=== PATIENT | male | born 1965 ===

== ENCOUNTER 2016-04-08 13:15 | Inpatient (IN) ==
[2016-04-08] MEDS ORDERED: SODIUM CHLORIDE 0.9% 1,000 ML IV STA (13:32)
[2016-04-08] MEDS ORDERED: VANCOMYCIN INJ 1,000 MG in SODIUM CHLORIDE 0.9% 250 ML IV STA (13:35)
--- NOTE | 2016-04-08 13:43 | Emergency Department Note ---
Chidi Yuen Brittany, am scribing for, and in the presence of, Trino Art MD 13: 37. Kaelyn Yuen James D, MD, personally performed the services described in this documentation, ascribed by Yajaira Murillo in my presence, and it is both accurate and complete [id number] . Arrival - Arrival Chief Complaint: Shortness of Breath ED Nursing Triage Note: Transfer from [facility] ER for further evaluation of shortness of breath and renal failure. Elevated Bun/Creat. Also c/ o abscess to scrotum. +back pain. Mode of Arrival: Stretcher Limitations: No Limitations Source: Patient, EMS, Old Records Reviewed, RN Notes Reviewed - History of Present Illness HPI Narrative: This is a 50 y/o [place] male, who presents to the ED by EMS with c/o SOB which started earlier today. Pt was transferred from [facility] ER for further evaluation of SOB and renal failure. He states he has been "sick" for the past week. He was originally seen for back pain and an abscess to the scrotum. According to his labs which were drawn at [facility] he had an elvated BUN/Creat. Pt has no other complaints/pain in the ED at this time. Pt has a PMHx of HTN and CVA. Pt has had a cardiac cath and neurological surgery. Pt denies a family medical Hx. Pt denies a social Hx. Patient received clindamycin and Levaquin IV prior to transfer from [facility]. Gr catheter was placed at [facility] and patient has not had any urine output since placement of Gr catheter. He received 1-1 /2 L during his stay at [facility] and in the helicopter on the way to [place]. Onset (ago): hour(s) (Started earlier today) Consistency: constant Severity: moderate Allergies/Adverse Reactions: Allergies Allergy/AdvReac Type Severity Reaction Status Date / Time No Known Allergies Allergy Verified 01/04/16 14:01 Home Medications: Home Medications Medication Instructions Recorded Confirmed Type Carvedilol [Coreg] 12.5 mg PO BID #60 tablet 01/06/16 01/06/16 Rx Gabapentin Cap/Tab [Neurontin 600 mg PO TID #90 tablet 01/06/16 01/06/16 Rx Cap/Tab] HYDROcodone/ACETAMIN 10-325 [[place] 1 tablet PO Q4H #40 tablet 01/06/16 01/06/16 Rx 10-325] Lisinopril [Prinivil] 10 mg PO DAILY #30 tablet 01/06/16 01/06/16 Rx Potassium Chloride Cap/Tab [K Dur] 20 meq PO DAILY #30 tablet 01/06/16 01/06/16 Rx Review of System - Review of System 12 point system: reviewed and no additional remarkable complaints except as stated - Review of System Cardiovascular: Present: other (Dyspnea) Genitourinary male: Present: other (Abscess to scrotum) Medical,Surgical,& Family Hx - Medical History Cardio: History of: Hypertension Neurology: History of: Cerebrovascular Accident (possible per old chart) Musculoskeletal: History of: Back/Neck Problems - Surgical History Cardiac Surgeries: Sugical HX of: Cardiac Surgery (pfo repair as ) Neurologic Surgeries: Surgical HX of: Neurologic Surgery (back surgeries) - Social History Smoking Status: Smoker, status unknown Frequency of Alcohol Use: None Type of Drug Use: None Exam Vital Signs: Vital Signs Temperature 98.4 F 04/08/16 13:20 Pulse Rate 106 H 04/08/16 13:20 Respiratory Rate 26 H 04/08/16 13:20 Blood Pressure 84/44 04/08/16 13:20 O2 Sat by Pulse Oximetry 95 04/08/16 13:20 GENERAL: This is a acutely ill-appearing male in no apparent distress. VITAL SIGNS: Reviewed HEENT: Head is atraumatic and normocephalic. Pupils are equal round react to light. Extraocular movements are intact. Oropharynx is benign with moist mucous membranes. NECK: Neck is soft and supple without tenderness. There are no masses. There is no lymphadenopathy. LUNGS: Lungs are clear to auscultation. Chest rises symmetrically. There is no chest wall tenderness. CV: Heart is regular rate and rhythm without murmurs rubs or gallops. ABDOMEN: Abdomen is soft, tender to palpation the right upper quadrant with positive Echeverria sign. There are no abdominal abnormal masses palpated. There is no organomegaly. Bowel sounds are present and active. Genitalia: Normal circumcised male with testes descended bilaterally. There is a superficial abscess on the left hemiscrotum posteriorly. There is no tenderness to palpation between the scrotum and anus. There is no crepitus. SKIN: Skin is warm and dry. No rash. EXTREMITIES: Patient has full range of motion without tenderness. There is no pedal edema. NEUROLOGIC: Awake alert and oriented 4. Cranial nerves II through XII are grossly intact. Motor is 5 over 5 in all extremities bilaterally. Course Course Narrative: Patient was given 1 dose of vancomycin to complement Cleocin and Levaquin which had already been given. Suspect the patient has acute cholecystitis and common bile duct obstruction with resulting sepsis and renal failure. - Consultations Consultation #1: Discussed with hospitalist. Patient will be admitted to their service in the ICU. Time: 14: Consultation #2: Discussed with Dr. Bear. Patient will have dialysis access catheter placed. Time: 14:40 Consultation #3: Discussed with Dr. Bernabe. She will be dialyzed today. Time: 14:40 Procedures - Intubation Time out performed: Yes sedative: Etomidate Mg Given: 20 paralytic: Vecuronium Mg Given: 20 Laryngoscope: fiber optic video scope ET Tube Size: 7.5 ET Tube Uncuffed: No Tube Secured Depth (cm): 23 Tube Secured Location: teeth Tube Placement Confirmation: visualized tube passing through cords, equal breath sounds bilaterally, no breath sounds over epigastrium, confirmation detector color change Patient Tolerated Procedure: well Intubation Complications: none Results - Labs CBC & BMP: 04/08/16 13:37 04/08/16 13:37 Lab Results: I have reviewed the patients labs Labs: Lab performed at [facility] and reviewed by me: CBC: WBCs 11,200, hemoglobin 15.1, hematocrit 46.0, platelet count 220,000 CMP: Sodium 134, potassium 2.9, chloride 102, CO2 8, BUN 32, creatinine 12.1, S1 53, total bilirubin 0.5, total protein 8.3, alk phos 147, AST 15, ALT 39 Laboratory Tests 04/08/16 04/08/16 04/08/16 13:37 13:37 13:37 WBC 13.8 H Hgb 14.5 Hct 46.1 Plt Count 215 ABG pH ABG pCO2 ABG pO2 ABG HCO3 ABG Total CO2 ABG O2 Saturation ABG Base Excess FiO2 Sodium 137 Potassium 5.0 Chloride 111 H Carbon Dioxide 6 L Anion Gap 25.0 H BUN 32 H Creatinine 11.70 H GFR Calculation 5 BUN/Creatinine Ratio 2.00 L Glucose 141 H Hemoglobin A1c 7.4 H Calculated Osmolality 281.8 Lactic Acid Calcium 7.1 L b-Hydroxybutyric mmol/L 04/08/16 04/08/16 04/08/16 13:37 13:37 14:10 WBC Hgb Hct Plt Count ABG pH 7.011 L* ABG pCO2 17.6 L* ABG pO2 107.0 H ABG HCO3 7.1 L ABG Total CO2 4.2 L ABG O2 Saturation 97.1 ABG Base Excess -27.2 L FiO2 24.00 Sodium Potassium Chloride Carbon Dioxide Anion Gap BUN Creatinine GFR Calculation BUN/Creatinine Ratio Glucose Hemoglobin A1c Calculated Osmolality Lactic Acid 1.1 Calcium b-Hydroxybutyric mmol/L 0.1 - EKG EKG results: interpreted by ERMD - Impressions Sinus tachycardia with rate of 110, right bundle branch block, left anterior fascicular block, left axis deviation, bundle branch block impairs further interpretation. - Diagnostic Findings Procedure: Chest x-ray: image reviewed by me (Minimal increased pulmonary markings bilaterally), CT Abdomen and Pelvis: image reviewed by me (No evidence of gas in the pelvis or subcutaneous tissue. Distended gallbladder.), Ultrasound: report reviewed by me (Abdominal ultrasound: stones in the neck of the gallbladder. Common bile duct is slightly distended. No thickening of the gallbladder wall. No pericholecystic fluid. No evidence of hydronephrosis.) Disposition Clinical Impression: Scrotal abscess, Essential hypertension, Septic shock, Acute renal failure, Diabetes mellitus, RUQ abdominal pain, Cholelithiasis, Suspect cholecystitis, Metabolic acidosis Case discussed with: patient Disposition: Still a Patient Condition: Critical Time of Disposition: 14:15
[2016-04-08 13:51] LABS: Basophils % 0.1 % (0.0-0.8); Hematocrit 46.1 VOL% (42.0-52.0); Hemoglobin 14.5 GM/DL (14.0-18.0); Immature Granulocytes % 1.7 %; Immature Granulocytes Absolute 0.23 #; Lymphocytes # 0.8 10*3/uL (1.4-4.0); Lymphocytes % 5.5 % (21.2-54.2); Mean Corpuscular HGB Conc 31.5 GM/DL (32-36); Mean Corpuscular Hemoglobin 30 PG (27-34); Mean Platelet Volume 9.3 FL (9.6-12.0); Monocytes # 1.2 10*3/uL (0.11-0.8); Monocytes % 8.8 % (1.7-12.7); NRBC # 0.03 10*3/uL; Neutrophils # 11.6 10*3/uL (1.4-7.4); Neutrophils % 83.9 % (38.7-73.9); Platelet Count 215 10*3/uL (130-400); Red Cell Distribution Width 14.2 % (9.3-17.3); White Blood Count 13.8 10*3/uL (4.5-13.71)
--- NOTE | 2016-04-08 14:01 | EKG Report ---
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
--- NOTE | 2016-04-08 14:02 | XRay Report ---
History is short of breath Comparison 04/08/2016 The heart is normal in size. The patient is rotated. There is right hilar fullness some which is present on the prior study dating back to 2009 accentuated by rotation. There is also accentuation by the discoid atelectasis in the right base additional reticulonodular and hazy infiltrate the right perihilar region and lung base. There is mild elevation right diaphragm And minimal patchy and stranding infiltrate/atelectasis in the left base is now present as well. Clips in the neck present. Chronic changes in the right rib cage again noted Impression: 1. Increasing right greater than left basilar infiltrates/atelectasis. Short-term followup chest x-ray necessary to ensure a return to baseline PROCEDURE INTERPRETED AT [facility] DEPARTMENT OF RADIOLOGY Final Report Signed by: Dr. Naz Recinos
[2016-04-08] MEDS ORDERED: VANCOMYCIN 1,000 MG VIAL ONE (14:05)
[2016-04-08] MEDS ORDERED: SODIUM CHLORIDE 0.9% 250 ML IV ONE ×2 (14:06→18:40)
[2016-04-08 14:07] LABS: Calcium 7.1 MG/DL (8.5-10.1); Osmolality,Calculated 281.8 MOS/KG (273-304)
--- NOTE | 2016-04-08 14:15 | CT Report ---
History is perineal abscess Comparison 06/20/2009 Calcified hilar nodes again seen. There has been development of the patchy stranding and reticular infiltrate/atelectasis in both lung bases with some mildly more with infiltrate or atelectasis in the right lung base. Small hernia present There is mild distention of the gallbladder. There is a 3 mm calculus at the lower pole left kidney. No secondary signs of acute ureteral obstruction seen. Less than one CM retroperitoneal nodes again seen. Very minimal stranding in the retroperitoneal fat is nonspecific. Bowel is unopacified 2 fluid-filled loops of small bowel measure up to 2.3 CM. Pelvis: No free fluid or focal inflammatory changes seen. Nonspecific less than one CM bilateral inguinal nodes present. The entire perineum is not imaged however no discrete focal inflammatory changes or soft tissue gas seen. There is partial ankylosis of the left SI joint Impression: 1. Bilateral basilar infiltrates and atelectasis 2. Nonspecific gallbladder distention 3. Left nephrolithiasis PROCEDURE INTERPRETED AT [facility] DEPARTMENT OF RADIOLOGY Final Report Signed by: Dr. Naz Recinos
[2016-04-08 14:18] LABS: Allen Test Positive
[2016-04-08 14:20] LABS: ABG Base Excess -27.2 MMOL/L (-2.5-2.5); ABG HCO3 7.1 MMOL/L (20-26); ABG Oxygen Saturation 97.1 % (95-100); ABG TCO2 4.2 MMOL/L (23-27)
[2016-04-08 14:22] LABS: ABG PCO2 17.6 MM HG (35-48); ABG PH 7.011 (7.35-7.45)
[2016-04-08] MEDS ORDERED: SODIUM BICARBONATE 50 MEQ/50 ML VIAL IV STA (14:22)
[2016-04-08] MEDS ORDERED: ETOMIDATE 20 MG/10 ML VIAL IV ONE (14:33)
[2016-04-08] MEDS ORDERED: VECURONIUM 10 MG VIAL IV ONE ×2 (14:34→14:45)
[2016-04-08] MEDS ORDERED: SODIUM BICARBONATE 50 MEQ/50 ML VIAL IV ONE ×2 (14:34→18:39)
[2016-04-08] MEDS ORDERED: VECURONIUM 10 MG VIAL IV STA ×2 (14:44→14:47)
[2016-04-08] MEDS ORDERED: ETOMIDATE 20 MG/10 ML VIAL IV STA (14:45)
--- NOTE | 2016-04-08 14:58 | Ultrasound Report ---
Exam: US abdomen Date:04/08/2016 1:45 PM Indication: Abdominal pain right upper quadrant Comparison: None Findings: Liver: Liver is grossly 15.2 cm. The hepatic and portal veins are patent. Inhomogeneity present within the liver. Gallbladder: Gallbladder is distended measuring 10.1 x 5 cm. The anterior wall is 3.9 mm with the multiple stones present. CBD: 10.1 mm with suggestion of a possible stone in the common bile duct. Pancreas: Poorly visualized. Kidneys Right kidney: 10.6 x 4.7 x 5.2 cm. No hydronephrosis or perinephric fluid collections or focal mass Left kidney: 11.6 x 6 x 7 cm. There is no hydronephrosis or perinephric fluid collections or focal mass Aorta IVC: No obvious aneurysm. The aortic vessel and IVC as imaged are patent without obvious abnormality Spleen: 9 by 4 x 4 centimeters without focal abnormalities. Impression: 1. Cholelithiasis with multiple stones present and component hydrops the gallbladder. 2. Distended CBD measures 10.1 mm with suggestion of the choledocholithiasis.. No intrahepatic bile duct dilatation however clearly seen at this time. 3. Pancreas is visualized however 4. Mild inhomogeneity within the liver ERCP and/or MRCP may be beneficial. Critical test report called to Richard Art MD Ultrasound images were stored and captured The Ultrasound images were captured and stored. PROCEDURE INTERPRETED AT [facility] DEPARTMENT OF RADIOLOGY Final Report Signed by: Dr. Juice Molina
[2016-04-08] MEDS ORDERED: MIDAZOLAM 10 MG/2 ML VIAL ONE (15:06)
--- NOTE | 2016-04-08 15:10 | Nephrology Consult Note ---
History of Present Illness Chief complaint: Acute renal failure History of present illness: Mr. Pace is a 50 year old male with history of hypertension and diabetes who was hospitalized last year for left-sided weakness that involved workup as well as consultation with neurology. Patient has CT of his head at that time that showed no acute changes but there was concern that there will might need neurosurgical indications for some of the weakness that the patient experiencing. The patient presented today from outside facility we shortness of breath and evidence of acute renal failure creatinine up to 11. Back in December patient had creatinine of 1.6. There is no streaking of end-stage use. Patient does use an MARYSOL inhibitor. At present he is intubated and has severe metabolic acidosis. Accuracy Expert been consult for acute renal failure. There is been no urine output since his evaluation in the emergency room. Again creatinine is noted to be 11. We'll operations for urgent hemodialysis for this patient. Moreover, patient has evidence of cholecystitis and surgery has also been consulted for further evaluation. Home Medications Medication Instructions Recorded Confirmed Type Carvedilol [Coreg] 12.5 mg PO BID #60 tablet 01/06/16 01/06/16 Rx Gabapentin Cap/Tab [Neurontin 600 mg PO TID #90 tablet 01/06/16 01/06/16 Rx Cap/Tab] HYDROcodone/ACETAMIN 10-325 [[place] 1 tablet PO Q4H #40 tablet 01/06/16 01/06/16 Rx 10-325] Lisinopril [Prinivil] 10 mg PO DAILY #30 tablet 01/06/16 01/06/16 Rx Potassium Chloride Cap/Tab [K Dur] 20 meq PO DAILY #30 tablet 01/06/16 01/06/16 Rx Allergies Allergy/AdvReac Type Severity Reaction Status Date / Time No Known Allergies Allergy Verified 01/04/16 14:01 Medical,Surgical,& Family Hx - Medical History Cardio: History of: Hypertension Neurology: History of: Cerebrovascular Accident (possible per old chart) Musculoskeletal: History of: Back/Neck Problems - Surgical History Cardiac Surgeries: Sugical HX of: Cardiac Surgery (pfo repair as infant) Neurologic Surgeries: Surgical HX of: Neurologic Surgery (back surgeries) Orthopedic Surgeries: Surgical HX of;: Spinal Surgery - Social History Smoking Status: Smoker, status unknown Frequency of Alcohol Use: None Type of Drug Use: None Review of Systems ROS unobtainable: due to endotracheal tube Exam - Vital Signs Vital signs: Period Temp Pulse Resp BP Sys/Mishra Pulse Ox Last 24 Hr 98.4 F 106 26 84/44 95 - General Appearance General appearance: well-developed, sedated on ventilator, intubated EENT: ATNC Neck: supple Respiratory: rales Cardiology: no edema, regular rate, regular rhythm Gastrointestinal: normoactive bowel sounds, no tenderness Neurologic: obtunded Results - Labs CBC & BMP: 04/08/16 13:37 04/08/16 13:37 Assessment and Plan (1) Respiratory failure Status: Acute Current Visit: Yes (2) Acute renal failure Status: Acute Assessment and plan: Making arrangement for renal failure Hepatitis panel Current Visit: Yes (3) Diabetes mellitus Status: Chronic Current Visit: Yes Qualifiers: Diabetes mellitus type: type 2 Diabetes mellitus complication status: with kidney complications (4) Essential hypertension Status: Chronic Current Visit: Yes (5) Remote history of stroke Status: Chronic Current Visit: No
[2016-04-08] MEDS ORDERED: MIDAZOLAM 2 MG/2 ML VIAL IV STA (15:12)
[2016-04-08] MEDS ORDERED: MIDAZOLAM 2 MG/2 ML VIAL ONE (15:14)
--- NOTE | 2016-04-08 15:35 | XRay Report ---
Referring Physician: Trino Art Exam: XR chest 1V portable Date: April 08, 2016 at 2:40 PM Reason: Post intubation Comparison: Chest one view portable April 08, 2016 at 1:55 PM Findings: An endotracheal tube is in place with its distal tip at the level of the giovana, directed towards right mainstem bronchus. The cardiac silhouette is normal in size for the portable technique. There are scattered opacities within both lower lung zones, mainly in the right infrahilar region. This is concerning for atelectasis, but superimposed pneumonia is not excluded. No pneumothorax or pleural effusion is identified. The osseous structures appear stable with note made of a remote fracture of the sixth rib. There are also surgical clips at the neck. Impression: 1. The distal tip of the endotracheal tube is at the level of the giovana, directed towards right mainstem bronchus. Retraction is recommended. 2. There are scattered opacities within both lower lung zones. This likely represents atelectasis, but there could also be pneumonia. Followup is recommended to confirm resolution. Exam: XR chest 1V portable Date: April 08, 2016 at 2:47 PM Comparison: Chest one view portable April 08, 2016 at 2:40 PM Reason: Reposition of endotracheal tube Findings: The distal tip of the endotracheal tube is now located at the level of the aortic arch, approximately 3 cm above the giovana. The cardiac silhouette is normal in size. There are scattered opacities again within both lower lung zones. This likely represents atelectasis, but superimposed pneumonia is not excluded, especially in the right infrahilar region. Followup is recommended to confirm resolution. No pneumothorax or pleural effusion is identified. The osseous structures appear stable. Impression: The distal tip of the endotracheal tube is now at the level of the aortic arch, approximately 3 cm above the giovana. The study is otherwise similar to before. PROCEDURE INTERPRETED AT [facility] DEPARTMENT OF RADIOLOGY Final Report Signed by: Dr. Arash Anderson
[2016-04-08] MEDS: MIDAZOLAM 100 MG in SODIUM CHLORIDE 0.9% 80 ML IV SCH (16:01)
--- NOTE | 2016-04-08 16:01 | Hospitalist History & Physical ---
<Madeleine Michele N - Last Filed: 04/08/16 15:57> Assessment and Plan - Time spent with patient Time spent with patient: Greater than 30 minutes (due to assessment, plan and documentation) (1) Acute renal failure Status: Acute Assessment and plan: nephrology managing, emergent dialysis Current Visit: Yes (2) Cholelithiasis Status: Acute Assessment and plan: surgery consulted Current Visit: Yes (3) Metabolic acidosis Status: Acute Assessment and plan: Dr. Batista to manage orders, further plan and addendum to follow per Dr. Batista Current Visit: Yes (4) Respiratory failure Status: Acute Assessment and plan: intubated in ICU Current Visit: Yes History of Present Illness History of present illness: Mr. Pace is a 50 year old male who presents from the OSH today with shortness of breath and severe metabolic acidosis. He also presents with acute renal failure. Pt is in respiratory distress and required intubation in the ER. ROS discussed with ER MD. He states he had been having n/v/d for three days, decreased PO intake, did complain of RUQ pain. Pt is found to have acute cholycystitis as well, surgery has been consulted. Dr. Bernabe with nephrology is seeing him for his acute renal failure and has initiated procedures to have him emergently dialized. Pt has a PMH of DM and HTN and left sided stroke workup in the past. PSH unobtainable. He does not smoke. Home Medications Medication Instructions Recorded Confirmed Type Carvedilol [Coreg] 12.5 mg PO BID #60 tablet 01/06/16 01/06/16 Rx Gabapentin Cap/Tab [Neurontin 600 mg PO TID #90 tablet 01/06/16 01/06/16 Rx Cap/Tab] HYDROcodone/ACETAMIN 10-325 [[place] 1 tablet PO Q4H #40 tablet 01/06/16 01/06/16 Rx 10-325] Lisinopril [Prinivil] 10 mg PO DAILY #30 tablet 01/06/16 01/06/16 Rx Potassium Chloride Cap/Tab [K Dur] 20 meq PO DAILY #30 tablet 01/06/16 01/06/16 Rx Allergies Allergy/AdvReac Type Severity Reaction Status Date / Time No Known Allergies Allergy Verified 01/04/16 14:01 Medical,Surgical,& Family Hx - Medical History Cardio: History of: Hypertension Neurology: History of: Cerebrovascular Accident (possible per old chart) Musculoskeletal: History of: Back/Neck Problems - Surgical History Cardiac Surgeries: Sugical HX of: Cardiac Surgery (pfo repair as infant) Neurologic Surgeries: Surgical HX of: Neurologic Surgery (back surgeries) Orthopedic Surgeries: Surgical HX of;: Spinal Surgery - Social History Smoking Status: Smoker, status unknown Frequency of Alcohol Use: None Type of Drug Use: None ROS unobtainable: due to endotracheal tube Exam - Constitutional General appearance: severe distress - Head Head exam: Present: normal inspection, normocephalic - Eye Eye exam: Present: EOMI. Absent: scleral icterus Pupils: Present: NAA, normal accommodation - ENT ENT exam: Present: normal exam, normal oropharynx - Neck Neck exam: Present: normal inspection. Absent: lymphadenopathy - Respiratory Respiratory exam: Present: accessory muscle use, decreased breath sounds, prolonged expiratory phase, wheezes - Cardiovascular Cardiovascular exam: Present: regular rate and rhythm, tachycardia - GI/Abdominal GI/Abdominal exam: Present: normal bowel sounds, soft. Absent: tenderness - Extremities Exam Extremities exam: Present: normal inspection, full ROM. Absent: edema - Back Exam Back exam: Present: normal inspection. Absent: muscle spasm - Neurological Exam Neurological exam: Present: alert, oriented X3 - Psychiatric Psychiatric exam: Present: anxious - Skin Skin exam: Present: warm, dry Results - Labs CBC & BMP: 04/08/16 13:37 04/08/16 13:37 Lab Results: I have reviewed the past 24 hour labs <Guanaco Batista - Last Filed: 04/08/16 19:32> History of Present Illness Chief complaint: sob & severe metabolic acidosis/transfer from OSH History of present illness: I have reviewed the H&P, ROS, assessment and plan by Joseph and agree with it except where noted. I have examined the patient in person. Mr. Pace is a 50 year old male from outside facility OSH transferred for apparent shortness of breath and severe metabolic acidosis after initial workup done at that facility. Patient was ET intubated in the ER and initial workup revealed pH of 7.0. ROS was unobtainable because of the patient get a medical status. No family members were present at the time. O/E Gen: pt intubated on MV, heart distant s1s2, Lung coarse BS, abd soft BS present, Ext no cyanosis, trace edema. HEENT PERRL. Neuro limited. PERRL. - severe sepsis - cholilithiasis/CBD dilatation/possible acute cholecystitis - Severe acute kidney injury - Acute respiratory failure - Acute encephalopathy - Severe metabolic acidosis - Left nephrolithiasis - Bilateral bibasilar infiltrate and atelectasis - dvt ppx P: Surgery service and nephrology service consulted and informed by the ER, hemodialysis MAXIMO after hemodialysis catheter placement, bicarbonate ampules given, IV fluid, needed pressors, sepsis workup, periodic ABG chest x-ray, consult sales service promoter, will consult GI, weaning of mechanical ventilation as possible/ BDTx, check cardiac enzymes/EKG plan for NGT/TF when possible., posada cath and check I/O. review records Exam - Constitutional Vitals: Period Temp Pulse Resp BP Sys/Mishra Pulse Ox Last 24 Hr 97.6 F 114-118 14-20 69-89/38-54 96-99 Results - Labs CBC & BMP: 04/08/16 13:37 04/08/16 13:37
[2016-04-08 16:37] LABS: Hepatitis A Ab IgM Quant 0.08 Index; Hepatitis A Ab IgM Result Negative (Negative); Hepatitis B Core IgM Quant 0.17 Index; Hepatitis B Core IgM Result Negative (Negative); Hepatitis B Surface Ag Quant < 0.10 Index; Hepatitis B Surface Ag Result Negative (Negative); Hepatitis C Virus Ab Quant 0.05 Index; Hepatitis C Virus Ab Result Negative (Negative)
--- NOTE | 2016-04-08 17:12 | General Surgery Consult Note ---
Assessment and Plan (1) Acute renal failure Status: Acute Assessment and plan: Dialysis catheter placement will be achieved with emergent consent due to the emergent nature of the patient's current situation. The patient will be started on hemodialysis. This is for acidosis. Current Visit: Yes (2) Cholelithiasis Status: Acute Assessment and plan: Although the patient has concerning imaging features, his lab work is fairly unrevealing and apparently he was never complaining of any abdominal pain prior to intubation. I would prefer to evaluate this more fully with a HIDA scan rather than submitting him to a cholecystostomy tube. His lactic acid was normal on admission and I think his hemodynamic instability can be explained by his renal failure with severe acidosis. The patient is currently requiring pressors but I would like to get a HIDA scan and see what happens as his renal replacement therapy is initiated to see if he really does need a HIDA scan or if this is just an imaging finding without clinical problems. He does also have a dilated bile duct but his bilirubin is normal and his alkaline phosphatase is only minimally elevated. We will trend this prior to consulting gastroenterology. Current Visit: Yes History of Present Illness Chief complaint: right groin pain History of present illness: Mr. Pace is a 50 year old male who presented to an outside facility with complaints of pain in his right scrotum and groin. He was transferred [facility] after he was found to be in renal failure. He was severely acidotic and unable to keep up with his increased compensatory ventilation and had to be intubated for respiratory distress. He was admitted to the ICU and I was consult at for severe acidosis as an indication for emergent hemodialysis. In addition, the patient was evaluated with abdominal CT scan and ultrasound which showed potential hydrops of the gallbladder and dilation of the bile duct. However, his alkaline phosphatase was minimally elevated and the remainder of his LFTs were normal and the patient was never complaining of any abdominal pain. Home Medications Medication Instructions Recorded Confirmed Type Carvedilol [Coreg] 12.5 mg PO BID #60 tablet 01/06/16 01/06/16 Rx Gabapentin Cap/Tab [Neurontin 600 mg PO TID #90 tablet 01/06/16 01/06/16 Rx Cap/Tab] HYDROcodone/ACETAMIN 10-325 [[place] 1 tablet PO Q4H #40 tablet 01/06/16 01/06/16 Rx 10-325] Lisinopril [Prinivil] 10 mg PO DAILY #30 tablet 01/06/16 01/06/16 Rx Potassium Chloride Cap/Tab [K Dur] 20 meq PO DAILY #30 tablet 01/06/16 01/06/16 Rx Allergies Allergy/AdvReac Type Severity Reaction Status Date / Time No Known Allergies Allergy Verified 01/04/16 14:01 Medical,Surgical,& Family Hx - Medical History Cardio: History of: Hypertension Neurology: History of: Cerebrovascular Accident (possible per old chart) Musculoskeletal: History of: Back/Neck Problems - Surgical History Cardiac Surgeries: Sugical HX of: Cardiac Surgery (pfo repair as ) Neurologic Surgeries: Surgical HX of: Neurologic Surgery (back surgeries) Orthopedic Surgeries: Surgical HX of;: Spinal Surgery - Social History Smoking Status: Smoker, status unknown Frequency of Alcohol Use: None Type of Drug Use: None - Constitutional Constitutional: Present: as per HPI - EENT Nose, mouth and throat: Present: as per HPI - Cardiovascular Cardiovascular: Present: as per HPI - Respiratory Respiratory: Present: as per HPI - Gastrointestinal Gastrointestinal: Present: as per HPI - Genitourinary Genitourinary: Present: as per HPI - Musculoskeletal Musculoskeletal: Present: as per HPI - Neurological Neurological: Present: as per HPI - Endocrine Endocrine: Present: as per HPI Hematologic/Lymphatic: Present: as per HPI Exam - Constitutional Vitals: Period Temp Pulse Resp BP Sys/Mishra Pulse Ox Last 24 Hr 118 18 84/45 98 General appearance: severe distress, over weight - Head Head exam: Present: normal inspection - Eye Eye exam: Absent: scleral icterus - ENT ENT exam: Present: normal exam Mouth exam: Present: normal external inspection - Neck Neck exam: Present: normal inspection, trachea midline - Respiratory Respiratory exam: Present: rales, rhonchi. Absent: accessory muscle use - Cardiovascular Cardiovascular exam: Present: tachycardia. Absent: irregular rhythm, systolic murmur - GI/Abdominal GI/Abdominal exam: Present: normal bowel sounds, soft. Absent: distended, tenderness, rebound - Extremities Exam Extremities exam: Present: normal inspection, normal capillary refill - Back Exam Back exam: Present: normal inspection - Skin Skin exam: Present: other (there is an abscess in the right scrotum that doesn' t involve the testicle. It appears to be a superficial scrotal abscess. It was drained at the bedside and culture.) Results - Labs CBC & BMP: 04/09/16 04:30 04/09/16 04:30
[2016-04-08 17:19] LABS: Albumin 3.7 G/DL (3.4-5.0); Bilirubin,Direct 0.1 MG/DL (0.0-0.20); Bilirubin,Indirect 0.4 MG/DL (0.0-1.0); Bilirubin,Total 0.5 MG/DL (0.2-1.0); Total Protein 7.6 G/DL (6.4-8.3)
[2016-04-08] MEDS ORDERED: ALBUTEROL/IPRATROPIUM 3 ML NEB RESP TX PRN (17:31)
[2016-04-08] MEDS ORDERED: ALBUTEROL 2.5 MG/3 ML NEB RESP TX PRN (17:31)
[2016-04-08] MEDS ORDERED: ONDANSETRON 4 MG/2 ML VIAL IV PRN (17:31)
[2016-04-08] MEDS ORDERED: NOREPINEPHRINE 4 MG/4 ML VIAL IV ONE ×2 (18:15)
[2016-04-08 18:28] LABS: INR 1.1; PT Patient Result 11.3 SECS
[2016-04-08] MEDS ORDERED: NOREPINEPHRINE 16 MG in SODIUM CHLORIDE 0.9% 234 ML IV SCH (18:30)
[2016-04-08] MEDS: PANTOPRAZOLE 40 MG VIAL IV SCH (18:32)
--- NOTE | 2016-04-08 18:32 | XRay Report ---
Exam: XR chest 1V portable Date: 04/08/2016 5:10 PM Indication: Dialysis catheter placement Comparison: 04/08/2016 at 2:50 PM Technical:AP semierect portable Findings: Endotracheal tube is at the level mid clavicle. A right-sided IJ catheter has been placed distal tip is in the superior vena cava. Low-volume effusions and atelectatic changes are present bilaterally. External cardiac leads are present. No pneumothorax. Previous surgical changes over the neck bilaterally. Impression: 1. Satisfactory is the right IJ catheter with the distal tip in the superior vena cava to right atrial junction 2. Stable appearance of endotracheal tube 3. Persistent low-volume effusions atelectatic change present bilaterally PROCEDURE INTERPRETED AT [facility] DEPARTMENT OF RADIOLOGY Final Report Signed by: Dr. Juice Molina
[2016-04-08] MEDS: PIPERACILLIN/TAZOBACTAM 3,375 MG in SODIUM CHLORIDE 0.9% 100 ML IV SCH (18:33)
[2016-04-08] MEDS: SODIUM CHLORIDE 0.9% 1,000 ML IV SCH ×2 (18:33→19:15)
[2016-04-08 18:37] LABS: ABG Base Excess -23.3 MMOL/L (-2.5-2.5); ABG HCO3 7.9 MMOL/L (20-26); ABG Oxygen Saturation 86.4 % (95-100); ABG PCO2 35.5 MM HG (35-48); Allen Test Negative; Pt O2 Delivery Device Ventilator
[2016-04-08 18:39] LABS: ABG PH 6.967 (7.35-7.45)
[2016-04-08] MEDS ORDERED: CALCIUM GLUCONATE 1,000 MG in SODIUM CHLORIDE 0.9% 100 ML IV ONE (18:40)
[2016-04-08 18:41] LABS: Lactic Acid 0.7 MMOL/L (0.4-2.0)
[2016-04-08] MEDS: NOREPINEPHRINE 8 MG in SODIUM CHLORIDE 0.9% 242 ML IV SCH (18:56)
--- NOTE | 2016-04-08 20:05 | Pulmonology Consult Note ---
History of Present Illness Chief complaint: Respiratory failure. Acute renal failure. History of present illness: Mr. Pace is a 50 year old male whom I been asked to see in pulmonary consultation for evaluation and treatment and management of mechanical ventilation. This patient was transferred from an outside hospital where he presented with shortness of breath and severe metabolic acidosis. He also had acute renal failure. He was in respiratory distress and required intubation in the emergency room. Patient told the emergency room doctor he been having nausea and vomiting and diarrhea for 3 days. He had a decreased oral intake of fluid and food. He was complained of right upper quadrant pain. He was found to have acute cholecystitis. He is hypotensive and he is on pressor agents. Patient's NG tube yielding material that looks like acute vomitus. Patient is sedated and his review of systems was obtained from his other medical records. As best I can tell the remainder the review of systems is negative. Allergies. None known Home medicines. See below Past history high blood pressure. History of a CVA. History of back and neck problems. He had heart surgery as an . He has had back surgery. Social history. Unable to obtain. Family history. Unable to obtain. Chest x-ray. Bilateral pleural effusions. ABGs. FiO2 60%. Mechanical ventilation. PH 6.967. PCO2 35.5. PO2 58. Bicarb 7.9. Lab. White count is 13,800 with 84% segs. H&H is 14.5/46.1. Platelets of 215, 000. Serum potassium and chloride are normal. Creatinine is 11.7. BUN is 32. Glucose is 141. Hemoglobin A1c is 7.4. Lactic acid level is normal. Calcium is low at 7.1. Liver function test showed normal transaminases. There is a mild elevation of alkaline phosphate 147. Total bilirubin is 0.50. Ammonia levels elevated 54. Troponins are 0.141. Natruretic peptide is 243. Total protein and albumin are normal. Lipase is elevated 876. Hepatitis profile was negative. The remainder of the lab is pending. Vital signs. See below. Patient is on Levophed to support his blood pressure Sclera appears normal face is symmetrical. Salivary glands normal lips and tongue appear to be normal neck is symmetrical with no masses no meningismus Chest is clear. Heart is regular at 140 bpm Abdomen. Hard to examine. He has guarding in the right upper quadrant. Lower extremities. Nothing to suggest deep venous thrombophlebitis A good neurological exam is impossible. The remainder the physical exam is negative. Impression. 1. Nausea vomiting diarrhea etiology undetermined. Possibly related to gallbladder disease. Consider other causes. Resultant dehydration 2. Hypotension. Partially secondary to #1. Consider sepsis. 3. Acute cholecystitis. 4. Acute renal failure. Probably secondary to #1 and #2. 4.1. Acute metabolic acidosis probably secondary to acute renal failure and possibly secondary to sepsis 5. Diabetes mellitus 6. Heart surgery as an 7. History of back surgery 8. High blood pressure 9. Possible history of CVA 10. Acute pancreatitis. 11. Bilateral pleural effusions 12. Acute pulmonary failure. At least partially secondary to acute renal failure and hypotension requiring pressor agents, with severe metabolic acidosis. Consider other causes there may be other factors such as underlying lung disease and/or pulmonary emboli 13. See past history Plan. 1. Continue high rate of fluids. Bicarb added. Continue pressor agents 2. Ventilator adjustments made. 3. Weaning protocol 4. Physical therapy while on ventilator protocol 5. Doppler venograms of lower extremities. 6. Daily chest x-ray 7. Daily ABGs 8. If the patient is stable he will be evaluated with fiberoptic bronchoscopy in the morning. Based on endotracheal return it appears that he has aspirated. 9. Follow-up ABGs tonight 10. Deep venous thrombophlebitis prevention protocol 11. See orders. Home Medications Medication Instructions Recorded Confirmed Type Carvedilol [Coreg] 12.5 mg PO BID #60 tablet 01/06/16 01/06/16 Rx Gabapentin Cap/Tab [Neurontin 600 mg PO TID #90 tablet 01/06/16 01/06/16 Rx Cap/Tab] HYDROcodone/ACETAMIN 10-325 [[place] 1 tablet PO Q4H #40 tablet 01/06/16 01/06/16 Rx 10-325] Lisinopril [Prinivil] 10 mg PO DAILY #30 tablet 01/06/16 01/06/16 Rx Potassium Chloride Cap/Tab [K Dur] 20 meq PO DAILY #30 tablet 01/06/16 01/06/16 Rx Allergies Allergy/AdvReac Type Severity Reaction Status Date / Time No Known Allergies Allergy Verified 01/04/16 14:01 Exam (Pulmonay) H&P - Constitutional Vitals: Period Temp Pulse Resp BP Sys/Mishra Pulse Ox Last 24 Hr 97.6 F 114-118 14-20 69-89/38-54 96-99 Medical,Surgical,& Family Hx - Medical History Cardio: History of: Hypertension Neurology: History of: Cerebrovascular Accident (possible per old chart) Musculoskeletal: History of: Back/Neck Problems - Surgical History Cardiac Surgeries: Sugical HX of: Cardiac Surgery (pfo repair as infant) Neurologic Surgeries: Surgical HX of: Neurologic Surgery (back surgeries) Orthopedic Surgeries: Surgical HX of;: Spinal Surgery - Social History Smoking Status: Smoker, status unknown Frequency of Alcohol Use: None Type of Drug Use: None Results - Labs CBC & BMP: 04/08/16 13:37 04/08/16 13:37
[2016-04-08 20:16] LABS: ABG Base Excess -12.7 MMOL/L (-2.5-2.5); ABG HCO3 14.5 MMOL/L (20-26); ABG Oxygen Saturation 90.4 % (95-100); ABG PCO2 37.5 MM HG (35-48); ABG PO2 55.8 MM HG (80-95); ABG TCO2 15.6 MMOL/L (23-27); Allen Test Positive; Pt O2 Delivery Device Ventilator
[2016-04-08 20:19] LABS: ABG PH 7.204 (7.35-7.45)
--- NOTE | 2016-04-08 20:30 | Dialysis Note ---
Dialysis Note - Dialysis Note The patient is seen on dialysis. He is tolerating the procedure. BP is 120/ 73. Continue with current management. Will plan for dialysis on tomorrow.
[2016-04-08] MEDS: SODIUM BICARB INJ 50 MEQ in SODIUM CHLORIDE 0.9% 1,000 ML IV SCH (20:57)
[2016-04-08] MEDS: PROPOFOL 1,000 MG/100 ML BOTTLE IV SCH (23:10)
[2016-04-09] MEDS: SODIUM CHLORIDE 0.9% 1,000 ML IV SCH ×3 (02:23→10:56)
[2016-04-09] MEDS: SODIUM BICARB INJ 50 MEQ in SODIUM CHLORIDE 0.9% 1,000 ML IV SCH ×3 (03:45→19:25)
[2016-04-09 03:58] LABS: Apearance,Urine CLOUDY (Clear); Bacteria,Urine Many /HPF (Few); Bilirubin,Urine Negative (Negative); Blood, Urine Large mg/dL (Negative); Glucose,Urine (UA) 50 mg/dL (Negative); Ketones,Urine 5 mg/dL (Negative); Nitrite,Urine Negative (Negative); Protein,Urine 100 MG/DL; RBC,Urine 1396 /HPF (0-4); Squamous Epithelial Cell,Urine Few /HPF (0-10); Urine Color Amber (Yellow); Urine Specific Gravity 1.019 (1.001-1.035); Urine Urobilinogen < 2.0 EU/DL (0.2-1.0); WBC,Urine 197 /HPF (0-6)
[2016-04-09 04:52] LABS: Basophils % 0.2 % (0.0-0.8); Hematocrit 40.7 VOL% (42.0-52.0); Hemoglobin 12.7 GM/DL (14.0-18.0); Immature Granulocytes % 0.5 %; Immature Granulocytes Absolute 0.04 #; Lymphocytes # 0.5 10*3/uL (1.4-4.0); Lymphocytes % 5.5 % (21.2-54.2); Mean Corpuscular HGB Conc 31.2 GM/DL (32-36); Mean Corpuscular Hemoglobin 31 PG (27-34); Mean Corpuscular Volume 98.1 FL (87-102); Mean Platelet Volume 9.7 FL (9.6-12.0); Monocytes # 1.2 10*3/uL (0.11-0.8); Monocytes % 13.4 % (1.7-12.7); NRBC # 0.02 10*3/uL; Neutrophils # 7.1 10*3/uL (1.4-7.4); Neutrophils % 80.4 % (38.7-73.9); Platelet Count 136 10*3/uL (130-400); Red Blood Count 4.15 10*6/uL (3.8-5.5); Red Cell Distribution Width 14.4 % (9.3-17.3); White Blood Count 8.9 10*3/uL (4.5-13.71)
[2016-04-09] MEDS: PROPOFOL 1,000 MG/100 ML BOTTLE IV SCH ×4 (05:15→22:55)
[2016-04-09 05:19] LABS: Band Neutrophils 3 % (0-10); Hypochromasia Slight; Lymphocytes 5 % (20-55); Platelet Estimate Normal; Segmented Neutrophils 85 % (50-85); Total Cells Counted 100
[2016-04-09 05:27] LABS: ABG Base Excess -13.9 MMOL/L (-2.5-2.5); ABG HCO3 13.9 MMOL/L (20-26); ABG PCO2 22.3 MM HG (35-48); ABG PH 7.304 (7.35-7.45); ABG TCO2 9.9 MMOL/L (23-27); Pt O2 Delivery Device Ventilator
[2016-04-09 05:28] LABS: Albumin 2.6 G/DL (3.4-5.0); Bilirubin,Total 0.6 MG/DL (0.2-1.0); Calcium 6.2 MG/DL (8.5-10.1); Potassium 3.2 MMOL/L (3.5-5.1); Total Protein 5.7 G/DL (6.4-8.3)
[2016-04-09] MEDS: PIPERACILLIN/TAZOBACTAM 3,375 MG in SODIUM CHLORIDE 0.9% 100 ML IV SCH ×2 (06:47→18:02)
--- NOTE | 2016-04-09 06:55 | XRay Report ---
Single view of the chest. Indication: Respiratory failure. Ventilated patient. Comparison: April 08, 2016. The heart is normal in size with left ventricular hypertrophy. Surgical clips are noted in the lower neck. Endotracheal tube and central line are in satisfactory position. Scattered areas of linear atelectasis at the right lung base, with some improvement. Worsening infiltrate at the left mid and lower lung field. Volume loss at the left base. Left-sided pleural effusion. Impression: Mixed findings, with improved aeration at the right base, but worsening infiltrates, particularly in the left midlung field. PROCEDURE INTERPRETED AT [facility] DEPARTMENT OF RADIOLOGY Final Report Signed by: Dr. Shobha Recinos
--- NOTE | 2016-04-09 07:37 | Ultrasound Report ---
Referring physician: Guanaco Batista MD Exam: Bilateral lower extremity venous ultrasound Date: April 09, 2016 Comparison: None Reason: Evaluate for deep venous thrombophlebitis, bilateral lower extremity pain Technique: Duplex scan of the bilateral lower extremity veins was performed using B-Mode/grayscale imaging and Doppler spectral analysis and color flow. Ultrasound images were captured and stored. Findings: There is no evidence of thrombus within the left or right common femoral veins, saphenous veins, superficial femoral veins or popliteal veins. Normal compression and augmentation are present throughout. Normal color flow and spectral analysis are observed. Impression: No evidence of deep venous thrombosis within either lower extremity. PROCEDURE INTERPRETED AT [facility] DEPARTMENT OF RADIOLOGY Final Report Signed by: Dr. Arash Anderson
--- NOTE | 2016-04-09 07:57 | Operative Note ---
Date of procedure: 04/09/16 Pre-op diagnosis: acute renal failure with acidosis Post-op diagnosis: same Procedure: Preoperative diagnosis Acute renal failure with acidosis Postoperative diagnosis Same Procedures performed 1. Right internal jugular vein dialysis catheter placement 2. Ultrasound guidance and interpretation of images Findings The dialysis catheter was placed in the internal jugular vein. Ultrasound revealed normal vascular anatomy in the right neck. Complications None apparent Specimen None Anesthesia Propofol and local Blood loss 5 mL Indications Acute renal failure with acidosis Description of procedure The patient was placed in Trendelenburg position in his hospital bed. The neck was prepped and draped sterilely with chlorhexidine. Preoperative antibiotics were already running be due to the patient's underlying infectious problems and not redosed for the procedure. Timeout was called. Ultrasound was used to identify the vascular structures in the right neck. The internal jugular vein is compressible and the carotid was seen in the normal position. A needle was used to access the internal jugular vein above the clavicle and a wire was passed into the venous system after venous nonpulsatile blood return was achieved. An incision was then made alongside the wire with an 11 blade scalpel and a dilator was used to dilate the subcutaneous tissues. The dialysis catheter was then placed over the wire and the wire was removed. All 3 ports returned blood easily and were flushed with saline and locked with heparin. The catheter was sewn in with 3-0 silk sutures and a sterile dressing was placed with a Biopatch. The patient was placed back in a neutral position after a sterile dressing was applied and a chest x-ray was ordered. Postoperative plan Chest x-ray and initiate hemodialysis Implants: 16cm hemodialysis catheter Anesthesia: local Surgeon / Physician: Mickey Bear Estimated blood loss: minimal Specimens: none sent Condition: critical Disposition: no change Results - Labs CBC & BMP: 04/09/16 04:30 04/09/16 04:30 Discharge Plan - Discharge Medications No Action Carvedilol [Coreg] 12.5 mg PO BID #60 tablet HYDROcodone/ACETAMIN 10-325 [[place] 10-325] 1 tablet PO Q4H #40 tablet Lisinopril [Prinivil] 10 mg PO DAILY #30 tablet Potassium Chloride Cap/Tab [K Dur] 20 meq PO DAILY #30 tablet Gabapentin Cap/Tab [Neurontin Cap/Tab] 600 mg PO TID #90 tablet - Follow Up or Referral - Forms/Instructions
[2016-04-09] MEDS ORDERED: VANCOMYCIN INJ 1,000 MG in SODIUM CHLORIDE 0.9% 250 ML IV ONE (08:01)
--- NOTE | 2016-04-09 08:01 | General Surgery Progress Note ---
Assessment and Plan (1) Acute renal failure Status: Acute Assessment and plan: Continue hemodialysis per nephrology Current Visit: Yes (2) Cholelithiasis Status: Acute Assessment and plan: We will get a HIDA scan today and I'll follow up the results of this. Current Visit: Yes (3) Abscess Status: Acute Assessment and plan: The patient had a scrotal abscesses drained at the bedside yesterday. We obtained cultures and I will add vancomycin 1 g to be redosed with a dialysis team and follow-up cultures. This appears to be resolving and no further intervention is needed right now. Current Visit: Yes Subjective Patient reports: Present: fever. Absent: nausea, vomiting Narrative: The patient's acidosis has improved significantly with hemodialysis. Repeat LFTs are fairly unchanged. Lipase is pending. White blood cell count has normalized. The patient is on antibiotics with Zosyn. Exam - Constitutional Vitals: Period Temp Pulse Resp BP Sys/Mishra Pulse Ox Last 24 Hr 97 F-100.4 F 90-122 14-30 62-140/37-93 88-100 General appearance: mild distress, over weight - Head Head exam: Present: normal inspection - Eye Eye exam: Absent: scleral icterus - ENT ENT exam: Present: normal exam Mouth exam: Present: normal external inspection - Neck Neck exam: Present: normal inspection, trachea midline - Respiratory Respiratory exam: Present: decreased breath sounds, rales, rhonchi - Cardiovascular Cardiovascular exam: Present: tachycardia. Absent: irregular rhythm, systolic murmur - GI/Abdominal GI/Abdominal exam: Present: soft. Absent: distended, tenderness, rebound - Extremities Exam Extremities exam: Present: normal inspection, normal capillary refill - Back Exam Back exam: Present: normal inspection - Skin Skin exam: Present: other (decreased induration right scrotal abscess with minimal drainage) Results - Labs CBC & BMP: 04/09/16 04:30 04/09/16 04:30
--- NOTE | 2016-04-09 08:03 | Operative Note ---
Date of procedure: 04/08/16 Pre-op diagnosis: right scrotal abscess Post-op diagnosis: same Procedure: Preoperative diagnosis Right scrotal abscess Postoperative diagnosis Same Procedures performed Drainage of right scrotal abscess Findings White purulent fluid was drained from right scrotal abscess which appeared to be a superficial skin infection and not involve the testicle itself or the scrotum. All of the abscess was drained out of the scrotal skin. Complications None apparent Specimen Cultures Indications Scrotal abscess Description of procedure The patient's scrotum was evaluated and he was found to have a pinhole that was draining a scrotal abscess. The opening was widened with digital breakup of loculations and the fluid was drained out of the scrotum. Cultures were sent to lab. Patient tolerated the procedure well. Postoperative plan Continue antibiotics and follow cultures Surgeon / Physician: Mickey Bear Specimens: other (cultures) Results - Labs CBC & BMP: 04/09/16 04:30 04/09/16 04:30 Discharge Plan - Discharge Medications No Action Carvedilol [Coreg] 12.5 mg PO BID #60 tablet HYDROcodone/ACETAMIN 10-325 [[place] 10-325] 1 tablet PO Q4H #40 tablet Lisinopril [Prinivil] 10 mg PO DAILY #30 tablet Potassium Chloride Cap/Tab [K Dur] 20 meq PO DAILY #30 tablet Gabapentin Cap/Tab [Neurontin Cap/Tab] 600 mg PO TID #90 tablet - Follow Up or Referral - Forms/Instructions
[2016-04-09] MEDS ORDERED: POTASSIUM CHLORIDE RIDER 20 MEQ in PREMIX 1 EACH IV ONE (09:21)
--- NOTE | 2016-04-09 09:24 | Event Note ---
In hospital therapeutic and diagnostic fiberoptic bronchoscopy. Specimens were sent for cytology, Gram stain, bacterial cultures, AFB stains and culture, fungal stains and culture. This is a 50-year-old male who was thought to have aspirated. He has been septic and hypotensive requiring pressor agents. He is intubated and on mechanical ventilation. His chest x-ray shows some abnormalities in the right middle lung and possibly the medial basal segment of the right lower lung. There are also abnormalities in the left lower lung that appear to be an infiltrate and this could be compatible with aspiration. These reasons the patient is evaluated with fiberoptic bronchoscopy. The endotracheal tube was in good position. Distal trachea was fiery red. The giovana was slightly widened and this appeared to be secondary to endobronchial edema. Both bronchial trees showed marked edema with slight friability edema produced areas of 60% stenosis especially in the left lower lung and right lower lung. There was a good bit of retained gastric content and this was removed with lavage and suction. I do not see any definite endobronchial lesions suggesting cancer. There was however much more endobronchial edema than I usually see. The patient tolerated procedure well there were no complications Impression. 1. Intubation mechanical ventilation 2. Retained gastric aspirate and pulmonary secretions 3. Ineffective cough 4. Abnormal chest x-ray with infiltrative changes in the right middle lung and right lower lung and left lower lung most likely secondary to aspiration and bacterial superinfection 5. Severe erythematous slightly erosive markedly stenotic bilateral bronchitis. This appears to be secondary to aspiration but consider other causes.
--- NOTE | 2016-04-09 09:24 | Pulmonology Progress Note ---
Pulmonary - PN: Subj Interval history: Is a 50-year-old male. This patient was seen by me in pulmonary consultation 04/08/2016. His main problems appear to be 1. Nausea vomiting diarrhea etiology undetermined. Possibly related to gallbladder disease. Consider other causes. Resultant dehydration 2. Hypotension. Partially secondary to #1. Consider sepsis. 2.1 scrotal abscess 3. Acute cholecystitis. 4. Acute renal failure. Probably secondary to #1 and #2. 4.1. Acute metabolic acidosis probably secondary to acute renal failure and possibly secondary to sepsis 5. Diabetes mellitus 6. Heart surgery as an infant 7. History of back surgery 8. High blood pressure 9. Possible history of CVA 10. Acute pancreatitis. 11. Bilateral pleural effusions 12. Acute pulmonary failure. At least partially secondary to acute renal failure and hypotension requiring pressor agents, with severe metabolic acidosis. Consider other causes there may be other factors such as underlying lung disease and/or pulmonary emboli and/or aspiration 13. See past history 04/09/2016.. Today the patient was evaluated with fiberoptic bronchoscopy. He had definite evidence of significant aspiration. He had erythematous slightly friable markedly stenotic airways bilaterally secondary to what appears to be an aspiration injury. Multiple specimens were sent. No biopsies were taken. Specimens from his scrotal abscess are growing a gram-positive cocci. Earlier today Dr. Arevalo to look to start the patient on vancomycin. Patient's also on Zosyn. I do not see any need to add extra antibiotics at this point. ABGs have improved significantly on mechanical ventilation and FiO2 of 100%. PH is 7.30. PCO2 is 22.3. PO2 is 391. Bicarb is 13.9. Sodium is 143. Potassium is low at 3.2 creatinine has dropped to 9.4 and the patient for repeat dialysis today. Natruretic peptide is elevated at 260. Vital signs. See below. Neck. Symmetrical. No meningismus Lymphatics. No submandibular cervical or supraclavicular adenopathy. Chest. Mild coarse large airway congestion. Heart. No gallop Abdomen. Slightly rigid. Only rare bowel sounds. Extremities. No evidence of deep venous thrombophlebitis. Note Doppler venograms are negative for deep venous thrombophlebitis Neurologic and psychiatric are impossible to assess. The remainder the examination is negative. Plan. 1. Continue pressor agents 2. Ventilator adjustments made. 3. Weaning protocol 4. Physical therapy while on ventilator protocol 6. Daily chest x-ray 7. Daily ABGs 10. Deep venous thrombophlebitis prevention protocol Exam (Progress Note) - Constitutional Vitals: Period Temp Pulse Resp BP Sys/Mishra Pulse Ox Last 24 Hr 97 F-100.4 F 90-122 14-33 62-140/37-93 88-100 Results - Labs CBC & BMP: 04/09/16 04:30 04/09/16 04:30
[2016-04-09 10:06] LABS: CKMB % 4.4 %; Magnesium 2.1 MG/DL (1.8-2.4)
[2016-04-09 10:13] LABS: Troponin I Only 1.73 NG/ML (0.00-0.045)
--- NOTE | 2016-04-09 11:28 | Nuclear Medicine Report ---
Hepatobiliary scan. Indication: Possible cholecystitis. Comparison: Yesterday's ultrasound: Showed cholelithiasis and a distended gallbladder and a dilated common bile duct. Following the intravenous administration of 5 mCi technetium 99m Choletec, hepatic excretion is prompt and uniform. Bowel activity can be seen by 20 minutes. The exam was carried out for 90 minutes. The gallbladder never filled. Impression: Nonvisualization of the gallbladder. In the presence of cholelithiasis, dilated common duct, and gallbladder distention, this raises concern for acute cholecystitis. Note however, there are several causes of false positive HIDA including nonfasting state, of less than 2-4 hours, prolonged fasting greater than 24 hours, TPN, alcoholism, acute pancreatitis, recent narcotic use and hepatocellular disease. PROCEDURE INTERPRETED AT [facility] DEPARTMENT OF RADIOLOGY Final Report Signed by: Dr. Shobha Recinos
[2016-04-09] MEDS: NOREPINEPHRINE 8 MG in SODIUM CHLORIDE 0.9% 242 ML IV SCH ×2 (12:09→22:57)
--- NOTE | 2016-04-09 12:29 | Gastrointestinal Consult Note ---
Addendum entered and electronically signed by Colleen Solo FNP 04/10/16 11:07: Original Note: <Colleen Solo - Last Filed: 04/09/16 12:24> Assessment and Plan (1) Cholelithiasis Status: Acute Assessment and plan: 04/09-Findings on CT scan of cholelithiasis and GB distention, dilated CBD. HIDA scan results with nonvisualized gallbladder. LFTs unremarkable. Plan to continue to monitor at this time. Plan and addendum to follow by Dr Parr. Current Visit: Yes History of Present Illness Chief complaint: Cholelithasis History of present illness: Mr. Pace is a 50 year old male who presented to the hospital as a transfer from [facility] where he presented there with acute renal failure and SOB. He is also reported to have complaints of nausea, vomiting and diarrhea as well as RUQ pain for three days prior to admission. No family is available during visit therefore information obtained from chart review. Pt is reported that during transition to our facility his condition deteriorated and he was intubated. Upon arrival to our facility he was found to be in acute renal failure with metabolic acidoses. He had a scrotal abscess that he was being followed for at [facility] however no further history regarding this other than gram positive cocci on cultures at our facility. He had a CT of abdomen and pelvis done on admission and results showed pt also had gallbladder distention. He then had an US which showed multiple gallstones with CBD measuring 10.1mm without intrahepatic bile duct dilation. HIDA scan today showed nonvisualization of the gallbladder. LFTs are unremarkable. WBC 8.9, down from admission. Creatnine is 9, trending down following emergent dialysis. Hepatitis panel negative. His acidosis is currently improving as well. Home Medications Medication Instructions Recorded Confirmed Type Carvedilol [Coreg] 12.5 mg PO BID #60 tablet 01/06/16 04/09/16 Rx Gabapentin Cap/Tab [Neurontin 600 mg PO TID #90 tablet 01/06/16 04/09/16 Rx Cap/Tab] Lisinopril [Prinivil] 10 mg PO DAILY #30 tablet 01/06/16 04/09/16 Rx Potassium Chloride Cap/Tab [K Dur] 20 meq PO DAILY #30 tablet 01/06/16 04/09/16 Rx Albuterol Inhaler [Proventil 1 puff INH Q4HR 04/09/16 04/09/16 History Inhaler] HYDROcodone/ACETAMIN 7.5-325 1 tablet PO Q6H PRN 04/09/16 04/09/16 History [[place] 7.5-325] Allergies Allergy/AdvReac Type Severity Reaction Status Date / Time No Known Allergies Allergy Verified 01/04/16 14:01 Medical,Surgical,& Family Hx - Medical History Cardio: History of: Hypertension Neurology: History of: Cerebrovascular Accident (possible per old chart) Musculoskeletal: History of: Back/Neck Problems - Surgical History Cardiac Surgeries: Sugical HX of: Cardiac Surgery (pfo repair as ) Neurologic Surgeries: Surgical HX of: Neurologic Surgery (back surgeries) Orthopedic Surgeries: Surgical HX of;: Spinal Surgery - Social History Smoking Status: Smoker, status unknown Frequency of Alcohol Use: None Type of Drug Use: None ROS unobtainable: due to endotracheal tube Exam - Constitutional Vitals: Period Temp Pulse Resp BP Sys/Mishra Pulse Ox Last 24 Hr 97 F-100.4 F 90-122 14-33 62-140/37-93 88-100 General appearance: normal weight, no acute distress - Head Head exam: Present: normal inspection, normocephalic - Eye Eye exam: Present: other (lids and conjunctiva unremarkable). Absent: scleral icterus - ENT ENT exam: Present: normal exam, normal oropharynx - Neck Neck exam: Present: normal inspection - Respiratory Respiratory exam: Present: clear to auscultation bilaterally. Absent: rales, rhonchi, wheezes - Cardiovascular Cardiovascular exam: Present: regular rate and rhythm. Absent: diastolic murmur , JVD, systolic murmur - GI/Abdominal GI/Abdominal exam: Present: hypoactive bowel sounds, soft. Absent: ascites, distended, mass, organomegaly, tenderness - Extremities Exam Extremities exam: Present: normal inspection - Back Exam Back exam: Present: normal inspection - Neurological Exam Neurological exam: Present: altered - Psychiatric Psychiatric exam: Present: other - Skin Skin exam: Present: normal color, warm, dry Results - Labs CBC & BMP: 04/09/16 04:30 04/09/16 04:30 Lab Results: I have reviewed the past 24 hour labs - Diagnostic Findings Procedure: CT Abdomen and Pelvis: report reviewed by me, Ultrasound: report reviewed by me <Bhavesh Napier - Last Filed: 04/10/16 11:59> History of Present Illness History of present illness: Mr. Pace is a 50 year old male Exam - Constitutional Vitals: Period Temp Pulse Resp BP Sys/Mishra Pulse Ox Last 24 Hr 98.1 F-100.2 F 72-109 21-30 88-158/52-113 97-100 Results - Labs CBC & BMP: 04/10/16 04:32 04/10/16 10:14
--- NOTE | 2016-04-09 12:48 | EKG Report ---
Stationary ECG Study [facility] Test Date: 04/09/2016 12:46:47 PM Pat Name: ALKA TURK Department: Room: 120 Gender: M Developmental Behavioral Physician: : 1965 Requested by: Guanaco Batista Order Number: [id number] Reading MD: TAURUS TORRES Intervals [place]gill Rate: 93 P: 71 UT: 135 QRS: -38 QRSD: 173 T: 6 QT: 401 QTc: 452 Interpretive Statements SINUS RHYTHM. Right bundle branch block. Left anterior hemiblock. No acute changes . Electronically Signed On 04-11-16 08:57:13 OPHTHALMIC SURGICAL ASSISTANT by TAURUS TORRES [email or web address]
--- NOTE | 2016-04-09 12:50 | Nephrology Progress Note ---
Nephrology - PN: Subj Interval history: The patient is resting comfortably. Tolerated dialysis on last night. Urine output has been approximately 20 to 30 mL an hour. Patient remains with a metabolic acidosis serum creatinine is now 9.4. Plan for hemodialysis today. Exam (PN)-Nephrology - Vital Signs Vital signs: Period Temp Pulse Resp BP Sys/Mishra Pulse Ox Last 24 Hr 97 F-100.4 F 90-122 14-33 62-140/37-93 88-100 - General Appearance General appearance: sedated on ventilator, intubated EENT: ATNC Neck: no carotid bruit, supple Respiratory: clear Cardiology: regular rate, regular rhythm Gastrointestinal: normoactive bowel sounds, no tenderness Musculoskeletal: no clubbing - Lab 04/09/16 04:30 04/09/16 04:30 Most recent lab results ABG pH 7.304 (7.35-7.45) L 04/09/16 04:00 ABG pCO2 22.3 MM HG (35-48) L 04/09/16 04:00 ABG pO2 391.0 MM HG (80-95) H 04/09/16 04:00 ABG HCO3 13.9 MMOL/L (20-26) L 04/09/16 04:00 ABG O2 Saturation 100.0 % (95-100) 04/09/16 04:00 Calcium 6.2 MG/DL (8.5-10.1) L 04/09/16 04:30 Magnesium 2.1 MG/DL (1.8-2.4) 04/09/16 04:43 Assessment and Plan (1) Respiratory failure Status: Acute Current Visit: Yes (2) Acute renal failure Status: Acute Assessment and plan: Making arrangement for renal failure Current Visit: Yes (3) Diabetes mellitus Status: Chronic Current Visit: Yes Qualifiers: Diabetes mellitus type: type 2 Diabetes mellitus complication status: with kidney complications (4) Essential hypertension Status: Chronic Current Visit: Yes (5) Remote history of stroke Status: Chronic Current Visit: No
--- NOTE | 2016-04-09 13:36 | IR History and Physical Update ---
IR Pre-Procedure - History and Physical H&P was reviewed, the patient examined and there: are no changes in the patients condition since last H&P was completed. Reason for procedure:: 50 yoM critically ill, with likely cholecystits. Too sick for OR. Asked to place perc italia at bedside. - Dictation Physical: refer to H&P completed by admitting physician - Physical Exam Vital Signs: Last Vital Signs Temp 99.3 F 04/09/16 11:00 Pulse 109 H 04/09/16 12:00 Resp 24 04/09/16 12:00 BP 123/79 04/09/16 12:30 Pulse Ox 100 04/09/16 12:00 Mental Status: other (intubated) - Sedation IR anesthesia plan for sedation: none ASA Class: V - Risks Risks: Procedures explained. Risks discussed include, but not limited to, the following:[ ] All questions answered. The following alternatives were discussed:[ ] Risks and benefits discussed with: emergency Consent obtained from: spouse
--- NOTE | 2016-04-09 13:46 | Hospitalist Progress Note ---
Assessment and Plan (1) Septic shock Status: Acute Assessment and plan: wean of presors as possible, c/w abx, IVF Current Visit: Yes (2) Acute respiratory failure Status: Acute Assessment and plan: on MV, pulm service following Current Visit: Yes (3) Acute encephalopathy Status: Acute Assessment and plan: pt on MV Current Visit: Yes (4) Scrotal abscess Status: Acute Assessment and plan: abscess Cx Gram positive cocci reportedly. C/w abx Current Visit: Yes (5) Acute renal failure Problem details: severe Status: Acute Assessment and plan: on HD per nephro Current Visit: Yes (6) Cholelithiasis Problem details: w possible acute cholecystisi/CBD 10 mm dilated/& elevated lipase Status: Acute Assessment and plan: abx, surgery and Gi service consulted Current Visit: Yes (7) Metabolic acidosis Problem details: severe Status: Acute Assessment and plan: improving Current Visit: Yes (8) Elevated troponin Status: Acute Assessment and plan: In the setting of septic shock and severe acute kidney injury. This would be likely due to increased demand ischemia and from severe acute kidney injury. We 'll trend cardiac enzymes and cardiac echo ordered and check EKG and will plan to consult cardiology as needed. Current Visit: Yes (9) Left nephrolithiasis Problem details: 3 mm Status: Acute Current Visit: Yes (10) Diabetes mellitus Status: Chronic Assessment and plan: insulin, BS checks Current Visit: Yes Qualifiers: Diabetes mellitus type: type 2 Diabetes mellitus complication status: with kidney complications (11) H/O heart surgery Problem details: as an infact reportedly Status: Acute Current Visit: Yes (12) H/O: stroke Problem details: per report Status: Acute Current Visit: Yes Hospitalist: Subjective Interval history: Patient ET intubated on mechanical ventilation. Patient underwent hemodialysis emergently last night. ROS unobtainable because of patient's condition. Exam - Constitutional Vitals: Period Temp Pulse Resp BP Sys/Mishra Pulse Ox Last 24 Hr 97 F-100.9 F 86-122 14-33 62-143/37-93 88-100 Exam: Gen: pt intubated on MV heart distant s1s2, rrr Lung coarse BS, on MV abd soft BS present, Ext no cyanosis, trace edema. HEENT PERRL. neck: no JVD Neuro limited. PERRL. Results - Labs CBC & BMP: 04/09/16 04:30 04/09/16 04:30
--- NOTE | 2016-04-09 14:22 | Post Interventional Procedure ---
Pre-op diagnosis: cholecystitis Post-op diagnosis: other (chronic cholecystitis) Procedure: Percutaneous cholecystostomy Radiologist: Cody Rivera Anesthesia: local Specimens: other (10 mL clear chronic bile sent for culture and Gram stain) Estimated blood loss: none Complications: none Condition: critical Assessment and Plan - Time spent with patient Time spent with patient: Less than 30 minutes
[2016-04-09] MEDS ORDERED: VANCOMYCIN INJ 1,250 MG in SODIUM CHLORIDE 0.9% 250 ML IV ONE (15:00)
--- NOTE | 2016-04-09 15:04 | Interventional Radiology Rpt ---
IR cholecystostomy complete Indication: Cholecystitis. Percutaneous cholecystostomy Description: Formal timeout performed. Maximum sterile barrier technique was instituted. At the bedside in the ICU, gallbladder was studied with ultrasound and a transhepatic approach identified over the right upper quadrant. Under sonographic guidance, an AccuStick needle was advanced into the gallbladder lumen. Captured sonographic image documents position of the needle. Needle was exchanged over a wire for a sheath. However, during the exchange, the sheath bent and would not allow passage of the wire. Despite manipulation, the sheath had to be removed. Under sonographic guidance, using trocar technique, a 10 Armenian pigtail drain catheter was then advanced transhepatic directly into the gallbladder lumen. Captured sonographic image documents position the catheter. Pigtail was formed in the gallbladder lumen, also demonstrated under ultrasound with captured image stored, and connected to a suction bag drainage device. Percu-Stay device was then applied to anchor the catheter in place. Specimen: 10 cc watery fluid sent for culture and Gram stain. Impression: Percutaneous cholecystostomy with 10 Armenian pigtail drain catheter as described. PROCEDURE INTERPRETED AT [facility] DEPARTMENT OF RADIOLOGY Final Report Signed by: Cody Rivera M.D.
--- NOTE | 2016-04-09 16:15 | Dialysis Note ---
Dialysis Note - Dialysis Note The patient is seen on dialysis. He is tolerating the procedure. BP is 116/ 70. Strive to remove 1 liter of fluid.
[2016-04-09] MEDS ORDERED: HEPARIN 10,000 UNIT/10 ML VIAL IV SCH (17:00)
[2016-04-09] MEDS: MIDAZOLAM 100 MG in SODIUM CHLORIDE 0.9% 80 ML IV SCH (17:51)
[2016-04-09] MEDS: PANTOPRAZOLE 40 MG VIAL IV SCH (18:01)
--- NOTE | 2016-04-09 21:20 | ECHO Report ---
Ilir Pace Exam Date: 04/09/2016 07:44 Referring Physician: Technologist: Samantha LEE Age: 50 Ht (in): Wt (lb): Gender: M Exam Location: [facility] Echo Indications: HTN, septic shock, resp. failure, metabolic acidosis, diabetes, acute renal failure BP: / HR: Rhythm: Sinus Technical Quality: Fair IMPRESSIONS Hyperdynamic LV systolic function, ejection fraction greater than 65%. Grade 1/4 diastolic dysfunction (impaired relaxation). Mild concentric left ventricular hypertrophy. Moderately dilated right ventricle. Mild biatrial enlargement. Mild mitral and tricuspid regurgitation. Aortic sclerosis without stenosis. MEASUREMENTS (Male / Female) Normal Values 2D ECHO LV Diastolic Diameter PLAX 4.8 cm 4.2 - 5.9 / 3.9 - 5.3 cm LV Systolic Diameter PLAX 3.5 cm LV Fractional Shortening PLAX 28.1 % IVS Diastolic Thickness 1.2 cm 0.6 - 1.0 / 0.6 - 0.9 cm LVPW Diastolic Thickness 1.3 cm 0.6 - 1.0 / 0.6 - 0.9 cm RV Internal Dim ED PLAX 4.6 cm Aortic Root Diameter 2.8 cm LA Systolic Diameter LX 4.3 cm 3.0 - 4.0 / 2.7 - 3.8 cm DOPPLER TR Peak Velocity 228.0 cm/s TR Peak Gradient 20.8 mmHg FINDINGS Left Ventricle Mildly increased septal wall thickness. Mild concentric left ventricular hypertrophy with diastolic dysfunction. Left ventricular ejection fraction is estimated at greater than 65 %. Right Ventricle Moderately increased right ventricular size. Right Atrium Mildly increased right atrial size. Left Atrium Mildly increased left atrial diameter. Mitral Valve Mildly thickened mitral valve with mild mitral regurgitation. Aortic Valve Aortic valve sclerosis without stenosis or regurgitation. Tricuspid Valve Morphologically normal tricuspid valve. Mild tricuspid valve regurgitation. Tricuspid regurgitation velocities suggest a PAP of 20.8 mmHg + RAP. Pulmonic Valve Pulmonic valve not well visualized. Pericardium No pericardial effusion. Aorta Normal size aortic root and proximal ascending aorta. Ember Cuevas MD (Electronically Signed) Final Date: 09 April 2016 21:19
[2016-04-10] MEDS: SODIUM BICARB INJ 50 MEQ in SODIUM CHLORIDE 0.9% 1,000 ML IV SCH ×2 (02:05→09:02)
[2016-04-10] MEDS: PROPOFOL 1,000 MG/100 ML BOTTLE IV SCH ×8 (02:29→22:53)
[2016-04-10 04:24] LABS: ABG Base Excess -2.8 MMOL/L (-2.5-2.5); ABG HCO3 18.5 MMOL/L (20-26); ABG Oxygen Saturation 98.2 % (95-100); ABG PCO2 22.7 MM HG (35-48); ABG PH 7.528 (7.35-7.45); ABG PO2 156.4 MM HG (80-95); ABG TCO2 19.2 MMOL/L (23-27); Allen Test Positive; Pt O2 Delivery Device Ventilator
[2016-04-10 04:47] LABS: Basophils % 0.3 % (0.0-0.8); Eosinophils % 0.4 % (0.00-10.9); Hematocrit 29.6 VOL% (42.0-52.0); Hemoglobin 10.5 GM/DL (14.0-18.0); Immature Granulocytes % 0.6 %; Immature Granulocytes Absolute 0.04 #; Lymphocytes # 0.4 10*3/uL (1.4-4.0); Lymphocytes % 5.9 % (21.2-54.2); Mean Corpuscular HGB Conc 35.5 GM/DL (32-36); Mean Corpuscular Hemoglobin 31 PG (27-34); Mean Corpuscular Volume 86.3 FL (87-102); Mean Platelet Volume 9.9 FL (9.6-12.0); Monocytes # 0.6 10*3/uL (0.11-0.8); Monocytes % 8.6 % (1.7-12.7); Neutrophils % 84.2 % (38.7-73.9); Platelet Count 122 10*3/uL (130-400); Red Blood Count 3.43 10*6/uL (3.8-5.5); Red Cell Distribution Width 14.1 % (9.3-17.3); White Blood Count 7.1 10*3/uL (4.5-13.71)
[2016-04-10 05:13] LABS: Hypochromasia Slight; Microcytosis 1+; Platelet Estimate Adequate; Tear Drop Cells Slight
[2016-04-10 05:23] LABS: Albumin 2.2 G/DL (3.4-5.0); Bilirubin,Total 0.9 MG/DL (0.2-1.0); Osmolality,Calculated 299.4 MOS/KG (273-304); Potassium 2.2 MMOL/L (3.5-5.1)
[2016-04-10 05:24] LABS: Calcium 6.5 MG/DL (8.5-10.1)
[2016-04-10] MEDS ORDERED: POTASSIUM CHLORIDE RIDER 20 MEQ in PREMIX 1 EACH IV ONE ×2 (05:30→18:42)
[2016-04-10] MEDS ORDERED: POTASSIUM CHLORIDE RIDER 100 ML IV ONE ×2 (05:34→18:49)
[2016-04-10] MEDS: PIPERACILLIN/TAZOBACTAM 3,375 MG in SODIUM CHLORIDE 0.9% 100 ML IV SCH ×2 (05:43→17:28)
--- NOTE | 2016-04-10 06:40 | XRay Report ---
Portable chest. Indication: Ventilated patient. Respiratory failure. Comparison: April 09, 2016. The heart is normal in size. An endotracheal tube and nasogastric tube are in satisfactory position. A cholecystostomy tube has been placed and projects over the right upper quadrant. Rib deformity on the right, stable. There is improved aeration at the medial aspects of the right lung base with mild right perihilar infiltrate persisting. Consolidation at the left base and left-sided pleural effusion, stable. Central line, unchanged in position. Impression: Stable appearance of the left base. Interval improvement of the medial right base. PROCEDURE INTERPRETED AT [facility] DEPARTMENT OF RADIOLOGY Final Report Signed by: Dr. Shobha Recinos
--- NOTE | 2016-04-10 07:17 | General Surgery Progress Note ---
Assessment and Plan (1) Acute renal failure Problem details: severe Status: Acute Assessment and plan: Continue hemodialysis per nephrology Current Visit: Yes (2) Cholelithiasis Problem details: w possible acute cholecystisi/CBD 10 mm dilated/& elevated lipase Status: Acute Assessment and plan: The patient did appear to have hydrops of the gallbladder and this has been treated with a percutaneous cholecystostomy tube. Although his common bile duct was dilated on the initial ultrasound, his bilirubin was normal and his HIDA scan demonstrated brisk flow of tracer into the small intestine ruling out a completely obstructive process and I do not feel we need to interrogate his common bile duct at this time with everything else that he is going through currently. Current Visit: Yes (3) Abscess Status: Acute Assessment and plan: This appears to be improving and the cultures have demonstrated gram-positive cocci. We will continue IV vancomycin until final cultures return. Current Visit: Yes Subjective Patient reports: Present: afebrile Narrative: The patient had nonvisualization of the gallbladder consistent with acute cholecystitis on his HIDA scan yesterday and this was treated with a percutaneous cholecystostomy tube by Dr. Rivera. He appeared to have hydrops of the gallbladder in his drain system and it drained about 50 mL and then stop draining but it is filling with a her son in the bag. There is no bile in the drainage bag today. The patient appears to have an reactive ileus and he had about 500 mL of bilious output from his NG tube. There has been no reports of bowel function. Labs are slowly improving but potassium was only 2.2 this morning. Exam - Constitutional Vitals: Period Temp Pulse Resp BP Sys/Mishra Pulse Ox Last 24 Hr 98.5 F-100.2 F 72-116 21-33 85-148/50-113 98-100 General appearance: no acute distress, over weight - Head Head exam: Present: normal inspection, normocephalic - Eye Eye exam: Present: EOMI Pupils: Present: NAA - ENT ENT exam: Present: normal exam Mouth exam: Present: normal external inspection, normal voice - Neck Neck exam: Present: normal inspection, trachea midline - Respiratory Respiratory exam: Present: clear to auscultation bilaterally. Absent: accessory muscle use, chest wall tenderness - Cardiovascular Cardiovascular exam: Present: RRR. Absent: systolic murmur, tachycardia - GI/Abdominal GI/Abdominal exam: Present: normal bowel sounds, soft. Absent: distended, rebound - Extremities Exam Extremities exam: Present: normal inspection, normal capillary refill - Back Exam Back exam: Present: normal inspection - Neurological Exam Neurological exam: Present: alert, oriented X3 Speech: Present: normal - Skin Skin exam: Present: normal color, warm Results - Labs CBC & BMP: 04/10/16 04:32 04/10/16 04:32
[2016-04-10] MEDS ORDERED: VANCOMYCIN INJ 500 MG in SODIUM CHLORIDE 0.9% 100 ML IV PRN (08:14)
--- NOTE | 2016-04-10 08:47 | Physician Query Form ---
CLICK EDIT DOCUMENT TO SELECT QUERY ANSWER --> OK --> SIGN Deonna Morfin RN, CCDS Certified Clinical Production Consultant W) [phone] (f) [phone] [email or web address]: Make your selection(s) from the choices in EACH section by typing an "x" and enter comments in the comment section. Please use your independent medical judgment in providing your response. This request does not imply that any particular answer is desired or expected. CLINICAL INDICATORS: (Providers should not edit this section) The below diagnosis was documented in the record, but is not consistently noted in subsequent documentation. The medical record indicates that the patient was admitted with cholecystitis, Sepsis, WBC of 13.8#, Lactic Acid of 1.1, BP on the : was 84/44, pulse of 106 and the patient is on antibiotics. Diagnosis: Sepsis Please clarify the following: ( ) The above diagnosis was monitored, evaluated, and/or treated and is a confirmed diagnosis ( ) The above diagnosis was ruled out (x ) The above diagnosis is still a likely, suspected, probable diagnosis ( ) Other, please specify: ( ) Clinically unable to determine COMMENTS: Use of terms such as suspected, likely, or probable (associated with a specific diagnosis that is being evaluated, monitored, or treated as if it exists) are acceptable and can be restated in the discharge summary if not ruled out. MTDD
--- NOTE | 2016-04-10 10:10 | Pulmonology Progress Note ---
Pulmonary - PN: Subj Interval history: Is a 50-year-old male. This patient was seen by me in pulmonary consultation 04/08/2016. His main problems appear to be 1. Nausea vomiting diarrhea etiology undetermined. Possibly related to gallbladder disease. Consider other causes. Resultant dehydration 2. Hypotension. Partially secondary to #1. Consider sepsis. 2.1 scrotal abscess 3. Acute cholecystitis. 4. Acute renal failure. Probably secondary to #1 and #2. 4.1. Acute metabolic acidosis probably secondary to acute renal failure and possibly secondary to sepsis 5. Diabetes mellitus 6. Heart surgery as an infant 7. History of back surgery 8. High blood pressure 9. Possible history of CVA 10. Acute pancreatitis. 11. Bilateral pleural effusions 12. Acute pulmonary failure. At least partially secondary to acute renal failure and hypotension requiring pressor agents, with severe metabolic acidosis. Consider other causes there may be other factors such as underlying lung disease and/or pulmonary emboli and/or aspiration 13. See past history 04/09/2016.. Today the patient was evaluated with fiberoptic bronchoscopy. He had definite evidence of significant aspiration. He had erythematous slightly friable markedly stenotic airways bilaterally secondary to what appears to be an aspiration injury. Multiple specimens were sent. No biopsies were taken. Specimens from his scrotal abscess are growing a gram-positive cocci. Earlier today Dr. Arevalo to look to start the patient on vancomycin. Patient's also on Zosyn. I do not see any need to add extra antibiotics at this point. ABGs have improved significantly on mechanical ventilation and FiO2 of 100%. PH is 7.30. PCO2 is 22.3. PO2 is 391. Bicarb is 13.9. Sodium is 143. Potassium is low at 3.2 creatinine has dropped to 9.4 and the patient for repeat dialysis today. Natruretic peptide is elevated at 260. 04/10/2016. Patient's chest x-ray shows left lower lung atelectasis. He will need a repeat fiberoptic bronchoscopy tomorrow bronchoscopy specimens have been negative so far. Abscess of the scrotum is growing a gram-positive cocci which is yet unidentified. 04/09/2016 the patient had a percutaneous drainage of the gallbladder. There are no positive cultures at this point. This patient has not done well with his weaning trials. We will continue to try to make adjustments.H&H is dropped to 10.5/27.6. White count 7100 with 84 segs and 6 lymphs. Platelets have dropped to 122,000. ABGs are improved. On mechanical ventilation and FiO2 of 65% pH is 7.5-8. PCO2 is 22.7. PO2 is 156. Bicarb is 18.5. Potassium is low at 2.2. Renal will make adjustments for this. Calcium is also low at 6.5. Natruretic peptide is dropped from 260 217. Protein and albumin are low at 5.0 and 2.2 respectively. Labs been reviewed. Medicines have been reviewed. Vital signs. See below. Neck. Symmetrical. No meningismus Lymphatics. No submandibular cervical or supraclavicular adenopathy. Chest. Mild coarse large airway congestion. Heart. No gallop Abdomen. Slightly rigid. Only rare bowel sounds. Extremities. No evidence of deep venous thrombophlebitis. Note Doppler venograms are negative for deep venous thrombophlebitis Neurologic and psychiatric are impossible to assess. The remainder the examination is negative. Plan. 1. Continue pressor agents 2. Ventilator adjustments made. 3. Weaning protocol 4. Physical therapy while on ventilator protocol 6. Daily chest x-ray 7. Daily ABGs 8. Follow-up bronchoscopy on 04/11/2016. 9. Check cultures from scrotum, gallbladder, lung 10. Deep venous thrombophlebitis prevention protocol Exam (Progress Note) - Constitutional Vitals: Period Temp Pulse Resp BP Sys/Mishra Pulse Ox Last 24 Hr 98.5 F-100.2 F 72-109 21-30 88-148/54-113 97-100 Results - Labs CBC & BMP: 04/10/16 04:32 04/10/16 04:32
--- NOTE | 2016-04-10 10:15 | Hospitalist Progress Note ---
Assessment and Plan (1) Seizure Status: Acute Assessment and plan: newonset -will get a CT head, correct electrolytes, load with dilantin and consult Neuro Current Visit: Yes (2) Septic shock Status: Acute Assessment and plan: pressors have been weaned off, cultures showed no growth so far, continue with IV antibiotics Current Visit: Yes (3) Acute respiratory failure Status: Acute Assessment and plan: continue with vent support Current Visit: Yes (4) Cholelithiasis Problem details: w possible acute cholecystisi/CBD 10 mm dilated/& elevated lipase Status: Acute Assessment and plan: with possible acute cholecystisi/CBD 10 mm dilated/& elevated lipase. -continue with percutaneous cholecystostomy tube. -follow surgery's recommendations Current Visit: Yes (5) Scrotal abscess Status: Acute Assessment and plan: aspirate grew Gram positive cocci, continue with IV antibiotics, [id number] . Current Visit: Yes (6) Hypokalemia Status: Acute Assessment and plan: will replete, check bmp and mg in am Current Visit: Yes (7) Acute renal failure Problem details: severe Status: Acute Assessment and plan: on hemodialysis, Nephrology is following Current Visit: Yes (8) Diabetes Status: Acute Assessment and plan: A1c-7.4, will place SSC Current Visit: No (9) Oral thrush Status: Acute Assessment and plan: will place on swish and swallow Nystatin, get HIV testing Current Visit: Yes (10) Metabolic acidosis Status: Acute Assessment and plan: continue bicarb replacement, Nephrology is following Current Visit: Yes (11) Elevated troponin Status: Acute Assessment and plan: In the setting of septic shock and severe acute kidney injury. This would be likely due to increased demand ischemia and from severe acute kidney injury.But patient has a history of heart disease so we will consult Cardiology and follow Echo. Current Visit: Yes (12) Acute encephalopathy Status: Acute Assessment and plan: will continue to follow, patient is currently sedated and intubated Current Visit: Yes (13) Remote history of stroke Status: Chronic Assessment and plan: stable, follow CT head Current Visit: No Hospitalist: Subjective Interval history: Patient seen. Nursing staff reports about three episodes of generalized tonic clonic seizural activities while they were bathing him this am. His potassium is also noted to be low.He had a bronchosopy done yesterday and noted to have a definite evidence of significant aspiration.He is also noticed to have an oral thrush and a right sided scrotal abscess draining some purulent substance. Exam - Constitutional Vitals: Period Temp Pulse Resp BP Sys/Mishra Pulse Ox Last 24 Hr 98.5 F-100.2 F 72-109 21-30 88-148/54-113 97-100 General appearance: no acute distress, other (intubated and sedated) - Head Head exam: Present: normal inspection - Respiratory Respiratory exam: Present: clear to auscultation bilaterally - Cardiovascular Cardiovascular exam: Present: regular rate and rhythm - GI/Abdominal GI/Abdominal exam: Present: normal bowel sounds, other (right sided scrotal abscess) - Extremities Exam Extremities exam: Present: normal inspection Results - Labs CBC & BMP: 04/10/16 04:32 04/10/16 04:32 Lab Results: I have reviewed the past 24 hour labs
[2016-04-10] MEDS ORDERED: DEXTROSE 50% 25 GM/50 ML VIAL IV PRN (10:28)
[2016-04-10] MEDS ORDERED: GLUCAGON 1 MG VIAL IM PRN (10:28)
[2016-04-10] MEDS ORDERED: PHENYTOIN INJ 1,000 MG in SODIUM CHLORIDE 0.9% 100 ML IV ONE ×2 (10:30→12:30)
--- NOTE | 2016-04-10 10:47 | CT Report ---
CT head/brain wo con Indication: Seizures Comparison: CT brain dated January 04, 2016 Technique: Multiple axial tomographic images of the head were obtained without use of intravenous contrast. Findings: Midline structures are nondisplaced. There is no acute intracranial hemorrhage or evidence of hydrocephalus. Periventricular and subcortical hypoattenuation is suggested to a mild degree. The visualized paranasal sinuses appear fluid filled. Bilateral mastoid effusions noted. IMPRESSION: Mild periventricular and subcortical hypoattenuation noted. This finding is nonspecific and may reflect chronic microvascular ischemic change, vasculitis, or demyelinating process. There is no acute intracranial hemorrhage. The paranasal sinuses are fluid-filled with bilateral mastoid effusions. Acute sinusitis/mastoiditis not excluded. PROCEDURE INTERPRETED AT [facility] DEPARTMENT OF RADIOLOGY Final Report Signed by: Dr Mark Altman
[2016-04-10 10:52] LABS: Albumin 2.2 G/DL (3.4-5.0); Bilirubin,Total 0.8 MG/DL (0.2-1.0); Calcium 6.5 MG/DL (8.5-10.1); Osmolality,Calculated 296.7 MOS/KG (273-304)
[2016-04-10 10:53] LABS: Potassium 2.4 MMOL/L (3.5-5.1)
[2016-04-10] MEDS ORDERED: SODIUM CHLOR 0.9% KCL 20 MEQ 20 MEQ/1,000 ML BAG IV SCH (11:00)
--- NOTE | 2016-04-10 11:04 | Gastrointestinal Progress Note ---
<Colleen Solo - Last Filed: 04/10/16 11:02> Assessment and Plan (1) Cholelithiasis Problem details: w possible acute cholecystisi/CBD 10 mm dilated/& elevated lipase Status: Acute Assessment and plan: 04/10-Post perc italia tube placement. Large amount of NG output reported. Potassium 2.2. Plan and addendum to follow by Dr Napier. 04/09-Findings on CT scan of cholelithiasis and GB distention, dilated CBD. HIDA scan results with nonvisualized gallbladder. LFTs unremarkable. Plan to continue to monitor at this time. Plan and addendum to follow by Dr Napier. Current Visit: Yes Gastroenterology - PN: Subj Interval history: CC: Cholelithiasis Pt seen, sedated on vent. Nursing staff states he had seizure activity this morning and they have had to keep him sedated however he will arouse when sedation is lifted. He had CT of the head without acute findings. He had a cholecystostomy tube placed on yesterday with small amount of bloody output noted at this time. Abdomen is soft. Potassium is down today at 2.2. His creatnine is down as well some at 4.6. ROS: No acute distress noted Exam (Progress Note) - Constitutional Vitals: Period Temp Pulse Resp BP Sys/Mishra Pulse Ox Last 24 Hr 98.5 F-100.2 F 72-109 21-30 88-148/54-113 97-100 General appearance: normal weight, no acute distress - Head Head exam: Present: normal inspection, normocephalic - Eye Eye exam: Present: other (lids and conjuncitva unremarkable). Absent: scleral icterus - ENT ENT exam: Present: normal exam, normal oropharynx - Neck Neck exam: Present: normal inspection - Respiratory Respiratory exam: Present: clear to auscultation bilaterally. Absent: rales, rhonchi, wheezes - Cardiovascular Cardiovascular exam: Present: regular rate and rhythm. Absent: diastolic murmur , JVD, systolic murmur - GI/Abdominal GI/Abdominal exam: Present: normal bowel sounds, soft. Absent: ascites, distended, mass, organomegaly, tenderness - Extremities Exam Extremities exam: Present: normal inspection - Back Exam Back exam: Present: normal inspection - Neurological Exam Neurological exam: Present: other - Psychiatric Psychiatric exam: Present: other - Skin Skin exam: Present: normal color, warm, dry Results - Labs CBC & BMP: 04/10/16 04:32 04/10/16 10:14 Lab Results: I have reviewed the past 24 hour labs <Bhavesh Napier - Last Filed: 04/10/16 19:30> Exam (Progress Note) - Constitutional Vitals: Period Temp Pulse Resp BP Sys/Mishra Pulse Ox Last 24 Hr 98.1 F-99.1 F 59-100 18-30 91-158/51-84 97-100 Results - Labs CBC & BMP: 04/10/16 04:32 04/10/16 10:14
[2016-04-10 11:34] LABS: HIV Antigen/Antibody Result Nonreactive (Nonreactive)
[2016-04-10] MEDS: [UNRECOGNIZED DRUG - OTHER] IV SCH ×2 (12:05→17:29)
[2016-04-10] MEDS: POTASSIUM CHLORIDE IV SCH ×2 (12:05→17:29)
[2016-04-10] MEDS: SODIUM BICARB IV SCH ×2 (12:05→17:29)
[2016-04-10] MEDS: INSULIN REGULAR 100 UNIT/ML SUBCUT SCH ×2 (12:19→17:27)
--- NOTE | 2016-04-10 12:42 | Pathology Report from [facility] ---
ACCESSION # : [id number] PATIENT NAME : Ilir Pace ORDERING DR : TAURUS TORRES MD CLINICAL HX: Aspiration POST-OP DX: Same SPECIMEN INFO: Washing,Bronchial,JENS - 35 ml's bloody wilkes, cloudy. CLASS: I CLASS COMMENTS: Benign pulmonary cells, inflammationCELL BLOCK: Same CLASS LEGEND: CLASS 0 Material inadequate for diagnosis because of (see comment) CLASS I Absence of atypical or abnormal cells CLASS II Atypical Cytology but no evidence of malignancy CLASS III Cytology suggestive of but not conclusive for malignancy CLASS IV Cytology strongly suggestive of malignancy CLASS V Cytology conclusive for malignancy SERVICE DATE: 04/09/2016 REPORT DATE: 04/10/2016 PATHOLOGIST: Joseph Borges
[2016-04-10] MEDS ORDERED: NYSTATIN 500,000 UNIT/5 ML UDCUP SWISH/SWAL SCH (13:00)
[2016-04-10] MEDS: NYSTATIN 500,000 UNIT/5 ML UDCUP SWISH/SWAL SCH ×3 (13:25→21:00)
--- NOTE | 2016-04-10 15:31 | Neurology Consult Note ---
History of Present Illness History of present illness: Mr. Pace is a 50 year old male who presented to the hospital as a transfer from [facility] where he presented there with acute renal failure and SOB. He was also complaining of of nausea, vomiting and diarrhea as well as RUQ pain for three days prior to admission. No family is available during visit therefore information obtained from chart review. Pt reported that during transition to our facility his condition deteriorated and he was intubated. Upon arrival to our facility he was found to be in acute renal failure with metabolic acidoses. He had a scrotal abscess that he was being followed for at [place] however no further history regarding this other than gram positive cocci on cultures at our facility. He had a CT of abdomen and pelvis done on admission and results showed pt also had gallbladder distention. He then had an US which showed multiple gallstones with CBD measuring 10.1mm without intrahepatic bile duct dilation. HIDA scan today showed nonvisualization of the gallbladder. LFTs are unremarkable. WBC 8.9, down from admission. Creatnine is 9 , trending down following emergent dialysis. Hepatitis panel negative. His acidosis is currently improving as well. He had 3 [id number] seizures today. It was witnessed by nursing staff. Never had a seizure before. Home Medications Medication Instructions Recorded Confirmed Type Carvedilol [Coreg] 12.5 mg PO BID #60 tablet 01/06/16 04/09/16 Rx Gabapentin Cap/Tab [Neurontin 600 mg PO TID #90 tablet 01/06/16 04/09/16 Rx Cap/Tab] Lisinopril [Prinivil] 10 mg PO DAILY #30 tablet 01/06/16 04/09/16 Rx Potassium Chloride Cap/Tab [K Dur] 20 meq PO DAILY #30 tablet 01/06/16 04/09/16 Rx Albuterol Inhaler [Proventil 1 puff INH Q4HR 04/09/16 04/09/16 History Inhaler] HYDROcodone/ACETAMIN 7.5-325 1 tablet PO Q6H PRN 04/09/16 04/09/16 History [[place] 7.5-325] Allergies Allergy/AdvReac Type Severity Reaction Status Date / Time No Known Allergies Allergy Verified 01/04/16 14:01 ROS unobtainable: due to endotracheal tube Medical,Surgical,& Family Hx - Medical History Cardio: History of: Hypertension Neurology: History of: Cerebrovascular Accident (possible per old chart) Musculoskeletal: History of: Back/Neck Problems - Surgical History Cardiac Surgeries: Sugical HX of: Cardiac Surgery (pfo repair as ) Neurologic Surgeries: Surgical HX of: Neurologic Surgery (back surgeries) Orthopedic Surgeries: Surgical HX of;: Spinal Surgery - Social History Smoking Status: Smoker, status unknown Frequency of Alcohol Use: None Type of Drug Use: None Exam - Constitutional Vitals: Period Temp Pulse Resp BP Sys/Mishra Pulse Ox Last 24 Hr 98.1 F-99.1 F 60-100 21-30 88-158/52-98 97-100 Exam: GENERAL: Patient is in no acute distress. NECK: Neck is supple. There is no JVD. No carotid bruits present. No thyroid masses. CVS: First and second heart sounds are normal. There is no S3 present. Regular rate and rhythm. RESPIRATORY: Bilateral rales and rhonchi. ABDOMEN: Soft and non-tender. Bowel sounds are present. There is no hepatosplenomegaly. EXT: There is no palpable edema. Peripheral pulses are present. Skin: No rashes Central Nervous system: General: On vent Speech: On vent sedated Comprehension: None Facial expressions: Normal Cranial Nerves: Pupils are equally reactive to light. Doll's head eye movements are positive. No facial asymmetry seen. Motor: Bulk and Tone is normal. Strength cannot be assessed Sensory: Cannot be assessed Reflexes: 1+ and symmetrical Cerebellar function: Cannot be assessed Gait: Not tested this time Results - Labs CBC & BMP: 04/10/16 04:32 04/10/16 10:14 Assessment and Plan (1) Seizure Status: Acute Assessment and plan: Start and continue Keppra 500 mg IV every [address] of the head is negative. Thank you for the consult Current Visit: Yes
[2016-04-10] MEDS: PANTOPRAZOLE 40 MG VIAL IV SCH (17:27)
--- NOTE | 2016-04-10 18:43 | Dialysis Note ---
Dialysis Note - Dialysis Note The patient is seen on dialysis. Blood pressures did become low initially on the dialysis session. Today patient had seizure activity. At this time blood pressures 110/70. Patient is on 3K bath.
[2016-04-10] MEDS ORDERED: LORazepam 2 MG/1 ML VIAL ONE (18:49)
[2016-04-10] MEDS ORDERED: LORazepam 2 MG/1 ML VIAL IV PRN (19:09)
[2016-04-10] MEDS: NOREPINEPHRINE 8 MG in SODIUM CHLORIDE 0.9% 242 ML IV SCH (19:16)
[2016-04-10] MEDS ORDERED: LORazepam 2 MG/1 ML VIAL IV ONE ×2 (20:35→21:00)
[2016-04-11] MEDS: [UNRECOGNIZED DRUG - OTHER] IV SCH ×3 (00:15→21:30)
[2016-04-11] MEDS: POTASSIUM CHLORIDE IV SCH ×3 (00:15→21:30)
[2016-04-11] MEDS: SODIUM BICARB IV SCH ×3 (00:15→21:30)
[2016-04-11] MEDS: INSULIN REGULAR 100 UNIT/ML SUBCUT SCH ×4 (00:36→18:05)
[2016-04-11] MEDS: PROPOFOL 1,000 MG/100 ML BOTTLE IV SCH ×6 (02:30→15:43)
[2016-04-11 03:11] LABS: ABG Base Excess 0.5 MMOL/L (-2.5-2.5); ABG HCO3 20.4 MMOL/L (20-26); ABG Oxygen Saturation 98.3 % (95-100); ABG PCO2 21.5 MM HG (35-48); ABG PH 7.594 (7.35-7.45); Allen Test Positive; Pt O2 Delivery Device Ventilator
[2016-04-11 05:19] LABS: Basophils % 0.3 % (0.0-0.8); Eosinophils # 0.1 10*3/uL (0.0-0.87); Hematocrit 29.5 VOL% (42.0-52.0); Hemoglobin 10.2 GM/DL (14.0-18.0); Immature Granulocytes % 0.7 %; Immature Granulocytes Absolute 0.05 #; Lymphocytes # 0.8 10*3/uL (1.4-4.0); Lymphocytes % 12.5 % (21.2-54.2); Mean Corpuscular HGB Conc 34.6 GM/DL (32-36); Mean Corpuscular Hemoglobin 31 PG (27-34); Mean Corpuscular Volume 88.6 FL (87-102); Mean Platelet Volume 9.9 FL (9.6-12.0); Monocytes # 0.8 10*3/uL (0.11-0.8); Monocytes % 12.1 % (1.7-12.7); Neutrophils # 4.9 10*3/uL (1.4-7.4); Neutrophils % 73.4 % (38.7-73.9); Platelet Count 128 10*3/uL (130-400); Red Blood Count 3.33 10*6/uL (3.8-5.5); Red Cell Distribution Width 13.9 % (9.3-17.3); White Blood Count 6.7 10*3/uL (4.5-13.71)
[2016-04-11 05:28] LABS: PT Patient Result 10.9 SECS; Partial Thromboplastin Time 30.7 SECS (0-40)
[2016-04-11 05:52] LABS: Calcium 6.9 MG/DL (8.5-10.1); Magnesium 1.9 MG/DL (1.8-2.4); Osmolality,Calculated 293.4 MOS/KG (273-304)
[2016-04-11] MEDS: PIPERACILLIN/TAZOBACTAM 3,375 MG in SODIUM CHLORIDE 0.9% 100 ML IV SCH ×2 (05:54→17:58)
[2016-04-11 06:01] LABS: Potassium 2.3 MMOL/L (3.5-5.1)
[2016-04-11] MEDS ORDERED: POTASSIUM CHLORIDE RIDER 20 MEQ in PREMIX 1 EACH IV ONE (06:28)
[2016-04-11] MEDS ORDERED: POTASSIUM CHLORIDE RIDER 100 ML IV ONE (06:34)
[2016-04-11] MEDS: LORazepam 2 MG/1 ML VIAL IV PRN ×3 (06:55→16:01)
[2016-04-11 06:56] LABS: Albumin 2.1 G/DL (3.4-5.0); Bilirubin,Total 1.8 MG/DL (0.2-1.0); Osmolality,Calculated 291.6 MOS/KG (273-304); Total Protein 4.7 G/DL (6.4-8.3)
[2016-04-11 07:00] LABS: Potassium 2.3 MMOL/L (3.5-5.1)
--- NOTE | 2016-04-11 07:56 | XRay Report ---
Referring Physician: Juice Pichardo Exam: XR chest 1V portable Date: April 11, 2016 at 3:13 AM Reason: Ventilator, respiratory failure Comparison: Chest one view portable April 10, 2016 Findings: A right IJ catheter, endotracheal tube and feeding tube are again in place. There are also surgical clips at the lower neck. The heart is stable in size. There are scattered opacities in the perihilar regions and within both lower lung zones. This likely represents atelectasis, but there could also be pneumonia or mild pulmonary edema. No pneumothorax is identified, but there is mild left pleural fluid. The osseous structures appear stable. Impression: There is slight increased opacification/atelectasis at the right lower lung zone. The study is otherwise similar to before. PROCEDURE INTERPRETED AT [facility] DEPARTMENT OF RADIOLOGY Final Report Signed by: Dr. Arash Anderson
[2016-04-11] MEDS: NYSTATIN 500,000 UNIT/5 ML UDCUP SWISH/SWAL SCH ×4 (09:19→21:30)
--- NOTE | 2016-04-11 09:38 | General Surgery Progress Note ---
Assessment and Plan (1) Acute renal failure Problem details: severe Status: Acute Assessment and plan: Seems to be improving. I will leave the dialysis catheter in place until requested to be removed. Current Visit: Yes (2) Cholelithiasis Problem details: w possible acute cholecystisi/CBD 10 mm dilated/& elevated lipase Status: Acute Assessment and plan: The patient is status post percutaneous cholecystostomy tube placement. This seems to be functioning well. Continue current care. Current Visit: Yes (3) Abscess Status: Acute Assessment and plan: Healing well. Continue antibiotics Current Visit: Yes Subjective Patient reports: Present: afebrile Narrative: The patient had an uneventful night last night. His potassium was low and he is urinating well appears to have a post-ATN diuresis. His cultures from his scrotal abscess had grown strep agalactiae Exam - Constitutional Vitals: Period Temp Pulse Resp BP Sys/Mishra Pulse Ox Last 24 Hr 97.1 F-100.1 F 56-122 16-56 91-178/50-117 10-100 General appearance: no acute distress, over weight - Head Head exam: Present: normal inspection - Eye Eye exam: Present: EOMI Pupils: Present: NAA - ENT ENT exam: Present: normal exam Mouth exam: Present: normal external inspection, normal voice - Neck Neck exam: Present: normal inspection, trachea midline - Respiratory Respiratory exam: Present: clear to auscultation bilaterally. Absent: accessory muscle use, chest wall tenderness - Cardiovascular Cardiovascular exam: Present: RRR. Absent: systolic murmur, tachycardia - GI/Abdominal GI/Abdominal exam: Present: soft, other (percutaneous cholecystostomy tube is draining clear fluid). Absent: distended, tenderness, rebound - Extremities Exam Extremities exam: Present: normal inspection, normal capillary refill - Back Exam Back exam: Present: normal inspection - Neurological Exam Neurological exam: Present: alert, oriented X3 Speech: Present: normal - Skin Skin exam: Present: normal color, warm, other (right-sided scrotal abscess has no further drainage and decreased induration.) Results - Labs CBC & BMP: 04/11/16 05:03 04/11/16 05:03
--- NOTE | 2016-04-11 10:13 | Hospitalist Progress Note ---
Assessment and Plan (1) Seizure Status: Acute Assessment and plan: newonset -CT head was negative,appreciates Neurology's input, patient has been started on keppra, follow EEG, correct electrolytes. Current Visit: Yes (2) Septic shock Status: Acute Assessment and plan: pressors have been weaned off, cultures showed no growth so far, continue with IV antibiotics Current Visit: Yes (3) Acute respiratory failure Status: Acute Assessment and plan: continue with vent support Current Visit: Yes (4) Cholelithiasis Problem details: w possible acute cholecystisi/CBD 10 mm dilated/& elevated lipase Status: Acute Assessment and plan: with possible acute cholecystisi/CBD 10 mm dilated/& elevated lipase. -continue with percutaneous cholecystostomy tube. -follow surgery's recommendations Current Visit: Yes (5) Scrotal abscess Status: Acute Assessment and plan: aspirate grew strep agalactiae. continue with IV antibiotics, [id number] . Current Visit: Yes (6) Hypokalemia Status: Acute Assessment and plan: will replete, check bmp and mg in am Current Visit: Yes (7) Acute renal failure Problem details: severe Status: Acute Assessment and plan: on hemodialysis, Nephrology is following Current Visit: Yes (8) Diabetes Status: Acute Assessment and plan: A1c-7.4, continue with SSC Current Visit: No (9) Oral thrush Status: Acute Assessment and plan: continue swish and swallow Nystatin,HIV testing-non reactive Current Visit: Yes (10) Metabolic acidosis Status: Acute Assessment and plan: continue bicarb replacement, Nephrology is following Current Visit: Yes (11) Elevated troponin Status: Acute Assessment and plan: In the setting of septic shock and severe acute kidney injury. This would be likely due to increased demand ischemia and from severe acute kidney injury.But patient has a history of heart disease so we will consult Cardiology and follow Echo. Current Visit: Yes (12) Acute encephalopathy Status: Acute Assessment and plan: will continue to follow, patient is currently sedated and intubated Current Visit: Yes (13) Remote history of stroke Status: Chronic Assessment and plan: stable, CT head showed no acute changes Current Visit: No (14) Hypocalcemia Status: Acute Assessment and plan: will get ionized calcium and replete levels Current Visit: Yes Hospitalist: Subjective Interval history: Patient was seen, he had a bronchoscopy done this am, scrotal abscess grew strep agalactiae. Exam - Constitutional Vitals: Period Temp Pulse Resp BP Sys/Mishra Pulse Ox Last 24 Hr 97.1 F-100.1 F 56-122 16-56 91-178/50-117 10-100 General appearance: no acute distress, other (intubated and sedated) - Head Head exam: Present: normal inspection - Respiratory Respiratory exam: Present: clear to auscultation bilaterally - Cardiovascular Cardiovascular exam: Present: regular rate and rhythm - GI/Abdominal GI/Abdominal exam: Present: normal bowel sounds - Extremities Exam Extremities exam: Present: normal inspection Results - Labs CBC & BMP: 04/11/16 05:03 04/11/16 05:03 Lab Results: I have reviewed the past 24 hour labs
[2016-04-11] MEDS ORDERED: MAGNESIUM SULF RIDER 2 GM in PREMIX 1 EACH IV ONE (10:17)
[2016-04-11] MEDS ORDERED: CALCIUM GLUCONATE 1,000 MG in SODIUM CHLORIDE 0.9% 100 ML IV ONE (10:21)
--- NOTE | 2016-04-11 10:28 | Event Note ---
In hospital diagnostic and therapeutic fiberoptic bronchoscopy. Specimens were sent for cytology, Gram stain, bacterial cultures, AFB stains and culture, fungal stains and cultures. This 50-year-old male is on mechanical ventilation. He has respiratory failure. His cough is ineffective. He has retained secretions and he has had a previous abnormal bronchoscopy and he has had abnormal chest x- rays. For all these reasons he is evaluated with fiberoptic bronchoscopy. The endotracheal tube is in good position. The distal trachea was erythematous and the giovana was sharp. The left mainstem bronchus was erythematous and edematous and this produces partial obstruction stenosis. This extended into the left upper lung and the left lower lung. At areas to stenosis was greater than 50% and it was underlying collapsibility of large and small airways. There was a tremendous amount of retained secretions which were removed with lavage and suctioning. Endobronchial tissue was friable and bled easily when touched. The right mainstem bronchus was erythematous and edematous with partial obstruction secondary to endobronchial edema. This extended into the right upper lung, right middle lung and the right lower lung. There was hypertrophy of endobronchial tissue especially in the right lower lung. I could not definitely rule out a lesion. This area was lavaged and specimens were sent for studies mentioned above. The underlying endobronchial tissue was friable when touched with the scope. There was collapsibility of the large and small airways. Patient tolerated procedure well there were no complications. At some point his bronchoscopy will need to be repeated. He has significant endobronchial disease which I think is probably secondary to aspiration and recurrent infections but we have to consider other possible causes. Impression. 1. Respiratory failure requiring intubation mechanical ventilation 2. Retained secretions and retained gastric aspirate 3. Ineffective cough 4. Severe bilateral erosive friable stenotic bronchitis superimposed on underlying collapsible large and small airways. Most likely secondary to infectious and aspiration injury. Consider other causes. Plan. 1. We will need repeat bronchoscopy in a few days 2. Check bronchoscopy specimens 3. Follow-up chest
[2016-04-11] MEDS ORDERED: SODIUM CHLOR 0.9% KCL 20 MEQ 20 MEQ/1,000 ML BAG IV SCH ×2 (10:30→11:00)
--- NOTE | 2016-04-11 10:37 | Pulmonology Progress Note ---
Pulmonary - PN: Subj Interval history: Is a 50-year-old male. This patient was seen by me in pulmonary consultation 04/08/2016. His main problems appear to be 1. Nausea vomiting diarrhea etiology undetermined. Possibly related to gallbladder disease. Consider other causes. Resultant dehydration 2. Hypotension. Partially secondary to #1. Consider sepsis. 2.1 scrotal abscess 3. Acute cholecystitis. 4. Acute renal failure. Probably secondary to #1 and #2. 4.1. Acute metabolic acidosis probably secondary to acute renal failure and possibly secondary to sepsis 5. Diabetes mellitus 6. Heart surgery as an infant 7. History of back surgery 8. High blood pressure 9. Possible history of CVA 10. Acute pancreatitis. 11. Bilateral pleural effusions 12. Acute pulmonary failure. At least partially secondary to acute renal failure and hypotension requiring pressor agents, with severe metabolic acidosis. Consider other causes there may be other factors such as underlying lung disease and/or pulmonary emboli and/or aspiration 13. See past history 04/09/2016.. Today the patient was evaluated with fiberoptic bronchoscopy. He had definite evidence of significant aspiration. He had erythematous slightly friable markedly stenotic airways bilaterally secondary to what appears to be an aspiration injury. Multiple specimens were sent. No biopsies were taken. Specimens from his scrotal abscess are growing a gram-positive cocci. Earlier today Dr. Arevalo to look to start the patient on vancomycin. Patient's also on Zosyn. I do not see any need to add extra antibiotics at this point. ABGs have improved significantly on mechanical ventilation and FiO2 of 100%. PH is 7.30. PCO2 is 22.3. PO2 is 391. Bicarb is 13.9. Sodium is 143. Potassium is low at 3.2 creatinine has dropped to 9.4 and the patient for repeat dialysis today. Natruretic peptide is elevated at 260. 04/10/2016. Patient's chest x-ray shows left lower lung atelectasis. He will need a repeat fiberoptic bronchoscopy tomorrow bronchoscopy specimens have been negative so far. Abscess of the scrotum is growing a gram-positive cocci which is yet unidentified. 04/09/2016 the patient had a percutaneous drainage of the gallbladder. There are no positive cultures at this point. This patient has not done well with his weaning trials. We will continue to try to make adjustments.H&H is dropped to 10.5/27.6. White count 7100 with 84 segs and 6 lymphs. Platelets have dropped to 122,000. ABGs are improved. On mechanical ventilation and FiO2 of 65% pH is 7.5-8. PCO2 is 22.7. PO2 is 156. Bicarb is 18.5. Potassium is low at 2.2. Renal will make adjustments for this. Calcium is also low at 6.5. Natruretic peptide is dropped from 260 217. Protein and albumin are low at 5.0 and 2.2 respectively. Labs been reviewed. 04/11/2016. Today's chest x-ray shows a right perihilar infiltrate and a small residual left lower lung infiltrate. Bronchoscopy specimens from 04/10/2016 have shown nothing so far. Culture from the patient's scrotal has grown Streptococcus agalactiae. No sensitivities have been reported. Patient had dialysis yesterday. ABGs on mechanical ventilation and FiO2 of 60% shows a pH 7.59. PCO2 is 21.5. PO2 is 130. Bicarb is 20. This patient has been intentionally hyperventilated because of his metabolic acidosis which is now resolved. I have made adjustments on his ventilator and hopefully lighten his CO2 increase will let him do better on his CPAP trials. Potassium is low at 2.3. This is being managed by renal. CBC is stable and white count is come down to 6700 73 segs and 12 lymphs. Fiberoptic bronchoscopy was done 2016. See report. Patient is a significant problem with severe erosive friable partially stenotic bilateral bronchitis. This is complicated by underlying collapsibility of large and small airways and complicated by retention of secretions and residual gastric aspirate. Medicines have been reviewed. Vital signs. See below. Neck. Symmetrical. No meningismus Lymphatics. No submandibular cervical or supraclavicular adenopathy. Chest. Mild coarse large airway congestion. Heart. No gallop Abdomen. Slightly rigid. Only rare bowel sounds. Extremities. No evidence of deep venous thrombophlebitis. Note Doppler venograms are negative for deep venous thrombophlebitis Neurologic and psychiatric are impossible to assess. The remainder the examination is negative. Plan. 1. 04/11/2016. The patient is off pressor agents 2. 04/11/2016. Ventilator adjustments made. 3. Weaning protocol 4. Physical therapy while on ventilator protocol 6. Daily chest x-ray 7. Daily ABGs. 9. Check cultures from scrotum, gallbladder, lung 10. Deep venous thrombophlebitis prevention protocol Exam (Progress Note) - Constitutional Vitals: Period Temp Pulse Resp BP Sys/Mishra Pulse Ox Last 24 Hr 97.1 F-100.1 F 56-122 16-56 91-178/50-117 10-100 Results - Labs CBC & BMP: 04/11/16 05:03 04/11/16 05:03
[2016-04-11] MEDS ORDERED: VANCOMYCIN INJ 500 MG in SODIUM CHLORIDE 0.9% 100 ML IV ONE (11:00)
--- NOTE | 2016-04-11 11:15 | Event Note ---
Chief complaint metabolic acidosis of unclear etiology Hemodynamically stable with no distress she remains sedated on the ventilator. There is minimal output from his cholecystostomy tube. So far his labs have remained unchanged and he is afebrile. His serum creatinine has improved and he is making a little more urine that he is been making. His liver tests remain normal. His ileus persists and he continues to have increased NG tube output. Review of systems unobtainable with the patient on the ventilator Vital signs are stable on exam lungs clear to auscultation on the ventilator no respiratory distress heart regular rate and rhythm no murmur abdomen is soft protuberant bowel sounds decreased masses felt cholecystostomy tube in place Extremities no clubbing cyanosis or edema. Continue aggressive treatment as we are. Hopefully his ileus for small fistula medical illnesses improved. Urine output is improving which is encouraging. Cholecystostomy tube without much output again unclear whether this is true cholecystitis or a decreased gallbladder activity due to his underlying illness. We'll continue to follow with you.
--- NOTE | 2016-04-11 12:56 | Cardiology Consult Note ---
<Dorina Mariscal E - Last Filed: 04/11/16 13:09> Assessment and Plan - Time spent with patient Time spent with patient: Greater than 30 minutes (1) Status post patent foramen ovale closure Status: Chronic Assessment and plan: See plan of care in [facility] Current Visit: Yes (2) RBBB Status: Chronic Assessment and plan: See plan of care in [facility] Current Visit: Yes (3) Acute renal failure Problem details: severe Status: Acute Assessment and plan: See plan of care in [facility] Current Visit: Yes (4) Acute respiratory failure Status: Acute Assessment and plan: See plan of care in [facility] Current Visit: Yes (5) Elevated troponin Status: Acute Assessment and plan: See plan of care in [facility] Current Visit: Yes (6) Metabolic acidosis Status: Acute Current Visit: Yes (7) Respiratory failure Status: Acute Assessment and plan: See plan of care in [facility] Current Visit: Yes (8) Scrotal abscess Status: Acute Assessment and plan: See plan of care in [facility] Current Visit: Yes (9) Seizure Status: Acute Current Visit: Yes (10) Septic shock Status: Acute Assessment and plan: See plan of care in [facility] Current Visit: Yes (11) Diabetes mellitus Status: Chronic Assessment and plan: See plan of care in [facility] Current Visit: Yes Qualifiers: Diabetes mellitus type: type 2 Diabetes mellitus complication status: with kidney complications (12) Essential hypertension Status: Chronic Assessment and plan: See plan of care in [facility] Current Visit: Yes (13) Diabetes Status: Chronic Assessment and plan: See plan of care in [facility] Current Visit: No (14) Remote history of stroke Status: Chronic Assessment and plan: See plan of care in [facility] Current Visit: No History of Present Illness - Data of Consult Patient: new to practice Consult date: 04/11/16 Requesting Physician: Opal Zeng - Consult Narrative Reason for consult: elevated troponin History of present illness: Patient is being seen in the CCU. Patient is intubated and sedated. There is no family at the bedside. The majority of this information is taken from medical records and medical personnel. Mr. Pace is a 50 year old [place] male who was seen once by Dr. Lance Isaac in the fall 2015 while hospitalized at [facility]. There was no prior history of AL, CAD. Chronic right bundle-branch per EKG noted at that time. History of PFO repair as an . Patient was admitted 04/08/2016 with shortness of breath and severe metabolic acidosis secondary to acute renal failure, sepsis He presented in acute renal failure, respiratory distress requiring intubation. He was emergently dialyzed. He was suspected to have acute cholecystitis, acute pancreatitis. He was also noted to have multiple abscesses including a scrotal abscess, back abscess (gram-positive coccci). Cholecystostomy tube was placed due to patient' s severe illness. He has developed an ileus as well. Yesterday, patient began to have (new onset) seizures. Neurology has been consulted. Per RN, when Diprovan decreased, seziures reoccur. CT Head negatige. Keppra has been initiated. This morning, patient's undergone therapeutic fiberoptic bronchoscopy. Cardiology was consulted for elevated troponins. Initial troponin on 2016 0.141. On the increased 1.73. This morning it has decreased 1.6. CK -MB within normal limits this morning. CPK 768. Creatinine is improving, now down to 2.1 from 11.7 on admission. EKG reveals chronic right bundle branch block when compared to December 2015 EKG. Echocardiogram 04/08/2016 reveals an ejection fraction of 65% without significant valvular abnormality. ASSESSMENT/PLAN: 1. ELEVATED TROPONIN - Continue to cycle his cardiac biomarkers and EKGs. When multiple comorbidities stabilize will further evaluate need for cardiac risk stratification. Echo reveals no significant abnormality and this is favorable. 2. ACUTE METABOLIC ACIDOSIS - continue current plan of care 3. ACUTE RENAL FAILURE - continue current plan of care 4. SEPSIS -continue current plan of care 5. CHRONIC RBBB - will continue to follow with serial EKGs 6. SEIZURES - appreiciate Neurology 7. ACUTE PANCREATITIS - continue current plan of care 8. DIABETES - better controlled. 9. POSSIBLE HISTORY OF CVA - Neurology following 10. SCROTAL ABCESS (GRAM POSITIVE COCCI) - Vancomycin initiated 11. ACUTE CHOLECYSTITIS - drain in place 12. BILATERAL PLEURAL EFFUSIONS - Pulm following 13. ACUTE RESPIRATORY FAILURE - on ventilator at this time. 14. RASH - new developed rash this morning. May be drug induced. RN tells me it started after Vanc was started this morning. CC: Opal Zeng MD - Home Medications and Allergies Home Medications: Home Medications Medication Instructions Recorded Confirmed Type Carvedilol [Coreg] 12.5 mg PO BID #60 tablet 01/06/16 04/09/16 Rx Gabapentin Cap/Tab [Neurontin 600 mg PO TID #90 tablet 01/06/16 04/09/16 Rx Cap/Tab] Lisinopril [Prinivil] 10 mg PO DAILY #30 tablet 01/06/16 04/09/16 Rx Potassium Chloride Cap/Tab [K Dur] 20 meq PO DAILY #30 tablet 01/06/16 04/09/16 Rx Albuterol Inhaler [Proventil 1 puff INH Q4HR 04/09/16 04/09/16 History Inhaler] HYDROcodone/ACETAMIN 7.5-325 1 tablet PO Q6H PRN 04/09/16 04/09/16 History [[place] 7.5-325] Allergies/Adverse Reactions: Allergies Allergy/AdvReac Type Severity Reaction Status Date / Time No Known Allergies Allergy Verified 01/04/16 14:01 ROS unobtainable: due to endotracheal tube Medical,Surgical,& Family Hx - Medical History Cardio: History of: Hypertension Neurology: History of: Cerebrovascular Accident (possible per old chart) Musculoskeletal: History of: Back/Neck Problems - Surgical History Cardiac Surgeries: Sugical HX of: Cardiac Surgery (pfo repair as infant) Neurologic Surgeries: Surgical HX of: Neurologic Surgery (back surgeries) Orthopedic Surgeries: Surgical HX of;: Spinal Surgery - Social History Smoking Status: Smoker, status unknown Frequency of Alcohol Use: None Type of Drug Use: None Physical Examination Vital Signs Resp 19 04/08/16 13:15 General: Intubated, sedated. Appears comfortable. HEENT: ET tube secure without tracheal deviation. Scleral edema noted. Mucous membranes moist. Neck: Unable to assess for JVD due to habitus. No obvious thyromegaly appreciated. No carotid bruit appreciated Cardiac: Regular rate and rhythm. No obvious murmur rub or gallop. Chest: The base of the neck circumferentially has developed a red rash. Lungs: Rhonchi noted throughout lung david. Symmetrical chest wall movements bilaterally. Abdomen: Soft, bowel sounds sluggish. Cholecystostomy tube intact with small amount of serosanguineous drainage. No abdominal bruit or thrill noted. No masses noted. Extremities: No clubbing, cyanosis noted. General. 1+ edema noted. Upper extremity pulses 2+. Lower extremity pulses 2+. Capillary refill less than 3 seconds. Skin: Red rashes noted at the base of the neck extending circumferentially. Scrotal edema noted with erythema as well. Did not assess the back due to fear of seizures occurring with stimulation. Neuro: Sedated. No tremors or seizure activity noted at this time. Result/EKG - Labs CBC & BMP: 04/11/16 05:03 04/11/16 05:03 Lab Results: I have reviewed the past 24 hour labs Labs: Laboratory Results - last 24 hr 04/10/16 04/11/16 04/11/16 17:35 00:09 02:58 WBC RBC Hgb Hct MCV MCH MCHC RDW Plt Count MPV Neut % (Auto) Lymph % (Auto) Levy % (Auto) Eos % (Auto) Baso % (Auto) Neut # (Auto) Lymph # (Auto) Levy # (Auto) Eos # (Auto) Baso # (Auto) Immature Gran % Nucleated RBC % Immature Gran # Nucleated RBCs # INR PT Patient/Control Mix Circ Anticoag PTT ABG pH 7.594 H ABG pCO2 21.5 L ABG pO2 130.0 H ABG HCO3 20.4 ABG Total CO2 21.0 L ABG O2 Saturation 98.3 ABG Base Excess 0.5 FiO2 60.00 Sodium Potassium Chloride Carbon Dioxide Anion Gap BUN Creatinine GFR Calculation BUN/Creatinine Ratio Glucose POC Glucose 95 91 Calculated Osmolality Calcium Magnesium Total Bilirubin AST ALT Alkaline Phosphatase Total Protein Albumin Globulin Albumin/Globulin Ratio 25-OH Vitamin D Total 04/11/16 04/11/16 04/11/16 05:03 05:03 05:03 WBC 6.7 RBC 3.33 L Hgb 10.2 L Hct 29.5 L MCV 88.6 MCH 31 MCHC 34.6 RDW 13.9 Plt Count 128 L MPV 9.9 Neut % (Auto) 73.4 Lymph % (Auto) 12.5 L Levy % (Auto) 12.1 Eos % (Auto) 1.0 Baso % (Auto) 0.3 Neut # (Auto) 4.9 Lymph # (Auto) 0.8 L Levy # (Auto) 0.8 Eos # (Auto) 0.1 Baso # (Auto) 0.0 Immature Gran % 0.7 Nucleated RBC % 0.0 Immature Gran # 0.05 Nucleated RBCs # 0.00 INR 1.0 PT Patient/Control Mix 10.9 Circ Anticoag PTT 30.7 ABG pH ABG pCO2 ABG pO2 ABG HCO3 ABG Total CO2 ABG O2 Saturation ABG Base Excess FiO2 Sodium 146 H Potassium 2.3 L* Chloride 109 H Carbon Dioxide 22 Anion Gap 17.3 H BUN 18 D Creatinine 2.10 H GFR Calculation 41 BUN/Creatinine Ratio 8.00 Glucose 103 POC Glucose Calculated Osmolality 291.6 Calcium 7.0 L Magnesium Total Bilirubin 1.80 H AST 48 H ALT 32 Alkaline Phosphatase 81 Total Protein 4.7 L Albumin 2.1 L Globulin 2.6 Albumin/Globulin Ratio 0.8 L 25-OH Vitamin D Total 04/11/16 04/11/16 04/11/16 05:03 05:07 10:20 WBC RBC Hgb Hct MCV MCH MCHC RDW Plt Count MPV Neut % (Auto) Lymph % (Auto) Levy % (Auto) Eos % (Auto) Baso % (Auto) Neut # (Auto) Lymph # (Auto) Levy # (Auto) Eos # (Auto) Baso # (Auto) Immature Gran % Nucleated RBC % Immature Gran # Nucleated RBCs # INR PT Patient/Control Mix Circ Anticoag PTT ABG pH ABG pCO2 ABG pO2 ABG HCO3 ABG Total CO2 ABG O2 Saturation ABG Base Excess FiO2 Sodium 147 H Potassium 2.3 L* Chloride 109 H Carbon Dioxide 21 Anion Gap 19.3 H BUN 19 H Creatinine 2.10 H GFR Calculation 41 BUN/Creatinine Ratio 9.00 Glucose 107 H POC Glucose 116 H Calculated Osmolality 293.4 Calcium 6.9 L Magnesium 1.9 Total Bilirubin AST ALT Alkaline Phosphatase Total Protein Albumin Globulin Albumin/Globulin Ratio 25-OH Vitamin D Total < 4.2 04/11/16 12:31 WBC RBC Hgb Hct MCV MCH MCHC RDW Plt Count MPV Neut % (Auto) Lymph % (Auto) Levy % (Auto) Eos % (Auto) Baso % (Auto) Neut # (Auto) Lymph # (Auto) Levy # (Auto) Eos # (Auto) Baso # (Auto) Immature Gran % Nucleated RBC % Immature Gran # Nucleated RBCs # INR PT Patient/Control Mix Circ Anticoag PTT ABG pH ABG pCO2 ABG pO2 ABG HCO3 ABG Total CO2 ABG O2 Saturation ABG Base Excess FiO2 Sodium Potassium Chloride Carbon Dioxide Anion Gap BUN Creatinine GFR Calculation BUN/Creatinine Ratio Glucose POC Glucose 81 Calculated Osmolality Calcium Magnesium Total Bilirubin AST ALT Alkaline Phosphatase Total Protein Albumin Globulin Albumin/Globulin Ratio 25-OH Vitamin D Total - Diagnostic Findings Procedure: Chest x-ray: report reviewed by me - EKG EKG results: interpreted by me EKG shows: sinus rhythm <Ember Cuevas - Last Filed: 04/11/16 19:31> History of Present Illness - Consult Narrative History of present illness: I personally interviewed and examined the patient, reviewed the chart and discussed medical decision-making with practitioner Loida. I have read this note and agree with the findings as documented herein. The patient is critically ill. He has an elevated total CK level which is likely related to his seizures. His troponin is also elevated, however the pattern of his CK, CK- MB and troponin appears to be in a noncardiac pattern, particularly in the setting of his renal insufficiency. We will continue to follow the patient with you. ECG is mildly abnormal. CC: Opal Zeng MD Physical Examination Vital Signs Resp 19 04/08/16 13:15 Result/EKG - Labs CBC & BMP: 04/11/16 05:03 04/11/16 05:03 Labs: Laboratory Results - last 24 hr 04/11/16 04/11/16 04/11/16 00:09 02:58 05:03 WBC 6.7 RBC 3.33 L Hgb 10.2 L Hct 29.5 L MCV 88.6 MCH 31 MCHC 34.6 RDW 13.9 Plt Count 128 L MPV 9.9 Neut % (Auto) 73.4 Lymph % (Auto) 12.5 L Levy % (Auto) 12.1 Eos % (Auto) 1.0 Baso % (Auto) 0.3 Neut # (Auto) 4.9 Lymph # (Auto) 0.8 L Levy # (Auto) 0.8 Eos # (Auto) 0.1 Baso # (Auto) 0.0 Immature Gran % 0.7 Nucleated RBC % 0.0 Immature Gran # 0.05 Nucleated RBCs # 0.00 INR PT Patient/Control Mix Circ Anticoag PTT ABG pH 7.594 H ABG pCO2 21.5 L ABG pO2 130.0 H ABG HCO3 20.4 ABG Total CO2 21.0 L ABG O2 Saturation 98.3 ABG Base Excess 0.5 FiO2 60.00 Sodium Potassium Chloride Carbon Dioxide Anion Gap BUN Creatinine GFR Calculation BUN/Creatinine Ratio Glucose POC Glucose 91 Calculated Osmolality Calcium Magnesium Total Bilirubin AST ALT Alkaline Phosphatase Total Creatine Kinase CK-MB (CK-2) Troponin I Total Protein Albumin Globulin Albumin/Globulin Ratio 25-OH Vitamin D Total 04/11/16 04/11/16 04/11/16 05:03 05:03 05:03 WBC RBC Hgb Hct MCV MCH MCHC RDW Plt Count MPV Neut % (Auto) Lymph % (Auto) Levy % (Auto) Eos % (Auto) Baso % (Auto) Neut # (Auto) Lymph # (Auto) Levy # (Auto) Eos # (Auto) Baso # (Auto) Immature Gran % Nucleated RBC % Immature Gran # Nucleated RBCs # INR 1.0 PT Patient/Control Mix 10.9 Circ Anticoag PTT 30.7 ABG pH ABG pCO2 ABG pO2 ABG HCO3 ABG Total CO2 ABG O2 Saturation ABG Base Excess FiO2 Sodium 146 H 147 H Potassium 2.3 L* 2.3 L* Chloride 109 H 109 H Carbon Dioxide 22 21 Anion Gap 17.3 H 19.3 H BUN 18 D 19 H Creatinine 2.10 H 2.10 H GFR Calculation 41 41 BUN/Creatinine Ratio 8.00 9.00 Glucose 103 107 H POC Glucose Calculated Osmolality 291.6 293.4 Calcium 7.0 L 6.9 L Magnesium 1.9 Total Bilirubin 1.80 H AST 48 H ALT 32 Alkaline Phosphatase 81 Total Creatine Kinase CK-MB (CK-2) Troponin I Total Protein 4.7 L Albumin 2.1 L Globulin 2.6 Albumin/Globulin Ratio 0.8 L 25-OH Vitamin D Total 04/11/16 04/11/16 04/11/16 05:07 10:20 12:02 WBC RBC Hgb Hct MCV MCH MCHC RDW Plt Count MPV Neut % (Auto) Lymph % (Auto) Levy % (Auto) Eos % (Auto) Baso % (Auto) Neut # (Auto) Lymph # (Auto) Levy # (Auto) Eos # (Auto) Baso # (Auto) Immature Gran % Nucleated RBC % Immature Gran # Nucleated RBCs # INR PT Patient/Control Mix Circ Anticoag PTT ABG pH ABG pCO2 ABG pO2 ABG HCO3 ABG Total CO2 ABG O2 Saturation ABG Base Excess FiO2 Sodium Potassium Chloride Carbon Dioxide Anion Gap BUN Creatinine GFR Calculation BUN/Creatinine Ratio Glucose POC Glucose 116 H Calculated Osmolality Calcium Magnesium Total Bilirubin AST ALT Alkaline Phosphatase Total Creatine Kinase 768 H D CK-MB (CK-2) 1.6 D Troponin I 1.610 H Total Protein Albumin Globulin Albumin/Globulin Ratio 25-OH Vitamin D Total < 4.2 04/11/16 04/11/16 04/11/16 12:31 14:49 18:03 WBC RBC Hgb Hct MCV MCH MCHC RDW Plt Count MPV Neut % (Auto) Lymph % (Auto) Levy % (Auto) Eos % (Auto) Baso % (Auto) Neut # (Auto) Lymph # (Auto) Levy # (Auto) Eos # (Auto) Baso # (Auto) Immature Gran % Nucleated RBC % Immature Gran # Nucleated RBCs # INR PT Patient/Control Mix Circ Anticoag PTT ABG pH ABG pCO2 ABG pO2 ABG HCO3 ABG Total CO2 ABG O2 Saturation ABG Base Excess FiO2 Sodium Potassium Chloride Carbon Dioxide Anion Gap BUN Creatinine GFR Calculation BUN/Creatinine Ratio Glucose POC Glucose 81 96 Calculated Osmolality Calcium Magnesium Total Bilirubin AST ALT Alkaline Phosphatase Total Creatine Kinase 794 H CK-MB (CK-2) 1.5 Troponin I 1.670 H Total Protein Albumin Globulin Albumin/Globulin Ratio 25-OH Vitamin D Total
--- NOTE | 2016-04-11 13:31 | EKG Report ---
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
[2016-04-11] MEDS ORDERED: LACOSAMIDE INJ 200 MG in SODIUM CHLORIDE 0.9% 50 ML IV ONE (15:30)
--- NOTE | 2016-04-11 15:43 | Nephrology Progress Note ---
Nephrology - PN: Subj Interval history: The patient remains ventilated. Patient did have seizure activity on yesterday. Did receive Ativan on yesterday. Tolerated dialysis on yesterday. Serum creatinine noted to be 2.1. Exam (PN)-Nephrology - Vital Signs Vital signs: Period Temp Pulse Resp BP Sys/Mishra Pulse Ox Last 24 Hr 97.1 F-100.1 F 56-122 16-56 91-178/50-117 10-100 - General Appearance General appearance: well-developed, sedated on ventilator EENT: ATNC Neck: supple Respiratory: clear Cardiology: regular rate, regular rhythm Gastrointestinal: normoactive bowel sounds, no tenderness Musculoskeletal: no clubbing - Lab 04/11/16 05:03 04/11/16 05:03 Most recent lab results ABG pH 7.594 (7.35-7.45) H 04/11/16 02:58 ABG pCO2 21.5 MM HG (35-48) L 04/11/16 02:58 ABG pO2 130.0 MM HG (80-95) H 04/11/16 02:58 ABG HCO3 20.4 MMOL/L (20-26) 04/11/16 02:58 ABG O2 Saturation 98.3 % (95-100) 04/11/16 02:58 Calcium 7.0 MG/DL (8.5-10.1) L 04/11/16 05:03 Magnesium 1.9 MG/DL (1.8-2.4) 04/11/16 05:03 Assessment and Plan (1) Respiratory failure Status: Acute Current Visit: Yes (2) Acute renal failure Problem details: severe Status: Acute Assessment and plan: At this time continue to watch to see if there is signs of renal recovery. Serum creatinine is noted to be 2.1. Current Visit: Yes (3) Diabetes mellitus Status: Chronic Current Visit: Yes Qualifiers: Diabetes mellitus type: type 2 Diabetes mellitus complication status: with kidney complications (4) Essential hypertension Status: Chronic Current Visit: Yes (5) Remote history of stroke Status: Chronic Current Visit: No
[2016-04-11] MEDS ORDERED: ALBUTEROL 2.5 MG/3 ML NEB RESP TX ONE (17:34)
[2016-04-11] MEDS: PANTOPRAZOLE 40 MG VIAL IV SCH (17:51)
[2016-04-11] MEDS ORDERED: SODIUM BICARB IV SCH (20:11)
[2016-04-11] MEDS ORDERED: POTASSIUM CHLORIDE IV SCH (20:11)
[2016-04-11] MEDS ORDERED: [UNRECOGNIZED DRUG - OTHER] IV SCH (20:11)
[2016-04-11] MEDS: POTASSIUM CHLORIDE RIDER 20 MEQ in PREMIX 1 EACH IV SCH ×2 (21:12→23:37)
[2016-04-11] MEDS: LACOSAMIDE INJ 100 MG in SODIUM CHLORIDE 0.9% 50 ML IV SCH (21:29)
[2016-04-12] MEDS: INSULIN REGULAR 100 UNIT/ML SUBCUT SCH ×4 (00:05→18:15)
[2016-04-12 02:29] LABS: Allen Test Positive; Pt O2 Delivery Device Ventilator
[2016-04-12 02:30] LABS: ABG Base Excess 1.4 MMOL/L (-2.5-2.5); ABG HCO3 26.1 MMOL/L (20-26); ABG PCO2 41.3 MM HG (35-48); ABG PH 7.418 (7.35-7.45); ABG PO2 313.1 MM HG (80-95); ABG TCO2 27.3 MMOL/L (23-27)
[2016-04-12 04:34] LABS: Basophils % 0.1 % (0.0-0.8); Eosinophils # 0.2 10*3/uL (0.0-0.87); Eosinophils % 2.7 % (0.00-10.9); Hematocrit 32.8 VOL% (42.0-52.0); Immature Granulocytes % 0.5 %; Immature Granulocytes Absolute 0.04 #; Lymphocytes # 1.2 10*3/uL (1.4-4.0); Lymphocytes % 16.4 % (21.2-54.2); Mean Corpuscular HGB Conc 33.5 GM/DL (32-36); Mean Corpuscular Hemoglobin 30 PG (27-34); Mean Corpuscular Volume 89.6 FL (87-102); Mean Platelet Volume 9.9 FL (9.6-12.0); Monocytes # 1.1 10*3/uL (0.11-0.8); Monocytes % 14.4 % (1.7-12.7); Neutrophils # 4.8 10*3/uL (1.4-7.4); Neutrophils % 65.9 % (38.7-73.9); Platelet Count 153 10*3/uL (130-400); Red Blood Count 3.66 10*6/uL (3.8-5.5); Red Cell Distribution Width 14.6 % (9.3-17.3); White Blood Count 7.4 10*3/uL (4.5-13.71)
[2016-04-12 05:05] LABS: Calcium 7.3 MG/DL (8.5-10.1); Magnesium 2.2 MG/DL (1.8-2.4); Osmolality,Calculated 302.6 MOS/KG (273-304); Potassium 2.9 MMOL/L (3.5-5.1)
[2016-04-12] MEDS: PROPOFOL 1,000 MG/100 ML BOTTLE IV SCH ×3 (05:25→20:45)
[2016-04-12 06:19] LABS: Troponin I Only 0.942 NG/ML (0.00-0.045)
[2016-04-12] MEDS: PIPERACILLIN/TAZOBACTAM 3,375 MG in SODIUM CHLORIDE 0.9% 100 ML IV SCH ×2 (06:22→19:21)
--- NOTE | 2016-04-12 07:21 | XRay Report ---
History is ventilator management Comparison 04/11/2016 ETT tip is at T5. Mediastinal contours and hilar contours grossly unchanged accounting for rotation. Other supportive devices unchanged There is an mildly increasing patchy and hazy and more confluent opacities in the left chest with worsening volume loss some which may be positional. The mild hazy opacities in the right base are unchanged Impression: Increasing parenchymal opacities and volume loss in the left chest PROCEDURE INTERPRETED AT [facility] DEPARTMENT OF RADIOLOGY Final Report Signed by: Dr. Naz Recinos
[2016-04-12] MEDS ORDERED: INFLUENZA VIRUS VACCINE 0.5 ML SYRINGE IM ONE (09:00)
--- NOTE | 2016-04-12 09:13 | Neurology Progress Note ---
Almaz Yuen Chassity, am scribing for, and in the presence of, Jamie Park MD 15 :37. Neurology - PN : Subjective Interval history: Patient is still about the same. He did have a seizure this morning that was witnessed by the nursing staff. Keppra was changed to 500mg IV Q8. Patient hasn' t had any more seizures. Exam (Progress Note) - Constitutional Vitals: Period Temp Pulse Resp BP Sys/Mishra Pulse Ox Last 24 Hr 97.1 F-100.1 F 56-122 16-56 91-178/50-117 10-100 Exam: GENERAL: Patient is in no acute distress. NECK: Neck is supple. There is no JVD. No carotid bruits present. No thyroid masses. CVS: First and second heart sounds are normal. There is no S3 present. Regular rate and rhythm. RESPIRATORY: Bilateral rales and rhonchi. ABDOMEN: Soft and non-tender. Bowel sounds are present. There is no hepatosplenomegaly. EXT: There is no palpable edema. Peripheral pulses are present. Skin: No rashes Central Nervous system: General: On vent Speech: On vent sedated Comprehension: None Facial expressions: Normal Cranial Nerves: Pupils are equally reactive to light. Doll's head eye movements are positive. No facial asymmetry seen. Motor: Bulk and Tone is normal. Strength cannot be assessed Sensory: Cannot be assessed Reflexes: 1+ and symmetrical Cerebellar function: Cannot be assessed Gait: Not tested this time Results - Labs CBC & BMP: 04/11/16 05:03 04/11/16 05:03 Assessment and Plan (1) Seizure Status: Acute Assessment and plan: Continue Keppra 500mg IV Q8. EEG is pending. Add Vimpat. Current Visit: Yes Xavier Yuen Aamir, MD, personally performed the services described in this documentation, ascribed by Dana Muse in my presence, and it is both accurate and complete 913 .
[2016-04-12] MEDS ORDERED: POTASSIUM CHLORIDE RIDER 100 ML IV ONE (09:52)
[2016-04-12] MEDS: SODIUM BICARB INJ 50 MEQ, POTASSIUM CHLORIDE INJ 20 MEQ in SODIUM CHLORIDE 0.45% 1,000 ML IV SCH ×2 (09:53→20:45)
[2016-04-12] MEDS: NYSTATIN 500,000 UNIT/5 ML UDCUP SWISH/SWAL SCH ×4 (09:54→20:57)
[2016-04-12] MEDS: LACOSAMIDE INJ 100 MG in SODIUM CHLORIDE 0.9% 50 ML IV SCH ×2 (09:54→20:59)
--- NOTE | 2016-04-12 09:54 | Hospitalist Progress Note ---
Assessment and Plan (1) Seizure Status: Acute Assessment and plan: newonset. Patient has been seizure free for the last 24hrs. -CT head was negative,appreciates Neurology's input, continue on keppra, follow EEG, correct electrolytes. Current Visit: Yes (2) Septic shock Status: Acute Assessment and plan: pressors have been weaned off, cultures showed no growth so far, continue with IV antibiotics Current Visit: Yes (3) Acute respiratory failure Status: Acute Assessment and plan: continue with vent support Current Visit: Yes (4) Cholelithiasis Problem details: w possible acute cholecystisi/CBD 10 mm dilated/& elevated lipase Status: Acute Assessment and plan: with possible acute cholecystisi/CBD 10 mm dilated/& elevated lipase. -continue with percutaneous cholecystostomy tube. -follow surgery's recommendations Current Visit: Yes (5) Scrotal abscess Status: Acute Assessment and plan: aspirate grew strep agalactiae. continue with IV antibiotics, [id number] . Current Visit: Yes (6) Hypokalemia Status: Acute Assessment and plan: will continue to replete, check bmp and mg in am Current Visit: Yes (7) Acute renal failure Problem details: severe Status: Acute Assessment and plan: on hemodialysis, Nephrology is following Current Visit: Yes (8) Diabetes Status: Chronic Assessment and plan: A1c-7.4, continue with SSC Current Visit: No (9) Oral thrush Status: Acute Assessment and plan: continue swish and swallow Nystatin,HIV testing-non reactive Current Visit: Yes (10) Metabolic acidosis Status: Acute Assessment and plan: continue bicarb replacement, Nephrology is following Current Visit: Yes (11) Elevated troponin Status: Acute Assessment and plan: In the setting of septic shock and severe acute kidney injury. This would be likely due to increased demand ischemia and from severe acute kidney injury.But patient has a history of heart disease.Follow Cardiology consult, Echocardiogram 04/08/2016 reveals an ejection fraction of 65% without significant valvular abnormality. . Current Visit: Yes (12) Acute encephalopathy Status: Acute Assessment and plan: will continue to follow, patient is currently sedated and intubated Current Visit: Yes (13) Remote history of stroke Status: Chronic Assessment and plan: stable, CT head showed no acute changes Current Visit: No (14) Hypocalcemia Status: Acute Assessment and plan: will get ionized calcium and replete levels Current Visit: Yes Hospitalist: Subjective Interval history: Patient seen, He has been seizure free for the last 24hrs, Had an EEG yesterday , sodium is high and potassium is still low. Exam - Constitutional Vitals: Period Temp Pulse Resp BP Sys/Mishra Pulse Ox Last 24 Hr 98.3 F-99.7 F 44-89 16-34 125-181/65-111 95-100 General appearance: no acute distress, other (intubated and sedated) - Head Head exam: Present: normal inspection - Respiratory Respiratory exam: Present: clear to auscultation bilaterally - Cardiovascular Cardiovascular exam: Present: regular rate and rhythm - GI/Abdominal GI/Abdominal exam: Present: other (percutaneous drainage in place) - Extremities Exam Extremities exam: Present: normal inspection Results - Labs CBC & BMP: 04/12/16 04:00 04/12/16 04:00 Lab Results: I have reviewed the past 24 hour labs
--- NOTE | 2016-04-12 10:04 | Nephrology Progress Note ---
Nephrology - PN: Subj Interval history: The patient remains ventilated. Urine output has picked up. The serum creatinine is now down to 1.7. IV fluids have been adjusted. At this time holding dialysis. Potassium is being supplemented. Exam (PN)-Nephrology - Vital Signs Vital signs: Period Temp Pulse Resp BP Sys/Mishra Pulse Ox Last 24 Hr 98.3 F-99.7 F 44-89 16-34 125-181/65-111 95-100 - General Appearance General appearance: intubated EENT: ATNC Neck: supple Respiratory: clear Cardiology: regular rate, regular rhythm Gastrointestinal: normoactive bowel sounds, no tenderness Integumentary: no rash Musculoskeletal: no clubbing - Lab 04/12/16 04:00 04/12/16 04:00 Most recent lab results ABG pH 7.418 (7.35-7.45) 04/12/16 02:20 ABG pCO2 41.3 MM HG (35-48) 04/12/16 02:20 ABG pO2 313.1 MM HG (80-95) H 04/12/16 02:20 ABG HCO3 26.1 MMOL/L (20-26) H 04/12/16 02:20 ABG O2 Saturation 99.0 % (95-100) 04/12/16 02:20 Calcium 7.3 MG/DL (8.5-10.1) L 04/12/16 04:00 Magnesium 2.2 MG/DL (1.8-2.4) 04/12/16 04:00 Assessment and Plan (1) Respiratory failure Status: Acute Current Visit: Yes (2) Acute renal failure Problem details: severe Status: Acute Assessment and plan: At this time continue to watch to see if there is signs of renal recovery. Serum creatinine is noted to be 1.7 No indication for dialysis. Will follow up on tomorrow Agree with IV fluids. Current Visit: Yes (3) Diabetes mellitus Status: Chronic Current Visit: Yes (4) Essential hypertension Status: Chronic Current Visit: Yes (5) Remote history of stroke Status: Chronic Current Visit: No
[2016-04-12] MEDS: POTASSIUM CHLORIDE RIDER 20 MEQ in PREMIX 1 EACH IV SCH ×2 (10:15→12:11)
--- NOTE | 2016-04-12 10:31 | General Surgery Progress Note ---
Assessment and Plan (1) Acute renal failure Problem details: severe Status: Acute Assessment and plan: Seems to be improving. I will leave the dialysis catheter in place until requested to be removed. Current Visit: Yes (2) Cholelithiasis Problem details: w possible acute cholecystisi/CBD 10 mm dilated/& elevated lipase Status: Acute Assessment and plan: The patient is status post percutaneous cholecystostomy tube placement. This seems to be functioning well. Continue current care. Current Visit: Yes (3) Abscess Status: Acute Assessment and plan: Healing well. Continue antibiotics Current Visit: Yes Subjective Patient reports: Present: afebrile Narrative: Patient grimaces to pain but does not follow commands. Exam - Constitutional Vitals: Period Temp Pulse Resp BP Sys/Mishra Pulse Ox Last 24 Hr 98.3 F-99.7 F 44-89 16-34 125-181/65-111 95-100 General appearance: mild distress, over weight - Head Head exam: Present: normal inspection - Eye Eye exam: Present: EOMI Pupils: Present: NAA - ENT ENT exam: Present: normal exam Mouth exam: Present: normal external inspection, normal voice - Neck Neck exam: Present: normal inspection - Respiratory Respiratory exam: Present: clear to auscultation bilaterally. Absent: accessory muscle use, chest wall tenderness - Cardiovascular Cardiovascular exam: Present: RRR. Absent: systolic murmur, tachycardia - GI/Abdominal GI/Abdominal exam: Present: normal bowel sounds, soft, other (cholecystostomy tube has minimal clear drainage). Absent: tenderness, rebound - Extremities Exam Extremities exam: Present: normal inspection, normal capillary refill - Back Exam Back exam: Present: normal inspection - Neurological Exam Neurological exam: Present: alert - Skin Skin exam: Present: normal color, warm Results - Labs CBC & BMP: 04/12/16 04:00 04/12/16 04:00
--- NOTE | 2016-04-12 11:08 | Gastrointestinal Progress Note ---
<Colleen Solo - Last Filed: 04/12/16 11:06> Assessment and Plan (1) Cholelithiasis Problem details: w possible acute cholecystisi/CBD 10 mm dilated/& elevated lipase Status: Acute Assessment and plan: 04/12-Minimal output from italia tube. NG output less. Tube feedings to be initiated today. Plan and addendum to follow by Dr Napier. 04/10-Post perc italia tube placement. Large amount of NG output reported. Potassium 2.2. Plan and addendum to follow by Dr Napier. 04/09-Findings on CT scan of cholelithiasis and GB distention, dilated CBD. HIDA scan results with nonvisualized gallbladder. LFTs unremarkable. Plan to continue to monitor at this time. Plan and addendum to follow by Dr Napier. Current Visit: Yes Gastroenterology - PN: Subj Interval history: CC: Metabolic acidosis Pt is seen, sedated on vent. He does awaken when sedation is lifted however does not follow command. Percutaneous cholecystostomy tube still with small amount of serosanginous drainage. NG with less output and nursing staff states he is to have tube feedings started today. He is also having increased UOP. Mild response to abdominal palpation. ROS: No acute distress Exam (Progress Note) - Constitutional Vitals: Period Temp Pulse Resp BP Sys/Mishra Pulse Ox Last 24 Hr 98.3 F-99.7 F 44-89 16-34 125-181/65-111 95-100 General appearance: normal weight, no acute distress - Head Head exam: Present: normal inspection, normocephalic - Eye Eye exam: Present: other (lids and conjunctiva unremarkable). Absent: scleral icterus - ENT ENT exam: Present: normal exam, normal oropharynx - Neck Neck exam: Present: normal inspection - Respiratory Respiratory exam: Present: clear to auscultation bilaterally. Absent: rales, rhonchi, wheezes - Cardiovascular Cardiovascular exam: Present: regular rate and rhythm. Absent: diastolic murmur , JVD, systolic murmur - GI/Abdominal GI/Abdominal exam: Present: normal bowel sounds, tenderness, soft. Absent: ascites, distended, mass, organomegaly - Extremities Exam Extremities exam: Present: normal inspection, full ROM - Back Exam Back exam: Present: normal inspection - Neurological Exam Neurological exam: Present: other - Psychiatric Psychiatric exam: Present: other - Skin Skin exam: Present: normal color, warm, dry Results - Labs CBC & BMP: 04/12/16 04:00 04/12/16 04:00 Lab Results: I have reviewed the past 24 hour labs <Bhavesh Napier - Last Filed: 04/12/16 13:55> Exam (Progress Note) - Constitutional Vitals: Period Temp Pulse Resp BP Sys/Mishra Pulse Ox Last 24 Hr 97.5 F-99.5 F 44-89 16-35 125-181/65-111 95-100 Results - Labs CBC & BMP: 04/12/16 04:00 04/12/16 04:00
--- NOTE | 2016-04-12 11:16 | Pulmonology Progress Note ---
Pulmonary - PN: Subj Interval history: Is a 50-year-old male. This patient was seen by me in pulmonary consultation 04/08/2016. His main problems appear to be 1. Nausea vomiting diarrhea etiology undetermined. Possibly related to gallbladder disease. Consider other causes. Resultant dehydration 2. Hypotension. Partially secondary to #1. Consider sepsis. 2.1 scrotal abscess 3. Acute cholecystitis. 4. Acute renal failure. Probably secondary to #1 and #2. 4.1. Acute metabolic acidosis probably secondary to acute renal failure and possibly secondary to sepsis 5. Diabetes mellitus 6. Heart surgery as an infant 7. History of back surgery 8. High blood pressure 9. Possible history of CVA 10. Acute pancreatitis. 11. Bilateral pleural effusions 12. Acute pulmonary failure. At least partially secondary to acute renal failure and hypotension requiring pressor agents, with severe metabolic acidosis. Consider other causes there may be other factors such as underlying lung disease and/or pulmonary emboli and/or aspiration 13. See past history 04/09/2016.. Today the patient was evaluated with fiberoptic bronchoscopy. He had definite evidence of significant aspiration. He had erythematous slightly friable markedly stenotic airways bilaterally secondary to what appears to be an aspiration injury. Multiple specimens were sent. No biopsies were taken. Specimens from his scrotal abscess are growing a gram-positive cocci. Earlier today Dr. Arevalo to look to start the patient on vancomycin. Patient's also on Zosyn. I do not see any need to add extra antibiotics at this point. ABGs have improved significantly on mechanical ventilation and FiO2 of 100%. PH is 7.30. PCO2 is 22.3. PO2 is 391. Bicarb is 13.9. Sodium is 143. Potassium is low at 3.2 creatinine has dropped to 9.4 and the patient for repeat dialysis today. Natruretic peptide is elevated at 260. 04/10/2016. Patient's chest x-ray shows left lower lung atelectasis. He will need a repeat fiberoptic bronchoscopy tomorrow bronchoscopy specimens have been negative so far. Abscess of the scrotum is growing a gram-positive cocci which is yet unidentified. 04/09/2016 the patient had a percutaneous drainage of the gallbladder. There are no positive cultures at this point. This patient has not done well with his weaning trials. We will continue to try to make adjustments.H&H is dropped to 10.5/27.6. White count 7100 with 84 segs and 6 lymphs. Platelets have dropped to 122,000. ABGs are improved. On mechanical ventilation and FiO2 of 65% pH is 7.5-8. PCO2 is 22.7. PO2 is 156. Bicarb is 18.5. Potassium is low at 2.2. Renal will make adjustments for this. Calcium is also low at 6.5. Natruretic peptide is dropped from 260 217. Protein and albumin are low at 5.0 and 2.2 respectively. Labs been reviewed. 04/11/2016. Today's chest x-ray shows a right perihilar infiltrate and a small residual left lower lung infiltrate. Bronchoscopy specimens from 04/10/2016 have shown nothing so far. Culture from the patient's scrotal has grown Streptococcus agalactiae. No sensitivities have been reported. Patient had dialysis yesterday. ABGs on mechanical ventilation and FiO2 of 60% shows a pH 7.59. PCO2 is 21.5. PO2 is 130. Bicarb is 20. This patient has been intentionally hyperventilated because of his metabolic acidosis which is now resolved. I have made adjustments on his ventilator and hopefully lighten his CO2 increase will let him do better on his CPAP trials. Potassium is low at 2.3. This is being managed by renal. CBC is stable and white count is come down to 6700 73 segs and 12 lymphs. Fiberoptic bronchoscopy was done 2016. See report. Patient is a significant problem with severe erosive friable partially stenotic bilateral bronchitis. This is complicated by underlying collapsibility of large and small airways and complicated by retention of secretions and residual gastric aspirate. 04/11/2016. This 50-year-old had a scrotal abscess. He had acute cholecystitis which is been drained percutaneously. He has had acute renal failure and has required dialysis. He had acute severe metabolic acidosis that is improved significantly. He has diabetes mellitus. He has acute respiratory failure that required intubation mechanical ventilation. On he had fiberoptic bronchoscopy and he had definite evidence of significant aspiration. He had erythematous markedly flushed friable and stenotic airways bilaterally.ABGs have improved significantly. On FiO2 of 60% his pH is 7.42. PCO2 is 41. PO2 is 313. Bicarb was 26. Sodium is increased to 153 and potassium is low at 2.9 this is being managed by renal. This looked Like he had acute and chronic injuries. He had a repeat fiberoptic bronchoscopy on 04/11/2016 and a good deal of secretions were removed. Endobronchially he did not appear to be any better. There are no positive bronchoscopy cultures appear he is on weaning protocol some days he does a few hours of CPAP and some days he does not tolerate this well. He is getting dialysis every other day. Medicines have been reviewed. Vital signs. See below. Neck. Symmetrical. No meningismus Lymphatics. No submandibular cervical or supraclavicular adenopathy. Chest. Mild coarse large airway congestion. Heart. No gallop Abdomen. Slightly rigid. Only rare bowel sounds. Extremities. No evidence of deep venous thrombophlebitis. Note Doppler venograms are negative for deep venous thrombophlebitis Neurologic and psychiatric are impossible to assess. The remainder the examination is negative. Plan. 1. 04/11/2016. The patient is off pressor agents 2. 04/11/2016. Ventilator adjustments made. 3. Weaning protocol 4. Physical therapy while on ventilator protocol 6. Daily chest x-ray 7. Daily ABGs. 9. 04/12/2016. Continue weaning protocol. Patient does not improve soon will need to consider a trach. 10. Deep venous thrombophlebitis prevention protocol Exam (Progress Note) - Constitutional Vitals: Period Temp Pulse Resp BP Sys/Mishra Pulse Ox Last 24 Hr 98.3 F-99.7 F 44-89 16-34 125-181/65-111 95-100 Results - Labs CBC & BMP: 04/12/16 04:00 04/12/16 04:00
--- NOTE | 2016-04-12 12:42 | Pathology Report from [facility] ---
ACCESSION # : [id number] PATIENT NAME : Ilir Pace ORDERING DR : TAURUS TORRES MD CLINICAL HX: Shortness of Breath, Respiratory Failue, Renal Failure. POST-OP DX: Same SPECIMEN INFO: Washing,Bronchial,JENS - 30 ml's blood tinged, mucoid with yellow white fragments. CLASS: I CLASS COMMENTS: Benign pulmonary cells, much acute inflammationCELL BLOCK: Same CLASS LEGEND: CLASS 0 Material inadequate for diagnosis because of (see comment) CLASS I Absence of atypical or abnormal cells CLASS II Atypical Cytology but no evidence of malignancy CLASS III Cytology suggestive of but not conclusive for malignancy CLASS IV Cytology strongly suggestive of malignancy CLASS V Cytology conclusive for malignancy SERVICE DATE: 04/11/2016 REPORT DATE: 04/12/2016 PATHOLOGIST: Joseph Borges
[2016-04-12 13:05] LABS: Troponin I Only 0.737 NG/ML (0.00-0.045)
--- NOTE | 2016-04-12 15:09 | Cardiology Progress Note ---
Dixon Yuen Rachel, RN, am scribing for, and in the presence of, Ember Cuevas MD 15:09. Assessment and Plan (1) Elevated troponin Status: Acute Assessment and plan: Troponin is down from yesterday. When comorbidities improve will further evaluate need for further workup. Echo done 04/08 which reveals EF 65%. Current Visit: Yes (2) Status post patent foramen ovale closure Status: Chronic Current Visit: No (3) Acute renal failure Problem details: severe Status: Acute Assessment and plan: Management per nephrology. Continue current plan of care. Current Visit: Yes (4) Acute respiratory failure Status: Acute Assessment and plan: Management per pulmonary. Continue current plan of care. Current Visit: Yes (5) Hypokalemia Status: Acute Assessment and plan: Continue current plan of care. Current Visit: Yes (6) Metabolic acidosis Problem details: severe Status: Acute Assessment and plan: Continue current plan of care. Current Visit: Yes (7) Scrotal abscess Status: Acute Assessment and plan: Continue current plan of care. Current Visit: Yes (8) Seizure Status: Acute Assessment and plan: Management per neurology. Continue current plan of care. Current Visit: Yes (9) Septic shock Status: Acute Assessment and plan: BP stable, not requiring vasopressors. Continue current plan of care. Current Visit: Yes (10) Diabetes mellitus Status: Chronic Assessment and plan: This is well controlled, Continue current plan of care. Current Visit: Yes Qualifiers: Diabetes mellitus type: type 2 Diabetes mellitus complication status: with kidney complications (11) Essential hypertension Status: Chronic Current Visit: Yes (12) RBBB Status: Chronic Assessment and plan: will continue to monitor serial EKG's. Current Visit: Yes (13) Remote history of stroke Status: Chronic Assessment and plan: Management per neurology, continue current plan of care. Current Visit: No Cardiology - PN: Subj Interval history: Mr. Pace is a 50 year old male patient who has been seen by Dr. Isaac in the past. He is sedated and ventilated in the CCU and being treated for respiratory failure, severe metabolic acidosis secondary to acute renal failure , new onset seizures, ileus, and sepsis. He was also suspected to have acute cholecystitis, acute pancreatitis, and noted to have multiple abscesses. Cardiology has been consulted for elevated troponins. Today his troponin is down to 0.9 (1.25 yesterday) and CKMB is less than 1.0. Patient is sedated and unable to participate in interview. Nurse reports that patient is not following commands when sedation is held, will defer to neurology. Head CT was found to be negative. Patient has been seizure free over night. vital signs are stable this morning. Sinus rhythm noted with heart rates in 50's. No overt arrhythmias or ectopy noted. Review of labs demonstrate a potassium of 2.9, this is actually improved from yesterday (2.5). Potassium is currently being replaced. It has been added to his IVF. Sodium is 153 this morning, IVF have been switched to 1/2 NS with potassium. Creatinine is 1.7, this is much improved from admission (11.7) Patient had dialysis Friday. Exam (Progress Note) - Constitutional Vitals: Period Temp Pulse Resp BP Sys/Mishra Pulse Ox Last 24 Hr 98.3 F-99.7 F 44-97 16-34 125-181/65-111 95-100 General appearance: no acute distress, other (sedated on vent) - Head Head exam: Present: normal inspection, normocephalic, atraumatic - Neck Neck exam: Present: normal inspection. Absent: lymphadenopathy, thyromegaly - Respiratory Respiratory exam: Present: rales, rhonchi. Absent: accessory muscle use - Cardiovascular Cardiovascular exam: Present: bradycardia, regular rate and rhythm. Absent: diastolic murmur, gallop, irregular rhythm, JVD, rubs, systolic murmur - GI/Abdominal GI/Abdominal exam: Present: hypoactive bowel sounds, soft, other ( Cholecystostomy tube intact ). Absent: mass - Extremities Exam Extremities exam: Present: normal inspection, edema (1+ edema) - Neurological Exam Neurological exam: Present: other (patient is sedated, no seizure activity noted. ) - Skin Skin exam: Present: normal color, warm, dry Result/EKG - Labs CBC & BMP: 04/12/16 04:00 04/12/16 04:00 Lab Results: I have reviewed the past 24 hour labs Labs: Laboratory Results - last 24 hr 04/11/16 04/11/16 04/11/16 10:20 12:02 12:31 WBC RBC Hgb Hct MCV MCH MCHC RDW Plt Count MPV Neut % (Auto) Lymph % (Auto) [place] % (Auto) Eos % (Auto) Baso % (Auto) Neut # (Auto) Lymph # (Auto) [place] # (Auto) Eos # (Auto) Baso # (Auto) Immature Gran % Nucleated RBC % Immature Gran # Nucleated RBCs # ABG pH ABG pCO2 ABG pO2 ABG HCO3 ABG Total CO2 ABG O2 Saturation ABG Base Excess FiO2 Sodium Potassium Chloride Carbon Dioxide Anion Gap BUN Creatinine GFR Calculation BUN/Creatinine Ratio Glucose POC Glucose 81 Calculated Osmolality Calcium Magnesium Total Creatine Kinase 768 H D CK-MB (CK-2) 1.6 D Troponin I 1.610 H 25-OH Vitamin D Total < 4.2 04/11/16 04/11/16 04/11/16 14:49 18:03 19:16 WBC RBC Hgb Hct MCV MCH MCHC RDW Plt Count MPV Neut % (Auto) Lymph % (Auto) [place] % (Auto) Eos % (Auto) Baso % (Auto) Neut # (Auto) Lymph # (Auto) [place] # (Auto) Eos # (Auto) Baso # (Auto) Immature Gran % Nucleated RBC % Immature Gran # Nucleated RBCs # ABG pH ABG pCO2 ABG pO2 ABG HCO3 ABG Total CO2 ABG O2 Saturation ABG Base Excess FiO2 Sodium Potassium 2.5 L* Chloride Carbon Dioxide Anion Gap BUN Creatinine GFR Calculation BUN/Creatinine Ratio Glucose POC Glucose 96 Calculated Osmolality Calcium Magnesium Total Creatine Kinase 794 H CK-MB (CK-2) 1.5 Troponin I 1.670 H 25-OH Vitamin D Total 04/11/16 04/12/16 04/12/16 21:39 00:06 02:20 WBC RBC Hgb Hct MCV MCH MCHC RDW Plt Count MPV Neut % (Auto) Lymph % (Auto) [place] % (Auto) Eos % (Auto) Baso % (Auto) Neut # (Auto) Lymph # (Auto) [place] # (Auto) Eos # (Auto) Baso # (Auto) Immature Gran % Nucleated RBC % Immature Gran # Nucleated RBCs # ABG pH 7.418 ABG pCO2 41.3 ABG pO2 313.1 H ABG HCO3 26.1 H ABG Total CO2 27.3 H ABG O2 Saturation 99.0 ABG Base Excess 1.4 FiO2 60.00 Sodium Potassium Chloride Carbon Dioxide Anion Gap BUN Creatinine GFR Calculation BUN/Creatinine Ratio Glucose POC Glucose 85 Calculated Osmolality Calcium Magnesium Total Creatine Kinase 891 H CK-MB (CK-2) 1.6 Troponin I 1.250 H D 25-OH Vitamin D Total 04/12/16 04/12/16 04/12/16 04:00 04:00 05:33 WBC 7.4 RBC 3.66 L Hgb 11.0 L Hct 32.8 L MCV 89.6 MCH 30 MCHC 33.5 RDW 14.6 Plt Count 153 MPV 9.9 Neut % (Auto) 65.9 Lymph % (Auto) 16.4 L [place] % (Auto) 14.4 H Eos % (Auto) 2.7 Baso % (Auto) 0.1 Neut # (Auto) 4.8 Lymph # (Auto) 1.2 L [place] # (Auto) 1.1 H Eos # (Auto) 0.2 Baso # (Auto) 0.0 Immature Gran % 0.5 Nucleated RBC % 0.0 Immature Gran # 0.04 Nucleated RBCs # 0.00 ABG pH ABG pCO2 ABG pO2 ABG HCO3 ABG Total CO2 ABG O2 Saturation ABG Base Excess FiO2 Sodium 153 H Potassium 2.9 L Chloride 115 H Carbon Dioxide 25 Anion Gap 15.9 H BUN 16 Creatinine 1.70 H GFR Calculation 52 BUN/Creatinine Ratio 9.00 Glucose 86 POC Glucose 86 Calculated Osmolality 302.6 Calcium 7.3 L Magnesium 2.2 Total Creatine Kinase CK-MB (CK-2) Troponin I 25-OH Vitamin D Total 04/12/16 05:48 WBC RBC Hgb Hct MCV MCH MCHC RDW Plt Count MPV Neut % (Auto) Lymph % (Auto) [place] % (Auto) Eos % (Auto) Baso % (Auto) Neut # (Auto) Lymph # (Auto) [place] # (Auto) Eos # (Auto) Baso # (Auto) Immature Gran % Nucleated RBC % Immature Gran # Nucleated RBCs # ABG pH ABG pCO2 ABG pO2 ABG HCO3 ABG Total CO2 ABG O2 Saturation ABG Base Excess FiO2 Sodium Potassium Chloride Carbon Dioxide Anion Gap BUN Creatinine GFR Calculation BUN/Creatinine Ratio Glucose POC Glucose Calculated Osmolality Calcium Magnesium Total Creatine Kinase 679 H D CK-MB (CK-2) < 1.0 Troponin I 0.942 H D 25-OH Vitamin D Total - EKG EKG results: interpreted by me, sinus rhythm I, Ember Cuevas MD, personally performed the services described in this documentation, ascribed by Shobha Metcalf RN in my presence, and it is both accurate and complete 509 .
--- NOTE | 2016-04-12 15:27 | Neurology Progress Note ---
Neurology - PN : Subjective Interval history: No more seizures reported. He is waking up but not following commands.. He would open his eyes. Still on ventilator. Exam (Progress Note) - Constitutional Vitals: Period Temp Pulse Resp BP Sys/Mishra Pulse Ox Last 24 Hr 97.5 F-99.5 F 44-89 16-35 128-181/70-111 96-100 Exam: GENERAL: Patient is in no acute distress. NECK: Neck is supple. There is no JVD. No carotid bruits present. No thyroid masses. CVS: First and second heart sounds are normal. There is no S3 present. Regular rate and rhythm. RESPIRATORY: Bilateral rales and rhonchi. ABDOMEN: Soft and non-tender. Bowel sounds are present. There is no hepatosplenomegaly. EXT: There is no palpable edema. Peripheral pulses are present. Skin: No rashes Central Nervous system: General: On vent Speech: On vent sedated Comprehension: None Facial expressions: Normal Cranial Nerves: Pupils are equally reactive to light. Doll's head eye movements are positive. No facial asymmetry seen. Motor: Bulk and Tone is normal. Strength cannot be assessed Sensory: Cannot be assessed Reflexes: 1+ and symmetrical Cerebellar function: Cannot be assessed Gait: Not tested this time Results - Labs CBC & BMP: 04/12/16 04:00 04/12/16 04:00 Assessment and Plan (1) Seizure Status: Acute Assessment and plan: Continue Keppra and Vimpat at the same dose. Continue vent support. Current Visit: Yes
--- NOTE | 2016-04-12 16:11 | Electroencephalogram ---
DATE OF STUDY: 04/12/2016 HISTORY: A 50-year-old gentleman with a history of questionable seizures. INTRODUCTION: A digital EEG was performed using the standard 10/20 system of electrode placement wi th one channel of EKG monitoring. Photic stimulation is performed. DESCRIPTION OF RECORD: The background is somewhat disorganized, consists of 6 to7 hertz low amplitu de bilaterally symmetrical rhythm. Photic stimulation elicits a driving response at intermediate fl rosa frequencies. Hyperventilation was not performed. Patient is intubated. There are no focal, s harp-wave, spike, or wave activity seen. Heart rate 60 beats per minute. IMPRESSION: ABNORMAL EEG DUE TO GENERALIZED SLOWING. CLINICAL CORRELATION: This record is supportive of [id number] encephalopathy, which could be secondary to postictal state, posthypoxic state, metabolic disorder, diffuse RE EXAMINER insult, or increase d intracranial pressure. No epileptiform/seizure activity seen. Clinical correlation is suggested.
[2016-04-12] MEDS: PANTOPRAZOLE 40 MG VIAL IV SCH (19:05)
[2016-04-13 00:31] LABS: Troponin I Only 0.526 NG/ML (0.00-0.045)
[2016-04-13] MEDS: PROPOFOL 1,000 MG/100 ML BOTTLE IV SCH ×6 (01:03→21:45)
[2016-04-13 03:24] LABS: ABG Base Excess 5.2 MMOL/L (-2.5-2.5); ABG HCO3 28.7 MMOL/L (20-26); ABG Oxygen Saturation 98.4 % (95-100); ABG PCO2 37.5 MM HG (35-48); ABG PH 7.501 (7.35-7.45); ABG PO2 132.6 MM HG (80-95); ABG TCO2 29.8 MMOL/L (23-27); Allen Test Positive; Pt O2 Delivery Device Ventilator
[2016-04-13 05:17] LABS: Basophils % 0.1 % (0.0-0.8); Eosinophils # 0.3 10*3/uL (0.0-0.87); Eosinophils % 4.1 % (0.00-10.9); Hematocrit 29.8 VOL% (42.0-52.0); Hemoglobin 9.9 GM/DL (14.0-18.0); Immature Granulocytes % 1.3 %; Lymphocytes # 1.1 10*3/uL (1.4-4.0); Lymphocytes % 14.2 % (21.2-54.2); Mean Corpuscular HGB Conc 33.2 GM/DL (32-36); Mean Corpuscular Hemoglobin 31 PG (27-34); Mean Corpuscular Volume 91.7 FL (87-102); Mean Platelet Volume 9.8 FL (9.6-12.0); Neutrophils # 5.3 10*3/uL (1.4-7.4); Neutrophils % 67.3 % (38.7-73.9); Platelet Count 154 10*3/uL (130-400); Red Blood Count 3.25 10*6/uL (3.8-5.5); Red Cell Distribution Width 14.3 % (9.3-17.3); White Blood Count 7.8 10*3/uL (4.5-13.71)
[2016-04-13 05:55] LABS: Calcium 7.5 MG/DL (8.5-10.1); Magnesium 1.8 MG/DL (1.8-2.4); Osmolality,Calculated 303.6 MOS/KG (273-304); Potassium 2.8 MMOL/L (3.5-5.1)
[2016-04-13 05:59] LABS: Magnesium 1.9 MG/DL (1.8-2.4); Prealbumin 9.9 MG/DL (20-40)
[2016-04-13] MEDS: PIPERACILLIN/TAZOBACTAM 3,375 MG in SODIUM CHLORIDE 0.9% 100 ML IV SCH ×2 (06:28→17:54)
[2016-04-13] MEDS: SODIUM BICARB INJ 50 MEQ, POTASSIUM CHLORIDE INJ 20 MEQ in SODIUM CHLORIDE 0.45% 1,000 ML IV SCH (06:36)
[2016-04-13] MEDS: INSULIN REGULAR 100 UNIT/ML SUBCUT SCH ×4 (06:40→18:17)
--- NOTE | 2016-04-13 07:07 | Pulmonology Progress Note ---
Pulmonary - PN: Subj Interval history: This 50-year-old male has respiratory failure. He has a left basilar pneumonia. He is status post percutaneous drainage for cholecystitis and drainage of an abscess in his scrotum. He is not progressing much with CPAP trials. He still requiring pressor agents and is on dialysis. Exam (Progress Note) - Constitutional Vitals: Period Temp Pulse Resp BP Sys/Mishra Pulse Ox Last 24 Hr 97.5 F-100.1 F 52-93 6-35 129-169/71-88 94-100 Exam: Patient is sedated. Vital signs normal. Systolic blood pressure on one side. Was reactive. Orotracheal tube in place. Neck supple no bruits. Chest reveals some rhonchi at the left base otherwise clear. Heart normal rate rhythm no murmurs. Abdomen soft nontender no masses. Extremities no clubbing cyanosis edema. Calves nontender. Results - Labs CBC & BMP: 04/13/16 04:51 04/13/16 04:51 Assessment and Plan (1) Cholelithiasis Problem details: w possible acute cholecystisi/CBD 10 mm dilated/& elevated lipase Status: Acute Assessment and plan: Status post percutaneous drainage of gallbladder. Current Visit: Yes (2) Abscess Status: Acute Assessment and plan: Scrotal abscess managed per urology. Current Visit: Yes (3) Acute respiratory failure Status: Acute Assessment and plan: He has a left basilar pneumonia. He has been slow to wean. Continue with CPAP trials as tolerated. Current Visit: Yes
--- NOTE | 2016-04-13 07:22 | XRay Report ---
XR chest 1V portable Indication: Intubated. Chest one view: Comparison yesterday. Endotracheal tube, NG tube, central line, mild cardiomegaly and complete obscuration of the left lung base are unchanged. Lung volumes have increased slightly with decreased central pulmonary vascular crowding. Impression: Slightly improved lung volumes. Otherwise little change. PROCEDURE INTERPRETED AT [facility] DEPARTMENT OF RADIOLOGY Final Report Signed by: Cody Rivera M.D.
--- NOTE | 2016-04-13 07:38 | EKG Report ---
Stationary ECG Study [facility] Test Date: 04/13/2016 7:36:32 AM Pat Name: ALKA TURK Department: Room: 120 Gender: M Director Supplier Quality: EDGARD : 1965 Requested by: Ember Cuevas Order Number: [id number] Reading MD: NEAL COLINDRES Intervals [place] Rate: 61 P: 51 OR: 159 QRS: 20 QRSD: 154 T: 268 QT: 436 QTc: 439 Interpretive Statements SINUS RHYTHM INDETERMINATE AXIS RIGHT BUNDLE BRANCH BLOCK ST DEVIATION AND MODERATE T-WAVE ABNORMALITY, CONSIDER LATERAL ISCHEMIA ST DEVIATION AND MODERATE T-WAVE ABNORMALITY, CONSIDER INFERIOR ISCHEMIA Electronically Signed On 04-13-16 21:57:50 [employer]P [employer] by NEAL COLINDRES [email or web address]
--- NOTE | 2016-04-13 09:25 | Cardiology Progress Note ---
Assessment and Plan (1) Elevated troponin Status: Acute Assessment and plan: The clinical significance of this is unknown given that he was septic, hypotensive and with acute renal failure at the time. Echo done 04/08 which reveals EF 65%. When he recovers from this acute illness, his symptoms can be reassessed and the need for any further testing determined at that time. Current Visit: Yes (2) Status post patent foramen ovale closure Status: Chronic Current Visit: No (3) Acute renal failure Problem details: severe Status: Resolved Assessment and plan: Management per nephrology. Continue current plan of care. Current Visit: Yes (4) Acute respiratory failure Status: Acute Assessment and plan: Management per pulmonary. Continue current plan of care. Current Visit: Yes (5) Hypokalemia Status: Acute Assessment and plan: Continue current plan of care. Nephrology and hospitalist services are managing this. Current Visit: Yes (6) Scrotal abscess Status: Acute Assessment and plan: Continue current plan of care. Current Visit: Yes (7) Seizure Status: Acute Assessment and plan: Management per neurology. Continue current plan of care. Current Visit: Yes (8) Septic shock Status: Acute Assessment and plan: BP stable, not requiring vasopressors. Continue current plan of care. Current Visit: Yes (9) Diabetes mellitus Status: Chronic Assessment and plan: This is well controlled, Continue current plan of care. Current Visit: Yes Qualifiers: Diabetes mellitus type: type 2 Diabetes mellitus complication status: with kidney complications (10) Essential hypertension Status: Chronic Current Visit: Yes (11) RBBB Status: Chronic Assessment and plan: will continue to monitor serial EKG's. Current Visit: Yes (12) Remote history of stroke Status: Chronic Assessment and plan: Management per neurology, continue current plan of care. Current Visit: No Cardiology - PN: Subj Interval history: The patient is evaluated in the ICU. Evening was uneventful. At this point he is responding to commands, following some commands. Pressors have been weaned. He continues to have a clinical improvement Exam (Progress Note) - Constitutional Vitals: Period Temp Pulse Resp BP Sys/Mishra Pulse Ox Last 24 Hr 98.3 F-100.1 F 52-93 6-26 129-169/71-88 94-100 Exam: General appearance: normal weight, no acute distress, intubated, not spontaneously arousable during the exam, although will respond to stimulation. - Head Head exam: Present: normocephalic, atraumatic,. Absent: hematoma, laceration - Eye Eye exam: Absent: conjunctival injection, nystagmus, periorbital swelling, scleral icterus, laceration to eyelids Pupils: Present: NAA. Absent: constricted, dilated, fixed, irregular, unequal - ENT ENT exam: Present: normal exam, normal external ear exam - Neck Neck exam: Present: normal inspection, internal jugular catheter on the right side without evidence of infection. Absent: lymphadenopathy, meningismus, tenderness, thyromegaly - Respiratory Respiratory exam: Present: Coarse breath sounds bilaterally anteriorly, there is normal rise with ventilated breaths. Absent: accessory muscle use, chest wall tenderness - Cardiovascular Cardiovascular exam: Present: regular rate and rhythm, tones obscured by coarse breath sounds. Absent: carotid bruit, gallop, JVD, rubs - GI/Abdominal GI/Abdominal exam: Present: normal bowel sounds. Absent: distended, firm, guarding, hernia, mass, tenderness, rebound, soft - Extremities Exam Extremities exam: Present: 1+ anasarca, normal capillary refill. Absent: calf tenderness - Back Exam Back exam: Unable to assess due to patient being on the ventilator - Neurological Exam Neurological exam: Unable to fully assess due to patient being on the ventilator. She does appear to move all 4 extremities. - Psychiatric Psychiatric exam: Unable to assess due to patient being on the ventilator. - Skin Skin exam: Present: normal color, warm, dry, intact. Absent: cyanosis, diaphoretic, rash, urticaria Result/EKG - Labs CBC & BMP: 04/13/16 04:51 04/13/16 04:51 Lab Results: I have reviewed the past 24 hour labs Labs: Laboratory Results - last 24 hr 04/12/16 04/12/16 04/12/16 11:19 12:14 17:41 WBC RBC Hgb Hct MCV MCH MCHC RDW Plt Count MPV Neut % (Auto) Lymph % (Auto) [place] % (Auto) Eos % (Auto) Baso % (Auto) Neut # (Auto) Lymph # (Auto) [place] # (Auto) Eos # (Auto) Baso # (Auto) Immature Gran % Nucleated RBC % Immature Gran # Nucleated RBCs # ABG pH ABG pCO2 ABG pO2 ABG HCO3 ABG Total CO2 ABG O2 Saturation ABG Base Excess FiO2 Sodium Potassium Chloride Carbon Dioxide Anion Gap BUN Creatinine GFR Calculation BUN/Creatinine Ratio Glucose POC Glucose 78 84 Calculated Osmolality Calcium Phosphorus Magnesium Total Creatine Kinase 588 H CK-MB (CK-2) < 1.0 Troponin I 0.737 H D Prealbumin Random Vancomycin 04/12/16 04/12/16 04/13/16 23:19 23:49 03:18 WBC RBC Hgb Hct MCV MCH MCHC RDW Plt Count MPV Neut % (Auto) Lymph % (Auto) [place] % (Auto) Eos % (Auto) Baso % (Auto) Neut # (Auto) Lymph # (Auto) [place] # (Auto) Eos # (Auto) Baso # (Auto) Immature Gran % Nucleated RBC % Immature Gran # Nucleated RBCs # ABG pH 7.501 H ABG pCO2 37.5 ABG pO2 132.6 H ABG HCO3 28.7 H ABG Total CO2 29.8 H ABG O2 Saturation 98.4 ABG Base Excess 5.2 H FiO2 60.00 Sodium Potassium Chloride Carbon Dioxide Anion Gap BUN Creatinine GFR Calculation BUN/Creatinine Ratio Glucose POC Glucose 107 H Calculated Osmolality Calcium Phosphorus Magnesium Total Creatine Kinase 521 H CK-MB (CK-2) < 1.0 Troponin I 0.526 H D Prealbumin Random Vancomycin 04/13/16 04/13/16 04/13/16 04:51 04:51 04:51 WBC 7.8 RBC 3.25 L Hgb 9.9 L Hct 29.8 L MCV 91.7 MCH 31 MCHC 33.2 RDW 14.3 Plt Count 154 MPV 9.8 Neut % (Auto) 67.3 Lymph % (Auto) 14.2 L [place] % (Auto) 13.0 H Eos % (Auto) 4.1 Baso % (Auto) 0.1 Neut # (Auto) 5.3 Lymph # (Auto) 1.1 L [place] # (Auto) 1.0 H Eos # (Auto) 0.3 Baso # (Auto) 0.0 Immature Gran % 1.3 Nucleated RBC % 0.0 Immature Gran # 0.10 Nucleated RBCs # 0.00 ABG pH ABG pCO2 ABG pO2 ABG HCO3 ABG Total CO2 ABG O2 Saturation ABG Base Excess FiO2 Sodium Potassium Chloride Carbon Dioxide Anion Gap BUN Creatinine GFR Calculation BUN/Creatinine Ratio Glucose POC Glucose Calculated Osmolality Calcium Phosphorus 2.0 L Magnesium 1.9 Total Creatine Kinase CK-MB (CK-2) Troponin I Prealbumin 9.9 L Random Vancomycin 0.8 04/13/16 04/13/16 04:51 06:40 WBC RBC Hgb Hct MCV MCH MCHC RDW Plt Count MPV Neut % (Auto) Lymph % (Auto) [place] % (Auto) Eos % (Auto) Baso % (Auto) Neut # (Auto) Lymph # (Auto) [place] # (Auto) Eos # (Auto) Baso # (Auto) Immature Gran % Nucleated RBC % Immature Gran # Nucleated RBCs # ABG pH ABG pCO2 ABG pO2 ABG HCO3 ABG Total CO2 ABG O2 Saturation ABG Base Excess FiO2 Sodium 153 H Potassium 2.8 L Chloride 114 H Carbon Dioxide 29 Anion Gap 12.8 BUN 13 Creatinine 1.30 GFR Calculation 73 BUN/Creatinine Ratio 10.00 Glucose 119 H POC Glucose 126 H Calculated Osmolality 303.6 Calcium 7.5 L Phosphorus Magnesium 1.8 Total Creatine Kinase CK-MB (CK-2) Troponin I Prealbumin Random Vancomycin - Diagnostic Findings Procedure: Chest x-ray: report reviewed by me
--- NOTE | 2016-04-13 10:16 | Hospitalist Progress Note ---
Assessment and Plan (1) Seizure Status: Acute Assessment and plan: newonset. No more seizures reported -CT head was negative,appreciates Neurology's input, continue on keppra, follow EEG, correct electrolytes. Current Visit: Yes (2) Septic shock Status: Acute Assessment and plan: pressors have been weaned off, cultures showed no growth so far, continue with IV antibiotics Current Visit: Yes (3) Acute respiratory failure Status: Acute Assessment and plan: continue with vent support Current Visit: Yes (4) Cholelithiasis Problem details: w possible acute cholecystisi/CBD 10 mm dilated/& elevated lipase Status: Acute Assessment and plan: with possible acute cholecystisi/CBD 10 mm dilated/& elevated lipase. -continue with percutaneous cholecystostomy tube. -follow surgery's recommendations Current Visit: Yes (5) Scrotal abscess Status: Acute Assessment and plan: aspirate grew strep agalactiae. continue with IV antibiotics, [id number] . Current Visit: Yes (6) Hypokalemia Status: Acute Assessment and plan: will continue to replete, check bmp and mg in am Current Visit: Yes (7) Acute renal failure Problem details: severe Status: Resolved Assessment and plan: improving, was on hemodialysis, Nephrology is following Current Visit: Yes (8) Diabetes Status: Chronic Assessment and plan: A1c-7.1, continue with SSC Current Visit: No (9) Oral thrush Status: Acute Assessment and plan: continue swish and swallow Nystatin,HIV testing-non reactive Current Visit: Yes (10) Metabolic acidosis Status: Acute Assessment and plan: improved, d/c bicarb replacement, Nephrology is following Current Visit: Yes (11) Elevated troponin Status: Acute Assessment and plan: In the setting of septic shock and severe acute kidney injury. This would be likely due to increased demand ischemia and from severe acute kidney injury.But patient has a history of heart disease.Follow Cardiology consult, Echocardiogram 04/08/2016 reveals an ejection fraction of 65% without significant valvular abnormality. . Current Visit: Yes (12) Acute encephalopathy Status: Acute Assessment and plan: will continue to follow, patient is currently sedated and intubated Current Visit: Yes (13) Remote history of stroke Status: Chronic Assessment and plan: stable, CT head showed no acute changes Current Visit: No (14) Hypocalcemia Status: Acute Assessment and plan: repleting Current Visit: Yes (15) Hypernatremia Status: Acute Assessment and plan: continue free water Current Visit: Yes Hospitalist: Subjective Interval history: Patient seen,his creatinine has improved and he is making a lot of urine. He is still intubated and sedated. His potassium is still low and sodium high.Nursing staff states he obeys command when not sedated. Exam - Constitutional Vitals: Period Temp Pulse Resp BP Sys/Mishra Pulse Ox Last 24 Hr 98.3 F-100.1 F 53-93 6-26 136-169/72-88 94-100 General appearance: no acute distress, other (intubated and sedated) - Head Head exam: Present: normal inspection - Respiratory Respiratory exam: Present: clear to auscultation bilaterally - Cardiovascular Cardiovascular exam: Present: regular rate and rhythm - GI/Abdominal GI/Abdominal exam: Present: other (percutaneous drain in place) - Extremities Exam Extremities exam: Present: normal inspection Results - Labs CBC & BMP: 04/13/16 04:51 04/13/16 04:51 Lab Results: I have reviewed the past 24 hour labs
[2016-04-13] MEDS ORDERED: CALCIUM CHLORIDE 1,000 MG in SODIUM CHLORIDE 0.9% 100 ML IV ONE (10:20)
[2016-04-13] MEDS: LACOSAMIDE INJ 100 MG in SODIUM CHLORIDE 0.9% 50 ML IV SCH ×2 (10:30→21:44)
[2016-04-13] MEDS: NYSTATIN 500,000 UNIT/5 ML UDCUP SWISH/SWAL SCH ×4 (10:31→21:44)
[2016-04-13] MEDS: POTASSIUM CHLORIDE 20 MEQ/15 ML UDCUP PER TUBE PRN ×3 (10:31→17:53)
[2016-04-13] MEDS: ENOXAPARIN 40 MG/0.4 ML SYRINGE SUBCUT SCH (11:29)
--- NOTE | 2016-04-13 11:34 | Nephrology Progress Note ---
Nephrology - PN: Subj Interval history: The patient is resting. He is awake and alert. Remains ventilated at this time. Of note,. Patient serum creatinine is now down to 1.3. No other acute changes. Serum potassium is 2.8 which is being supplemented. Recommend potassium 20 mg twice daily for the next 2 days. Exam (PN)-Nephrology - Vital Signs Vital signs: Period Temp Pulse Resp BP Sys/Mishra Pulse Ox Last 24 Hr 98.3 F-100.1 F 53-93 6-26 136-169/72-88 94-100 - General Appearance General appearance: well-developed, intubated EENT: ATNC Neck: supple Respiratory: clear Cardiology: regular rate, regular rhythm Gastrointestinal: normoactive bowel sounds, no tenderness - Lab 04/13/16 04:51 04/13/16 04:51 Most recent lab results ABG pH 7.501 (7.35-7.45) H 04/13/16 03:18 ABG pCO2 37.5 MM HG (35-48) 04/13/16 03:18 ABG pO2 132.6 MM HG (80-95) H 04/13/16 03:18 ABG HCO3 28.7 MMOL/L (20-26) H 04/13/16 03:18 ABG O2 Saturation 98.4 % (95-100) 04/13/16 03:18 Calcium 7.5 MG/DL (8.5-10.1) L 04/13/16 04:51 Phosphorus 2.0 MG/DL (2.5-4.9) L 04/13/16 04:51 Magnesium 1.9 MG/DL (1.8-2.4) 04/13/16 04:51 Assessment and Plan (1) Respiratory failure Status: Acute Current Visit: Yes (2) Acute renal failure Problem details: severe Status: Resolved Assessment and plan: This issue has resolved. Renal function is back to normal. Current Visit: Yes (3) Diabetes mellitus Status: Chronic Current Visit: Yes Qualifiers: Diabetes mellitus type: type 2 Diabetes mellitus complication status: with kidney complications (4) Essential hypertension Status: Chronic Current Visit: Yes (5) Remote history of stroke Status: Chronic Current Visit: No
--- NOTE | 2016-04-13 13:00 | General Surgery Progress Note ---
Assessment and Plan (1) Acute renal failure Problem details: severe Status: Resolved Assessment and plan: Seems to be improving. I will leave the dialysis catheter in place until requested to be removed. Current Visit: Yes (2) Cholelithiasis Problem details: w possible acute cholecystisi/CBD 10 mm dilated/& elevated lipase Status: Acute Assessment and plan: The patient is status post percutaneous cholecystostomy tube placement. This seems to be functioning well. Continue current care. Current Visit: Yes (3) Abscess Status: Acute Assessment and plan: Healing well. Continue antibiotics Current Visit: Yes Subjective Patient reports: Present: no new complaints, afebrile. Absent: nausea, vomiting Exam - Constitutional Vitals: Period Temp Pulse Resp BP Sys/Mishra Pulse Ox Last 24 Hr 98.3 F-100.1 F 53-93 6-26 141-169/72-88 94-100 General appearance: no acute distress, over weight - Head Head exam: Present: normal inspection, normocephalic - ENT ENT exam: Present: normal exam Mouth exam: Present: normal external inspection - Neck Neck exam: Present: normal inspection, trachea midline - Respiratory Respiratory exam: Present: clear to auscultation bilaterally. Absent: accessory muscle use, chest wall tenderness - Cardiovascular Cardiovascular exam: Present: RRR. Absent: systolic murmur, tachycardia - GI/Abdominal GI/Abdominal exam: Present: normal bowel sounds, other (percutaneous drain with minimal clear output). Absent: ascites, distended - Extremities Exam Extremities exam: Present: normal inspection, normal capillary refill - Back Exam Back exam: Present: normal inspection - Skin Skin exam: Present: normal color, warm Results - Labs CBC & BMP: 04/13/16 04:51 04/13/16 04:51
[2016-04-13] MEDS: VANCOMYCIN INJ 1,250 MG in SODIUM CHLORIDE 0.9% 250 ML IV SCH (13:56)
[2016-04-13] MEDS: PANTOPRAZOLE 40 MG VIAL IV SCH (18:05)
[2016-04-13] MEDS: POTASSIUM CHLORIDE 20 MEQ/15 ML UDCUP PO SCH (21:44)
[2016-04-14] MEDS: VANCOMYCIN INJ 1,250 MG in SODIUM CHLORIDE 0.9% 250 ML IV SCH ×2 (01:07→12:18)
[2016-04-14] MEDS: PROPOFOL 1,000 MG/100 ML BOTTLE IV SCH ×6 (01:09→21:00)
[2016-04-14] MEDS: INSULIN REGULAR 100 UNIT/ML SUBCUT SCH ×4 (01:10→18:05)
[2016-04-14 02:59] LABS: Pt O2 Delivery Device Ventilator
[2016-04-14 03:01] LABS: ABG Base Excess 6.4 MMOL/L (-2.5-2.5); ABG HCO3 30.2 MMOL/L (20-26); ABG Oxygen Saturation 95.6 % (95-100); ABG PCO2 39.6 MM HG (35-48); ABG PH 7.491 (7.35-7.45); ABG PO2 71.6 MM HG (80-95); ABG TCO2 27.4 MMOL/L (23-27)
[2016-04-14 04:48] LABS: Basophils % 0.1 % (0.0-0.8); Eosinophils # 0.3 10*3/uL (0.0-0.87); Eosinophils % 3.3 % (0.00-10.9); Hematocrit 30.2 VOL% (42.0-52.0); Immature Granulocytes % 1.8 %; Immature Granulocytes Absolute 0.15 #; Lymphocytes % 12.3 % (21.2-54.2); Mean Corpuscular HGB Conc 33.1 GM/DL (32-36); Mean Corpuscular Hemoglobin 31 PG (27-34); Mean Corpuscular Volume 92.4 FL (87-102); Mean Platelet Volume 9.5 FL (9.6-12.0); Monocytes # 0.7 10*3/uL (0.11-0.8); Monocytes % 8.5 % (1.7-12.7); Neutrophils # 6.2 10*3/uL (1.4-7.4); Platelet Count 159 10*3/uL (130-400); Red Blood Count 3.27 10*6/uL (3.8-5.5); Red Cell Distribution Width 14.2 % (9.3-17.3); White Blood Count 8.4 10*3/uL (4.5-13.71)
[2016-04-14 05:19] LABS: Calcium 7.4 MG/DL (8.5-10.1); Osmolality,Calculated 302.7 MOS/KG (273-304); Potassium 2.8 MMOL/L (3.5-5.1)
[2016-04-14] MEDS: PIPERACILLIN/TAZOBACTAM 3,375 MG in SODIUM CHLORIDE 0.9% 100 ML IV SCH ×2 (06:02→18:06)
[2016-04-14] MEDS: POTASSIUM CHLORIDE 20 MEQ/15 ML UDCUP PER TUBE PRN ×4 (06:03→14:34)
--- NOTE | 2016-04-14 07:50 | Pulmonology Progress Note ---
Pulmonary - PN: Subj Interval history: This 50-year-old male has respiratory failure. He has a left basilar pneumonia. He is status post percutaneous drainage for cholecystitis and drainage of an abscess in his scrotum. He is not progressing much with CPAP trials. He still requiring pressor agents and is on dialysis. 04/14/2016 not much progress on weaning. Patient is wheezing this morning. Exam (Progress Note) - Constitutional Vitals: Period Temp Pulse Resp BP Sys/Mishra Pulse Ox Last 24 Hr 97.1 F-100.6 F 53-83 16-23 130-161/66-95 95-100 Exam: Patient is sedated. Vital signs normal. Systolic blood pressure on one side. Was reactive. Orotracheal tube in place. Neck supple no bruits. Chest reveals some rhonchi at the left base, bilateral expiratory wheezes. Heart normal rate rhythm no murmurs. Abdomen soft nontender no masses. Extremities no clubbing cyanosis edema. Calves nontender. Results - Labs CBC & BMP: 04/14/16 04:43 04/14/16 04:43 Lab Results: I have reviewed the past 24 hour labs - Diagnostic Findings Procedure: Chest x-ray: image reviewed by me (ET tube good position. Probable infiltrate left base. Difficult to tell with overlying tubing and structures.) Assessment and Plan (1) Cholelithiasis Problem details: w possible acute cholecystisi/CBD 10 mm dilated/& elevated lipase Status: Acute Assessment and plan: Status post percutaneous drainage of gallbladder. Current Visit: Yes (2) Abscess Status: Acute Assessment and plan: Scrotal abscess managed per urology. Current Visit: Yes (3) Acute respiratory failure Status: Acute Assessment and plan: He has a left basilar pneumonia. He has been slow to wean. Continue with CPAP trials as tolerated. 04/14/2016 difficulty with weaning. Seems to be wheezing a good bit. Step up bronchodilators. Current Visit: Yes
--- NOTE | 2016-04-14 07:57 | XRay Report ---
XR chest 1V portable Indication: Intubated. Chest one view: Comparison yesterday. Endotracheal tube, NG tube, temporary dialysis catheter, normal heart size, pulmonary hypoinflation, coarsened interstitial markings of the lungs and patchy obscuration of the left midlung and lung base are relatively stable. No new infiltrates are seen. Impression: No appreciable change. PROCEDURE INTERPRETED AT [facility] DEPARTMENT OF RADIOLOGY Final Report Signed by: Cody Rivera M.D.
[2016-04-14] MEDS: LACOSAMIDE INJ 100 MG in SODIUM CHLORIDE 0.9% 50 ML IV SCH ×2 (08:43→21:26)
[2016-04-14] MEDS: POTASSIUM CHLORIDE 20 MEQ/15 ML UDCUP PO SCH ×2 (08:44→21:00)
[2016-04-14] MEDS: NYSTATIN 500,000 UNIT/5 ML UDCUP SWISH/SWAL SCH ×4 (08:44→21:00)
--- NOTE | 2016-04-14 08:53 | Nephrology Progress Note ---
Nephrology - PN: Subj Interval history: The patient remains ventilated. Serum creatinine has continued to improve. No further indication for hemodialysis. Serum sodium has trended up free water has been added. Continue to supplement potassium. Exam (PN)-Nephrology - Vital Signs Vital signs: Period Temp Pulse Resp BP Sys/Mishra Pulse Ox Last 24 Hr 97.1 F-99.0 F 53-83 16-23 130-161/66-95 95-100 - General Appearance General appearance: sedated on ventilator EENT: ATNC Neck: supple Respiratory: clear Cardiology: no edema, regular rate, regular rhythm Gastrointestinal: normoactive bowel sounds, no tenderness Integumentary: no rash, warm and dry - Lab 04/14/16 04:43 04/14/16 04:43 Most recent lab results ABG pH 7.491 (7.35-7.45) H 04/14/16 02:35 ABG pCO2 39.6 MM HG (35-48) 04/14/16 02:35 ABG pO2 71.6 MM HG (80-95) L 04/14/16 02:35 ABG HCO3 30.2 MMOL/L (20-26) H 04/14/16 02:35 ABG O2 Saturation 95.6 % (95-100) 04/14/16 02:35 Calcium 7.4 MG/DL (8.5-10.1) L 04/14/16 04:43 Phosphorus 2.0 MG/DL (2.5-4.9) L 04/13/16 04:51 Magnesium 1.9 MG/DL (1.8-2.4) 04/13/16 04:51 Assessment and Plan (1) Respiratory failure Status: Acute Current Visit: Yes (2) Acute renal failure Problem details: severe Status: Resolved Assessment and plan: This issue has resolved. Renal function is back to normal. Current Visit: Yes (3) Diabetes mellitus Status: Chronic Current Visit: Yes Qualifiers: Diabetes mellitus type: type 2 Diabetes mellitus complication status: with kidney complications (4) Essential hypertension Status: Chronic Current Visit: Yes (5) Remote history of stroke Status: Chronic Current Visit: No (6) Hypernatremia Status: Acute Assessment and plan: Continue to increase free water. Quarter normal saline at this 100cc an hour. Current Visit: Yes
--- NOTE | 2016-04-14 09:35 | Cardiology Progress Note ---
Assessment and Plan (1) Elevated troponin Status: Acute Assessment and plan: The clinical significance of this is unknown given that he was septic, hypotensive and with acute renal failure at the time. Echo done 04/08 which reveals EF 65%. When he recovers from this acute illness, his symptoms can be reassessed and the need for any further testing determined at that time. Current Visit: Yes (2) Status post patent foramen ovale closure Status: Chronic Current Visit: No (3) Acute renal failure Problem details: severe Status: Resolved Assessment and plan: Management per nephrology. Continue current plan of care. Current Visit: Yes (4) Acute respiratory failure Status: Acute Assessment and plan: Management per pulmonary. Continue current plan of care. Current Visit: Yes (5) Hypokalemia Status: Acute Assessment and plan: Continue current plan of care. Nephrology and hospitalist services are managing this. Current Visit: Yes (6) Seizure Status: Acute Assessment and plan: Management per neurology. Continue current plan of care. Current Visit: Yes (7) Septic shock Status: Resolved Assessment and plan: BP stable, not requiring vasopressors. Continue current plan of care. Current Visit: Yes (8) Diabetes mellitus Status: Chronic Assessment and plan: This is well controlled, Continue current plan of care. Current Visit: Yes Qualifiers: Diabetes mellitus type: type 2 Diabetes mellitus complication status: with kidney complications (9) Essential hypertension Status: Chronic Current Visit: Yes (10) RBBB Status: Chronic Assessment and plan: will continue to monitor serial EKG's. Current Visit: Yes (11) Remote history of stroke Status: Chronic Assessment and plan: Management per neurology, continue current plan of care. Current Visit: No (12) Hyponatremia Status: Acute Assessment and plan: Increase his free water. Current Visit: Yes Cardiology - PN: Subj Interval history: The patient is seen in the ICU. The chart and all of the notes are reviewed. Evening was uneventful. When his sedation is lifted he is quite anxious, and also coughs and gags on the tube. He is on mild sedation and open side to some response. He continues to be off pressors. From a cardiac standpoint he has been stable. History: 50-year-old male admitted with sepsis, acute renal failure, mildly elevated troponins. Blood pressure is resolved, he underwent cholecystostomy tube placement. He has had hypokalemia with hypernatremia. Systolic function is normal. There is mention of a scrotal abscess but I do not see any evidence of this on my exam or evidence of any kind of incision and drainage for this. Exam (Progress Note) - Constitutional Vitals: Period Temp Pulse Resp BP Sys/Mishra Pulse Ox Last 24 Hr 97.1 F-99.0 F 53-83 16-23 130-161/66-86 95-100 Exam: General appearance: normal weight, no acute distress, intubated, not spontaneously arousable during the exam, although will respond to stimulation. - Head Head exam: Present: normocephalic, atraumatic,. Absent: hematoma, laceration - Eye Eye exam: Absent: conjunctival injection, nystagmus, periorbital swelling, scleral icterus, laceration to eyelids Pupils: Present: NAA. Absent: constricted, dilated, fixed, irregular, unequal - ENT ENT exam: Present: normal exam, normal external ear exam - Neck Neck exam: Present: normal inspection, internal jugular catheter on the right side without evidence of infection. Absent: lymphadenopathy, meningismus, tenderness, thyromegaly - Respiratory Respiratory exam: Present: Clear to auscultation bilaterally anteriorly, there is normal rise with ventilated breaths. Absent: accessory muscle use, chest wall tenderness - Cardiovascular Cardiovascular exam: Present: regular rate and rhythm. Absent: carotid bruit, gallop, JVD, rubs - GI/Abdominal GI/Abdominal exam: Present: normal bowel sounds. Absent: distended, firm, guarding, hernia, mass, tenderness, rebound, soft - Extremities Exam Extremities exam: Present: 1+ anasarca, normal capillary refill. Absent: calf tenderness - Back Exam Back exam: Unable to assess due to patient being on the ventilator - Neurological Exam Neurological exam: Unable to fully assess due to patient being on the ventilator. He does appear to move all 4 extremities. - Psychiatric Psychiatric exam: Unable to assess due to patient being on the ventilator. - Skin Skin exam: Present: normal color, warm, dry, intact. Absent: cyanosis, diaphoretic, rash, urticaria Result/EKG - Labs CBC & BMP: 04/14/16 04:43 04/14/16 04:43 Lab Results: I have reviewed the past 24 hour labs Labs: Laboratory Results - last 24 hr 04/11/16 04/13/1617 12:19 11:21 17:54 WBC RBC Hgb Hct MCV MCH MCHC RDW Plt Count MPV Neut % (Auto) Lymph % (Auto) Davidson % (Auto) Eos % (Auto) Baso % (Auto) Neut # (Auto) Lymph # (Auto) Davidson # (Auto) Eos # (Auto) Baso # (Auto) Immature Gran % Nucleated RBC % Immature Gran # Nucleated RBCs # ABG pH ABG pCO2 ABG pO2 ABG HCO3 ABG Total CO2 ABG O2 Saturation ABG Base Excess FiO2 Sodium Potassium Chloride Carbon Dioxide Anion Gap BUN Creatinine GFR Calculation BUN/Creatinine Ratio Glucose POC Glucose 152 H 135 H Calculated Osmolality Calcium Ionized Calcium 4.62 L 04/14/16 04/14/16 04/14/16 01:07 02:35 04:43 WBC 8.4 RBC 3.27 L Hgb 10.0 L Hct 30.2 L MCV 92.4 MCH 31 MCHC 33.1 RDW 14.2 Plt Count 159 MPV 9.5 L Neut % (Auto) 74.0 H Lymph % (Auto) 12.3 L Davidson % (Auto) 8.5 Eos % (Auto) 3.3 Baso % (Auto) 0.1 Neut # (Auto) 6.2 Lymph # (Auto) 1.0 L Davidson # (Auto) 0.7 Eos # (Auto) 0.3 Baso # (Auto) 0.0 Immature Gran % 1.8 Nucleated RBC % 0.0 Immature Gran # 0.15 Nucleated RBCs # 0.00 ABG pH 7.491 H ABG pCO2 39.6 ABG pO2 71.6 L ABG HCO3 30.2 H ABG Total CO2 27.4 H ABG O2 Saturation 95.6 ABG Base Excess 6.4 H FiO2 45.00 Sodium Potassium Chloride Carbon Dioxide Anion Gap BUN Creatinine GFR Calculation BUN/Creatinine Ratio Glucose POC Glucose 146 H Calculated Osmolality Calcium Ionized Calcium 04/14/16 04/14/16 04:43 06:11 WBC RBC Hgb Hct MCV MCH MCHC RDW Plt Count MPV Neut % (Auto) Lymph % (Auto) Davidson % (Auto) Eos % (Auto) Baso % (Auto) Neut # (Auto) Lymph # (Auto) Davidson # (Auto) Eos # (Auto) Baso # (Auto) Immature Gran % Nucleated RBC % Immature Gran # Nucleated RBCs # ABG pH ABG pCO2 ABG pO2 ABG HCO3 ABG Total CO2 ABG O2 Saturation ABG Base Excess FiO2 Sodium 152 H Potassium 2.8 L Chloride 114 H Carbon Dioxide 30 Anion Gap 10.8 BUN 11 Creatinine 1.20 GFR Calculation 81 BUN/Creatinine Ratio 9.00 Glucose 149 H POC Glucose 149 H Calculated Osmolality 302.7 Calcium 7.4 L Ionized Calcium
--- NOTE | 2016-04-14 10:00 | Hospitalist Progress Note ---
Assessment and Plan (1) Seizure Status: Acute Assessment and plan: newonset. No more seizures reported -CT head was negative,appreciates Neurology's input, continue on keppra and Vimpat, follow EEG, correct electrolytes. Current Visit: Yes (2) Septic shock Status: Resolved Assessment and plan: pressors have been weaned off, cultures showed no growth so far, continue with IV antibiotics Current Visit: Yes (3) Acute respiratory failure Status: Acute Assessment and plan: continue with vent support,He is not progressing much with CPAP trials. Current Visit: Yes (4) Cholelithiasis Problem details: w possible acute cholecystisi/CBD 10 mm dilated/& elevated lipase Status: Acute Assessment and plan: with possible acute cholecystisi/CBD 10 mm dilated/& elevated lipase. -continue with percutaneous cholecystostomy tube. -follow surgery's recommendations Current Visit: Yes (5) Scrotal abscess Status: Acute Assessment and plan: aspirate grew strep agalactiae. continue with IV antibiotics, [id number] . Current Visit: Yes (6) Hypokalemia Status: Acute Assessment and plan: will continue to replete, check bmp and mg in am Current Visit: Yes (7) Acute renal failure Problem details: severe Status: Resolved Assessment and plan: improving, was on hemodialysis, Nephrology is following Current Visit: Yes (8) Diabetes Status: Chronic Assessment and plan: A1c-7.1, continue with SSC Current Visit: No (9) Oral thrush Status: Acute Assessment and plan: continue swish and swallow Nystatin,HIV testing-non reactive Current Visit: Yes (10) Metabolic acidosis Status: Acute Assessment and plan: improved, d/c bicarb replacement, Nephrology is following Current Visit: Yes (11) Elevated troponin Status: Acute Assessment and plan: In the setting of septic shock and severe acute kidney injury. This would be likely due to increased demand ischemia and from severe acute kidney injury.But patient has a history of heart disease.Follow Cardiology consult, Echocardiogram 04/08/2016 reveals an ejection fraction of 65% without significant valvular abnormality. . Current Visit: Yes (12) Acute encephalopathy Status: Acute Assessment and plan: will continue to follow, patient is currently sedated and intubated Current Visit: Yes (13) Remote history of stroke Status: Chronic Assessment and plan: stable, CT head showed no acute changes Current Visit: No (14) Hypocalcemia Status: Acute Assessment and plan: repleting Current Visit: Yes (15) Hypernatremia Status: Acute Assessment and plan: continue free water Current Visit: Yes Hospitalist: Subjective Interval history: Patient seen,He is not progressing much with CPAP trials. His potassium is still low and but hypernatremia is slowly improving. Exam - Constitutional Vitals: Period Temp Pulse Resp BP Sys/Mishra Pulse Ox Last 24 Hr 97.1 F-99.0 F 53-83 16-23 130-161/66-86 95-100 General appearance: no acute distress, other (sedated and intubated) - Head Head exam: Present: normal inspection - Respiratory Respiratory exam: Present: clear to auscultation bilaterally - Cardiovascular Cardiovascular exam: Present: regular rate and rhythm - GI/Abdominal GI/Abdominal exam: Present: normal bowel sounds - Extremities Exam Extremities exam: Present: edema Results - Labs CBC & BMP: 04/14/16 04:43 04/14/16 04:43 Lab Results: I have reviewed the past 24 hour labs
[2016-04-14] MEDS ORDERED: MAGNESIUM SULF RIDER 2 GM in PREMIX 1 EACH IV ONE (10:02)
[2016-04-14] MEDS: ENOXAPARIN 40 MG/0.4 ML SYRINGE SUBCUT SCH (10:21)
[2016-04-14] MEDS: LORazepam 2 MG/1 ML VIAL IV PRN ×3 (11:21→21:08)
[2016-04-14] MEDS: ALBUTEROL/IPRATROPIUM 3 ML NEB RESP TX SCH ×2 (12:09→20:12)
[2016-04-14] MEDS: SODIUM CHLORIDE 23.4% CONC INJ 38.5 MEQ in STERILE WATER INJ 1,000 ML IV SCH ×2 (12:19→21:01)
[2016-04-14] MEDS: SODIUM BICARB IV SCH (13:17)
[2016-04-14] MEDS: POTASSIUM CHLORIDE IV SCH (13:17)
[2016-04-14] MEDS: [UNRECOGNIZED DRUG - OTHER] IV SCH (13:17)
--- NOTE | 2016-04-14 13:36 | General Surgery Progress Note ---
Assessment and Plan (1) Acute renal failure Problem details: severe Status: Resolved Assessment and plan: Seems to be improving. I will leave the dialysis catheter in place until requested to be removed. Current Visit: Yes (2) Cholelithiasis Problem details: w possible acute cholecystisi/CBD 10 mm dilated/& elevated lipase Status: Acute Assessment and plan: The patient is status post percutaneous cholecystostomy tube placement. This seems to have accomplished out goal. Continue current care. Will need to stay in for total of 14 days. Current Visit: Yes (3) Abscess Status: Acute Assessment and plan: Healing well. Continue antibiotics Current Visit: Yes Subjective Patient reports: Present: no new complaints, afebrile. Absent: nausea, vomiting Exam - Constitutional Vitals: Period Temp Pulse Resp BP Sys/Mishra Pulse Ox Last 24 Hr 97.1 F-99.8 F 53-83 15-21 117-161/62-85 95-100 General appearance: no acute distress, over weight - Head Head exam: Present: normal inspection, normocephalic - Eye Eye exam: Present: EOMI Pupils: Present: NAA - ENT ENT exam: Present: normal exam Mouth exam: Present: normal external inspection - Neck Neck exam: Present: normal inspection, trachea midline - Respiratory Respiratory exam: Present: clear to auscultation bilaterally. Absent: accessory muscle use, chest wall tenderness - Cardiovascular Cardiovascular exam: Present: RRR. Absent: systolic murmur, tachycardia - GI/Abdominal GI/Abdominal exam: Present: soft, other (cholecystostomy tube with no output). Absent: tenderness, rebound - Extremities Exam Extremities exam: Present: normal inspection, normal capillary refill - Back Exam Back exam: Present: normal inspection - Neurological Exam Neurological exam: Present: alert, oriented X3 Speech: Present: normal - Skin Skin exam: Present: normal color, warm Results - Labs CBC & BMP: 04/14/16 04:43 04/14/16 04:43
[2016-04-14] MEDS: PANTOPRAZOLE 40 MG VIAL IV SCH (18:06)
[2016-04-15] MEDS: INSULIN REGULAR 100 UNIT/ML SUBCUT SCH ×5 (00:14→23:55)
[2016-04-15] MEDS: VANCOMYCIN INJ 1,250 MG in SODIUM CHLORIDE 0.9% 250 ML IV SCH ×2 (00:19→11:08)
[2016-04-15] MEDS: POTASSIUM CHLORIDE 20 MEQ/15 ML UDCUP PER TUBE PRN ×3 (00:19→05:14)
[2016-04-15] MEDS: LORazepam 2 MG/1 ML VIAL IV PRN (01:43)
[2016-04-15] MEDS: PROPOFOL 1,000 MG/100 ML BOTTLE IV SCH ×10 (01:45→21:41)
[2016-04-15] MEDS: ALBUTEROL/IPRATROPIUM 3 ML NEB RESP TX SCH ×4 (01:48→20:53)
[2016-04-15] MEDS: MORPHINE 2 MG/1 ML SYRINGE IV PRN ×2 (02:28→06:42)
[2016-04-15] MEDS: SODIUM CHLORIDE 23.4% CONC INJ 38.5 MEQ in STERILE WATER INJ 1,000 ML IV SCH ×3 (03:59→18:24)
[2016-04-15 04:00] LABS: ABG Base Excess 3.1 MMOL/L (-2.5-2.5); ABG HCO3 27.1 MMOL/L (20-26); ABG Oxygen Saturation 91.8 % (95-100); ABG PCO2 46.7 MM HG (35-48); ABG PH 7.395 (7.35-7.45); ABG TCO2 26.1 MMOL/L (23-27); Allen Test Positive; Pt O2 Delivery Device Ventilator
[2016-04-15] MEDS: PIPERACILLIN/TAZOBACTAM 3,375 MG in SODIUM CHLORIDE 0.9% 100 ML IV SCH ×2 (05:13→18:14)
[2016-04-15 05:54] LABS: Basophils % 0.2 % (0.0-0.8); Eosinophils # 0.4 10*3/uL (0.0-0.87); Eosinophils % 5.7 % (0.00-10.9); Hematocrit 29.6 VOL% (42.0-52.0); Hemoglobin 9.6 GM/DL (14.0-18.0); Immature Granulocytes % 3.8 %; Immature Granulocytes Absolute 0.23 #; Lymphocytes # 1.1 10*3/uL (1.4-4.0); Lymphocytes % 17.5 % (21.2-54.2); Mean Corpuscular HGB Conc 32.4 GM/DL (32-36); Mean Corpuscular Hemoglobin 31 PG (27-34); Mean Corpuscular Volume 95.2 FL (87-102); Mean Platelet Volume 10.2 FL (9.6-12.0); Monocytes # 0.6 10*3/uL (0.11-0.8); Neutrophils # 3.9 10*3/uL (1.4-7.4); Neutrophils % 62.8 % (38.7-73.9); Platelet Count 189 10*3/uL (130-400); Red Blood Count 3.11 10*6/uL (3.8-5.5); Red Cell Distribution Width 14.4 % (9.3-17.3); White Blood Count 6.1 10*3/uL (4.5-13.71)
[2016-04-15 06:10] LABS: Calcium 7.2 MG/DL (8.5-10.1); Magnesium 2.1 MG/DL (1.8-2.4); Potassium 3.5 MMOL/L (3.5-5.1)
--- NOTE | 2016-04-15 07:44 | XRay Report ---
Referring Physician: Canelo Leal Exam: XR chest 1V portable Date: April 15, 2016 at 3:14 AM Reason: Patient is on ventilator, respiratory failure Comparison: Chest one view portable April 14, 2016 Findings: An endotracheal tube, feeding tube and right IJ catheter are again present. Surgical clips are again seen at the neck. The cardiac silhouette is upper normal in size. There are scattered opacities within the mid and lower lung zones bilaterally. This could represent pulmonary edema or pneumonia with atelectasis. No pneumothorax is identified. The osseous structures appear stable. Impression: There is increased opacification within the right lower lung zone. The study is otherwise similar to before. PROCEDURE INTERPRETED AT [facility] DEPARTMENT OF RADIOLOGY Final Report Signed by: Dr. Arash Anderson
--- NOTE | 2016-04-15 08:09 | Cardiology Progress Note ---
Malcom Yuen Vanessa RN, am scribing for, and in the presence of, Karthikeyan Davis MD 08:05. Assessment and Plan - Time spent with patient Time spent with patient: Less than 30 minutes (1) Elevated troponin Status: Acute Current Visit: Yes (2) Acute respiratory failure Status: Acute Current Visit: Yes (3) H/O: stroke Problem details: per report Status: Acute Current Visit: Yes (4) Hypokalemia Status: Acute Current Visit: Yes (5) Hyponatremia Status: Acute Current Visit: Yes (6) Seizure Status: Acute Current Visit: Yes (7) Diabetes mellitus Status: Chronic Current Visit: Yes Qualifiers: Diabetes mellitus type: type 2 Diabetes mellitus complication status: with kidney complications (8) Essential hypertension Status: Chronic Current Visit: Yes (9) RBBB Status: Chronic Current Visit: Yes (10) Status post patent foramen ovale closure Status: Chronic Current Visit: Yes (11) Acute renal failure Problem details: severe Status: Resolved Current Visit: Yes (12) Septic shock Status: Resolved Current Visit: Yes Cardiology - PN: Subj Interval history: Cardiology note Status post drainage of scrotal abscess April [address] Bear Status post percutaneous cholecystostomy April [address] Rivera Patient remains on ventilator. Telemetry shows sinus rhythm in 70s Blood pressure 112/78 O2 sat 98 on 45% FiO2 Decreased breath sounds with basilar rhonchi Regular rhythm no gallop Abdomen obese and nontender 1+ leg edema Lab data today White count 6.1 Hemoglobin 9.6 hematocrit 29.6 Sodium 150 potassium 3.5 chloride 112 CO2 29 BUN 13 creatinine 1.0 Glucose 141 Impression Acute respiratory failure Acute renal failure resolved Seizure disorder Diabetes Status post scrotal abscess drainage April 08 Status post cholecystostomy April 09 Echo April 08 showed ejection fraction 65% with LVH, aortic sclerosis, normal RV function, mild TR PA pressure 35 Small troponin elevation. We will screen for CAD when able. Plan CPAP trials IV antibiotics Tube feedings Exam (Progress Note) - Constitutional Vitals: Period Temp Pulse Resp BP Sys/Mishra Pulse Ox Last 24 Hr 97.1 F-99.8 F 57-96 14-42 93-165/51-97 95-100 Result/EKG - Labs CBC & BMP: 04/15/16 05:24 04/15/16 05:31 Labs: Laboratory Results - last 24 hr 04/14/16 04/14/16 04/14/16 11:52 17:55 21:35 WBC RBC Hgb Hct MCV MCH MCHC RDW Plt Count MPV Neut % (Auto) Lymph % (Auto) [place] % (Auto) Eos % (Auto) Baso % (Auto) Neut # (Auto) Lymph # (Auto) [place] # (Auto) Eos # (Auto) Baso # (Auto) Immature Gran % Nucleated RBC % Immature Gran # Nucleated RBCs # ABG pH ABG pCO2 ABG pO2 ABG HCO3 ABG Total CO2 ABG O2 Saturation ABG Base Excess FiO2 Sodium Potassium 3.2 L Chloride Carbon Dioxide Anion Gap BUN Creatinine GFR Calculation BUN/Creatinine Ratio Glucose POC Glucose 134 H 144 H Calculated Osmolality Calcium Magnesium 04/14/16 04/15/16 04/15/16 23:20 03:50 05:24 WBC 6.1 RBC 3.11 L Hgb 9.6 L Hct 29.6 L MCV 95.2 MCH 31 MCHC 32.4 RDW 14.4 Plt Count 189 MPV 10.2 Neut % (Auto) 62.8 Lymph % (Auto) 17.5 L [place] % (Auto) 10.0 Eos % (Auto) 5.7 Baso % (Auto) 0.2 Neut # (Auto) 3.9 Lymph # (Auto) 1.1 L [place] # (Auto) 0.6 Eos # (Auto) 0.4 Baso # (Auto) 0.0 Immature Gran % 3.8 Nucleated RBC % 0.0 Immature Gran # 0.23 Nucleated RBCs # 0.00 ABG pH 7.395 ABG pCO2 46.7 ABG pO2 63.0 L ABG HCO3 27.1 H ABG Total CO2 26.1 ABG O2 Saturation 91.8 L ABG Base Excess 3.1 H FiO2 45.00 Sodium Potassium Chloride Carbon Dioxide Anion Gap BUN Creatinine GFR Calculation BUN/Creatinine Ratio Glucose POC Glucose 132 H Calculated Osmolality Calcium Magnesium 04/15/16 04/15/16 05:31 06:28 WBC RBC Hgb Hct MCV MCH MCHC RDW Plt Count MPV Neut % (Auto) Lymph % (Auto) [place] % (Auto) Eos % (Auto) Baso % (Auto) Neut # (Auto) Lymph # (Auto) [place] # (Auto) Eos # (Auto) Baso # (Auto) Immature Gran % Nucleated RBC % Immature Gran # Nucleated RBCs # ABG pH ABG pCO2 ABG pO2 ABG HCO3 ABG Total CO2 ABG O2 Saturation ABG Base Excess FiO2 Sodium 150 H Potassium 3.5 Chloride 112 H Carbon Dioxide 29 Anion Gap 12.5 BUN 13 Creatinine 1.00 GFR Calculation 100 BUN/Creatinine Ratio 13.00 Glucose 141 H POC Glucose 150 H Calculated Osmolality 299.0 Calcium 7.2 L Magnesium 2.1 Susan Yuen Thomas, MD, personally performed the services described in this documentation, ascribed by Chaparrita العراقي RN in my presence, and it is both accurate and complete 809 .
[2016-04-15] MEDS: POTASSIUM CHLORIDE 20 MEQ/15 ML UDCUP PO SCH (08:11)
[2016-04-15] MEDS: NYSTATIN 500,000 UNIT/5 ML UDCUP SWISH/SWAL SCH ×4 (08:11→21:37)
--- NOTE | 2016-04-15 09:24 | Hospitalist Progress Note ---
Assessment and Plan (1) Seizure Status: Acute Assessment and plan: newonset. No more seizures reported -CT head was negative,appreciates Neurology's input, continue on keppra and Vimpat, follow EEG, correct electrolytes. Current Visit: Yes (2) Septic shock Status: Resolved Assessment and plan: pressors have been weaned off, cultures showed no growth so far, continue with IV antibiotics Current Visit: Yes (3) Acute respiratory failure Status: Acute Assessment and plan: continue with vent support,He is not progressing much with CPAP trials. Follow poulm's recommendations Current Visit: Yes (4) Cholelithiasis Problem details: w possible acute cholecystisi/CBD 10 mm dilated/& elevated lipase Status: Acute Assessment and plan: with possible acute cholecystisi/CBD 10 mm dilated/& elevated lipase. -continue with percutaneous cholecystostomy tube. -follow surgery's recommendations Current Visit: Yes (5) Scrotal abscess Status: Acute Assessment and plan: s/p drainage, aspirate grew strep agalactiae. continue with IV antibiotics, [id number] . Current Visit: Yes (6) Hypokalemia Status: Acute Assessment and plan: repleted Current Visit: Yes (7) Acute renal failure Problem details: severe Status: Resolved Assessment and plan: improving, was on hemodialysis, Nephrology is following Current Visit: Yes (8) Diabetes Status: Chronic Assessment and plan: A1c-7.1, continue with SSC Current Visit: No (9) Oral thrush Status: Acute Assessment and plan: continue swish and swallow Nystatin,HIV testing-non reactive Current Visit: Yes (10) Metabolic acidosis Status: Acute Assessment and plan: improved, bicarb replacement dcd, Nephrology is following Current Visit: Yes (11) Elevated troponin Status: Acute Assessment and plan: In the setting of septic shock and severe acute kidney injury. This would be likely due to increased demand ischemia and from severe acute kidney injury.But patient has a history of heart disease.Follow Cardiology consult, Echocardiogram 04/08/2016 reveals an ejection fraction of 65% without significant valvular abnormality. . Current Visit: Yes (12) Acute encephalopathy Status: Acute Assessment and plan: will continue to follow, patient is currently sedated and intubated Current Visit: Yes (13) Remote history of stroke Status: Chronic Assessment and plan: stable, CT head showed no acute changes Current Visit: No (14) Hypocalcemia Status: Acute Assessment and plan: repleting Current Visit: Yes (15) Hypernatremia Status: Acute Assessment and plan: improving with free water Current Visit: Yes (16) Swelling Status: Acute Assessment and plan: of both UE -will get dopplers to r/o DVT Current Visit: Yes Hospitalist: Subjective Interval history: Patient seen, UE swelling noted. No seizures reported. Exam - Constitutional Vitals: Period Temp Pulse Resp BP Sys/Mishra Pulse Ox Last 24 Hr 97.1 F-98.7 F 57-96 14-42 93-165/51-97 95-100 General appearance: no acute distress, other (intubated) - Head Head exam: Present: normal inspection - Respiratory Respiratory exam: Present: rales - Cardiovascular Cardiovascular exam: Present: regular rate and rhythm - GI/Abdominal GI/Abdominal exam: Present: normal bowel sounds - Extremities Exam Extremities exam: Present: edema (bilteral UE) Results - Labs CBC & BMP: 04/15/16 05:24 04/15/16 05:31 Lab Results: I have reviewed the past 24 hour labs
[2016-04-15] MEDS: LACOSAMIDE INJ 100 MG in SODIUM CHLORIDE 0.9% 50 ML IV SCH ×2 (09:44→21:37)
[2016-04-15] MEDS ORDERED: CALCIUM GLUCONATE 1,000 MG in SODIUM CHLORIDE 0.9% 100 ML IV ONE (10:00)
--- NOTE | 2016-04-15 10:05 | Pulmonology Progress Note ---
Pulmonary - PN: Subj Interval history: Is a 50-year-old male. This patient was seen by me in pulmonary consultation 04/08/2016. His main problems appear to be 1. Nausea vomiting diarrhea etiology undetermined. Possibly related to gallbladder disease. Consider other causes. Resultant dehydration 2. Hypotension. Partially secondary to #1. Consider sepsis. 2.1 scrotal abscess 3. Acute cholecystitis. 4. Acute renal failure. Probably secondary to #1 and #2. 4.1. Acute metabolic acidosis probably secondary to acute renal failure and possibly secondary to sepsis 5. Diabetes mellitus 6. Heart surgery as an infant 7. History of back surgery 8. High blood pressure 9. Possible history of CVA 10. Acute pancreatitis. 11. Bilateral pleural effusions 12. Acute pulmonary failure. At least partially secondary to acute renal failure and hypotension requiring pressor agents, with severe metabolic acidosis. Consider other causes there may be other factors such as underlying lung disease and/or pulmonary emboli and/or aspiration 13. See past history 04/09/2016.. Today the patient was evaluated with fiberoptic bronchoscopy. He had definite evidence of significant aspiration. He had erythematous slightly friable markedly stenotic airways bilaterally secondary to what appears to be an aspiration injury. Multiple specimens were sent. No biopsies were taken. Specimens from his scrotal abscess are growing a gram-positive cocci. Earlier today Dr. Arevalo to look to start the patient on vancomycin. Patient's also on Zosyn. I do not see any need to add extra antibiotics at this point. ABGs have improved significantly on mechanical ventilation and FiO2 of 100%. PH is 7.30. PCO2 is 22.3. PO2 is 391. Bicarb is 13.9. Sodium is 143. Potassium is low at 3.2 creatinine has dropped to 9.4 and the patient for repeat dialysis today. Natruretic peptide is elevated at 260. 04/10/2016. Patient's chest x-ray shows left lower lung atelectasis. He will need a repeat fiberoptic bronchoscopy tomorrow bronchoscopy specimens have been negative so far. Abscess of the scrotum is growing a gram-positive cocci which is yet unidentified. 04/09/2016 the patient had a percutaneous drainage of the gallbladder. There are no positive cultures at this point. This patient has not done well with his weaning trials. We will continue to try to make adjustments.H&H is dropped to 10.5/27.6. White count 7100 with 84 segs and 6 lymphs. Platelets have dropped to 122,000. ABGs are improved. On mechanical ventilation and FiO2 of 65% pH is 7.5-8. PCO2 is 22.7. PO2 is 156. Bicarb is 18.5. Potassium is low at 2.2. Renal will make adjustments for this. Calcium is also low at 6.5. Natruretic peptide is dropped from 260 217. Protein and albumin are low at 5.0 and 2.2 respectively. Labs been reviewed. 04/11/2016. Today's chest x-ray shows a right perihilar infiltrate and a small residual left lower lung infiltrate. Bronchoscopy specimens from 04/10/2016 have shown nothing so far. Culture from the patient's scrotal has grown Streptococcus agalactiae. No sensitivities have been reported. Patient had dialysis yesterday. ABGs on mechanical ventilation and FiO2 of 60% shows a pH 7.59. PCO2 is 21.5. PO2 is 130. Bicarb is 20. This patient has been intentionally hyperventilated because of his metabolic acidosis which is now resolved. I have made adjustments on his ventilator and hopefully lighten his CO2 increase will let him do better on his CPAP trials. Potassium is low at 2.3. This is being managed by renal. CBC is stable and white count is come down to 6700 73 segs and 12 lymphs. Fiberoptic bronchoscopy was done 2016. See report. Patient is a significant problem with severe erosive friable partially stenotic bilateral bronchitis. This is complicated by underlying collapsibility of large and small airways and complicated by retention of secretions and residual gastric aspirate. 04/12/2016. This 50-year-old had a scrotal abscess. He had acute cholecystitis which is been drained percutaneously. He has had acute renal failure and has required dialysis. He had acute severe metabolic acidosis that is improved significantly. He has diabetes mellitus. He has acute respiratory failure that required intubation mechanical ventilation. On he had fiberoptic bronchoscopy and he had definite evidence of significant aspiration. He had erythematous markedly flushed friable and stenotic airways bilaterally.ABGs have improved significantly. On FiO2 of 60% his pH is 7.42. PCO2 is 41. PO2 is 313. Bicarb was 26. Sodium is increased to 153 and potassium is low at 2.9 this is being managed by renal. This looked Like he had acute and chronic injuries. He had a repeat fiberoptic bronchoscopy on 04/11/2016 and a good deal of secretions were removed. Endobronchially he did not appear to be any better. There are no positive bronchoscopy cultures appear he is on weaning protocol some days he does a few hours of CPAP and some days he does not tolerate this well. He is getting dialysis every other day. 04/15/2016. Chest x-ray has deteriorated somewhat today there are faint bilateral scattered areas of alveolar infiltrates. ABGs on mechanical ventilation FiO2 of 45% shows a pH of 7.395. PCO2 is 47. PO2 63. Bicarb is 27. Sodium is elevated 115. Potassium 3.5. Creatinine is 1.0 with a BUN of 13. White count is 6100 with 63 segs 17.5 monocytes. H&H is 9.6/29.7. Notes from this weekend say that the patient had no spontaneous respirations. He is on mechanical ventilation and I changed him to a T-tube and he had no problem initiating of breath whatsoever. He does gradually become rapid with his breathing. I was using no CPAP at the time. We will going to advance him to short trials of T-tube today and otherwise will advance his CPAP as tolerated. I believe this patient can do better. Medicines have been reviewed. Vital signs. See below. Neck. Symmetrical. No meningismus Lymphatics. No submandibular cervical or supraclavicular adenopathy. Chest. Mild coarse large airway congestion. Heart. No gallop Abdomen. Slightly rigid. Only rare bowel sounds. Extremities. No evidence of deep venous thrombophlebitis. Note Doppler venograms are negative for deep venous thrombophlebitis Neurologic and psychiatric are impossible to assess. The remainder the examination is negative. Plan. 1. 04/11/2016. The patient is off pressor agents 2. 04/11/2016. Ventilator adjustments made. 3. Weaning protocol 4. Physical therapy while on ventilator protocol 6. Daily chest x-ray 7. Daily ABGs. 9. 04/12/2016. Continue weaning protocol. Patient does not improve soon will need to consider a trach. 10. Deep venous thrombophlebitis prevention protocol 11. 04/15/2016 advanced into short trials of T-tube and will increase CPAP as tolerated. This patient does not improve in the near future we need to consider a trach. Exam (Progress Note) - Constitutional Vitals: Period Temp Pulse Resp BP Sys/Mishra Pulse Ox Last 24 Hr 97.1 F-98.7 F 57-96 14-42 93-165/51-97 95-100 Results - Labs CBC & BMP: 04/15/16 05:24 04/15/16 05:31
--- NOTE | 2016-04-15 10:41 | General Surgery Progress Note ---
Assessment and Plan (1) Acute renal failure Problem details: severe Status: Resolved Assessment and plan: Seems to be improving. I will leave the dialysis catheter in place until requested to be removed. He only got dialyzed once. Current Visit: Yes (2) Cholelithiasis Problem details: w possible acute cholecystisi/CBD 10 mm dilated/& elevated lipase Status: Acute Assessment and plan: The patient is status post percutaneous cholecystostomy tube placement. This seems to have accomplished out goal. Continue current care. Will need to stay in for total of 14 days. Current Visit: Yes (3) Abscess Status: Acute Assessment and plan: Seems to be resolving. Continue antibiotics Current Visit: Yes Subjective Patient reports: Present: no new complaints Exam - Constitutional Vitals: Period Temp Pulse Resp BP Sys/Mishra Pulse Ox Last 24 Hr 97.1 F-99.1 F 57-100 14-58 93-165/51-97 80-100 General appearance: mild distress, over weight - Head Head exam: Present: normal inspection, normocephalic - Eye Eye exam: Present: EOMI. Absent: scleral icterus Pupils: Present: NAA - ENT ENT exam: Present: normal exam Mouth exam: Present: normal external inspection - Neck Neck exam: Present: normal inspection, trachea midline - Respiratory Respiratory exam: Present: clear to auscultation bilaterally. Absent: accessory muscle use, chest wall tenderness - Cardiovascular Cardiovascular exam: Present: RRR. Absent: systolic murmur, tachycardia - GI/Abdominal GI/Abdominal exam: Present: soft, other (cholecystostomy tube has no output). Absent: tenderness, rebound - Extremities Exam Extremities exam: Present: normal inspection, normal capillary refill - Back Exam Back exam: Present: normal inspection - Neurological Exam Neurological exam: Present: alert, oriented X3 - Skin Skin exam: Present: normal color, warm, other (scrotal abscess appears to have resolved) Results - Labs CBC & BMP: 04/15/16 05:24 04/15/16 05:31
--- NOTE | 2016-04-15 11:00 | Ultrasound Report ---
Referring physician: Opal Zeng MD Exam: Bilateral upper extremity venous ultrasound Date: April 15, 2016 Comparison: None Reason: Bilateral upper extremity edema Technique: Duplex scan of the bilateral upper extremity veins was performed using B-Mode/grayscale imaging and Doppler spectral analysis and color flow. Ultrasound images were captured and stored. Findings: There is nonoccluding thrombus within the distal left basilic vein at a bifurcation. There is no evidence of thrombus within the right internal jugular vein, right subclavian vein, right axillary vein, right brachial vein, right cephalic vein or right basilic vein. There is also no evidence of thrombus within the left internal jugular vein, left subclavian vein, left axillary vein, left brachial vein and left cephalic vein. Normal color flow and spectral analysis are observed. Impression: 1. There is nonoccluding thrombus within the distal left basilic vein at a bifurcation. 2. There is no evidence of venous thrombosis within the right upper extremity or remaining left upper extremity. A critical care nurse was notified on April 15, 2016 at 10:55 AM. PROCEDURE INTERPRETED AT [facility] DEPARTMENT OF RADIOLOGY Final Report Signed by: Dr. Arash Anderson
--- NOTE | 2016-04-15 11:06 | Gastrointestinal Progress Note ---
<Colleen Solo - Last Filed: 04/15/16 11:03> Assessment and Plan (1) Cholelithiasis Problem details: w possible acute cholecystisi/CBD 10 mm dilated/& elevated lipase Status: Acute Assessment and plan: 04/15-No change at present. Tolerating tube feedings. Good UOP. Scant drainage from perc italia drain. Plan and addendum to follow by Dr Napier. 04/12-Minimal output from italia tube. NG output less. Tube feedings to be initiated today. Plan and addendum to follow by Dr Napier. 04/10-Post perc italia tube placement. Large amount of NG output reported. Potassium 2.2. Plan and addendum to follow by Dr Napier. 04/09-Findings on CT scan of cholelithiasis and GB distention, dilated CBD. HIDA scan results with nonvisualized gallbladder. LFTs unremarkable. Plan to continue to monitor at this time. Plan and addendum to follow by Dr Napier. Current Visit: Yes Gastroenterology - PN: Subj Interval history: CC: Cholelithiasis Pt remains sedated, on the vent at this time. He is tolerating his tube feedings. Scant drainage from percutaneous cholecystostomy tube. Noted to have some bilateral infiltrates on chest xray today. He is to start T-tube trials today. Abdomen is soft, nontender. Continues to have good urine output. ROS: No acute distresss Exam (Progress Note) - Constitutional Vitals: Period Temp Pulse Resp BP Sys/Mishra Pulse Ox Last 24 Hr 97.1 F-99.1 F 57-100 14-58 93-165/51-97 80-100 General appearance: normal weight, no acute distress - Head Head exam: Present: normal inspection, normocephalic - Eye Eye exam: Present: other (lids and conjunctiva unremarkable). Absent: scleral icterus - ENT ENT exam: Present: normal exam, normal oropharynx - Neck Neck exam: Present: normal inspection - Respiratory Respiratory exam: Present: clear to auscultation bilaterally. Absent: rales, rhonchi, wheezes - Cardiovascular Cardiovascular exam: Present: regular rate and rhythm. Absent: diastolic murmur , JVD, systolic murmur - GI/Abdominal GI/Abdominal exam: Present: normal bowel sounds, soft. Absent: ascites, distended, mass, organomegaly, tenderness - Extremities Exam Extremities exam: Present: normal inspection, full ROM - Back Exam Back exam: Present: normal inspection - Neurological Exam Neurological exam: Present: altered - Psychiatric Psychiatric exam: Present: other - Skin Skin exam: Present: normal color, warm, dry Results - Labs CBC & BMP: 04/15/16 05:24 04/15/16 05:31 Lab Results: I have reviewed the past 24 hour labs <Bhavesh Napier - Last Filed: 04/15/16 13:33> Exam (Progress Note) - Constitutional Vitals: Period Temp Pulse Resp BP Sys/Mishra Pulse Ox Last 24 Hr 97.1 F-99.1 F 57-100 14-58 93-165/51-97 80-100 Results - Labs CBC & BMP: 04/15/16 05:24 04/15/16 05:31
[2016-04-15] MEDS: ENOXAPARIN 40 MG/0.4 ML SYRINGE SUBCUT SCH ×2 (11:08→16:08)
[2016-04-15] MEDS: CHOLECALCIFEROL 1,000 UNIT TABLET PO SCH (11:09)
--- NOTE | 2016-04-15 13:16 | Nephrology Progress Note ---
Nephrology - PN: Subj Interval history: The patient is resting comfortably. Remains ventilated. Since creatinine continues to show signs of improvement. Serum sodium is now down to 150. No indication for hemodialysis. Patient's renal function has recovered. Exam (PN)-Nephrology - Vital Signs Vital signs: Period Temp Pulse Resp BP Sys/Mishra Pulse Ox Last 24 Hr 97.1 F-99.1 F 57-100 14-58 93-165/51-97 80-100 - General Appearance General appearance: intubated EENT: PERRL Neck: supple Respiratory: clear Cardiology: regular rate, regular rhythm Gastrointestinal: normoactive bowel sounds, no tenderness - Lab 04/15/16 05:24 04/15/16 05:31 Most recent lab results ABG pH 7.395 (7.35-7.45) 04/15/16 03:50 ABG pCO2 46.7 MM HG (35-48) 04/15/16 03:50 ABG pO2 63.0 MM HG (80-95) L 04/15/16 03:50 ABG HCO3 27.1 MMOL/L (20-26) H 04/15/16 03:50 ABG O2 Saturation 91.8 % (95-100) L 04/15/16 03:50 Calcium 7.2 MG/DL (8.5-10.1) L 04/15/16 05:31 Phosphorus 2.0 MG/DL (2.5-4.9) L 04/13/16 04:51 Magnesium 2.1 MG/DL (1.8-2.4) 04/15/16 05:31 Assessment and Plan (1) Respiratory failure Status: Acute Current Visit: Yes (2) Acute renal failure Problem details: severe Status: Resolved Assessment and plan: This issue has resolved. Renal function is back to normal. Current Visit: Yes (3) Diabetes mellitus Status: Chronic Current Visit: Yes Qualifiers: Diabetes mellitus type: type 2 Diabetes mellitus complication status: with kidney complications (4) Essential hypertension Status: Chronic Current Visit: Yes (5) Remote history of stroke Status: Chronic Current Visit: No (6) Hypernatremia Status: Acute Assessment and plan: Continue to increase free water. This is improving. Quarter normal saline at this 100cc an hour. Current Visit: Yes
[2016-04-15] MEDS ORDERED: ENOXAPARIN 100 MG/ML SYRINGE SUBCUT SCH (15:00)
[2016-04-15] MEDS: CLINDAMYCIN INJ 300 MG in PREMIX 1 EACH IV SCH ×2 (16:05→20:49)
[2016-04-15] MEDS: PANTOPRAZOLE 40 MG VIAL IV SCH (18:12)
[2016-04-16] MEDS: PROPOFOL 1,000 MG/100 ML BOTTLE IV SCH ×13 (00:14→23:47)
[2016-04-16] MEDS: ALBUTEROL/IPRATROPIUM 3 ML NEB RESP TX SCH ×4 (00:57→19:46)
[2016-04-16] MEDS: CLINDAMYCIN INJ 300 MG in PREMIX 1 EACH IV SCH ×4 (02:10→20:22)
[2016-04-16] MEDS: SODIUM CHLORIDE 23.4% CONC INJ 38.5 MEQ in STERILE WATER INJ 1,000 ML IV SCH ×5 (02:50→16:00)
[2016-04-16 02:56] LABS: ABG Base Excess 3.5 MMOL/L (-2.5-2.5); ABG HCO3 28.6 MMOL/L (20-26); ABG PCO2 45.4 MM HG (35-48); ABG PH 7.417 (7.35-7.45); Allen Test Positive; Pt O2 Delivery Device Ventilator
[2016-04-16 04:58] LABS: Basophils % 0.2 % (0.0-0.8); Eosinophils # 0.4 10*3/uL (0.0-0.87); Eosinophils % 7.4 % (0.00-10.9); Hematocrit 32.6 VOL% (42.0-52.0); Hemoglobin 10.4 GM/DL (14.0-18.0); Immature Granulocytes % 5.4 %; Immature Granulocytes Absolute 0.27 #; Lymphocytes # 0.9 10*3/uL (1.4-4.0); Mean Corpuscular HGB Conc 31.9 GM/DL (32-36); Mean Corpuscular Hemoglobin 30 PG (27-34); Mean Corpuscular Volume 94.5 FL (87-102); Mean Platelet Volume 10.5 FL (9.6-12.0); Monocytes # 0.6 10*3/uL (0.11-0.8); Monocytes % 12.2 % (1.7-12.7); Neutrophils # 2.9 10*3/uL (1.4-7.4); Neutrophils % 57.8 % (38.7-73.9); Platelet Count 234 T/CUMM (130-400); Red Blood Count 3.45 MC/CUMM (3.8-5.5); Red Cell Distribution Width 14.1 % (9.3-17.3)
[2016-04-16 05:30] LABS: Calcium 7.8 MG/DL (8.5-10.1); Magnesium 2.2 MG/DL (1.8-2.4); Osmolality,Calculated 297.3 MOS/KG (273-304); Potassium 3.7 MMOL/L (3.5-5.1)
[2016-04-16 05:52] LABS: Eosinophils 9 % (0-10); Hypochromasia 1+; Lymphocytes 12 % (20-55); Platelet Estimate Normal; Segmented Neutrophils 64 % (50-85); Total Cells Counted 100
[2016-04-16] MEDS: PIPERACILLIN/TAZOBACTAM 3,375 MG in SODIUM CHLORIDE 0.9% 100 ML IV SCH ×2 (05:53→18:59)
[2016-04-16] MEDS: INSULIN REGULAR 100 UNIT/ML SUBCUT SCH ×3 (05:53→17:58)
--- NOTE | 2016-04-16 07:05 | XRay Report ---
Referring Physician: Canelo Leal Exam: XR chest 1V portable Date: April 16, 2016 at 3:25 AM Reason: Ventilation, respiratory failure Comparison: Chest one view portable April 15, 2016 Findings: An endotracheal tube, feeding tube and right IJ catheter are again present. A catheter also projects at the right abdomen. The cardiac silhouette is partially obscured but appears upper normal in size. There are scattered opacities within both lungs, mainly in the perihilar regions and at both lung bases. This could represent pulmonary edema or pneumonia with atelectasis. No pneumothorax is identified. The osseous structures appear stable. Impression: The left lung is not as well expanded today, but the study is otherwise similar to before. PROCEDURE INTERPRETED AT [facility] DEPARTMENT OF RADIOLOGY Final Report Signed by: Dr. Arash Anderson
--- NOTE | 2016-04-16 07:37 | Cardiology Progress Note ---
Assessment and Plan (1) Elevated troponin Status: Acute Current Visit: Yes (2) Acute respiratory failure Status: Acute Current Visit: Yes (3) H/O: stroke Problem details: per report Status: Acute Current Visit: Yes (4) Hypokalemia Status: Acute Current Visit: Yes (5) Hyponatremia Status: Acute Current Visit: Yes (6) Seizure Status: Acute Current Visit: Yes (7) Diabetes mellitus Status: Chronic Current Visit: Yes Qualifiers: Diabetes mellitus type: type 2 Diabetes mellitus complication status: with kidney complications (8) Essential hypertension Status: Chronic Current Visit: Yes (9) RBBB Status: Chronic Current Visit: Yes (10) Status post patent foramen ovale closure Status: Chronic Current Visit: Yes (11) Acute renal failure Problem details: severe Status: Resolved Current Visit: Yes (12) Septic shock Status: Resolved Current Visit: Yes Cardiology - PN: Subj Interval history: Cardiology note 50-year-old man status post sepsis syndrome with respiratory failure Did not do well on CPAP yesterday. Thick green secretions from ET tube. Telemetry shows sinus rhythm in the 70s and 80s. O2 sat 95 on 45% FiO2 Blood pressure 130-140 systolic range Decreased breath sounds with scattered rhonchi in the bases Regular rhythm no gallop Abdomen nontender Lab data today White count 5.0 hemoglobin 10.4 hematocrit 32.6 Sodium 148 potassium 3.7 chloride 112 CO2 26 BUN 12 creatinine 1.0 Glucose 173 magnesium 2.2 Impression Acute respiratory failure Acute renal failure resolved Seizure disorder Diabetes Hypertension Status post scrotal abscess drainage April 08 Status post percutaneous cholecystostomy April 09 Echo shows EF 65% with LVH, aortic sclerosis, mild TR PA pressure 35 Plan IV antibiotics Aggressive suctioning. May well need repeat bronchoscopy Tube feedings CPAP trials Exam (Progress Note) - Constitutional Vitals: Period Temp Pulse Resp BP Sys/Mishra Pulse Ox Last 24 Hr 96.8 F-99.1 F 48-100 17-58 111-154/65-87 80-100 Result/EKG - Labs CBC & BMP: 04/16/16 04:13 04/16/16 04:13 Labs: Laboratory Results - last 24 hr 04/15/16 04/15/16 04/15/16 06:28 10:06 11:06 WBC RBC Hgb Hct MCV MCH MCHC RDW Plt Count MPV Neut % (Auto) Lymph % (Auto) Marshall % (Auto) Eos % (Auto) Baso % (Auto) Neut # (Auto) Lymph # (Auto) Marshall # (Auto) Eos # (Auto) Baso # (Auto) Total Counted Immature Gran % Nucleated RBC % Immature Gran # Segmented Neutrophils Lymphocytes Monocytes Eosinophils Basophils Nucleated RBCs # Platelet Estimate Hypochromasia Morphology Comment ABG pH ABG pCO2 ABG pO2 ABG HCO3 ABG Total CO2 ABG O2 Saturation ABG Base Excess FiO2 Sodium Potassium Chloride Carbon Dioxide Anion Gap BUN Creatinine GFR Calculation BUN/Creatinine Ratio Glucose POC Glucose 150 H 124 H Calculated Osmolality Calcium Magnesium Vancomycin Trough 12.3 04/15/16 04/15/16 04/16/16 17:44 23:47 02:42 WBC RBC Hgb Hct MCV MCH MCHC RDW Plt Count MPV Neut % (Auto) Lymph % (Auto) Marshall % (Auto) Eos % (Auto) Baso % (Auto) Neut # (Auto) Lymph # (Auto) Marshall # (Auto) Eos # (Auto) Baso # (Auto) Total Counted Immature Gran % Nucleated RBC % Immature Gran # Segmented Neutrophils Lymphocytes Monocytes Eosinophils Basophils Nucleated RBCs # Platelet Estimate Hypochromasia Morphology Comment ABG pH 7.417 ABG pCO2 45.4 ABG pO2 115.0 H ABG HCO3 28.6 H ABG Total CO2 30.0 H ABG O2 Saturation 98.0 ABG Base Excess 3.5 H FiO2 45.00 Sodium Potassium Chloride Carbon Dioxide Anion Gap BUN Creatinine GFR Calculation BUN/Creatinine Ratio Glucose POC Glucose 140 H 175 H Calculated Osmolality Calcium Magnesium Vancomycin Trough 04/16/16 04/16/16 04/16/16 04:13 04:13 05:41 WBC 5.0 RBC 3.45 L Hgb 10.4 L Hct 32.6 L MCV 94.5 MCH 30 MCHC 31.9 L RDW 14.1 Plt Count 234 D MPV 10.5 Neut % (Auto) 57.8 Lymph % (Auto) 17.0 L Marshall % (Auto) 12.2 Eos % (Auto) 7.4 Baso % (Auto) 0.2 Neut # (Auto) 2.9 Lymph # (Auto) 0.9 L Marshall # (Auto) 0.6 Eos # (Auto) 0.4 Baso # (Auto) 0.0 Total Counted 100 Immature Gran % 5.4 Nucleated RBC % 0.0 Immature Gran # 0.27 Segmented Neutrophils 64 Lymphocytes 12 L Monocytes 13 Eosinophils 9 Basophils 2.0 H Nucleated RBCs # 0.00 Platelet Estimate Normal Hypochromasia 1+ Morphology Comment ABG pH ABG pCO2 ABG pO2 ABG HCO3 ABG Total CO2 ABG O2 Saturation ABG Base Excess FiO2 Sodium 148 H Potassium 3.7 Chloride 112 H Carbon Dioxide 26 Anion Gap 13.7 BUN 12 Creatinine 1.00 GFR Calculation 100 BUN/Creatinine Ratio 12.00 Glucose 173 H POC Glucose 150 H Calculated Osmolality 297.3 Calcium 7.8 L Magnesium 2.2 Vancomycin Trough
[2016-04-16] MEDS: CHOLECALCIFEROL 1,000 UNIT TABLET PO SCH (08:46)
[2016-04-16] MEDS: NYSTATIN 500,000 UNIT/5 ML UDCUP SWISH/SWAL SCH ×4 (08:46→21:24)
[2016-04-16] MEDS: LACOSAMIDE INJ 100 MG in SODIUM CHLORIDE 0.9% 50 ML IV SCH ×2 (08:47→21:24)
[2016-04-16] MEDS: ASPIRIN EC 325 MG TABLET PO SCH (08:48)
--- NOTE | 2016-04-16 10:08 | Hospitalist Progress Note ---
Assessment and Plan (1) Seizure Status: Acute Assessment and plan: newonset. No more seizures reported -CT head was negative,appreciates Neurology's input, continue on keppra and Vimpat, follow EEG, correct electrolytes. Current Visit: Yes (2) Septic shock Status: Resolved Assessment and plan: pressors have been weaned off, scrotal culture grew strp agalactiae, continue with IV antibiotics Current Visit: Yes (3) Acute respiratory failure Status: Acute Assessment and plan: CXR showed the left lung is not as well expanded today.Thick green secretions from ET tube. -continue suctioning, Pulm is following-?bronchoscopy Current Visit: Yes (4) Cholelithiasis Problem details: w possible acute cholecystisi/CBD 10 mm dilated/& elevated lipase Status: Acute Assessment and plan: with possible acute cholecystisi/CBD 10 mm dilated/& elevated lipase. -continue with percutaneous cholecystostomy tube. -follow surgery's recommendations Current Visit: Yes (5) Scrotal abscess Status: Acute Assessment and plan: s/p drainage, aspirate grew strep agalactiae. continue with IV antibiotics, [id number] . Current Visit: Yes (6) Hypokalemia Status: Acute Assessment and plan: repleted Current Visit: Yes (7) Acute renal failure Problem details: severe Status: Resolved Assessment and plan: improved, no longer on hemodialysis, Nephrology is following Current Visit: Yes (8) Diabetes Status: Chronic Assessment and plan: A1c-7.1, continue with SSC Current Visit: No (9) Oral thrush Status: Acute Assessment and plan: continue swish and swallow Nystatin,HIV testing-non reactive Current Visit: Yes (10) Metabolic acidosis Status: Acute Assessment and plan: improved, bicarb replacement dcd, Nephrology is following Current Visit: Yes (11) Elevated troponin Status: Acute Assessment and plan: In the setting of septic shock and severe acute kidney injury. This would be likely due to increased demand ischemia and from severe acute kidney injury.But patient has a history of heart disease.Follow Cardiology consult, Echocardiogram 04/08/2016 reveals an ejection fraction of 65% without significant valvular abnormality. . Current Visit: Yes (12) Acute encephalopathy Status: Acute Assessment and plan: will continue to follow, patient is currently sedated and intubated Current Visit: Yes (13) Remote history of stroke Status: Chronic Assessment and plan: stable, CT head showed no acute changes Current Visit: No (14) Hypocalcemia Status: Acute Assessment and plan: repleting Current Visit: Yes (15) Hypernatremia Status: Acute Assessment and plan: improving with free water Current Visit: Yes (16) Swelling Status: Acute Assessment and plan: Doppler USS of UE showed a non occluding thrombus within the distal left basilic vein at a bifurcation. Being a superficial vein- will treat witn NSAIDs and warm compressors -Elevate both UE Current Visit: Yes Hospitalist: Subjective Interval history: patient seen. UE dopplers showed a non occluding thrombus within the distal left basilic vein at a bifurcation.CXR showed the left lung is not as well expanded today. Exam - Constitutional Vitals: Period Temp Pulse Resp BP Sys/Mishra Pulse Ox Last 24 Hr 96.8 F-98.2 F 48-81 17-45 111-154/65-87 92-100 General appearance: no acute distress, other - Respiratory Respiratory exam: Present: rales - Cardiovascular Cardiovascular exam: Present: regular rate and rhythm - GI/Abdominal GI/Abdominal exam: Present: normal bowel sounds - Extremities Exam Extremities exam: Present: edema (bilateral UE swelling) Results - Labs CBC & BMP: 04/16/16 04:13 04/16/16 04:13 Lab Results: I have reviewed the past 24 hour labs
--- NOTE | 2016-04-16 11:19 | General Surgery Progress Note ---
Assessment and Plan (1) Acute renal failure Problem details: severe Status: Resolved Assessment and plan: Seems to be improving. I will leave the dialysis catheter in place until requested to be removed. He only got dialyzed once. Current Visit: Yes (2) Cholelithiasis Problem details: w possible acute cholecystisi/CBD 10 mm dilated/& elevated lipase Status: Acute Assessment and plan: The patient is status post percutaneous cholecystostomy tube placement. This seems to have accomplished out goal. Continue current care. Will need to stay in for total of 14 days, but I will wait to remove it until he is out of the ICU and about to be discharged. Current Visit: Yes (3) Abscess Status: Acute Assessment and plan: continue antibiotics for induration that is almost gone. Would treat until 04/21 with clindamycin Current Visit: Yes Subjective Patient reports: Present: afebrile Exam - Constitutional Vitals: Period Temp Pulse Resp BP Sys/Mishra Pulse Ox Last 24 Hr 96.8 F-98.2 F 48-81 17-45 111-154/65-87 92-100 General appearance: no acute distress, over weight - Head Head exam: Present: normal inspection, normocephalic - Eye Eye exam: Present: EOMI Pupils: Present: NAA - ENT ENT exam: Present: normal exam Mouth exam: Present: normal external inspection - Neck Neck exam: Present: normal inspection, trachea midline - Cardiovascular Cardiovascular exam: Present: RRR. Absent: systolic murmur, tachycardia - GI/Abdominal GI/Abdominal exam: Present: soft. Absent: tenderness (cholecystostomy tube has no output), rebound - Extremities Exam Extremities exam: Present: normal inspection, normal capillary refill, other ( scrotal abscess has resolved. There is only minimal induration left at the site.) - Skin Skin exam: Present: normal color, warm Results - Labs CBC & BMP: 04/16/16 04:13 04/16/16 04:13
--- NOTE | 2016-04-16 12:36 | Physician Query Form ---
CLICK EDIT DOCUMENT TO SELECT QUERY ANSWER --> OK --> SIGN Deonan Morfin RN, CCDS Certified Clinical [employer] Representative W) [phone] (f) [phone] [email or web address] PROVIDERS: Make your selection(s) from the choices in EACH section by typing an "x" and enter comments in the comment section. Please use your independent medical judgment in providing your response. This request does not imply that any particular answer is desired or expected. CLINICAL INDICATORS: (Providers should not edit this section) The medical record indicates that the patient was admitted with cholecystitis, BP of 84/44, Creatinine of 11.70 on the that has decreased to 1.30 on the and the patient was placed on Norepinephrine for BP control. Based on the above, could you clarify the appropriate diagnosis, if significant , that supports the above abnormalities and additional evaluation, monitoring, and/or treatment rendered: ( x) Acute renal failure with ATN ( ) Acute renal failure without ATN ( ) Other, please specify: ( ) Clinically unable to determine COMMENTS: Use of terms such as suspected, likely, or probable (associated with a specific diagnosis that is being evaluated, monitored, or treated as if it exists) are acceptable and can be restated in the discharge summary if not ruled out. MTDD
--- NOTE | 2016-04-16 13:00 | Consultation ---
Assessment and Plan - Time spent with patient Time spent with patient: Less than 30 minutes (1) Ventilator dependence Status: Acute Assessment and plan: I recommend tracheostomy placement that will be performed on Friday the 2016 if a previously scheduled case is able to be completed during normal operative hours if not we may push this back until Friday we will obtain consent and plan on holding nasogastric and anticoagulants at midnight for possible trach tomorrow if not we will do this again for night Thank you very much for this consult I will follow this patient intermittently throughout his stay please notify me if there is any questions or concerns Current Visit: Yes (2) Acute respiratory failure Status: Acute Current Visit: Yes (3) Respiratory failure Status: Acute Current Visit: Yes History of Present Illness - Data of Consult Patient: new to practice Consult date: 04/16/16 Requesting Physician: Juice Ybarra - Consult Narrative Reason for consult: Ventilator dependent respiratory failure History of present illness: Mr. Pace is a 50 year old male with multiple medical comorbidities who is been intubated for 7 days now and has failed multiple weaning trials due to hypoxia ENT is consulted for ventilator dependent respiratory failure for possible tracheostomy placement CC: Opal Zeng MD - Home Medications and Allergies Home Medications: Home Medications Medication Instructions Recorded Confirmed Type Carvedilol [Coreg] 12.5 mg PO BID #60 tablet 01/06/16 04/09/16 Rx Gabapentin Cap/Tab [Neurontin 600 mg PO TID #90 tablet 01/06/16 04/09/16 Rx Cap/Tab] Lisinopril [Prinivil] 10 mg PO DAILY #30 tablet 01/06/16 04/09/16 Rx Potassium Chloride Cap/Tab [K Dur] 20 meq PO DAILY #30 tablet 01/06/16 04/09/16 Rx Albuterol Inhaler [Proventil 1 puff INH Q4HR 04/09/16 04/09/16 History Inhaler] HYDROcodone/ACETAMIN 7.5-325 1 tablet PO Q6H PRN 04/09/16 04/09/16 History [[place] 7.5-325] Allergies/Adverse Reactions: Allergies Allergy/AdvReac Type Severity Reaction Status Date / Time No Known Allergies Allergy Verified 01/04/16 14:01 ROS unobtainable: due to endotracheal tube Medical,Surgical,& Family Hx - Medical History Cardio: History of: Hypertension Neurology: History of: Cerebrovascular Accident (possible per old chart) Musculoskeletal: History of: Back/Neck Problems - Surgical History Cardiac Surgeries: Sugical HX of: Cardiac Surgery (pfo repair as ) Neurologic Surgeries: Surgical HX of: Neurologic Surgery (back surgeries) Orthopedic Surgeries: Surgical HX of;: Spinal Surgery - Social History Smoking Status: Smoker, status unknown Frequency of Alcohol Use: None Type of Drug Use: None Exam - Constitutional Vitals: Period Temp Pulse Resp BP Sys/Mishra Pulse Ox Last 24 Hr 96.8 F-98.2 F 48-81 17-45 111-154/65-87 92-100 General appearance: over weight, other (Intubated and sedated on a ventilator) - Head Head exam: Present: normal inspection, normocephalic - ENT ENT exam: Present: normal exam, normal oropharynx (Obscured nasal and oral exam secondary to secretions and endotracheal tube and nasogastric tube) - Neck Neck exam: Present: normal inspection (Grossly midline trachea) - Respiratory Respiratory exam: Present: other (Intubated on a ventilator currently 90-91 SPO2 on ventilator) - GI/Abdominal GI/Abdominal exam: Present: soft (Obese) - Neurological Exam Neurological exam: Present: other (Intubated on the ventilator) - Psychiatric Psychiatric exam: Present: other (Intubated and on the ventilator) - Skin Skin exam: Present: normal color, warm Results - Labs CBC & BMP: 04/16/16 04:13 04/16/16 04:13 Lab Results: I have reviewed the past 24 hour labs
[2016-04-16] MEDS: ENOXAPARIN 40 MG/0.4 ML SYRINGE SUBCUT SCH (15:40)
--- NOTE | 2016-04-16 17:22 | Nephrology Progress Note ---
Nephrology - PN: Subj Interval history: The gentleman's renal function is continuing to improve. Good urine output. Serum sodium is trending down. At this time recommending continue with free water flushes. No other recommendations. We will sign off. Please call if needed. Exam (PN)-Nephrology - Vital Signs Vital signs: Period Temp Pulse Resp BP Sys/Mishra Pulse Ox Last 24 Hr 96.8 F-99.4 F 48-81 17-45 111-154/65-85 85-100 - General Appearance General appearance: well-developed, well-nourished, intubated EENT: ATNC Neck: supple Respiratory: clear Cardiology: regular rate, regular rhythm Gastrointestinal: normoactive bowel sounds, no tenderness Musculoskeletal: no clubbing - Lab 04/16/16 04:13 04/16/16 04:13 Most recent lab results ABG pH 7.417 (7.35-7.45) 04/16/16 02:42 ABG pCO2 45.4 MM HG (35-48) 04/16/16 02:42 ABG pO2 115.0 MM HG (80-95) H 04/16/16 02:42 ABG HCO3 28.6 MMOL/L (20-26) H 04/16/16 02:42 ABG O2 Saturation 98.0 % (95-100) 04/16/16 02:42 Calcium 7.8 MG/DL (8.5-10.1) L 04/16/16 04:13 Phosphorus 2.0 MG/DL (2.5-4.9) L 04/13/16 04:51 Magnesium 2.2 MG/DL (1.8-2.4) 04/16/16 04:13 Assessment and Plan (1) Respiratory failure Status: Acute Current Visit: Yes (2) Acute renal failure Problem details: severe Status: Resolved Assessment and plan: This issue has resolved. Renal function is back to normal. Current Visit: Yes (3) Diabetes mellitus Status: Chronic Current Visit: Yes Qualifiers: Diabetes mellitus type: type 2 Diabetes mellitus complication status: with kidney complications (4) Essential hypertension Status: Chronic Current Visit: Yes (5) Remote history of stroke Status: Chronic Current Visit: No (6) Hypernatremia Status: Acute Assessment and plan: Continue to increase free water. This is improving. Quarter normal saline at this 100cc an hour. Current Visit: Yes
[2016-04-16] MEDS: PANTOPRAZOLE 40 MG VIAL IV SCH (18:56)
[2016-04-17] MEDS: ALBUTEROL/IPRATROPIUM 3 ML NEB RESP TX SCH ×4 (00:07→18:42)
[2016-04-17] MEDS: INSULIN REGULAR 100 UNIT/ML SUBCUT SCH ×5 (00:49→23:52)
[2016-04-17] MEDS: SODIUM CHLORIDE 23.4% CONC INJ 38.5 MEQ in STERILE WATER INJ 1,000 ML IV SCH ×2 (01:33→16:40)
[2016-04-17] MEDS: PROPOFOL 1,000 MG/100 ML BOTTLE IV SCH ×9 (02:35→23:56)
[2016-04-17] MEDS: CLINDAMYCIN INJ 300 MG in PREMIX 1 EACH IV SCH ×4 (02:45→21:32)
[2016-04-17 03:43] LABS: ABG Base Excess 3.9 MMOL/L (-2.5-2.5); ABG HCO3 26.6 MMOL/L (20-26); ABG PCO2 33.6 MM HG (35-48); ABG PH 7.517 (7.35-7.45); ABG TCO2 27.7 MMOL/L (23-27); Allen Test Positive; Pt O2 Delivery Device Ventilator
[2016-04-17] MEDS: PIPERACILLIN/TAZOBACTAM 3,375 MG in SODIUM CHLORIDE 0.9% 100 ML IV SCH ×2 (06:12→18:19)
--- NOTE | 2016-04-17 06:12 | XRay Report ---
Referring Physician: Canelo Leal Exam: XR chest 1V portable Date: April 17, 2016 at 3:19 AM Reason: On ventilator, respiratory failure Comparison: Chest one view portable April 16, 2016 Findings: An endotracheal tube, feeding tube and right IJ catheter are again in place. Surgical clips are seen at the neck bilaterally. The cardiac silhouette is partially obscured but appears borderline enlarged. There could also be minimal elevation of the left hemidiaphragm. There are scattered perihilar and bibasilar opacities. This is concerning for pulmonary edema and atelectasis, but superimposed pneumonia is not excluded. No pneumothorax is identified. The osseous structures appear stable. Impression: There may be increased atelectasis at the medial left lung base, but there is otherwise improved aeration of both lungs. PROCEDURE INTERPRETED AT [facility] DEPARTMENT OF RADIOLOGY Final Report Signed by: Dr. Arash Anderson
--- NOTE | 2016-04-17 07:39 | Cardiology Progress Note ---
Assessment and Plan (1) Elevated troponin Status: Acute Current Visit: Yes (2) Acute respiratory failure Status: Acute Current Visit: Yes (3) H/O: stroke Problem details: per report Status: Acute Current Visit: Yes (4) Hypokalemia Status: Acute Current Visit: Yes (5) Hyponatremia Status: Acute Current Visit: Yes (6) Seizure Status: Acute Current Visit: Yes (7) Diabetes mellitus Status: Chronic Current Visit: Yes Qualifiers: Diabetes mellitus type: type 2 Diabetes mellitus complication status: with kidney complications (8) Essential hypertension Status: Chronic Current Visit: Yes (9) RBBB Status: Chronic Current Visit: Yes (10) Status post patent foramen ovale closure Status: Chronic Current Visit: Yes (11) Acute renal failure Problem details: severe Status: Resolved Current Visit: Yes (12) Septic shock Status: Resolved Current Visit: Yes Cardiology - PN: Subj Interval history: Cardiology note 50-year-old man with sepsis syndrome and respiratory failure. Still doing very poorly on CPAP Telemetry shows steady sinus rhythm in the 60s and 70s O2 sat 92 on 45% FiO2 Blood pressure 150/90 Decreased breath sounds with scattered rhonchi Regular rhythm no gallop Abdomen soft benign 1+ edema Lab data today White count 5.0 hemoglobin 10.4 hematocrit 32.6 Sodium 148 potassium 3.7 chloride 112 CO2 26 BUN 12 creatinine 1.0 Glucose 173 magnesium 2.2 Impression Sepsis syndrome with respiratory failure Acute renal failure resolved Seizure disorder Diabetes Hypertension Status post scrotal abscess incision and drainage April 08 Status post percutaneous cholecystostomy April 09 Recent echo showed ejection fraction of 65% with LVH, aortic sclerosis and mild TR Plan Tracheostomy IV antibiotics Tube feedings Exam (Progress Note) - Constitutional Vitals: Period Temp Pulse Resp BP Sys/Mishra Pulse Ox Last 24 Hr 97.4 F-99.4 F 54-78 21-42 121-158/60-84 85-100 Result/EKG - Labs CBC & BMP: 04/16/16 04:13 04/16/16 04:13 Labs: Laboratory Results - last 24 hr 04/17/16 03:00 ABG pH 7.517 H ABG pCO2 33.6 L ABG pO2 92.0 ABG HCO3 26.6 H ABG Total CO2 27.7 H ABG O2 Saturation 97.0 ABG Base Excess 3.9 H FiO2 45.00
--- NOTE | 2016-04-17 09:34 | XRay Report ---
XR chest 1V portable Indication: Tube placement check Comparison: None Technique: Single frontal view of the chest Findings: Lines and tubes appear grossly unchanged. Cardiomediastinal silhouette appears grossly unchanged. Mildly improved bilateral perihilar and left basilar atelectasis/consolidation. Osseous and surrounding soft tissue structures appear grossly unchanged. IMPRESSION: Mildly improved bilateral perihilar and left basilar atelectasis/consolidation. PROCEDURE INTERPRETED AT [facility] DEPARTMENT OF RADIOLOGY Final Report Signed by: Dr Mark Altman
--- NOTE | 2016-04-17 10:15 | Pulmonology Progress Note ---
Pulmonary - PN: Subj Interval history: Is a 50-year-old male. This patient was seen by me in pulmonary consultation 04/08/2016. His main problems appear to be 1. Nausea vomiting diarrhea etiology undetermined. Possibly related to gallbladder disease. Consider other causes. Resultant dehydration 2. Hypotension. Partially secondary to #1. Consider sepsis. 2.1 scrotal abscess 3. Acute cholecystitis. 4. Acute renal failure. Probably secondary to #1 and #2. 4.1. Acute metabolic acidosis probably secondary to acute renal failure and possibly secondary to sepsis 5. Diabetes mellitus 6. Heart surgery as an infant 7. History of back surgery 8. High blood pressure 9. Possible history of CVA 10. Acute pancreatitis. 11. Bilateral pleural effusions 12. Acute pulmonary failure. At least partially secondary to acute renal failure and hypotension requiring pressor agents, with severe metabolic acidosis. Consider other causes there may be other factors such as underlying lung disease and/or pulmonary emboli and/or aspiration 13. See past history 04/09/2016.. Today the patient was evaluated with fiberoptic bronchoscopy. He had definite evidence of significant aspiration. He had erythematous slightly friable markedly stenotic airways bilaterally secondary to what appears to be an aspiration injury. Multiple specimens were sent. No biopsies were taken. Specimens from his scrotal abscess are growing a gram-positive cocci. Earlier today Dr. Arevalo to look to start the patient on vancomycin. Patient's also on Zosyn. I do not see any need to add extra antibiotics at this point. ABGs have improved significantly on mechanical ventilation and FiO2 of 100%. PH is 7.30. PCO2 is 22.3. PO2 is 391. Bicarb is 13.9. Sodium is 143. Potassium is low at 3.2 creatinine has dropped to 9.4 and the patient for repeat dialysis today. Natruretic peptide is elevated at 260. 04/10/2016. Patient's chest x-ray shows left lower lung atelectasis. He will need a repeat fiberoptic bronchoscopy tomorrow bronchoscopy specimens have been negative so far. Abscess of the scrotum is growing a gram-positive cocci which is yet unidentified. 04/09/2016 the patient had a percutaneous drainage of the gallbladder. There are no positive cultures at this point. This patient has not done well with his weaning trials. We will continue to try to make adjustments.H&H is dropped to 10.5/27.6. White count 7100 with 84 segs and 6 lymphs. Platelets have dropped to 122,000. ABGs are improved. On mechanical ventilation and FiO2 of 65% pH is 7.5-8. PCO2 is 22.7. PO2 is 156. Bicarb is 18.5. Potassium is low at 2.2. Renal will make adjustments for this. Calcium is also low at 6.5. Natruretic peptide is dropped from 260 217. Protein and albumin are low at 5.0 and 2.2 respectively. Labs been reviewed. 04/11/2016. Today's chest x-ray shows a right perihilar infiltrate and a small residual left lower lung infiltrate. Bronchoscopy specimens from 04/10/2016 have shown nothing so far. Culture from the patient's scrotal has grown Streptococcus agalactiae. No sensitivities have been reported. Patient had dialysis yesterday. ABGs on mechanical ventilation and FiO2 of 60% shows a pH 7.59. PCO2 is 21.5. PO2 is 130. Bicarb is 20. This patient has been intentionally hyperventilated because of his metabolic acidosis which is now resolved. I have made adjustments on his ventilator and hopefully lighten his CO2 increase will let him do better on his CPAP trials. Potassium is low at 2.3. This is being managed by renal. CBC is stable and white count is come down to 6700 73 segs and 12 lymphs. Fiberoptic bronchoscopy was done 2016. See report. Patient is a significant problem with severe erosive friable partially stenotic bilateral bronchitis. This is complicated by underlying collapsibility of large and small airways and complicated by retention of secretions and residual gastric aspirate. 04/12/2016. This 50-year-old had a scrotal abscess. He had acute cholecystitis which is been drained percutaneously. He has had acute renal failure and has required dialysis. He had acute severe metabolic acidosis that is improved significantly. He has diabetes mellitus. He has acute respiratory failure that required intubation mechanical ventilation. On he had fiberoptic bronchoscopy and he had definite evidence of significant aspiration. He had erythematous markedly flushed friable and stenotic airways bilaterally.ABGs have improved significantly. On FiO2 of 60% his pH is 7.42. PCO2 is 41. PO2 is 313. Bicarb was 26. Sodium is increased to 153 and potassium is low at 2.9 this is being managed by renal. This looked Like he had acute and chronic injuries. He had a repeat fiberoptic bronchoscopy on 04/11/2016 and a good deal of secretions were removed. Endobronchially he did not appear to be any better. There are no positive bronchoscopy cultures appear he is on weaning protocol some days he does a few hours of CPAP and some days he does not tolerate this well. He is getting dialysis every other day. 04/15/2016. Chest x-ray has deteriorated somewhat today there are faint bilateral scattered areas of alveolar infiltrates. ABGs on mechanical ventilation FiO2 of 45% shows a pH of 7.395. PCO2 is 47. PO2 63. Bicarb is 27. Sodium is elevated 115. Potassium 3.5. Creatinine is 1.0 with a BUN of 13. White count is 6100 with 63 segs 17.5 monocytes. H&H is 9.6/29.7. Notes from this weekend say that the patient had no spontaneous respirations. He is on mechanical ventilation and I changed him to a T-tube and he had no problem initiating of breath whatsoever. He does gradually become rapid with his breathing. I was using no CPAP at the time. We will going to advance him to short trials of T-tube today and otherwise will advance his CPAP as tolerated. I believe this patient can do better. 04/16/2016. This patient is not doing well with his weaning trials. He is at a standstill. He is been on mechanical ventilation approximately 10 days. I talked to the patient's , his male cousin and his and patient's mother , the patient's nurse Malathi, Canelo Leal nurse practitioner and Suha Gonzalez practitioner were present. I discussed the pros and cons for trach. She understood these and was agreeable to having this done electively. Today's x- ray still shows some bilateral infiltrates ABGs on mechanical ventilation FiO2 of 45% shows a pH of 7.42, PCO2 45, PO2 of 115, bicarb 28.6 electrolytes normal. Creatinine is 1.0. CBC is stable. Microbiology no recent positive cultures. Other than his pulmonary problems the patient is being treated for scrotal abscess and a decubitus ulcer and acute cholecystitis. He also has acute renal failure which is markedly improved with dialysis 04/17/2016. Chest x-ray still has bilateral infiltrates but these are definitely improved. ABGs are stable. Labs been reviewed. Medicines been reviewed. Patient's for trach most likely a day. Appreciate ENT consultation. Medicines have been reviewed. Vital signs. See below. Neck. Symmetrical. No meningismus Lymphatics. No submandibular cervical or supraclavicular adenopathy. Chest. Mild coarse large airway congestion. Heart. No gallop Abdomen. Slightly rigid. Only rare bowel sounds. Extremities. No evidence of deep venous thrombophlebitis. Note Doppler venograms are negative for deep venous thrombophlebitis Neurologic and psychiatric are impossible to assess. The remainder the examination is negative. Plan. 1. 04/11/2016. The patient is off pressor agents 2. 04/11/2016. Ventilator adjustments made. 3. Weaning protocol 4. Physical therapy while on ventilator protocol 6. Daily chest x-ray 7. Daily ABGs. 9. 04/12/2016. Continue weaning protocol. Patient does not improve soon will need to consider a trach. 10. Deep venous thrombophlebitis prevention protocol 11. 04/15/2016 advanced into short trials of T-tube and will increase CPAP as tolerated. This patient does not improve in the near future we need to consider a trach. 12. 04 16 2016 6 see my note of this date above. Ventilator adjustments made. Continue weaning trials. Consult ENT for placement trach. Permission given by and family 13. 04/17/2016. For trach. Exam (Progress Note) - Constitutional Vitals: Period Temp Pulse Resp BP Sys/Mishra Pulse Ox Last 24 Hr 97.4 F-99.2 F 54-78 21-24 121-158/60-84 85-100 Results - Labs CBC & BMP: 04/16/16 04:13 04/16/16 04:13
[2016-04-17] MEDS: POTASSIUM CHLORIDE 20 MEQ/15 ML UDCUP PER TUBE PRN (10:46)
[2016-04-17] MEDS: LACOSAMIDE INJ 100 MG in SODIUM CHLORIDE 0.9% 50 ML IV SCH ×2 (10:46→21:32)
[2016-04-17] MEDS: NYSTATIN 500,000 UNIT/5 ML UDCUP SWISH/SWAL SCH ×4 (10:46→21:32)
[2016-04-17] MEDS: ASPIRIN EC 325 MG TABLET PO SCH (10:47)
[2016-04-17] MEDS: CHOLECALCIFEROL 1,000 UNIT TABLET PO SCH (10:47)
[2016-04-17] MEDS ORDERED: LIDOCAINE 1%/EPI INJ 20 ML VIAL ONE (14:06)
[2016-04-17] MEDS: ENOXAPARIN 40 MG/0.4 ML SYRINGE SUBCUT SCH (14:11)
[2016-04-17] MEDS ORDERED: PHENYLEPHRINE 1 MG/10 ML SYRINGE IV ONE (15:25)
[2016-04-17] MEDS ORDERED: LIDOCAINE 1% 5 ML VIAL ONE (15:25)
[2016-04-17] MEDS ORDERED: ROCURONIUM 100 MG/10 ML VIAL IV ONE (15:25)
--- NOTE | 2016-04-17 16:04 | Hospitalist Progress Note ---
Assessment and Plan (1) Seizure Status: Acute Assessment and plan: newonset. No more seizures reported -CT head was negative,appreciates Neurology's input, continue on keppra and Vimpat, follow EEG, correct electrolytes. Current Visit: Yes (2) Septic shock Status: Resolved Assessment and plan: pressors have been weaned off, scrotal culture grew strp agalactiae, continue with IV antibiotics Current Visit: Yes (3) Acute respiratory failure Status: Acute Assessment and plan: Chest x-ray still has bilateral infiltrates but these are definitely improved. Patient is for tracheotomy. Current Visit: Yes (4) Cholelithiasis Problem details: w possible acute cholecystisi/CBD 10 mm dilated/& elevated lipase Status: Acute Assessment and plan: with possible acute cholecystitis/CBD 10 mm dilated/& elevated lipase. -continue with percutaneous cholecystostomy tube. -follow surgery's recommendations Current Visit: Yes (5) Scrotal abscess Status: Acute Assessment and plan: s/p drainage, aspirate grew strep agalactiae. continue with IV antibiotics, [id number] . Current Visit: Yes (6) Hypokalemia Status: Acute Assessment and plan: repleted Current Visit: Yes (7) Acute renal failure Problem details: severe Status: Resolved Assessment and plan: improved, no longer on hemodialysis, Nephrology is following Current Visit: Yes (8) Diabetes Status: Chronic Assessment and plan: A1c-7.1, continue with SSC Current Visit: No (9) Oral thrush Status: Acute Assessment and plan: continue swish and swallow Nystatin,HIV testing-non reactive Current Visit: Yes (10) Metabolic acidosis Status: Acute Assessment and plan: improved, bicarb replacement dcd, Nephrology is following Current Visit: Yes (11) Elevated troponin Status: Acute Assessment and plan: In the setting of septic shock and severe acute kidney injury. This would be likely due to increased demand ischemia and from severe acute kidney injury.But patient has a history of heart disease.Follow Cardiology consult, Echocardiogram 04/08/2016 reveals an ejection fraction of 65% without significant valvular abnormality. . Current Visit: Yes (12) Acute encephalopathy Status: Acute Assessment and plan: will continue to follow, patient is currently sedated and intubated Current Visit: Yes (13) Remote history of stroke Status: Chronic Assessment and plan: stable, CT head showed no acute changes Current Visit: No (14) Hypocalcemia Status: Acute Assessment and plan: repleting Current Visit: Yes (15) Hypernatremia Status: Acute Assessment and plan: improving with free water Current Visit: Yes (16) Swelling Status: Acute Assessment and plan: Doppler USS of UE showed a non occluding thrombus within the distal left basilic vein at a bifurcation. Being a superficial vein- will treat witn NSAIDs and warm compressors -Elevate both UE Current Visit: Yes Hospitalist: Subjective Interval history: Patient seen, not doing well on CPAP trial Exam - Constitutional Vitals: Period Temp Pulse Resp BP Sys/Mishra Pulse Ox Last 24 Hr 97.1 F-98.5 F 52-78 21-24 121-159/60-98 91-100 General appearance: no acute distress (intubated), other - Head Head exam: Present: normal inspection - Respiratory Respiratory exam: Present: decreased breath sounds - Cardiovascular Cardiovascular exam: Present: regular rate and rhythm - GI/Abdominal GI/Abdominal exam: Present: normal bowel sounds - Extremities Exam Extremities exam: Present: edema (UE edema) Results - Labs CBC & BMP: 04/16/16 04:13 04/16/16 04:13 Lab Results: I have reviewed the past 24 hour labs
--- NOTE | 2016-04-17 16:32 | Anesthesia ---
Anesthesia Post OP - Post Ansesthetic Evaluation Patient seen in post op: Yes Resp: other (pt remains on vent VSS NAC noted) CV: within normal limits Mental: within normal limits Temp: within normal limits [id number]: within normal limits Nausea and Vomiting: within normal limits Pain: within normal limits
[2016-04-17] MEDS ORDERED: MIDAZOLAM 10 MG/2 ML VIAL ONE (16:42)
[2016-04-17] MEDS ORDERED: fentaNYL 100 MCG/2 ML VIAL ONE (16:42)
[2016-04-17] MEDS ORDERED: SEVOFLURANE 1 UNIT/15 MINUTE INH ONE (16:42)
--- NOTE | 2016-04-17 17:17 | Neurology Progress Note ---
Neurology - PN : Subjective Interval history: Patient continued to remain same. He has not had any more seizures to my knowledge. Is still unresponsive and on vent. Exam (Progress Note) - Constitutional Vitals: Period Temp Pulse Resp BP Sys/Mishra Pulse Ox Last 24 Hr 97.1 F-98.5 F 52-83 16-25 121-166/60-98 91-100 Exam: GENERAL: Patient is in no acute distress. NECK: Neck is supple. There is no JVD. No carotid bruits present. No thyroid masses. CVS: First and second heart sounds are normal. There is no S3 present. Regular rate and rhythm. RESPIRATORY: Bilateral rales and rhonchi. ABDOMEN: Soft and non-tender. Bowel sounds are present. There is no hepatosplenomegaly. EXT: There is no palpable edema. Peripheral pulses are present. Skin: No rashes Central Nervous system: General: On vent Speech: On vent sedated Comprehension: None Facial expressions: Normal Cranial Nerves: Pupils are equally reactive to light. Doll's head eye movements are positive. No facial asymmetry seen. Motor: Bulk and Tone is normal. Strength cannot be assessed Sensory: Cannot be assessed Reflexes: 1+ and symmetrical Cerebellar function: Cannot be assessed Gait: Not tested this time Results - Labs CBC & BMP: 04/16/16 04:13 04/16/16 04:13 Assessment and Plan (1) Seizure Status: Acute Assessment and plan: Continue Keppra and Vimpat at the same dose. Continue vent support. No new neurological intervention/recommendations at this time. Probably will need LTAC Current Visit: Yes
[2016-04-17] MEDS: PANTOPRAZOLE 40 MG VIAL IV SCH (18:19)
[2016-04-18] MEDS: ALBUTEROL/IPRATROPIUM 3 ML NEB RESP TX SCH ×4 (00:40→20:12)
[2016-04-18] MEDS: CLINDAMYCIN INJ 300 MG in PREMIX 1 EACH IV SCH ×4 (02:25→19:47)
[2016-04-18 03:34] LABS: Allen Test Positive; Pt O2 Delivery Device Ventilator
[2016-04-18 03:37] LABS: ABG HCO3 25.3 MMOL/L (20-26); ABG Oxygen Saturation 95.8 % (95-100); ABG PH 7.473 (7.35-7.45); ABG PO2 74.6 MM HG (80-95); ABG TCO2 21.8 MMOL/L (23-27)
[2016-04-18] MEDS: PROPOFOL 1,000 MG/100 ML BOTTLE IV SCH ×8 (03:47→21:36)
[2016-04-18] MEDS: SODIUM CHLORIDE 23.4% CONC INJ 38.5 MEQ in STERILE WATER INJ 1,000 ML IV SCH ×2 (05:38→17:09)
[2016-04-18] MEDS: PIPERACILLIN/TAZOBACTAM 3,375 MG in SODIUM CHLORIDE 0.9% 100 ML IV SCH ×2 (05:38→17:50)
[2016-04-18] MEDS: INSULIN REGULAR 100 UNIT/ML SUBCUT SCH ×3 (06:15→17:49)
--- NOTE | 2016-04-18 07:13 | Cardiology Progress Note ---
Assessment and Plan (1) Elevated troponin Status: Acute Current Visit: Yes (2) Acute respiratory failure Status: Acute Current Visit: Yes (3) H/O: stroke Problem details: per report Status: Acute Current Visit: Yes (4) Hypokalemia Status: Acute Current Visit: Yes (5) Hyponatremia Status: Acute Current Visit: Yes (6) Seizure Status: Acute Current Visit: Yes (7) Diabetes mellitus Status: Chronic Current Visit: Yes Qualifiers: Diabetes mellitus type: type 2 Diabetes mellitus complication status: with kidney complications (8) Essential hypertension Status: Chronic Current Visit: Yes (9) RBBB Status: Chronic Current Visit: Yes (10) Status post patent foramen ovale closure Status: Chronic Current Visit: Yes (11) Acute renal failure Problem details: severe Status: Resolved Current Visit: Yes (12) Septic shock Status: Resolved Current Visit: Yes Cardiology - PN: Subj Interval history: Cardiology note 50-year-old man with sepsis syndrome and respiratory failure. Status post tracheostomy. Telemetry shows sinus rhythm in the 70s. Blood pressure 136/80 O2 sat 145% FiO2 Decreased breath sounds with few rhonchi in the bases but no wheezing Regular rhythm no murmur Abdomen soft benign Trace leg edema Lab data today White count 5.0 hemoglobin 10.4 hematocrit 32.6 Sodium 148 potassium 3.7 chloride 112 CO2 26 BUN 12 creatinine 1.0 Glucose 173 magnesium 2.2 Impression Sepsis syndrome/respiratory failure Acute renal failure resolved Seizure disorder Diabetes Hypertension currently off carvedilol and lisinopril Status post incision and drainage scrotal abscess April 08 Status post percutaneous cholecystostomy April 09 Echo showed ejection fraction 65% with LVH, aortic sclerosis and mild TR Plan CPAP trials IV antibiotics Tube feedings Monitor blood pressure Exam (Progress Note) - Constitutional Vitals: Period Temp Pulse Resp BP Sys/Mishra Pulse Ox Last 24 Hr 97.1 F-98.7 F 52-98 13-25 110-166/69-102 91-100 Result/EKG - Labs CBC & BMP: 04/16/16 04:13 04/16/16 04:13 Labs: Laboratory Results - last 24 hr 04/18/16 03:20 ABG pH 7.473 H ABG pCO2 33.0 L ABG pO2 74.6 L ABG HCO3 25.3 ABG Total CO2 21.8 L ABG O2 Saturation 95.8 ABG Base Excess 1.0 FiO2 45.00
--- NOTE | 2016-04-18 07:34 | XRay Report ---
Referring Physician: Canelo Leal Exam: XR chest 1V portable Date: April 18, 2016 at 3:55 AM Reason: Ventilation, respiratory failure Comparison: Chest one view portable April 17, 2016 Findings: A right IJ catheter, tracheostomy catheter and feeding tube are again in place. The cardiac silhouette is upper normal in size. There are scattered perihilar and bibasilar opacities. This likely represents pulmonary edema, but pneumonia is not excluded. The osseous structures appear stable with chronic deformity of the right sixth rib. Surgical clips are seen at the neck. Impression: There has been no significant change. PROCEDURE INTERPRETED AT [facility] DEPARTMENT OF RADIOLOGY Final Report Signed by: Dr. Arash Anderson [facility]
[2016-04-18 07:57] LABS: Basophils % 0.3 % (0.0-0.8); Eosinophils # 0.4 10*3/uL (0.0-0.87); Eosinophils % 4.7 % (0.00-10.9); Hematocrit 33.3 VOL% (42.0-52.0); Hemoglobin 10.6 GM/DL (14.0-18.0); Immature Granulocytes % 2.5 %; Immature Granulocytes Absolute 0.19 #; Lymphocytes # 1.1 10*3/uL (1.4-4.0); Mean Corpuscular HGB Conc 31.8 GM/DL (32-36); Mean Corpuscular Hemoglobin 30 PG (27-34); Mean Corpuscular Volume 95.4 FL (87-102); Mean Platelet Volume 10.1 FL (9.6-12.0); Monocytes # 0.8 10*3/uL (0.11-0.8); Monocytes % 9.9 % (1.7-12.7); Neutrophils # 5.2 10*3/uL (1.4-7.4); Neutrophils % 68.6 % (38.7-73.9); Platelet Count 299 T/CUMM (130-400); Red Blood Count 3.49 MC/CUMM (3.8-5.5); Red Cell Distribution Width 14.2 % (9.3-17.3); White Blood Count 7.6 T/CUMM (4-12)
[2016-04-18 08:26] LABS: Calcium 7.8 MG/DL (8.5-10.1); Magnesium 1.9 MG/DL (1.8-2.4); Osmolality,Calculated 292.4 MOS/KG (273-304); Potassium 3.8 MMOL/L (3.5-5.1); Prealbumin 20.7 MG/DL (20-40)
[2016-04-18] MEDS: CHOLECALCIFEROL 1,000 UNIT TABLET PO SCH (08:52)
[2016-04-18] MEDS: ASPIRIN EC 325 MG TABLET PO SCH (08:52)
[2016-04-18] MEDS: NYSTATIN 500,000 UNIT/5 ML UDCUP SWISH/SWAL SCH ×4 (08:52→21:35)
[2016-04-18] MEDS: LACOSAMIDE INJ 100 MG in SODIUM CHLORIDE 0.9% 50 ML IV SCH ×2 (10:01→21:35)
--- NOTE | 2016-04-18 10:14 | Gastrointestinal Progress Note ---
<Colleen Solo - Last Filed: 04/18/16 10:10> Assessment and Plan (1) Cholelithiasis Problem details: w possible acute cholecystisi/CBD 10 mm dilated/& elevated lipase Status: Acute Assessment and plan: 04/18-No changes at this time. Tolerating tube feedings. For trach today, not tolerating CPAP trials. Maribell drain with scant output. Plan and addendum to follow by Dr napier 04/15-No change at present. Tolerating tube feedings. Good UOP. Scant drainage from perc maribell drain. Plan and addendum to follow by Dr Napier. 04/12-Minimal output from maribell tube. NG output less. Tube feedings to be initiated today. Plan and addendum to follow by Dr Napier. 04/10-Post perc maribell tube placement. Large amount of NG output reported. Potassium 2.2. Plan and addendum to follow by Dr Napier. 04/09-Findings on CT scan of cholelithiasis and GB distention, dilated CBD. HIDA scan results with nonvisualized gallbladder. LFTs unremarkable. Plan to continue to monitor at this time. Plan and addendum to follow by Dr Napier. Current Visit: Yes Gastroenterology - PN: Subj Interval history: CC: Cholelithiasis Pt is seen, sedated, on the vent. Staff states he does wake up when sedation is lifted but doesnt follow commands. The perc drain remains patent with scant drainage noted. Afebrile. Abdomen is soft, nontender. Tolerating tube feedings at present time. He is for possible trach today. He is not doing well with CPAP trials at present time. ROS: No acute distress at present time Exam (Progress Note) - Constitutional Vitals: Period Temp Pulse Resp BP Sys/Mishra Pulse Ox Last 24 Hr 97.1 F-99.2 F 52-98 13-25 110-166/69-102 92-100 - Other Additional findings: General appearance: normal weight, no acute distress - Head Head exam: Present: normal inspection, normocephalic - Eye Eye exam: Present: other (lids and conjunctiva unremarkable). Absent: scleral icterus - ENT ENT exam: Present: normal exam, normal oropharynx - Neck Neck exam: Present: normal inspection - Respiratory Respiratory exam: Present: clear to auscultation bilaterally. Absent: rales, rhonchi, wheezes - Cardiovascular Cardiovascular exam: Present: regular rate and rhythm. Absent: diastolic murmur , JVD, systolic murmur - GI/Abdominal GI/Abdominal exam: Present: normal bowel sounds, soft. Absent: ascites, distended, mass, organomegaly, tenderness - Extremities Exam Extremities exam: Present: normal inspection, full ROM - Back Exam Back exam: Present: normal inspection - Neurological Exam Neurological exam: Present: altered - Psychiatric Psychiatric exam: Present: other - Skin Skin exam: Present: normal color, warm, dry Results - Labs CBC & BMP: 04/18/16 07:35 04/18/16 07:35 Lab Results: I have reviewed the past 24 hour labs <Bhavesh Napier - Last Filed: 04/18/16 22:58> Exam (Progress Note) - Constitutional Vitals: Period Temp Pulse Resp BP Sys/Mishra Pulse Ox Last 24 Hr 97.8 F-99.2 F 51-81 1-24 110-148/63-88 92-100 Results - Labs CBC & BMP: 04/18/16 07:35 04/18/16 07:35
--- NOTE | 2016-04-18 10:21 | Pulmonology Progress Note ---
Pulmonary - PN: Subj Interval history: Is a 50-year-old male. This patient was seen by me in pulmonary consultation 04/08/2016. His main problems appear to be 1. Nausea vomiting diarrhea etiology undetermined. Possibly related to gallbladder disease. Consider other causes. Resultant dehydration 2. Hypotension. Partially secondary to #1. Consider sepsis. 2.1 scrotal abscess 3. Acute cholecystitis. 4. Acute renal failure. Probably secondary to #1 and #2. 4.1. Acute metabolic acidosis probably secondary to acute renal failure and possibly secondary to sepsis 5. Diabetes mellitus 6. Heart surgery as an infant 7. History of back surgery 8. High blood pressure 9. Possible history of CVA 10. Acute pancreatitis. 11. Bilateral pleural effusions 12. Acute pulmonary failure. At least partially secondary to acute renal failure and hypotension requiring pressor agents, with severe metabolic acidosis. Consider other causes there may be other factors such as underlying lung disease and/or pulmonary emboli and/or aspiration 13. See past history 04/09/2016.. Today the patient was evaluated with fiberoptic bronchoscopy. He had definite evidence of significant aspiration. He had erythematous slightly friable markedly stenotic airways bilaterally secondary to what appears to be an aspiration injury. Multiple specimens were sent. No biopsies were taken. Specimens from his scrotal abscess are growing a gram-positive cocci. Earlier today Dr. Arevalo to look to start the patient on vancomycin. Patient's also on Zosyn. I do not see any need to add extra antibiotics at this point. ABGs have improved significantly on mechanical ventilation and FiO2 of 100%. PH is 7.30. PCO2 is 22.3. PO2 is 391. Bicarb is 13.9. Sodium is 143. Potassium is low at 3.2 creatinine has dropped to 9.4 and the patient for repeat dialysis today. Natruretic peptide is elevated at 260. 04/10/2016. Patient's chest x-ray shows left lower lung atelectasis. He will need a repeat fiberoptic bronchoscopy tomorrow bronchoscopy specimens have been negative so far. Abscess of the scrotum is growing a gram-positive cocci which is yet unidentified. 04/09/2016 the patient had a percutaneous drainage of the gallbladder. There are no positive cultures at this point. This patient has not done well with his weaning trials. We will continue to try to make adjustments.H&H is dropped to 10.5/27.6. White count 7100 with 84 segs and 6 lymphs. Platelets have dropped to 122,000. ABGs are improved. On mechanical ventilation and FiO2 of 65% pH is 7.5-8. PCO2 is 22.7. PO2 is 156. Bicarb is 18.5. Potassium is low at 2.2. Renal will make adjustments for this. Calcium is also low at 6.5. Natruretic peptide is dropped from 260 217. Protein and albumin are low at 5.0 and 2.2 respectively. Labs been reviewed. 04/11/2016. Today's chest x-ray shows a right perihilar infiltrate and a small residual left lower lung infiltrate. Bronchoscopy specimens from 04/10/2016 have shown nothing so far. Culture from the patient's scrotal has grown Streptococcus agalactiae. No sensitivities have been reported. Patient had dialysis yesterday. ABGs on mechanical ventilation and FiO2 of 60% shows a pH 7.59. PCO2 is 21.5. PO2 is 130. Bicarb is 20. This patient has been intentionally hyperventilated because of his metabolic acidosis which is now resolved. I have made adjustments on his ventilator and hopefully lighten his CO2 increase will let him do better on his CPAP trials. Potassium is low at 2.3. This is being managed by renal. CBC is stable and white count is come down to 6700 73 segs and 12 lymphs. Fiberoptic bronchoscopy was done 2016. See report. Patient is a significant problem with severe erosive friable partially stenotic bilateral bronchitis. This is complicated by underlying collapsibility of large and small airways and complicated by retention of secretions and residual gastric aspirate. 04/12/2016. This 50-year-old had a scrotal abscess. He had acute cholecystitis which is been drained percutaneously. He has had acute renal failure and has required dialysis. He had acute severe metabolic acidosis that is improved significantly. He has diabetes mellitus. He has acute respiratory failure that required intubation mechanical ventilation. On he had fiberoptic bronchoscopy and he had definite evidence of significant aspiration. He had erythematous markedly flushed friable and stenotic airways bilaterally.ABGs have improved significantly. On FiO2 of 60% his pH is 7.42. PCO2 is 41. PO2 is 313. Bicarb was 26. Sodium is increased to 153 and potassium is low at 2.9 this is being managed by renal. This looked Like he had acute and chronic injuries. He had a repeat fiberoptic bronchoscopy on 04/11/2016 and a good deal of secretions were removed. Endobronchially he did not appear to be any better. There are no positive bronchoscopy cultures appear he is on weaning protocol some days he does a few hours of CPAP and some days he does not tolerate this well. He is getting dialysis every other day. 04/15/2016. Chest x-ray has deteriorated somewhat today there are faint bilateral scattered areas of alveolar infiltrates. ABGs on mechanical ventilation FiO2 of 45% shows a pH of 7.395. PCO2 is 47. PO2 63. Bicarb is 27. Sodium is elevated 115. Potassium 3.5. Creatinine is 1.0 with a BUN of 13. White count is 6100 with 63 segs 17.5 monocytes. H&H is 9.6/29.7. Notes from this weekend say that the patient had no spontaneous respirations. He is on mechanical ventilation and I changed him to a T-tube and he had no problem initiating of breath whatsoever. He does gradually become rapid with his breathing. I was using no CPAP at the time. We will going to advance him to short trials of T-tube today and otherwise will advance his CPAP as tolerated. I believe this patient can do better. 04/16/2016. This patient is not doing well with his weaning trials. He is at a standstill. He is been on mechanical ventilation approximately 10 days. I talked to the patient's , his male cousin and his and patient's mother , the patient's nurse Malathi, Canelo Leal nurse practitioner and Suha Gonzalez practitioner were present. I discussed the pros and cons for trach. She understood these and was agreeable to having this done electively. Today's x- ray still shows some bilateral infiltrates ABGs on mechanical ventilation FiO2 of 45% shows a pH of 7.42, PCO2 45, PO2 of 115, bicarb 28.6 electrolytes normal. Creatinine is 1.0. CBC is stable. Microbiology no recent positive cultures. Other than his pulmonary problems the patient is being treated for scrotal abscess and a decubitus ulcer and acute cholecystitis. He also has acute renal failure which is markedly improved with dialysis 04/17/2016. Chest x-ray still has bilateral infiltrates but these are definitely improved. ABGs are stable. Labs been reviewed. Medicines been reviewed. Patient's for trach most likely a day. Appreciate ENT consultation. 04/18/2016. Patient had a trach placed. He appears to be tolerating this well. He still has a percutaneous drain into his gallbladder. He is also being treated for scrotal abscess. Today his chest x-ray shows a bilateral pulmonary infiltrates are continuing to improve on a daily basis. ABGs are stable on mechanical ventilation with an FiO2 of 45%. PH is 7.47, PCO2 is 33. PO2 is 75. Bicarb is 25. Labs been reviewed. Electrolytes kidneys and CBC are stable. This patient has a problem with retained secretions and he will be evaluated with fiberoptic bronchoscopy tomorrow. Case management has approached me about moving this patient to long-term acute care. I think he will be ready to go next week. We do need some decision about what we plan to do with his gallbladder that could prolong his present hospitalization. Also need information about how the scrotal abscess is doing and whether or not this has resolved. Medicines have been reviewed. Vital signs. See below. Neck. Symmetrical. No meningismus Lymphatics. No submandibular cervical or supraclavicular adenopathy. Chest. Mild coarse large airway congestion. Heart. No gallop Abdomen. Slightly rigid. Only rare bowel sounds. Extremities. No evidence of deep venous thrombophlebitis. Note Doppler venograms are negative for deep venous thrombophlebitis Neurologic and psychiatric are impossible to assess. The remainder the examination is negative. Plan. 1. 04/11/2016. The patient is off pressor agents 2. 04/11/2016. Ventilator adjustments made. 3. Weaning protocol 4. Physical therapy while on ventilator protocol 6. Daily chest x-ray 7. Daily ABGs. 9. 04/12/2016. Continue weaning protocol. Patient does not improve soon will need to consider a trach. 10. Deep venous thrombophlebitis prevention protocol 11. 04/15/2016 advanced into short trials of T-tube and will increase CPAP as tolerated. This patient does not improve in the near future we need to consider a trach. 12. 04 16 2016 6 see my note of this date above. Ventilator adjustments made. Continue weaning trials. Consult ENT for placement trach. Permission given by and family 13. 04/17/2016. For trach. 14. 04/18/2016. Post trach. Fiberoptic bronchoscopy in the morning. Needs no plans treatment concerning percutaneous drainage of gallbladder and treatment of scrotal abscess. Pending the above possible transfer to long-term acute care next week Exam (Progress Note) - Constitutional Vitals: Period Temp Pulse Resp BP Sys/Mishra Pulse Ox Last 24 Hr 97.1 F-99.2 F 52-98 13-25 110-166/69-102 92-100 Results - Labs CBC & BMP: 04/18/16 07:35 04/18/16 07:35
--- NOTE | 2016-04-18 11:15 | Hospitalist Progress Note ---
Assessment and Plan (1) Seizure Status: Acute Assessment and plan: newonset. No more seizures reported -CT head was negative,appreciates Neurology's input, continue on keppra and Vimpat, follow EEG, correct electrolytes. Current Visit: Yes (2) Septic shock Status: Resolved Assessment and plan: pressors have been weaned off, scrotal culture grew strep agalactiae, continue with IV antibiotics Current Visit: Yes (3) Acute respiratory failure Status: Acute Assessment and plan: s/p tracheotomy. For possible transfer to long-term acute care next week Current Visit: Yes (4) Cholelithiasis Problem details: w possible acute cholecystisi/CBD 10 mm dilated/& elevated lipase Status: Acute Assessment and plan: with possible acute cholecystitis/CBD 10 mm dilated/& elevated lipase. -continue with percutaneous cholecystostomy tube. -follow surgery's recommendations Current Visit: Yes (5) Scrotal abscess Status: Acute Assessment and plan: s/p drainage, aspirate grew strep agalactiae. continue with IV antibiotics, [id number] . Current Visit: Yes (6) Hypokalemia Status: Acute Assessment and plan: repleted Current Visit: Yes (7) Acute renal failure Problem details: severe Status: Resolved Assessment and plan: improved, no longer on hemodialysis, Nephrology is following Current Visit: Yes (8) Diabetes Status: Chronic Assessment and plan: A1c-7.1, continue with SSC Current Visit: No (9) Oral thrush Status: Acute Assessment and plan: continue swish and swallow Nystatin,HIV testing-non reactive Current Visit: Yes (10) Metabolic acidosis Status: Acute Assessment and plan: improved, bicarb replacement dcd, Nephrology is following Current Visit: Yes (11) Elevated troponin Status: Acute Assessment and plan: In the setting of septic shock and severe acute kidney injury. This would be likely due to increased demand ischemia and from severe acute kidney injury.But patient has a history of heart disease.Follow Cardiology consult, Echocardiogram 04/08/2016 reveals an ejection fraction of 65% without significant valvular abnormality. . Current Visit: Yes (12) Acute encephalopathy Status: Acute Assessment and plan: will continue to follow, patient is currently sedated and intubated Current Visit: Yes (13) Remote history of stroke Status: Chronic Assessment and plan: stable, CT head showed no acute changes Current Visit: No (14) Hypocalcemia Status: Acute Assessment and plan: repleting Current Visit: Yes (15) Hypernatremia Status: Acute Assessment and plan: improving with free water Current Visit: Yes (16) Swelling Status: Acute Assessment and plan: Doppler USS of UE showed a non occluding thrombus within the distal left basilic vein at a bifurcation. Being a superficial vein- will treat with NSAIDs and warm compressors -Continue to Elevate both UE Current Visit: Yes Hospitalist: Subjective Interval history: Patient seen. He had a tracheotomy placed yesterday. For brochoscopy this am. Exam - Constitutional Vitals: Period Temp Pulse Resp BP Sys/Mishra Pulse Ox Last 24 Hr 97.8 F-99.2 F 52-98 13-25 110-166/69-102 92-100 General appearance: no acute distress, other (intubated, sedated, s/p trach) - Respiratory Respiratory exam: Present: rales - Cardiovascular Cardiovascular exam: Present: regular rate and rhythm - GI/Abdominal GI/Abdominal exam: Present: normal bowel sounds - Extremities Exam Extremities exam: Present: normal inspection - Back Exam Back exam: Present: normal inspection Results - Labs CBC & BMP: 04/18/16 07:35 04/18/16 07:35 Lab Results: I have reviewed the past 24 hour labs
[2016-04-18] MEDS: LORazepam 2 MG/1 ML VIAL IV PRN (15:19)
[2016-04-18] MEDS: ENOXAPARIN 40 MG/0.4 ML SYRINGE SUBCUT SCH (16:34)
[2016-04-18] MEDS: PANTOPRAZOLE 40 MG VIAL IV SCH (17:50)
[2016-04-18] MEDS: POTASSIUM CHLORIDE 20 MEQ/15 ML UDCUP PER TUBE PRN (21:36)
[2016-04-19] MEDS: PROPOFOL 1,000 MG/100 ML BOTTLE IV SCH ×4 (00:27→22:10)
[2016-04-19] MEDS: INSULIN REGULAR 100 UNIT/ML SUBCUT SCH ×4 (00:27→17:27)
[2016-04-19] MEDS: ALBUTEROL/IPRATROPIUM 3 ML NEB RESP TX SCH ×4 (01:05→19:37)
[2016-04-19] MEDS: CLINDAMYCIN INJ 300 MG in PREMIX 1 EACH IV SCH ×4 (02:38→21:17)
[2016-04-19 03:33] LABS: ABG Base Excess -0.5 MMOL/L (-2.5-2.5); ABG PCO2 33.8 MM HG (35-48); ABG PH 7.443 (7.35-7.45); ABG PO2 74.3 MM HG (80-95); Allen Test Positive; Pt O2 Delivery Device Ventilator
[2016-04-19] MEDS: LORazepam 2 MG/1 ML VIAL IV PRN (04:04)
[2016-04-19 04:55] LABS: Basophils % 0.2 % (0.0-0.8); Eosinophils # 0.3 10*3/uL (0.0-0.87); Eosinophils % 3.5 % (0.00-10.9); Hematocrit 30.7 VOL% (42.0-52.0); Hemoglobin 9.7 GM/DL (14.0-18.0); Immature Granulocytes % 2.3 %; Immature Granulocytes Absolute 0.19 #; Lymphocytes % 11.8 % (21.2-54.2); Mean Corpuscular HGB Conc 31.6 GM/DL (32-36); Mean Corpuscular Hemoglobin 30 PG (27-34); Mean Corpuscular Volume 96.2 FL (87-102); Mean Platelet Volume 10.3 FL (9.6-12.0); Monocytes # 0.8 10*3/uL (0.11-0.8); Monocytes % 9.5 % (1.7-12.7); Neutrophils % 72.7 % (38.7-73.9); Platelet Count 323 T/CUMM (130-400); Red Blood Count 3.19 MC/CUMM (3.8-5.5); Red Cell Distribution Width 14.3 % (9.3-17.3); White Blood Count 8.2 T/CUMM (4-12)
[2016-04-19 05:01] LABS: PT Patient Result 10.2 SECS; Partial Thromboplastin Time 29.8 SECS (0-40)
[2016-04-19] MEDS: PIPERACILLIN/TAZOBACTAM 3,375 MG in SODIUM CHLORIDE 0.9% 100 ML IV SCH ×2 (05:37→17:27)
[2016-04-19] MEDS: SODIUM CHLORIDE 23.4% CONC INJ 38.5 MEQ in STERILE WATER INJ 1,000 ML IV SCH ×2 (05:39→20:00)
--- NOTE | 2016-04-19 06:57 | General Surgery Progress Note ---
Assessment and Plan (1) Acute renal failure Problem details: severe Status: Resolved Assessment and plan: The patient has not needed further dialysis treatment. The nurses in the ICU for asking if they can use this catheter for access and I told him this is okay with me. This catheter can be removed whenever it is no longer needed. Current Visit: Yes (2) Cholelithiasis Problem details: w possible acute cholecystisi/CBD 10 mm dilated/& elevated lipase Status: Acute Assessment and plan: Continue current treatment. This will be removed once the patient is out of the ICU and prior to being discharged home. The surgery team will see the patient has needed over the weekend and I'll follow-up with him on Friday. Current Visit: Yes (3) Abscess Status: Acute Assessment and plan: Completely resolved Current Visit: Yes Subjective Narrative: The patient had a tracheostomy placed yesterday. There is no output from the cholecystostomy tube. Exam - Constitutional Vitals: Period Temp Pulse Resp BP Sys/Mishra Pulse Ox Last 24 Hr 97.9 F-99.2 F 51-82 1-78 110-168/63-94 95-100 General appearance: no acute distress, over weight - Head Head exam: Present: normal inspection, normocephalic - Eye Eye exam: Present: EOMI Pupils: Present: NAA - ENT Mouth exam: Present: normal external inspection - Neck Neck exam: Present: normal inspection, trachea midline - Respiratory Respiratory exam: Present: clear to auscultation bilaterally. Absent: accessory muscle use, chest wall tenderness - Cardiovascular Cardiovascular exam: Present: RRR. Absent: systolic murmur, tachycardia - GI/Abdominal GI/Abdominal exam: Present: soft, other (cholecystostomy tube has no output). Absent: tenderness, rebound - Extremities Exam Extremities exam: Present: normal inspection, normal capillary refill - Back Exam Back exam: Present: normal inspection - Neurological Exam Neurological exam: Present: alert, oriented X3 Speech: Present: normal - Skin Skin exam: Present: normal color, warm Results - Labs CBC & BMP: 04/19/16 04:48 04/18/16 07:35
--- NOTE | 2016-04-19 07:39 | XRay Report ---
Referring Physician: Canelo Leal Exam: XR chest 1V portable Date: April 19, 2016 at 3:16 AM Reason: Ventilation/respiratory failure Comparison: Chest one view portable April 18, 2016 Findings: A right IJ catheter, tracheostomy catheter and feeding tube are again in place. There are surgical clips at the lower neck and surgical fixation of the cervical spine. The cardiac silhouette is upper normal in size. There are scattered perihilar and bibasilar opacities. This likely represents pulmonary edema and atelectasis, but pneumonia is not excluded. No pneumothorax is identified. The osseous structures appear stable. Impression: There is slight increased atelectasis at both lung bases. The study is otherwise similar to before. PROCEDURE INTERPRETED AT [facility] DEPARTMENT OF RADIOLOGY Final Report Signed by: Dr. Arash Anderson
--- NOTE | 2016-04-19 07:41 | Cardiology Progress Note ---
Assessment and Plan (1) Elevated troponin Status: Acute Current Visit: Yes (2) Acute respiratory failure Status: Acute Current Visit: Yes (3) H/O: stroke Problem details: per report Status: Acute Current Visit: Yes (4) Hypokalemia Status: Acute Current Visit: Yes (5) Hyponatremia Status: Acute Current Visit: Yes (6) Seizure Status: Acute Current Visit: Yes (7) Diabetes mellitus Status: Chronic Current Visit: Yes Qualifiers: Diabetes mellitus type: type 2 Diabetes mellitus complication status: with kidney complications (8) Essential hypertension Status: Chronic Current Visit: Yes (9) RBBB Status: Chronic Current Visit: Yes (10) Status post patent foramen ovale closure Status: Chronic Current Visit: Yes (11) Acute renal failure Problem details: severe Status: Resolved Current Visit: Yes (12) Septic shock Status: Resolved Current Visit: Yes Cardiology - PN: Subj Interval history: Cardiology note 50-year-old man with sepsis syndrome and respiratory failure. Status post tracheostomy. Telemetry shows sinus rhythm in the 80s. Blood pressure running a little high, 170/100 O2 sat 97 on 45% FiO2 Decreased breath sounds with basilar rhonchi Regular rhythm no murmur Abdomen soft nontender 1+ leg edema Lab data today White count 8.2 hemoglobin 9.7 hematocrit 30.7 glucose 195 Impression Sepsis syndrome with respiratory failure Acute renal failure resolved Seizure disorder Diabetes Hypertension-currently off carvedilol and lisinopril Status post incision and drainage scrotal abscess April 08 Status post percutaneous cholecystostomy April 09 Recent echo ejection fraction 65% with LVH, aortic sclerosis and mild TR Plan Restart carvedilol 3.125 mg twice daily CPAP trials Tube feedings IV antibiotics Exam (Progress Note) - Constitutional Vitals: Period Temp Pulse Resp BP Sys/Mishra Pulse Ox Last 24 Hr 97.9 F-98.7 F 51-82 1-78 110-168/63-94 95-100 Result/EKG - Labs CBC & BMP: 04/19/16 04:48 04/18/16 07:35 Labs: Laboratory Results - last 24 hr 04/17/16 04/17/16 04/17/16 00:34 06:25 11:22 WBC RBC Hgb Hct MCV MCH MCHC RDW Plt Count MPV Neut % (Auto) Lymph % (Auto) Dyer % (Auto) Eos % (Auto) Baso % (Auto) Neut # (Auto) Lymph # (Auto) Dyer # (Auto) Eos # (Auto) Baso # (Auto) Immature Gran % Nucleated RBC % Immature Gran # Nucleated RBCs # INR PT Patient/Control Mix Circ Anticoag PTT ABG pH ABG pCO2 ABG pO2 ABG HCO3 ABG Total CO2 ABG O2 Saturation ABG Base Excess FiO2 Sodium Potassium Chloride Carbon Dioxide Anion Gap BUN Creatinine GFR Calculation BUN/Creatinine Ratio Glucose POC Glucose 190 H 161 H 155 H Calculated Osmolality Calcium Phosphorus Magnesium Prealbumin 04/17/16 04/17/16 04/18/16 17:49 23:29 06:12 WBC RBC Hgb Hct MCV MCH MCHC RDW Plt Count MPV Neut % (Auto) Lymph % (Auto) Dyer % (Auto) Eos % (Auto) Baso % (Auto) Neut # (Auto) Lymph # (Auto) Dyer # (Auto) Eos # (Auto) Baso # (Auto) Immature Gran % Nucleated RBC % Immature Gran # Nucleated RBCs # INR PT Patient/Control Mix Circ Anticoag PTT ABG pH ABG pCO2 ABG pO2 ABG HCO3 ABG Total CO2 ABG O2 Saturation ABG Base Excess FiO2 Sodium Potassium Chloride Carbon Dioxide Anion Gap BUN Creatinine GFR Calculation BUN/Creatinine Ratio Glucose POC Glucose 138 H 171 H 133 H Calculated Osmolality Calcium Phosphorus Magnesium Prealbumin 04/18/16 04/18/16 04/18/16 07:35 07:35 11:54 WBC 7.6 D RBC 3.49 L Hgb 10.6 L Hct 33.3 L MCV 95.4 MCH 30 MCHC 31.8 L RDW 14.2 Plt Count 299 D MPV 10.1 Neut % (Auto) 68.6 Lymph % (Auto) 14.0 L Dyer % (Auto) 9.9 Eos % (Auto) 4.7 Baso % (Auto) 0.3 Neut # (Auto) 5.2 Lymph # (Auto) 1.1 L Dyer # (Auto) 0.8 Eos # (Auto) 0.4 Baso # (Auto) 0.0 Immature Gran % 2.5 Nucleated RBC % 0.0 Immature Gran # 0.19 Nucleated RBCs # 0.00 INR PT Patient/Control Mix Circ Anticoag PTT ABG pH ABG pCO2 ABG pO2 ABG HCO3 ABG Total CO2 ABG O2 Saturation ABG Base Excess FiO2 Sodium 147 H Potassium 3.8 Chloride 113 H Carbon Dioxide 23 Anion Gap 14.8 BUN 9 Creatinine 0.90 GFR Calculation 113 BUN/Creatinine Ratio 10.00 Glucose 132 H POC Glucose 179 H Calculated Osmolality 292.4 Calcium 7.8 L Phosphorus 3.0 Magnesium 1.9 Prealbumin 20.7 04/18/16 04/19/16 04/19/16 17:41 00:20 03:28 WBC RBC Hgb Hct MCV MCH MCHC RDW Plt Count MPV Neut % (Auto) Lymph % (Auto) Dyer % (Auto) Eos % (Auto) Baso % (Auto) Neut # (Auto) Lymph # (Auto) Dyer # (Auto) Eos # (Auto) Baso # (Auto) Immature Gran % Nucleated RBC % Immature Gran # Nucleated RBCs # INR PT Patient/Control Mix Circ Anticoag PTT ABG pH 7.443 ABG pCO2 33.8 L ABG pO2 74.3 L ABG HCO3 24.0 ABG Total CO2 21.0 L ABG O2 Saturation 95.0 ABG Base Excess -0.5 FiO2 45.00 Sodium Potassium Chloride Carbon Dioxide Anion Gap BUN Creatinine GFR Calculation BUN/Creatinine Ratio Glucose POC Glucose 164 H 224 H Calculated Osmolality Calcium Phosphorus Magnesium Prealbumin 04/19/16 04/19/16 04/19/16 04:48 04:48 05:51 WBC 8.2 RBC 3.19 L Hgb 9.7 L Hct 30.7 L MCV 96.2 MCH 30 MCHC 31.6 L RDW 14.3 Plt Count 323 MPV 10.3 Neut % (Auto) 72.7 Lymph % (Auto) 11.8 L Dyer % (Auto) 9.5 Eos % (Auto) 3.5 Baso % (Auto) 0.2 Neut # (Auto) 6.0 Lymph # (Auto) 1.0 L Dyer # (Auto) 0.8 Eos # (Auto) 0.3 Baso # (Auto) 0.0 Immature Gran % 2.3 Nucleated RBC % 0.0 Immature Gran # 0.19 Nucleated RBCs # 0.00 INR 1.0 PT Patient/Control Mix 10.2 Circ Anticoag PTT 29.8 ABG pH ABG pCO2 ABG pO2 ABG HCO3 ABG Total CO2 ABG O2 Saturation ABG Base Excess FiO2 Sodium Potassium Chloride Carbon Dioxide Anion Gap BUN Creatinine GFR Calculation BUN/Creatinine Ratio Glucose POC Glucose 195 H Calculated Osmolality Calcium Phosphorus Magnesium Prealbumin
[2016-04-19] MEDS: CARVEDILOL 3.125 MG TABLET PO SCH ×2 (08:14→21:18)
[2016-04-19] MEDS: NYSTATIN 500,000 UNIT/5 ML UDCUP SWISH/SWAL SCH ×4 (08:14→21:18)
[2016-04-19] MEDS: CHOLECALCIFEROL 1,000 UNIT TABLET PO SCH (08:14)
[2016-04-19] MEDS: ASPIRIN EC 325 MG TABLET PO SCH (08:17)
--- NOTE | 2016-04-19 09:25 | Hospitalist Progress Note ---
Assessment and Plan (1) Seizure Status: Acute Assessment and plan: newonset. No more seizures reported -CT head was negative,appreciates Neurology's input, continue on keppra and Vimpat, Current Visit: Yes (2) Septic shock Status: Resolved Assessment and plan: pressors have been weaned off, scrotal culture grew strep agalactiae, continue with IV antibiotics Current Visit: Yes (3) Acute respiratory failure Status: Acute Assessment and plan: s/p tracheostomy.Will get a CT with PTE protocol in view of hypoxemia and clot in the UE although it is in the superficial vein For possible transfer to long-term acute care next week Current Visit: Yes (4) Cholelithiasis Problem details: w possible acute cholecystisi/CBD 10 mm dilated/& elevated lipase Status: Acute Assessment and plan: with possible acute cholecystitis/CBD 10 mm dilated/& elevated lipase. -continue with percutaneous cholecystostomy tube. -follow surgery's recommendations Current Visit: Yes (5) Scrotal abscess Status: Acute Assessment and plan: s/p drainage, aspirate grew strep agalactiae. continue with IV antibiotics, [id number] . Current Visit: Yes (6) Hypokalemia Status: Acute Assessment and plan: repleted Current Visit: Yes (7) Acute renal failure Problem details: severe Status: Resolved Assessment and plan: improved, no longer on hemodialysis, Nephrology is following Current Visit: Yes (8) Diabetes Status: Chronic Assessment and plan: A1c-7.1, continue with SSC Current Visit: No (9) Oral thrush Status: Acute Assessment and plan: continue swish and swallow Nystatin,HIV testing-non reactive Current Visit: Yes (10) Metabolic acidosis Status: Acute Assessment and plan: improved, bicarb replacement dcd, Nephrology is following Current Visit: Yes (11) Elevated troponin Status: Acute Assessment and plan: In the setting of septic shock and severe acute kidney injury. This would be likely due to increased demand ischemia and from severe acute kidney injury.But patient has a history of heart disease.Follow Cardiology consult, Echocardiogram 04/08/2016 reveals an ejection fraction of 65% without significant valvular abnormality. . Current Visit: Yes (12) Acute encephalopathy Status: Acute Assessment and plan: will continue to follow, patient is currently sedated and intubated Current Visit: Yes (13) Remote history of stroke Status: Chronic Assessment and plan: stable, CT head showed no acute changes Current Visit: No (14) Hypocalcemia Status: Acute Assessment and plan: improved Current Visit: Yes (15) Hypernatremia Status: Acute Assessment and plan: improving with free water Current Visit: Yes (16) Swelling Status: Acute Assessment and plan: Doppler USS of UE showed a non occluding thrombus within the distal left basilic vein at a bifurcation. Being a superficial vein- will treat with NSAIDs and warm compressors -Continue to Elevate both UE Current Visit: Yes (17) HTN (hypertension) Status: Acute Assessment and plan: on Coreg Current Visit: Yes Hospitalist: Subjective Interval history: Patient seen. His blood pressure is creeping up, he has been started on coreg Exam - Constitutional Vitals: Period Temp Pulse Resp BP Sys/Mishra Pulse Ox Last 24 Hr 97.9 F-98.7 F 51-83 1-78 110-178/63-100 95-100 General appearance: no acute distress, other (trach connected to vent) - Respiratory Respiratory exam: Present: rales - Cardiovascular Cardiovascular exam: Present: regular rate and rhythm - GI/Abdominal GI/Abdominal exam: Present: normal bowel sounds - Extremities Exam Extremities exam: Present: normal inspection Results - Labs CBC & BMP: 04/19/16 04:48 04/18/16 07:35 Lab Results: I have reviewed the past 24 hour labs
--- NOTE | 2016-04-19 10:37 | Pulmonology Progress Note ---
Pulmonary - PN: Subj Interval history: Is a 50-year-old male. This patient was seen by me in pulmonary consultation 04/08/2016. His main problems appear to be 1. Nausea vomiting diarrhea etiology undetermined. Possibly related to gallbladder disease. Consider other causes. Resultant dehydration 2. Hypotension. Partially secondary to #1. Consider sepsis. 2.1 scrotal abscess 3. Acute cholecystitis. 4. Acute renal failure. Probably secondary to #1 and #2. 4.1. Acute metabolic acidosis probably secondary to acute renal failure and possibly secondary to sepsis 5. Diabetes mellitus 6. Heart surgery as an infant 7. History of back surgery 8. High blood pressure 9. Possible history of CVA 10. Acute pancreatitis. 11. Bilateral pleural effusions 12. Acute pulmonary failure. At least partially secondary to acute renal failure and hypotension requiring pressor agents, with severe metabolic acidosis. Consider other causes there may be other factors such as underlying lung disease and/or pulmonary emboli and/or aspiration 13. See past history 04/09/2016.. Today the patient was evaluated with fiberoptic bronchoscopy. He had definite evidence of significant aspiration. He had erythematous slightly friable markedly stenotic airways bilaterally secondary to what appears to be an aspiration injury. Multiple specimens were sent. No biopsies were taken. Specimens from his scrotal abscess are growing a gram-positive cocci. Earlier today Dr. Arevalo to look to start the patient on vancomycin. Patient's also on Zosyn. I do not see any need to add extra antibiotics at this point. ABGs have improved significantly on mechanical ventilation and FiO2 of 100%. PH is 7.30. PCO2 is 22.3. PO2 is 391. Bicarb is 13.9. Sodium is 143. Potassium is low at 3.2 creatinine has dropped to 9.4 and the patient for repeat dialysis today. Natruretic peptide is elevated at 260. 04/10/2016. Patient's chest x-ray shows left lower lung atelectasis. He will need a repeat fiberoptic bronchoscopy tomorrow bronchoscopy specimens have been negative so far. Abscess of the scrotum is growing a gram-positive cocci which is yet unidentified. 04/09/2016 the patient had a percutaneous drainage of the gallbladder. There are no positive cultures at this point. This patient has not done well with his weaning trials. We will continue to try to make adjustments.H&H is dropped to 10.5/27.6. White count 7100 with 84 segs and 6 lymphs. Platelets have dropped to 122,000. ABGs are improved. On mechanical ventilation and FiO2 of 65% pH is 7.5-8. PCO2 is 22.7. PO2 is 156. Bicarb is 18.5. Potassium is low at 2.2. Renal will make adjustments for this. Calcium is also low at 6.5. Natruretic peptide is dropped from 260 217. Protein and albumin are low at 5.0 and 2.2 respectively. Labs been reviewed. 04/11/2016. Today's chest x-ray shows a right perihilar infiltrate and a small residual left lower lung infiltrate. Bronchoscopy specimens from 04/10/2016 have shown nothing so far. Culture from the patient's scrotal has grown Streptococcus agalactiae. No sensitivities have been reported. Patient had dialysis yesterday. ABGs on mechanical ventilation and FiO2 of 60% shows a pH 7.59. PCO2 is 21.5. PO2 is 130. Bicarb is 20. This patient has been intentionally hyperventilated because of his metabolic acidosis which is now resolved. I have made adjustments on his ventilator and hopefully lighten his CO2 increase will let him do better on his CPAP trials. Potassium is low at 2.3. This is being managed by renal. CBC is stable and white count is come down to 6700 73 segs and 12 lymphs. Fiberoptic bronchoscopy was done 2016. See report. Patient is a significant problem with severe erosive friable partially stenotic bilateral bronchitis. This is complicated by underlying collapsibility of large and small airways and complicated by retention of secretions and residual gastric aspirate. 04/12/2016. This 50-year-old had a scrotal abscess. He had acute cholecystitis which is been drained percutaneously. He has had acute renal failure and has required dialysis. He had acute severe metabolic acidosis that is improved significantly. He has diabetes mellitus. He has acute respiratory failure that required intubation mechanical ventilation. On he had fiberoptic bronchoscopy and he had definite evidence of significant aspiration. He had erythematous markedly flushed friable and stenotic airways bilaterally.ABGs have improved significantly. On FiO2 of 60% his pH is 7.42. PCO2 is 41. PO2 is 313. Bicarb was 26. Sodium is increased to 153 and potassium is low at 2.9 this is being managed by renal. This looked Like he had acute and chronic injuries. He had a repeat fiberoptic bronchoscopy on 04/11/2016 and a good deal of secretions were removed. Endobronchially he did not appear to be any better. There are no positive bronchoscopy cultures appear he is on weaning protocol some days he does a few hours of CPAP and some days he does not tolerate this well. He is getting dialysis every other day. 04/15/2016. Chest x-ray has deteriorated somewhat today there are faint bilateral scattered areas of alveolar infiltrates. ABGs on mechanical ventilation FiO2 of 45% shows a pH of 7.395. PCO2 is 47. PO2 63. Bicarb is 27. Sodium is elevated 115. Potassium 3.5. Creatinine is 1.0 with a BUN of 13. White count is 6100 with 63 segs 17.5 monocytes. H&H is 9.6/29.7. Notes from this weekend say that the patient had no spontaneous respirations. He is on mechanical ventilation and I changed him to a T-tube and he had no problem initiating of breath whatsoever. He does gradually become rapid with his breathing. I was using no CPAP at the time. We will going to advance him to short trials of T-tube today and otherwise will advance his CPAP as tolerated. I believe this patient can do better. 04/16/2016. This patient is not doing well with his weaning trials. He is at a standstill. He is been on mechanical ventilation approximately 10 days. I talked to the patient's , his male cousin and his and patient's mother , the patient's nurse Malathi, Canelo Leal nurse practitioner and Suha Gonzalez practitioner were present. I discussed the pros and cons for trach. She understood these and was agreeable to having this done electively. Today's x- ray still shows some bilateral infiltrates ABGs on mechanical ventilation FiO2 of 45% shows a pH of 7.42, PCO2 45, PO2 of 115, bicarb 28.6 electrolytes normal. Creatinine is 1.0. CBC is stable. Microbiology no recent positive cultures. Other than his pulmonary problems the patient is being treated for scrotal abscess and a decubitus ulcer and acute cholecystitis. He also has acute renal failure which is markedly improved with dialysis 04/17/2016. Chest x-ray still has bilateral infiltrates but these are definitely improved. ABGs are stable. Labs been reviewed. Medicines been reviewed. Patient's for trach most likely a day. Appreciate ENT consultation. 04/18/2016. Patient had a trach placed. He appears to be tolerating this well. He still has a percutaneous drain into his gallbladder. He is also being treated for scrotal abscess. Today his chest x-ray shows a bilateral pulmonary infiltrates are continuing to improve on a daily basis. ABGs are stable on mechanical ventilation with an FiO2 of 45%. PH is 7.47, PCO2 is 33. PO2 is 75. Bicarb is 25. Labs been reviewed. Electrolytes kidneys and CBC are stable. This patient has a problem with retained secretions and he will be evaluated with fiberoptic bronchoscopy tomorrow. Case management has approached me about moving this patient to long-term acute care. I think he will be ready to go next week. We do need some decision about what we plan to do with his gallbladder that could prolong his present hospitalization. Also need information about how the scrotal abscess is doing and whether or not this has resolved. 04/19/2016. On 04/18/2016 this patient had a trach placed. He has done well with this. Today he had a fiberoptic bronchoscopy. See report. He had retained secretions. He has underlying erosive friable bronchitis with stenosis has improved markedly. ABGs on mechanical ventilation FiO2 45% shows a pH 7.44. PCO2 is 34. PO2 74. Bicarb is 24. CBC is stable. Patient's previously been on dialysis. His creatinine is 0.90. Patient has a percutaneous gallbladder drain tube in place. Dr. Mickey Bear says his tube will be removed once the patient is out of ICU and just before he goes home. Most likely this patient's going to require long-term acute care. This possible will be transferring him to [facility] of next week. Need to know if we plan to keep the tube and while he is there Medicines have been reviewed. Vital signs. See below. Neck. Symmetrical. No meningismus Lymphatics. No submandibular cervical or supraclavicular adenopathy. Chest. Mild coarse large airway congestion. Heart. No gallop Abdomen. Slightly rigid. Only rare bowel sounds. Extremities. No evidence of deep venous thrombophlebitis. Note Doppler venograms are negative for deep venous thrombophlebitis Neurologic and psychiatric are impossible to assess. The remainder the examination is negative. Plan. 1. 04/11/2016. The patient is off pressor agents 2. 04/11/2016. Ventilator adjustments made. 3. Weaning protocol 4. Physical therapy while on ventilator protocol 6. Daily chest x-ray 7. Daily ABGs. 9. 04/12/2016. Continue weaning protocol. Patient does not improve soon will need to consider a trach. 10. Deep venous thrombophlebitis prevention protocol #11. 04/19/2016. Fiberoptic bronchoscopy done earlier today. Check microbiology specimens. Trach placed 04/18/2016. Continue weaning protocol. Percutaneous gallbladder drainage. See my note above for this date Exam (Progress Note) - Constitutional Vitals: Period Temp Pulse Resp BP Sys/Mishra Pulse Ox Last 24 Hr 97.9 F-98.7 F 51-94 1-78 103-178/63-100 95-100 Results - Labs CBC & BMP: 04/19/16 04:48 04/18/16 07:35
--- NOTE | 2016-04-19 10:40 | Event Note ---
In hospital therapeutic and diagnostic fiberoptic bronchoscopy. Specimens were sent for Gram stain, bacterial cultures, fungal stains and culture. This 50-year-old male had a trach placed on 04/18/2016. He is on mechanical ventilation. He has retention of secretions that cannot be suction additionally with usual methods. His cough is ineffective. He has had a recent onset of a none resolved bilateral pulmonary infiltrate. For these reasons patient was evaluated with fiberoptic bronchoscopy. The trach and trach site looks fine. The trachea was normal. The giovana was sharp. Patient had retained secretions of both bronchial trees this involved all 5 lobes of the lung but was most prominent in the right lower lung and left lower lung. In the past she has had erosive friable partially stenotic bronchitis and this is markedly better. There were no endobronchial lesions to suggest cancer. Patient tolerated procedure well. Impression. 1. Respiratory failure for oxygen and carbon dioxide requiring intubation mechanical ventilation #2 trach placed 04/18/2016 3.Rule out pulmonary infection
[2016-04-19] MEDS: LACOSAMIDE INJ 100 MG in SODIUM CHLORIDE 0.9% 50 ML IV SCH (10:56)
--- NOTE | 2016-04-19 11:38 | CT Report ---
EXAM: CT chest PE study DATE: April 19, 2016 COMPARISON: CT chest without contrast January 06, 2016 REASON: Hypoxemia TECHNIQUE: Axial images of the chest were obtained after administration of 80 cc of Omnipaque 350 intravenous contrast. Coronal and sagittal reformatted images were also acquired. The study was performed per pulmonary embolism protocol. Total DLP was 341.7 mGy*cm. FINDINGS: Pulmonary arteries: There is no evidence of pulmonary embolism through the segmental pulmonary arteries. Vascular/heart: The thoracic aorta is normal in size without evidence of dissection. The heart is upper normal in size, but no pericardial effusion is seen. Lymph nodes: Calcified mediastinal and hilar lymph nodes are present, suggesting remote granulomatous disease. There are a few upper normal-sized mediastinal, axillary or hilar lymph nodes. They have not obviously changed. Other mediastinum: A tracheostomy catheter is now in place, entering the trachea just below the thyroid. There are secretions within the trachea, mainly just above the tracheostomy catheter. A feeding tube is also present with its distal tip within the gastric body. Chest wall: There is mild anasarca at the chest and mild edema at the lower neck near the tracheostomy catheter. Lungs: Mild bilateral pleural fluid is present, but no pneumothorax is identified. Mild scattered opacities are present within both lungs, most prominent at the lung bases. Some of these opacities have a groundglass appearance, and this is most consistent with pulmonary edema and atelectasis. However, superimposed pneumonia is not excluded. There are also calcified granulomas within both lungs. Bones: There is chronic deformity of the right sixth rib. This could be related to remote trauma or previous surgery. No acute osseous process is seen. Upper abdomen: There is a partially visualized percutaneous cholecystostomy tube. IMPRESSION: 1. No evidence of pulmonary embolism. 2. There are scattered opacities within both lungs, most prominent within the lower lobes. This is most consistent with pulmonary edema and atelectasis. However, superimposed pneumonia is not excluded. 3. Mild bilateral pleural fluid. 4. A tracheostomy catheter, feeding tube and cholecystostomy tube are in place PROCEDURE INTERPRETED AT [facility] DEPARTMENT OF RADIOLOGY Final Report Signed by: Dr. Arash Anderson
--- NOTE | 2016-04-19 11:47 | XRay Report ---
XR KUB Indication: Abdominal pain Comparison: None available Findings: No free fluid or free air seen. Drain overlies the right upper abdomen. The bowel gas pattern appears within normal limits. No abnormal calcifications are present. No other abnormality is identified. Impression: No evidence of acute findings demonstrated. Drain present in the right upper abdomen. PROCEDURE INTERPRETED AT [facility] DEPARTMENT OF RADIOLOGY Final Report Signed by: Dr. Rodrick Pathak
[2016-04-19] MEDS: ENOXAPARIN 40 MG/0.4 ML SYRINGE SUBCUT SCH (14:54)
[2016-04-19] MEDS: PANTOPRAZOLE 40 MG VIAL IV SCH (17:26)
[2016-04-20] MEDS: INSULIN REGULAR 100 UNIT/ML SUBCUT SCH ×4 (00:05→18:09)
[2016-04-20] MEDS: PROPOFOL 1,000 MG/100 ML BOTTLE IV SCH ×4 (01:21→21:24)
[2016-04-20] MEDS: ALBUTEROL/IPRATROPIUM 3 ML NEB RESP TX SCH ×4 (02:15→19:30)
[2016-04-20 02:31] LABS: Allen Test Positive; Pt O2 Delivery Device Ventilator
[2016-04-20 02:32] LABS: ABG Base Excess -1.2 MMOL/L (-2.5-2.5); ABG HCO3 23.4 MMOL/L (20-26); ABG Oxygen Saturation 98.6 % (95-100); ABG PCO2 30.5 MM HG (35-48); ABG PH 7.464 (7.35-7.45); ABG TCO2 19.9 MMOL/L (23-27)
[2016-04-20] MEDS: CLINDAMYCIN INJ 300 MG in PREMIX 1 EACH IV SCH ×4 (03:03→19:37)
[2016-04-20] MEDS: PIPERACILLIN/TAZOBACTAM 3,375 MG in SODIUM CHLORIDE 0.9% 100 ML IV SCH ×2 (05:43→18:29)
[2016-04-20 07:02] LABS: Basophils % 0.2 % (0.0-0.8); Eosinophils # 0.3 10*3/uL (0.0-0.87); Eosinophils % 3.2 % (0.00-10.9); Hematocrit 29.9 VOL% (42.0-52.0); Hemoglobin 9.5 GM/DL (14.0-18.0); Immature Granulocytes Absolute 0.18 #; Lymphocytes # 1.2 10*3/uL (1.4-4.0); Lymphocytes % 13.2 % (21.2-54.2); Mean Corpuscular HGB Conc 31.8 GM/DL (32-36); Mean Corpuscular Hemoglobin 31 PG (27-34); Mean Corpuscular Volume 96.1 FL (87-102); Mean Platelet Volume 9.8 FL (9.6-12.0); Monocytes # 1.1 10*3/uL (0.11-0.8); Monocytes % 11.9 % (1.7-12.7); Neutrophils # 6.1 10*3/uL (1.4-7.4); Neutrophils % 69.5 % (38.7-73.9); Platelet Count 329 T/CUMM (130-400); Red Blood Count 3.11 MC/CUMM (3.8-5.5); Red Cell Distribution Width 14.6 % (9.3-17.3); White Blood Count 8.8 T/CUMM (4-12)
[2016-04-20 07:34] LABS: Magnesium 2.2 MG/DL (1.8-2.4); Osmolality,Calculated 293.6 MOS/KG (273-304); Potassium 3.5 MMOL/L (3.5-5.1)
--- NOTE | 2016-04-20 08:05 | Pulmonology Progress Note ---
Pulmonary - PN: Subj Interval history: The patient is a 50-year-old that has been on the ventilator for quite some time. He originally had a scrotal abscess and sepsis. He has been on the ventilator chronic respiratory insufficiency. He has a tracheostomy tube in place. He also had acute cholecystitis and has a cholecystostomy tube in place. He is not able to do CPAP that well yet. He has been reasonably stable on the ventilator however. Exam (Progress Note) - Constitutional Vitals: Period Temp Pulse Resp BP Sys/Mishra Pulse Ox Last 24 Hr 97.5 F-97.9 F 67-94 19-35 96-169/57-102 95-100 General appearance: no acute distress, other (he is sedated and comfortable on the ventilator.) - Head Head exam: Present: normal inspection, normocephalic - Eye Eye exam: Present: EOMI. Absent: scleral icterus Pupils: Present: NAA - ENT ENT exam: Present: normal exam - Neck Neck exam: Present: other (his tracheostomy tube in place.). Absent: lymphadenopathy - Respiratory Respiratory exam: Present: rhonchi, other (he has coarse breath sounds bilaterally with some rhonchi.) - Cardiovascular Cardiovascular exam: Present: regular rate and rhythm. Absent: gallop, systolic murmur - GI/Abdominal GI/Abdominal exam: Present: hypoactive bowel sounds, soft, other (he has a cholecystostomy tube in place.). Absent: organomegaly, tenderness - Extremities Exam Extremities exam: Absent: calf tenderness, edema - Neurological Exam Neurological exam: Present: other (he is sedated at present.) - Skin Skin exam: Present: dry Results - Labs CBC & BMP: 04/20/16 06:56 04/20/16 06:56 Labs: His PO2 is 110 with a PCO2 of 30 and a pH of 7.46 - Diagnostic Findings Procedure: Chest x-ray: image reviewed by me, report reviewed by me (chest x- ray shows small lung volumes and atelectasis in the left base.) Assessment and Plan (1) Septic shock Status: Resolved Assessment and plan: The patient came in with septic shock from scrotal abscess and he is hemodynamically stable and now and his sepsis is better. Current Visit: Yes (2) Diabetes mellitus Status: Chronic Assessment and plan: His glucose is 181 this morning. Current Visit: Yes Qualifiers: Diabetes mellitus type: type 2 Diabetes mellitus complication status: with kidney complications (3) Respiratory failure Status: Acute Assessment and plan: The patient has been slow to wean but is stable on the ventilator. Current Visit: Yes (4) Ventilator dependence Status: Acute Assessment and plan: The patient will continue weaning trials and ventilatory support. Current Visit: Yes
--- NOTE | 2016-04-20 08:36 | Cardiology Progress Note ---
Assessment and Plan (1) Elevated troponin Status: Acute Current Visit: Yes (2) Acute respiratory failure Status: Acute Current Visit: Yes (3) H/O: stroke Problem details: per report Status: Acute Current Visit: Yes (4) Hypokalemia Status: Acute Current Visit: Yes (5) Hyponatremia Status: Acute Current Visit: Yes (6) Seizure Status: Acute Current Visit: Yes (7) Diabetes mellitus Status: Chronic Current Visit: Yes Qualifiers: Diabetes mellitus type: type 2 Diabetes mellitus complication status: with kidney complications (8) Essential hypertension Status: Chronic Current Visit: Yes (9) RBBB Status: Chronic Current Visit: Yes (10) Status post patent foramen ovale closure Status: Chronic Current Visit: Yes (11) Acute renal failure Problem details: severe Status: Resolved Current Visit: Yes (12) Septic shock Status: Resolved Current Visit: Yes Cardiology - PN: Subj Interval history: Cardiology note 50-year-old man with sepsis syndrome and respiratory failure. Status post tracheostomy. Did not do well on CPAP yesterday. Telemetry shows sinus rhythm in the 80s. O2 sat 96 on 45% FiO2. Blood pressure 120-130 systolic range. Decreased breath sounds scattered rhonchi Regular rhythm no gallop or murmur Abdomen soft benign Trace leg edema Lab data today White count 8.8 hemoglobin 9.5 hematocrit 29.9 Sodium 146 potassium 3.5 chloride 111 CO2 23 BUN 9 creatinine 1.0 Glucose 181 magnesium 2.2 Impression Sepsis syndrome with respiratory failure Status post tracheostomy Acute renal failure resolved Seizure disorder Diabetes Hypertension Status post incision and drainage scrotal abscess April 08 Status post percutaneous cholecystostomy April 09 Recent echo shows ejection fraction 65% with LVH, aortic sclerosis and mild TR Plan CPAP trials Tube feedings IV antibiotics blood pressure better on carvedilol 3.125 mg twice daily Exam (Progress Note) - Constitutional Vitals: Period Temp Pulse Resp BP Sys/Mishra Pulse Ox Last 24 Hr 97.5 F-97.9 F 67-94 19-35 96-169/57-102 95-100 Result/EKG - Labs CBC & BMP: 04/20/16 06:56 04/20/16 06:56 Labs: Laboratory Results - last 24 hr 04/19/16 04/19/16 04/19/16 08:56 11:39 17:16 WBC RBC Hgb Hct MCV MCH MCHC RDW Plt Count MPV Neut % (Auto) Lymph % (Auto) [place] % (Auto) Eos % (Auto) Baso % (Auto) Neut # (Auto) Lymph # (Auto) [place] # (Auto) Eos # (Auto) Baso # (Auto) Immature Gran % Nucleated RBC % Immature Gran # Nucleated RBCs # ABG pH ABG pCO2 ABG pO2 ABG HCO3 ABG Total CO2 ABG O2 Saturation ABG Base Excess FiO2 Sodium Potassium Chloride Carbon Dioxide Anion Gap BUN Creatinine GFR Calculation BUN/Creatinine Ratio Glucose POC Glucose 158 H 166 H 177 H Calculated Osmolality Calcium Magnesium 04/19/16 04/20/16 04/20/16 23:50 02:15 05:09 WBC RBC Hgb Hct MCV MCH MCHC RDW Plt Count MPV Neut % (Auto) Lymph % (Auto) [place] % (Auto) Eos % (Auto) Baso % (Auto) Neut # (Auto) Lymph # (Auto) [place] # (Auto) Eos # (Auto) Baso # (Auto) Immature Gran % Nucleated RBC % Immature Gran # Nucleated RBCs # ABG pH 7.464 H ABG pCO2 30.5 L ABG pO2 110.0 H ABG HCO3 23.4 ABG Total CO2 19.9 L ABG O2 Saturation 98.6 ABG Base Excess -1.2 FiO2 45.00 Sodium Potassium Chloride Carbon Dioxide Anion Gap BUN Creatinine GFR Calculation BUN/Creatinine Ratio Glucose POC Glucose 160 H 177 H Calculated Osmolality Calcium Magnesium 04/20/16 04/20/16 06:56 06:56 WBC 8.8 RBC 3.11 L Hgb 9.5 L Hct 29.9 L MCV 96.1 MCH 31 MCHC 31.8 L RDW 14.6 Plt Count 329 MPV 9.8 Neut % (Auto) 69.5 Lymph % (Auto) 13.[address] [place] % (Auto) 11.9 Eos % (Auto) 3.2 Baso % (Auto) 0.2 Neut # (Auto) 6.1 Lymph # (Auto) 1.[address] [place] # (Auto) 1.1 H Eos # (Auto) 0.3 Baso # (Auto) 0.0 Immature Gran % 2.0 Nucleated RBC % 0.0 Immature Gran # 0.18 Nucleated RBCs # 0.00 ABG pH ABG pCO2 ABG pO2 ABG HCO3 ABG Total CO2 ABG O2 Saturation ABG Base Excess FiO2 Sodium 146 H Potassium 3.5 Chloride 111 H Carbon Dioxide 23 Anion Gap 15.5 H BUN 9 Creatinine 1.00 GFR Calculation 99 BUN/Creatinine Ratio 9.00 Glucose 181 H POC Glucose Calculated Osmolality 293.6 Calcium 8.0 L Magnesium 2.2
[2016-04-20] MEDS: NYSTATIN 500,000 UNIT/5 ML UDCUP SWISH/SWAL SCH ×4 (08:48→21:18)
[2016-04-20] MEDS: CHOLECALCIFEROL 1,000 UNIT TABLET PO SCH (08:48)
[2016-04-20] MEDS: ASPIRIN EC 325 MG TABLET PO SCH (08:48)
[2016-04-20] MEDS: CARVEDILOL 3.125 MG TABLET PO SCH ×2 (08:48→21:18)
--- NOTE | 2016-04-20 08:58 | XRay Report ---
Portable chest Date 04/20/2016] Clinical history: Ventilator, tracheostomy tube Comparison: 04/19/2016 Technique: Portable AP sitting chest Findings: The heart is borderline in size with stable supportive devices. Little change in the diffuse parenchymal findings in the lungs with small pleural effusions. Postoperative findings in the neck. Impression: No significant change in the appearance of the chest when compared to previous exam. PROCEDURE INTERPRETED AT [facility] DEPARTMENT OF RADIOLOGY Final Report Signed by: Dr. Makenna Billy
--- NOTE | 2016-04-20 10:15 | Hospitalist Progress Note ---
Assessment and Plan (1) Seizure Status: Acute Assessment and plan: newonset. No more seizures reported -CT head was negative,appreciates Neurology's input, continue on keppra and Vimpat, Current Visit: Yes (2) Septic shock Status: Resolved Assessment and plan: pressors have been weaned off, scrotal culture grew strep agalactiae, continue with IV antibiotics Current Visit: Yes (3) Acute respiratory failure Status: Acute Assessment and plan: s/p tracheostomy. CT chest was negative for a PE, it showed scattered opacities within both lungs , most prominent within the lower lobes.This is most consistent with pulm edema and atelectasis. Pneumonia not excluded. For possible transfer to long-term acute care next week Current Visit: Yes (4) Cholelithiasis Problem details: w possible acute cholecystisi/CBD 10 mm dilated/& elevated lipase Status: Acute Assessment and plan: with possible acute cholecystitis/CBD 10 mm dilated/& elevated lipase. -continue with percutaneous cholecystostomy tube. -follow surgery's recommendations Current Visit: Yes (5) Scrotal abscess Status: Acute Assessment and plan: s/p drainage, aspirate grew strep agalactiae. continue with IV antibiotics, [id number] . Current Visit: Yes (6) Hypokalemia Status: Acute Assessment and plan: repleted Current Visit: Yes (7) Acute renal failure Problem details: severe Status: Resolved Assessment and plan: improved, no longer on hemodialysis, Nephrology is following Current Visit: Yes (8) Diabetes Status: Chronic Assessment and plan: A1c-7.1, continue with SSC Current Visit: No (9) Oral thrush Status: Acute Assessment and plan: continue swish and swallow Nystatin,HIV testing-non reactive Current Visit: Yes (10) Metabolic acidosis Status: Acute Assessment and plan: improved, bicarb replacement dcd, Nephrology is following Current Visit: Yes (11) Elevated troponin Status: Acute Assessment and plan: In the setting of septic shock and severe acute kidney injury. This would be likely due to increased demand ischemia and from severe acute kidney injury.But patient has a history of heart disease.Follow Cardiology consult, Echocardiogram 04/08/2016 reveals an ejection fraction of 65% without significant valvular abnormality. . Current Visit: Yes (12) Acute encephalopathy Status: Acute Assessment and plan: will continue to follow, patient is waking up but still on the vent Current Visit: Yes (13) Remote history of stroke Status: Chronic Assessment and plan: stable, CT head showed no acute changes Current Visit: No (14) Hypocalcemia Status: Acute Assessment and plan: improved Current Visit: Yes (15) Hypernatremia Status: Acute Assessment and plan: improving with free water Current Visit: Yes (16) Swelling Status: Acute Assessment and plan: Doppler USS of UE showed a non occluding thrombus within the distal left basilic vein at a bifurcation. Being a superficial vein- will treat with NSAIDs and warm compressors -Continue to Elevate both UE Current Visit: Yes (17) HTN (hypertension) Status: Acute Assessment and plan: on Coreg Current Visit: Yes Hospitalist: Subjective Interval history: Patient seen. He has started waking up.His trach is still connected to the vent , he did not do well on CPAP yesterday. CT chest was negative for a PE, it showed scattered opacities within both lungs, most prominent within the lower lobes.This is most consistent with pulm edema and atelectasis. Pneumonia not excluded. Exam - Constitutional Vitals: Period Temp Pulse Resp BP Sys/Mishra Pulse Ox Last 24 Hr 97.5 F-97.9 F 67-86 19-35 96-152/57-102 95-100 General appearance: no acute distress, other (trach connected to vent) - Respiratory Respiratory exam: Present: rales - Cardiovascular Cardiovascular exam: Present: regular rate and rhythm - GI/Abdominal GI/Abdominal exam: Present: normal bowel sounds - Extremities Exam Extremities exam: Present: normal inspection Results - Labs CBC & BMP: 04/20/16 06:56 04/20/16 06:56 Lab Results: I have reviewed the past 24 hour labs
[2016-04-20] MEDS: SODIUM CHLORIDE 23.4% CONC INJ 38.5 MEQ in STERILE WATER INJ 1,000 ML IV SCH (10:22)
[2016-04-20] MEDS: LACOSAMIDE INJ 100 MG in SODIUM CHLORIDE 0.9% 50 ML IV SCH ×2 (10:49→21:47)
[2016-04-20] MEDS: ENOXAPARIN 40 MG/0.4 ML SYRINGE SUBCUT SCH (15:49)
[2016-04-20] MEDS: PANTOPRAZOLE 40 MG VIAL IV SCH (18:28)
[2016-04-21] MEDS: SODIUM CHLORIDE 23.4% CONC INJ 38.5 MEQ in STERILE WATER INJ 1,000 ML IV SCH ×2 (00:19→14:44)
[2016-04-21] MEDS: PROPOFOL 1,000 MG/100 ML BOTTLE IV SCH ×3 (00:20→23:35)
[2016-04-21] MEDS: INSULIN REGULAR 100 UNIT/ML SUBCUT SCH ×5 (00:21→23:52)
[2016-04-21] MEDS: ALBUTEROL/IPRATROPIUM 3 ML NEB RESP TX SCH ×4 (00:22→19:53)
[2016-04-21] MEDS: CLINDAMYCIN INJ 300 MG in PREMIX 1 EACH IV SCH ×4 (01:59→20:56)
[2016-04-21 03:30] LABS: ABG Base Excess -0.6 MMOL/L (-2.5-2.5); ABG HCO3 23.9 MMOL/L (20-26); ABG Oxygen Saturation 97.9 % (95-100); ABG PCO2 32.8 MM HG (35-48); ABG PH 7.451 (7.35-7.45); ABG PO2 95.5 MM HG (80-95); ABG TCO2 20.8 MMOL/L (23-27); Allen Test Positive; Pt O2 Delivery Device Ventilator
[2016-04-21] MEDS: PIPERACILLIN/TAZOBACTAM 3,375 MG in SODIUM CHLORIDE 0.9% 100 ML IV SCH ×3 (06:07→17:48)
--- NOTE | 2016-04-21 07:28 | Pulmonology Progress Note ---
Pulmonary - PN: Subj Interval history: The patient is a 50-year-old that has been on the ventilator for quite some time. He originally had a scrotal abscess and sepsis. He has been on the ventilator with chronic respiratory insufficiency. He has a tracheostomy tube in place. He also had acute cholecystitis and has a cholecystostomy tube in place. He did do some CPAP yesterday. He looks like he is comfortable today on the ventilator. Exam (Progress Note) - Constitutional Vitals: Period Temp Pulse Resp BP Sys/Mishra Pulse Ox Last 24 Hr 97.4 F-98.9 F 55-86 12-35 108-153/59-91 94-100 Exam: General appearance: no acute distress, other (he is awake today and still looks comfortable on the ventilator.) - Head Head exam: Present: normal inspection, normocephalic - Eye Eye exam: Present: EOMI. Absent: scleral icterus Pupils: Present: NAA - ENT ENT exam: Present: normal exam - Neck Neck exam: Present: other (his tracheostomy tube in place.). Absent: lymphadenopathy - Respiratory Respiratory exam: Present: He has fair breath sounds bilaterally with mild rhonchi present. - Cardiovascular Cardiovascular exam: Present: regular rate and rhythm. Absent: gallop, systolic murmur - GI/Abdominal GI/Abdominal exam: Present: hypoactive bowel sounds, soft, other (he has a cholecystostomy tube in place.). Absent: organomegaly, tenderness - Extremities Exam Extremities exam: Absent: calf tenderness, edema - Neurological Exam Neurological exam: Present: other (he is responding and does move his extremities. ) - Skin Skin exam: Present: dry Results - Labs CBC & BMP: 04/20/16 06:56 04/20/16 06:56 Labs: PO2 is 95 with a PCO2 of 32 and a pH is 7.45 - Diagnostic Findings Procedure: Chest x-ray: image reviewed by me, report reviewed by me (chest x- ray stable with no real change.) Assessment and Plan (1) Septic shock Status: Resolved Assessment and plan: The patient came in with septic shock from scrotal abscess and he is hemodynamically stable now and his sepsis is better. He will continue with supportive care. Current Visit: Yes (2) Diabetes mellitus Status: Chronic Assessment and plan: His glucose is 177 this morning. Current Visit: Yes Qualifiers: Diabetes mellitus type: type 2 Diabetes mellitus complication status: with kidney complications (3) Respiratory failure Status: Acute Assessment and plan: The patient has been slow to wean but is stable on the ventilator. He will continue with CPAP trials. Current Visit: Yes (4) Ventilator dependence Status: Acute Assessment and plan: The patient will continue weaning trials and ventilatory support. He will probably move to [facility] next week. Current Visit: Yes
--- NOTE | 2016-04-21 07:51 | Cardiology Progress Note ---
Assessment and Plan (1) Elevated troponin Status: Acute Current Visit: Yes (2) Acute respiratory failure Status: Acute Current Visit: Yes (3) H/O: stroke Problem details: per report Status: Acute Current Visit: Yes (4) Hypokalemia Status: Acute Current Visit: Yes (5) Hyponatremia Status: Acute Current Visit: Yes (6) Seizure Status: Acute Current Visit: Yes (7) Diabetes mellitus Status: Chronic Current Visit: Yes Qualifiers: Diabetes mellitus type: type 2 Diabetes mellitus complication status: with kidney complications (8) Essential hypertension Status: Chronic Current Visit: Yes (9) RBBB Status: Chronic Current Visit: Yes (10) Status post patent foramen ovale closure Status: Chronic Current Visit: Yes (11) Acute renal failure Problem details: severe Status: Resolved Current Visit: Yes (12) Septic shock Status: Resolved Current Visit: Yes Cardiology - PN: Subj Interval history: Cardiology note 50-year-old man with sepsis syndrome and respiratory failure. Status post tracheostomy. Patient completed almost 12 hours of CPAP yesterday. Telemetry shows sinus rhythm in the 80s. O2 sat 97 on 45% FiO2. Blood pressure 120-130 systolic range Decreased breath sounds few rhonchi in the bases Regular rhythm no gallop Abdomen soft benign Trace leg edema Impression Sepsis syndrome with respiratory failure Status post tracheostomy Acute renal failure resolved Seizure disorder Diabetes Hypertension Status post incision and drainage scrotal abscess April 08 Status post percutaneous cholecystostomy April 09 Recent echo showed ejection fraction 65% with LVH, aortic sclerosis and mild TR Plan CPAP trials Tube feedings IV antibiotics Currently on carvedilol 3.125 mg twice daily for hypertension Exam (Progress Note) - Constitutional Vitals: Period Temp Pulse Resp BP Sys/Mishra Pulse Ox Last 24 Hr 97.4 F-98.9 F 55-86 12-35 108-153/59-91 94-100 Result/EKG - Labs CBC & BMP: 04/20/16 06:56 04/20/16 06:56 Labs: Laboratory Results - last 24 hr 04/20/16 04/20/16 04/21/16 11:11 17:57 00:06 ABG pH ABG pCO2 ABG pO2 ABG HCO3 ABG Total CO2 ABG O2 Saturation ABG Base Excess FiO2 POC Glucose 191 H 120 H 126 H 04/21/16 04/21/16 03:12 05:50 ABG pH 7.451 H ABG pCO2 32.8 L ABG pO2 95.5 H ABG HCO3 23.9 ABG Total CO2 20.8 L ABG O2 Saturation 97.9 ABG Base Excess -0.6 FiO2 45.00 POC Glucose 177 H
[2016-04-21] MEDS: NYSTATIN 500,000 UNIT/5 ML UDCUP SWISH/SWAL SCH ×4 (08:10→20:56)
[2016-04-21] MEDS: CHOLECALCIFEROL 1,000 UNIT TABLET PO SCH (08:10)
[2016-04-21] MEDS: CARVEDILOL 3.125 MG TABLET PO SCH ×2 (08:11→20:56)
[2016-04-21] MEDS: ASPIRIN EC 325 MG TABLET PO SCH (08:11)
--- NOTE | 2016-04-21 08:44 | XRay Report ---
Portable chest Date 04/21/2016] Clinical history: Ventilator, tracheostomy Comparison: 04/20/2016 Technique: Portable AP sitting chest Findings: The heart is minimally enlarged with stable supportive devices. Persistent relative elevation of the right hemidiaphragm with progressive parenchymal findings. There is increased right hilar prominence with minimally larger left pleural effusion. Postoperative findings are noted in the neck. Old healed rib fractures. Impression: Progressive atelectasis/infiltration/edema with relative elevation right hemidiaphragm, right hilar prominence, and larger left pleural effusion. Stable supportive devices. Followup films are recommended. PROCEDURE INTERPRETED AT [facility] DEPARTMENT OF RADIOLOGY Final Report Signed by: Dr. Makenna Billy
[2016-04-21] MEDS: LACOSAMIDE INJ 100 MG in SODIUM CHLORIDE 0.9% 50 ML IV SCH ×2 (13:46→22:07)
--- NOTE | 2016-04-21 14:25 | Hospitalist Progress Note ---
Assessment and Plan (1) Seizure Status: Acute Assessment and plan: newonset. No more seizures reported -CT head was negative,appreciates Neurology's input, continue on keppra and Vimpat, Current Visit: Yes (2) Septic shock Status: Resolved Assessment and plan: pressors have been weaned off, scrotal culture grew strep agalactiae, continue with IV antibiotics Current Visit: Yes (3) Acute respiratory failure Status: Acute Assessment and plan: s/p tracheostomy. CT chest was negative for a PE, it showed scattered opacities within both lungs , most prominent within the lower lobes.This is most consistent with pulm edema and atelectasis. Pneumonia not excluded. For possible transfer to long-term acute care next week Current Visit: Yes (4) Cholelithiasis Problem details: w possible acute cholecystisi/CBD 10 mm dilated/& elevated lipase Status: Acute Assessment and plan: with possible acute cholecystitis/CBD 10 mm dilated/& elevated lipase. -continue with percutaneous cholecystostomy tube. -follow surgery's recommendations Current Visit: Yes (5) Scrotal abscess Status: Acute Assessment and plan: s/p drainage, aspirate grew strep agalactiae. continue with IV antibiotics, [id number] . Current Visit: Yes (6) Hypokalemia Status: Acute Assessment and plan: repleted Current Visit: Yes (7) Acute renal failure Problem details: severe Status: Resolved Assessment and plan: improved, no longer on hemodialysis, Nephrology is following Current Visit: Yes (8) Diabetes Status: Chronic Assessment and plan: A1c-7.1, continue with SSC Current Visit: No (9) Oral thrush Status: Acute Assessment and plan: continue swish and swallow Nystatin,HIV testing-non reactive Current Visit: Yes (10) Metabolic acidosis Status: Acute Assessment and plan: improved, bicarb replacement dcd, Nephrology is following Current Visit: Yes (11) Elevated troponin Status: Acute Assessment and plan: In the setting of septic shock and severe acute kidney injury. This would be likely due to increased demand ischemia and from severe acute kidney injury.But patient has a history of heart disease.Follow Cardiology consult, Echocardiogram 04/08/2016 reveals an ejection fraction of 65% without significant valvular abnormality. . Current Visit: Yes (12) Acute encephalopathy Status: Acute Assessment and plan: patient opened his eyes and obeyed commands Current Visit: Yes (13) Remote history of stroke Status: Chronic Assessment and plan: stable, CT head showed no acute changes Current Visit: No (14) Hypocalcemia Status: Acute Assessment and plan: improved Current Visit: Yes (15) Hypernatremia Status: Acute Assessment and plan: improving with free water Current Visit: Yes (16) Swelling Status: Acute Assessment and plan: Doppler USS of UE showed a non occluding thrombus within the distal left basilic vein at a bifurcation. Being a superficial vein- will treat with NSAIDs and warm compressors -Continue to Elevate both UE Current Visit: Yes (17) HTN (hypertension) Status: Acute Assessment and plan: on Coreg Current Visit: Yes Hospitalist: Subjective Interval history: Patient seen. He opened his eyes and obeyed commands. Exam - Constitutional Vitals: Period Temp Pulse Resp BP Sys/Mishra Pulse Ox Last 24 Hr 97.4 F-98.2 F 55-86 13-35 108-155/64-89 94-100 General appearance: no acute distress, other (trach in place) - Respiratory Respiratory exam: Present: decreased breath sounds - Cardiovascular Cardiovascular exam: Present: regular rate and rhythm - GI/Abdominal GI/Abdominal exam: Present: normal bowel sounds, other (cutaneous drain in place ) - Extremities Exam Extremities exam: Present: normal inspection Results - Labs CBC & BMP: 04/20/16 06:56 04/20/16 06:56 Lab Results: I have reviewed the past 24 hour labs
[2016-04-21] MEDS: ENOXAPARIN 40 MG/0.4 ML SYRINGE SUBCUT SCH (14:43)
[2016-04-21] MEDS: PANTOPRAZOLE 40 MG VIAL IV SCH (17:47)
[2016-04-22] MEDS: ALBUTEROL/IPRATROPIUM 3 ML NEB RESP TX SCH ×4 (00:56→18:39)
[2016-04-22] MEDS: CLINDAMYCIN INJ 300 MG in PREMIX 1 EACH IV SCH ×2 (02:48→08:43)
[2016-04-22] MEDS: PROPOFOL 1,000 MG/100 ML BOTTLE IV SCH ×4 (03:24→23:05)
[2016-04-22] MEDS: SODIUM CHLORIDE 23.4% CONC INJ 38.5 MEQ in STERILE WATER INJ 1,000 ML IV SCH ×2 (04:29→18:12)
[2016-04-22 05:03] LABS: ABG Base Excess 0.2 MMOL/L (-2.5-2.5); ABG HCO3 24.6 MMOL/L (20-26); ABG Oxygen Saturation 96.1 % (95-100); ABG PCO2 32.8 MM HG (35-48); ABG PH 7.459 (7.35-7.45); ABG PO2 77.7 MM HG (80-95); ABG TCO2 20.3 MMOL/L (23-27); Allen Test Positive; Pt O2 Delivery Device Ventilator
[2016-04-22] MEDS: INSULIN REGULAR 100 UNIT/ML SUBCUT SCH ×4 (05:43→23:53)
[2016-04-22] MEDS: PIPERACILLIN/TAZOBACTAM 3,375 MG in SODIUM CHLORIDE 0.9% 100 ML IV SCH (05:43)
--- NOTE | 2016-04-22 07:21 | XRay Report ---
XR chest 1V portable Indication: Ventilator, tracheostomy Comparison: Chest x-ray dated April 21, 2016 321 AM Technique: Single frontal view of the chest Findings: Lines and tubes appear grossly unchanged. Continued prominence of the right hilum. Mildly increased right basilar atelectasis/consolidation. Mildly improved left basilar atelectasis/consolidation. Osseous and surrounding soft tissue structures appear grossly unchanged. IMPRESSION: Mildly increased right basilar atelectasis/consolidation. Mildly improved left basilar atelectasis/consolidation. Continued right hilar prominence. PROCEDURE INTERPRETED AT [facility] DEPARTMENT OF RADIOLOGY Final Report Signed by: Dr Mark Altman
--- NOTE | 2016-04-22 07:28 | General Surgery Progress Note ---
Assessment and Plan (1) Acute renal failure Problem details: severe Status: Resolved Assessment and plan: Okay to remove when cleared by nephrology Current Visit: Yes (2) Cholelithiasis Problem details: w possible acute cholecystisi/CBD 10 mm dilated/& elevated lipase Status: Acute Assessment and plan: Continue cholecystostomy tube drainage until patient is out of ICU Current Visit: Yes (3) Abscess Status: Resolved Assessment and plan: Completely resolved Current Visit: Yes Subjective Patient reports: Present: afebrile Exam - Constitutional Vitals: Period Temp Pulse Resp BP Sys/Mishra Pulse Ox Last 24 Hr 97.9 F-99.6 F 55-86 15-77 97-155/56-89 94-100 General appearance: no acute distress, over weight - Head Head exam: Present: normal inspection, normocephalic - Eye Eye exam: Present: EOMI - ENT ENT exam: Present: normal exam Mouth exam: Present: normal external inspection - Neck Neck exam: Present: normal inspection, trachea midline - Respiratory Respiratory exam: Present: clear to auscultation bilaterally. Absent: accessory muscle use - Cardiovascular Cardiovascular exam: Present: RRR - GI/Abdominal GI/Abdominal exam: Present: soft, other (cholecystostomy tube with minimal clear drainage). Absent: tenderness, rebound - Extremities Exam Extremities exam: Present: normal inspection, normal capillary refill - Back Exam Back exam: Present: normal inspection - Neurological Exam Neurological exam: Present: alert - Skin Skin exam: Present: normal color, warm Results - Labs CBC & BMP: 04/20/16 06:56 04/20/16 06:56
[2016-04-22 07:41] LABS: Basophils % 0.1 % (0.0-0.8); Eosinophils # 0.3 10*3/uL (0.0-0.87); Eosinophils % 3.5 % (0.00-10.9); Hematocrit 28.2 VOL% (42.0-52.0); Hemoglobin 9.1 GM/DL (14.0-18.0); Immature Granulocytes % 0.4 %; Immature Granulocytes Absolute 0.03 #; Lymphocytes # 1.1 10*3/uL (1.4-4.0); Lymphocytes % 15.4 % (21.2-54.2); Mean Corpuscular HGB Conc 32.3 GM/DL (32-36); Mean Corpuscular Hemoglobin 30 PG (27-34); Mean Platelet Volume 9.9 FL (9.6-12.0); Monocytes % 13.3 % (1.7-12.7); Neutrophils # 4.9 10*3/uL (1.4-7.4); Neutrophils % 67.3 % (38.7-73.9); Platelet Count 409 T/CUMM (130-400); Red Cell Distribution Width 14.4 % (9.3-17.3); White Blood Count 7.2 T/CUMM (4-12)
[2016-04-22 08:06] LABS: Calcium 8.3 MG/DL (8.5-10.1); Osmolality,Calculated 290.6 MOS/KG (273-304); Potassium 3.4 MMOL/L (3.5-5.1)
[2016-04-22 08:10] LABS: Magnesium 2.3 MG/DL (1.8-2.4); Phosphorous 3.8 MG/DL (2.5-4.9); Prealbumin 21.4 MG/DL (20-40)
[2016-04-22] MEDS: ASPIRIN EC 325 MG TABLET PO SCH (08:43)
[2016-04-22] MEDS: CARVEDILOL 3.125 MG TABLET PO SCH ×2 (08:43→21:24)
[2016-04-22] MEDS: CHOLECALCIFEROL 1,000 UNIT TABLET PO SCH (08:43)
[2016-04-22] MEDS: NYSTATIN 500,000 UNIT/5 ML UDCUP SWISH/SWAL SCH ×4 (08:43→21:24)
[2016-04-22] MEDS: POTASSIUM CHLORIDE 20 MEQ/15 ML UDCUP PER TUBE PRN (08:43)
[2016-04-22] MEDS: LACOSAMIDE INJ 100 MG in SODIUM CHLORIDE 0.9% 50 ML IV SCH ×2 (08:44→21:25)
--- NOTE | 2016-04-22 09:40 | Hospitalist Progress Note ---
Assessment and Plan (1) Seizure Status: Acute Assessment and plan: newonset. No more seizures reported -CT head was negative,appreciates Neurology's input, continue on keppra and Vimpat, Current Visit: Yes (2) Septic shock Status: Resolved Assessment and plan: pressors have been weaned off, scrotal culture grew strep agalactiae,new bronchial washings grew E.Coli continue with IV antibiotics Current Visit: Yes (3) Acute respiratory failure Status: Acute Assessment and plan: s/p tracheostomy. CT chest was negative for a PE, it showed scattered opacities within both lungs , most prominent within the lower lobes.This is most consistent with pulm edema and atelectasis. Pneumonia not excluded. For possible transfer to long-term acute care Current Visit: Yes (4) Cholelithiasis Problem details: w possible acute cholecystisi/CBD 10 mm dilated/& elevated lipase Status: Acute Assessment and plan: with possible acute cholecystitis/CBD 10 mm dilated/& elevated lipase. -continue with percutaneous cholecystostomy tube. -follow surgery's recommendations Current Visit: Yes (5) Scrotal abscess Status: Acute Assessment and plan: s/p drainage, aspirate grew strep agalactiae-sensitive to clindamycin. continue with IV antibiotics, [id number] . Current Visit: Yes (6) Hypokalemia Status: Resolved Assessment and plan: continue to replete Current Visit: Yes (7) Acute renal failure Problem details: severe Status: Resolved Assessment and plan: improved, no longer on hemodialysis, Nephrology is following Current Visit: Yes (8) Diabetes Status: Chronic Assessment and plan: A1c-7.1, continue with SSC Current Visit: No (9) Oral thrush Status: Acute Assessment and plan: continue swish and swallow Nystatin,HIV testing-non reactive Current Visit: Yes (10) Metabolic acidosis Status: Acute Assessment and plan: improved, bicarb replacement dcd, Nephrology is following Current Visit: Yes (11) Elevated troponin Status: Acute Assessment and plan: This could possibly be secondary to sepsis, hypotension and/or acutr renal failure. Echo 04/08 revealed an EF of 65%. Cardiology is addressing, they are considering further testing when patient recovers from acute illness. Current Visit: Yes (12) Acute encephalopathy Status: Acute Assessment and plan: patient obeys commands Current Visit: Yes (13) Remote history of stroke Status: Chronic Assessment and plan: stable, CT head showed no acute changes Current Visit: No (14) Hypocalcemia Status: Acute Assessment and plan: improved Current Visit: Yes (15) Hypernatremia Status: Acute Assessment and plan: improving with free water Current Visit: Yes (16) Swelling Status: Acute Assessment and plan: Doppler USS of UE showed a non occluding thrombus within the distal left basilic vein at a bifurcation. Being a superficial vein- will treat with NSAIDs and warm compressors -Continue to Elevate both UE Current Visit: Yes (17) HTN (hypertension) Status: Acute Assessment and plan: on Coreg Current Visit: Yes Hospitalist: Subjective Interval history: Patient seen.He is tolerating CPAP and tube feeding. He obeys commands. Exam - Constitutional Vitals: Period Temp Pulse Resp BP Sys/Mishra Pulse Ox Last 24 Hr 97.9 F-99.6 F 56-86 20-77 97-154/56-89 94-100 General appearance: no acute distress, other (trach in place) - Respiratory Respiratory exam: Present: rhonchi - Cardiovascular Cardiovascular exam: Present: regular rate and rhythm - GI/Abdominal GI/Abdominal exam: Present: normal bowel sounds - Extremities Exam Extremities exam: Present: normal inspection Results - Labs CBC & BMP: 04/22/16 07:17 04/22/16 07:17 Lab Results: I have reviewed the past 24 hour labs
[2016-04-22] MEDS ORDERED: POTASSIUM CHLORIDE 20 MEQ TABLET PO ONE (10:00)
--- NOTE | 2016-04-22 10:49 | Pulmonology Progress Note ---
Pulmonary - PN: Subj Interval history: Is a 50-year-old male. This patient was seen by me in pulmonary consultation 04/08/2016. His main problems appear to be 1. Nausea vomiting diarrhea etiology undetermined. Possibly related to gallbladder disease. Consider other causes. Resultant dehydration 2. Hypotension. Partially secondary to #1. Consider sepsis. 2.1 scrotal abscess 3. Acute cholecystitis. 4. Acute renal failure. Probably secondary to #1 and #2. 4.1. Acute metabolic acidosis probably secondary to acute renal failure and possibly secondary to sepsis 5. Diabetes mellitus 6. Heart surgery as an infant 7. History of back surgery 8. High blood pressure 9. Possible history of CVA 10. Acute pancreatitis. 11. Bilateral pleural effusions 12. Acute pulmonary failure. At least partially secondary to acute renal failure and hypotension requiring pressor agents, with severe metabolic acidosis. Consider other causes there may be other factors such as underlying lung disease and/or pulmonary emboli and/or aspiration 13. See past history 04/09/2016.. Today the patient was evaluated with fiberoptic bronchoscopy. He had definite evidence of significant aspiration. He had erythematous slightly friable markedly stenotic airways bilaterally secondary to what appears to be an aspiration injury. Multiple specimens were sent. No biopsies were taken. Specimens from his scrotal abscess are growing a gram-positive cocci. Earlier today Dr. Arevalo to look to start the patient on vancomycin. Patient's also on Zosyn. I do not see any need to add extra antibiotics at this point. ABGs have improved significantly on mechanical ventilation and FiO2 of 100%. PH is 7.30. PCO2 is 22.3. PO2 is 391. Bicarb is 13.9. Sodium is 143. Potassium is low at 3.2 creatinine has dropped to 9.4 and the patient for repeat dialysis today. Natruretic peptide is elevated at 260. 04/10/2016. Patient's chest x-ray shows left lower lung atelectasis. He will need a repeat fiberoptic bronchoscopy tomorrow bronchoscopy specimens have been negative so far. Abscess of the scrotum is growing a gram-positive cocci which is yet unidentified. 04/09/2016 the patient had a percutaneous drainage of the gallbladder. There are no positive cultures at this point. This patient has not done well with his weaning trials. We will continue to try to make adjustments.H&H is dropped to 10.5/27.6. White count 7100 with 84 segs and 6 lymphs. Platelets have dropped to 122,000. ABGs are improved. On mechanical ventilation and FiO2 of 65% pH is 7.5-8. PCO2 is 22.7. PO2 is 156. Bicarb is 18.5. Potassium is low at 2.2. Renal will make adjustments for this. Calcium is also low at 6.5. Natruretic peptide is dropped from 260 217. Protein and albumin are low at 5.0 and 2.2 respectively. Labs been reviewed. 04/11/2016. Today's chest x-ray shows a right perihilar infiltrate and a small residual left lower lung infiltrate. Bronchoscopy specimens from 04/10/2016 have shown nothing so far. Culture from the patient's scrotal has grown Streptococcus agalactiae. No sensitivities have been reported. Patient had dialysis yesterday. ABGs on mechanical ventilation and FiO2 of 60% shows a pH 7.59. PCO2 is 21.5. PO2 is 130. Bicarb is 20. This patient has been intentionally hyperventilated because of his metabolic acidosis which is now resolved. I have made adjustments on his ventilator and hopefully lighten his CO2 increase will let him do better on his CPAP trials. Potassium is low at 2.3. This is being managed by renal. CBC is stable and white count is come down to 6700 73 segs and 12 lymphs. Fiberoptic bronchoscopy was done 2016. See report. Patient is a significant problem with severe erosive friable partially stenotic bilateral bronchitis. This is complicated by underlying collapsibility of large and small airways and complicated by retention of secretions and residual gastric aspirate. 04/12/2016. This 50-year-old had a scrotal abscess. He had acute cholecystitis which is been drained percutaneously. He has had acute renal failure and has required dialysis. He had acute severe metabolic acidosis that is improved significantly. He has diabetes mellitus. He has acute respiratory failure that required intubation mechanical ventilation. On he had fiberoptic bronchoscopy and he had definite evidence of significant aspiration. He had erythematous markedly flushed friable and stenotic airways bilaterally.ABGs have improved significantly. On FiO2 of 60% his pH is 7.42. PCO2 is 41. PO2 is 313. Bicarb was 26. Sodium is increased to 153 and potassium is low at 2.9 this is being managed by renal. This looked Like he had acute and chronic injuries. He had a repeat fiberoptic bronchoscopy on 04/11/2016 and a good deal of secretions were removed. Endobronchially he did not appear to be any better. There are no positive bronchoscopy cultures appear he is on weaning protocol some days he does a few hours of CPAP and some days he does not tolerate this well. He is getting dialysis every other day. 04/15/2016. Chest x-ray has deteriorated somewhat today there are faint bilateral scattered areas of alveolar infiltrates. ABGs on mechanical ventilation FiO2 of 45% shows a pH of 7.395. PCO2 is 47. PO2 63. Bicarb is 27. Sodium is elevated 115. Potassium 3.5. Creatinine is 1.0 with a BUN of 13. White count is 6100 with 63 segs 17.5 monocytes. H&H is 9.6/29.7. Notes from this weekend say that the patient had no spontaneous respirations. He is on mechanical ventilation and I changed him to a T-tube and he had no problem initiating of breath whatsoever. He does gradually become rapid with his breathing. I was using no CPAP at the time. We will going to advance him to short trials of T-tube today and otherwise will advance his CPAP as tolerated. I believe this patient can do better. 04/16/2016. This patient is not doing well with his weaning trials. He is at a standstill. He is been on mechanical ventilation approximately 10 days. I talked to the patient's , his male cousin and his and patient's mother , the patient's nurse Malathi, Canelo Leal nurse practitioner and Suha Gonzalez practitioner were present. I discussed the pros and cons for trach. She understood these and was agreeable to having this done electively. Today's x- ray still shows some bilateral infiltrates ABGs on mechanical ventilation FiO2 of 45% shows a pH of 7.42, PCO2 45, PO2 of 115, bicarb 28.6 electrolytes normal. Creatinine is 1.0. CBC is stable. Microbiology no recent positive cultures. Other than his pulmonary problems the patient is being treated for scrotal abscess and a decubitus ulcer and acute cholecystitis. He also has acute renal failure which is markedly improved with dialysis 04/17/2016. Chest x-ray still has bilateral infiltrates but these are definitely improved. ABGs are stable. Labs been reviewed. Medicines been reviewed. Patient's for trach most likely a day. Appreciate ENT consultation. 04/18/2016. Patient had a trach placed. He appears to be tolerating this well. He still has a percutaneous drain into his gallbladder. He is also being treated for scrotal abscess. Today his chest x-ray shows a bilateral pulmonary infiltrates are continuing to improve on a daily basis. ABGs are stable on mechanical ventilation with an FiO2 of 45%. PH is 7.47, PCO2 is 33. PO2 is 75. Bicarb is 25. Labs been reviewed. Electrolytes kidneys and CBC are stable. This patient has a problem with retained secretions and he will be evaluated with fiberoptic bronchoscopy tomorrow. Case management has approached me about moving this patient to long-term acute care. I think he will be ready to go next week. We do need some decision about what we plan to do with his gallbladder that could prolong his present hospitalization. Also need information about how the scrotal abscess is doing and whether or not this has resolved. 04/19/2016. On 04/18/2016 this patient had a trach placed. He has done well with this. Today he had a fiberoptic bronchoscopy. See report. He had retained secretions. He has underlying erosive friable bronchitis with stenosis has improved markedly. ABGs on mechanical ventilation FiO2 45% shows a pH 7.44. PCO2 is 34. PO2 74. Bicarb is 24. CBC is stable. Patient's previously been on dialysis. His creatinine is 0.90. Patient has a percutaneous gallbladder drain tube in place. Dr. Mickey Bear says his tube will be removed once the patient is out of ICU and just before he goes home. Most likely this patient's going to require long-term acute care. This possible will be transferring him to [facility] of next week. Need to know if we plan to keep the tube and while he is there 04/22/2016. Patient's chest x-ray shows slow resolution of bilateral pulmonary infiltrates. Also known as pneumonia. Bronchial washings from 04/19/2016 grew E. coli. Antibiotics have been adjusted. Patient's previously had a scrotal abscess secondary to strep clinic TA. He has a percutaneous drain from his gallbladder. None of the cultures from this were positive. ABGs on FiO2 45% show pH 7.6. PCO2 is 33. PO2 78. Bicarb is 24.6. Patient's on stage V the weaning protocol. Potassium is low at 3.4 and this will be corrected by protocol. H&H is slowly dropped to 9.1/28.2. White count is 7267 segs 15 lymphs and 13 monos. Medicines have been reviewed. Vital signs. See below. Neck. Symmetrical. No meningismus Lymphatics. No submandibular cervical or supraclavicular adenopathy. Chest. Mild coarse large airway congestion. Heart. No gallop Abdomen. Slightly rigid. Only rare bowel sounds. Extremities. No evidence of deep venous thrombophlebitis. Note Doppler venograms are negative for deep venous thrombophlebitis Neurologic and psychiatric are impossible to assess. The remainder the examination is negative. Plan. 1. 04/11/2016. The patient is off pressor agents 2. 04/11/2016. Ventilator adjustments made. 3. Weaning protocol 4. Physical therapy while on ventilator protocol 6. Daily chest x-ray 7. Daily ABGs. 9. 04/12/2016. Continue weaning protocol. Patient does not improve soon will need to consider a trach. 10. Deep venous thrombophlebitis prevention protocol #11. 04/19/2016. Fiberoptic bronchoscopy done earlier today. Check microbiology specimens. Trach placed 04/18/2016. Continue weaning protocol. Percutaneous gallbladder drainage. See my note above for this date 12. 04/22/2016. E. coli from bronchoscopy specimens. Scrotal abscess. Percutaneous drain into the gallbladder. Stage V weaning protocol. Trach. This patient is being considered for [facility] long-term acute care. I need to know surgeries plans for his percutaneous gallbladder drain. Patient's on a minimal amount of dipper Van. He gets IV hyperalimentation. Will ask for swallowing study Exam (Progress Note) - Constitutional Vitals: Period Temp Pulse Resp BP Sys/Mishra Pulse Ox Last 24 Hr 97.9 F-99.6 F 56-86 20-77 97-154/56-89 94-100 Results - Labs CBC & BMP: 04/22/16 07:17 02 07:17
[2016-04-22] MEDS: FLUCONAZOLE INJ 100 MG in IV BAG 1 EACH IV SCH (11:19)
[2016-04-22] MEDS: ENOXAPARIN 40 MG/0.4 ML SYRINGE SUBCUT SCH (16:06)
--- NOTE | 2016-04-22 17:14 | Neurology Progress Note ---
Neurology - PN : Subjective Interval history: Patient seems to be doing much better. He is alert and awake. Following simple commands. Moving all 4 extremities. Exam (Progress Note) - Constitutional Vitals: Period Temp Pulse Resp BP Sys/Mishra Pulse Ox Last 24 Hr 98 F-98.9 F 64-99 20-33 97-163/56-98 93-99 Exam: GENERAL: Patient is in no acute distress. NECK: Neck is supple. There is no JVD. No carotid bruits present. No thyroid masses. CVS: First and second heart sounds are normal. There is no S3 present. Regular rate and rhythm. RESPIRATORY: Bilateral rales and rhonchi. ABDOMEN: Soft and non-tender. Bowel sounds are present. There is no hepatosplenomegaly. EXT: There is no palpable edema. Peripheral pulses are present. Skin: No rashes Central Nervous system: General: On vent, alert and awake Speech: On vent Comprehension: Fair Facial expressions: Normal Cranial Nerves: Pupils are equally reactive to light. Extraocular movements are intact. No facial asymmetry seen. Motor: Bulk and Tone is normal. Strength symmetrical and moving all 4 extremities Sensory: Cannot be assessed Reflexes: 1+ and symmetrical Cerebellar function: Cannot be assessed Gait: Not tested this time Results - Labs CBC & BMP: 04/22/16 07:17 04/22/16 07:17 Assessment and Plan (1) Seizure Status: Acute Assessment and plan: Continue Keppra and Vimpat at the same dose. Continue vent support. No new neurological intervention/recommendations at this time. Probably will need LTAC Continue watchful observation Current Visit: Yes
[2016-04-22] MEDS: PANTOPRAZOLE 40 MG VIAL IV SCH (18:12)
[2016-04-22] MEDS ORDERED: LORazepam 2 MG/1 ML VIAL IV PRN (19:34)
[2016-04-23] MEDS: ALBUTEROL/IPRATROPIUM 3 ML NEB RESP TX SCH ×4 (00:26→19:33)
[2016-04-23] MEDS: PROPOFOL 1,000 MG/100 ML BOTTLE IV SCH ×3 (02:12→21:59)
[2016-04-23 04:15] LABS: Basophils % 0.3 % (0.0-0.8); Eosinophils # 0.2 10*3/uL (0.0-0.87); Eosinophils % 2.2 % (0.00-10.9); Hematocrit 30.7 VOL% (42.0-52.0); Hemoglobin 9.8 GM/DL (14.0-18.0); Immature Granulocytes % 0.2 %; Immature Granulocytes Absolute 0.02 #; Lymphocytes # 1.4 10*3/uL (1.4-4.0); Lymphocytes % 14.1 % (21.2-54.2); Mean Corpuscular HGB Conc 31.9 GM/DL (32-36); Mean Corpuscular Hemoglobin 30 PG (27-34); Mean Corpuscular Volume 94.5 FL (87-102); Mean Platelet Volume 9.6 FL (9.6-12.0); Monocytes # 1.3 10*3/uL (0.11-0.8); Monocytes % 13.3 % (1.7-12.7); Neutrophils # 6.9 10*3/uL (1.4-7.4); Neutrophils % 69.9 % (38.7-73.9); Platelet Count 389 T/CUMM (130-400); Red Blood Count 3.25 MC/CUMM (3.8-5.5); Red Cell Distribution Width 14.3 % (9.3-17.3); White Blood Count 9.9 T/CUMM (4-12)
[2016-04-23 04:46] LABS: ABG Base Excess -0.6 MMOL/L (-2.5-2.5); ABG HCO3 23.7 MMOL/L (20-26); ABG Oxygen Saturation 85.5 % (95-100); ABG PCO2 34.3 MM HG (35-48); ABG PH 7.436 (7.35-7.45); ABG PO2 51.2 MM HG (80-95); ABG TCO2 20.8 MMOL/L (23-27); Pt O2 Delivery Device Ventilator
[2016-04-23 05:15] LABS: Calcium 8.3 MG/DL (8.5-10.1); Osmolality,Calculated 289.7 MOS/KG (273-304); Potassium 3.1 MMOL/L (3.5-5.1)
[2016-04-23] MEDS: INSULIN REGULAR 100 UNIT/ML SUBCUT SCH ×3 (05:44→17:59)
[2016-04-23] MEDS: POTASSIUM CHLORIDE 20 MEQ/15 ML UDCUP PER TUBE PRN ×3 (06:13→21:48)
[2016-04-23] MEDS: SODIUM CHLORIDE 23.4% CONC INJ 38.5 MEQ in STERILE WATER INJ 1,000 ML IV SCH ×2 (07:37→21:05)
--- NOTE | 2016-04-23 07:49 | XRay Report ---
XR chest 1V portable Indication: Tracheostomy, ventilator Comparison: Chest x-ray dated January 20, 2017 Technique: Single frontal view of the chest Findings: Tracheostomy tube and right-sided vascular catheter appear grossly unchanged. Cardiomediastinal silhouette appears grossly unchanged. Continued bibasilar atelectasis/consolidation. Small pleural fluid not excluded. Osseous and surrounding soft tissue structures appear grossly unchanged. IMPRESSION: No significant interval change. PROCEDURE INTERPRETED AT [facility] DEPARTMENT OF RADIOLOGY Final Report Signed by: Dr Mark Altman
--- NOTE | 2016-04-23 10:08 | Gastrointestinal Progress Note ---
<Colleen Solo - Last Filed: 04/23/16 10:02> Assessment and Plan (1) Cholelithiasis Problem details: w possible acute cholecystisi/CBD 10 mm dilated/& elevated lipase Status: Acute Assessment and plan: 04/23-Perc drain patent, scant output. Tolerating tube feedings. ST evaluation noted with delayed swallowing, coughing. Plan and addendum to follow by DR Napier. 04/18-No changes at this time. Tolerating tube feedings. For trach today, not tolerating CPAP trials. Maribell drain with scant output. Plan and addendum to follow by Dr napier 04/15-No change at present. Tolerating tube feedings. Good UOP. Scant drainage from perc maribell drain. Plan and addendum to follow by Dr Napier. 04/12-Minimal output from maribell tube. NG output less. Tube feedings to be initiated today. Plan and addendum to follow by Dr Napier. 04/10-Post perc maribell tube placement. Large amount of NG output reported. Potassium 2.2. Plan and addendum to follow by Dr Napier. 04/09-Findings on CT scan of cholelithiasis and GB distention, dilated CBD. HIDA scan results with nonvisualized gallbladder. LFTs unremarkable. Plan to continue to monitor at this time. Plan and addendum to follow by Dr Napier. Current Visit: Yes Gastroenterology - PN: Subj Interval history: CC: Cholelithiasis Pt is seen, continuing on weaning protocol, awakens to verbal stimuli. He answers questions appropriately and is moving all extremities and on command. He continues with scant output from cholecystostomy tube. Abdomen is soft, nontender. Noted to have bilateral infiltrates on chest xray. Continues to tolerate tube feedings. He has had swallow evaluation as well with delayed swallowing and coughing noted. ROS: Denies SOB or chest pain Exam (Progress Note) - Constitutional Vitals: Period Temp Pulse Resp BP Sys/Mishra Pulse Ox Last 24 Hr 97.1 F-98.5 F 48-116 18-38 97-186/52-99 92-99 General appearance: normal weight, no acute distress - Head Head exam: Present: normal inspection, normocephalic - Eye Eye exam: Present: other (lids and conjunctiva unremarkable). Absent: scleral icterus - ENT ENT exam: Present: normal exam, normal oropharynx - Neck Neck exam: Present: normal inspection - Respiratory Respiratory exam: Present: clear to auscultation bilaterally. Absent: rales, rhonchi, wheezes - Cardiovascular Cardiovascular exam: Present: regular rate and rhythm. Absent: diastolic murmur , JVD, systolic murmur - GI/Abdominal GI/Abdominal exam: Present: normal bowel sounds, soft. Absent: ascites, distended, mass, organomegaly, tenderness - Extremities Exam Extremities exam: Present: normal inspection, full ROM - Back Exam Back exam: Present: normal inspection - Neurological Exam Neurological exam: Present: alert - Psychiatric Psychiatric exam: Present: other - Skin Skin exam: Present: normal color, warm, dry Results - Labs CBC & BMP: 04/23/16 04:02 04/23/16 04:02 Lab Results: I have reviewed the past 24 hour labs <Bhavesh Napier - Last Filed: 04/23/16 16:54> Exam (Progress Note) - Constitutional Vitals: Period Temp Pulse Resp BP Sys/Mishra Pulse Ox Last 24 Hr 97.1 F-98.5 F 48-116 18-39 97-186/52-99 92-100 Results - Labs CBC & BMP: 04/23/16 04:02 04/23/16 04:02
--- NOTE | 2016-04-23 10:15 | Hospitalist Progress Note ---
Assessment and Plan (1) Seizure Status: Acute Assessment and plan: newonset. No more seizures reported -CT head was negative,appreciates Neurology's input, continue on keppra and Vimpat, Current Visit: Yes (2) Septic shock Status: Resolved Assessment and plan: pressors have been weaned off, scrotal culture grew strep agalactiae,new bronchial washings grew E.Coli continue with IV antibiotics Current Visit: Yes (3) Acute respiratory failure Status: Acute Assessment and plan: s/p tracheostomy. CT chest was negative for a PE, it showed scattered opacities within both lungs , most prominent within the lower lobes.This is most consistent with pulm edema and atelectasis. Pneumonia not excluded. Continue Pulmonology's recommendations For possible transfer to long-term acute care Current Visit: Yes (4) Cholelithiasis Problem details: w possible acute cholecystisi/CBD 10 mm dilated/& elevated lipase Status: Acute Assessment and plan: with possible acute cholecystitis/CBD 10 mm dilated/& elevated lipase. -continue with percutaneous cholecystostomy tube. -follow surgery's recommendations Current Visit: Yes (5) Scrotal abscess Status: Acute Assessment and plan: s/p drainage, aspirate grew strep agalactiae-sensitive to clindamycin. continue with IV antibiotics, [id number] . Current Visit: Yes (6) Hypokalemia Status: Resolved Assessment and plan: continue to replete Current Visit: Yes (7) Acute renal failure Problem details: severe Status: Resolved Assessment and plan: improved, no longer on hemodialysis, Nephrology is following Current Visit: Yes (8) Diabetes Status: Chronic Assessment and plan: A1c-7.1, continue with SSC Current Visit: No (9) Oral thrush Status: Acute Assessment and plan: continue swish and swallow Nystatin,HIV testing-non reactive Current Visit: Yes (10) Metabolic acidosis Status: Acute Assessment and plan: improved, bicarb replacement dcd, Nephrology is following Current Visit: Yes (11) Elevated troponin Status: Acute Assessment and plan: This could possibly be secondary to sepsis, hypotension and/or acutr renal failure. Echo 04/08 revealed an EF of 65%. Cardiology is addressing, they are considering further testing when patient recovers from acute illness. Current Visit: Yes (12) Acute encephalopathy Status: Acute Assessment and plan: patient obeys commands Current Visit: Yes (13) Remote history of stroke Status: Chronic Assessment and plan: stable, CT head showed no acute changes Current Visit: No (14) Hypocalcemia Status: Acute Assessment and plan: improving Current Visit: Yes (15) Hypernatremia Status: Acute Assessment and plan: improving with free water Current Visit: Yes (16) Swelling Status: Acute Assessment and plan: Doppler USS of UE showed a non occluding thrombus within the distal left basilic vein at a bifurcation- improving -Continue to Elevate both UE and warm compressors Current Visit: Yes (17) HTN (hypertension) Status: Acute Assessment and plan: on Coreg Current Visit: Yes Hospitalist: Subjective Interval history: patient seen, his eyes are open and he obeys commands. states patient has a history of chronic back pain and he uses norco at home. He had plenty of frothy sputum sunctioned during his CPAP which made him agitated and leading to tachycardia and was then started on sedation. his potassium is still low. Exam - Constitutional Vitals: Period Temp Pulse Resp BP Sys/Mishra Pulse Ox Last 24 Hr 97.1 F-98.5 F 48-116 18-38 97-186/52-99 92-99 General appearance: no acute distress, other (trach in place) - Head Head exam: Present: normal inspection - Respiratory Respiratory exam: Present: decreased breath sounds - Cardiovascular Cardiovascular exam: Present: regular rate and rhythm - GI/Abdominal GI/Abdominal exam: Present: normal bowel sounds - Extremities Exam Extremities exam: Present: normal inspection Results - Labs CBC & BMP: 04/23/16 04:02 04/23/16 04:02 Lab Results: I have reviewed the past 24 hour labs
[2016-04-23] MEDS ORDERED: CALCIUM GLUCONATE 1,000 MG in SODIUM CHLORIDE 0.9% 100 ML IV ONE (10:21)
[2016-04-23] MEDS ORDERED: POTASSIUM CHLORIDE 20 MEQ/15 ML UDCUP PO ONE (10:22)
[2016-04-23] MEDS: LACOSAMIDE INJ 100 MG in SODIUM CHLORIDE 0.9% 50 ML IV SCH ×2 (11:04→22:05)
[2016-04-23] MEDS: NYSTATIN 500,000 UNIT/5 ML UDCUP SWISH/SWAL SCH ×4 (11:04→21:49)
[2016-04-23] MEDS: CHOLECALCIFEROL 1,000 UNIT TABLET PO SCH (11:04)
[2016-04-23] MEDS: CARVEDILOL 3.125 MG TABLET PO SCH ×2 (11:04→21:49)
[2016-04-23] MEDS: ASPIRIN EC 325 MG TABLET PO SCH (11:04)
--- NOTE | 2016-04-23 12:02 | Cardiology Progress Note ---
Dixon Yuen Rachel, RN, am scribing for, and in the presence of, Lance Isaac MD 09:25. Assessment and Plan (1) Elevated troponin Status: Acute Assessment and plan: This could possibly be secondary to sepsis, hypotension and/or acutr renal failure. Echo 04/08 revealed an EF of 65%. Will readdress when patient recovers from acute illness, will consider further testing and work up at that time. Current Visit: Yes (2) Status post patent foramen ovale closure Status: Chronic Current Visit: No (3) Acute renal failure Problem details: severe Status: Resolved Assessment and plan: This has now resolved, last recorded creatinine 1.0. Current Visit: Yes (4) Acute respiratory failure Status: Acute Assessment and plan: Management per pulmonary. Continue current plan of care. Current Visit: Yes (5) Hypokalemia Status: Resolved Assessment and plan: This has now resolved, last recorded K, 3.5. Current Visit: Yes (6) Scrotal abscess Status: Acute Assessment and plan: Status post I&D per surgery. Continue current plan of care. Current Visit: Yes (7) Seizure Status: Acute Assessment and plan: Management per neurology. Continue current plan of care. Current Visit: Yes (8) Septic shock Status: Resolved Assessment and plan: BP stable, not requiring vasopressors. Continue current plan of care. Current Visit: Yes (9) Diabetes mellitus Status: Chronic Assessment and plan: This is well controlled, Continue current plan of care. Current Visit: Yes Qualifiers: Diabetes mellitus type: type 2 Diabetes mellitus complication status: with kidney complications (10) Essential hypertension Status: Chronic Assessment and plan: This is clinically stable, continue current plan of care. Current Visit: Yes (11) RBBB Status: Chronic Assessment and plan: will continue to monitor serial EKG's. Current Visit: Yes (12) Remote history of stroke Status: Chronic Assessment and plan: Management per neurology, continue current plan of care. Current Visit: No (13) Hypokalemia Status: Acute Current Visit: No Cardiology - PN: Subj Interval history: Mr. Pace is a 50 year old patient who has been seen by Dr. Isaac in the past. He is sedated and ventilated in the CCU being treated for sepsis, respiratory failure, acute renal failure and mildly elevated troponins. He is status post tracheostomy, I&D to scrotal abscess 04/08/16 and percutaneous cholecystostomy 03/30/16. Echo 04/08/16 showed ejection fraction 65% with LVH, aortic sclerosis and mild TR. He is doing fair this morning, nurse reports that he wakes up and follows commands well when sedation is held. He did 12 hours of CPAP yesterday and tolerated well. He had an uneventful night, from a cardiac standpoint he is stable. He is sinus rhythm per manager monitoring with heart rate in the 60's. Vital signs stable. Review of labs demonstrate H&H 28.2 & 9.1, WBC stable at 7.2, Platelet count 409. Active Medications Albuterol Sulfate (Proventil Neb) 2.5 mg RESP TX RT Q1H PRN PRN Reason: Shortness of Breath/Wheezing Albuterol/Ipratropium (Duoneb) 3 ml RESP TX RT Q6H [facility] Last Admin: 04/22/16 00:56 Dose: 3 ml Aspirin () 325 mg PO DAILY [facility] Last Admin: 04/21/16 08:11 Dose: 325 mg Carvedilol (Coreg) 3.125 mg PO BID [facility] Last Admin: 04/21/16 20:56 Dose: 3.125 mg Cholecalciferol (Vitamin D3) 2,000 unit PO DAILY [facility] Last Admin: 04/21/16 08:10 Dose: 2,000 unit Dextrose/Water (D50) 25 gm IV PRN PRN PRN Reason: Hypoglycemia with IV access Enoxaparin Sodium (Lovenox) 40 mg SUBCUT Q24H [facility] Last Admin: 04/21/16 14:43 Dose: 40 mg Glucagon () 1 mg IM PRN PRN PRN Reason: Hypoglycemia w/o IV access Heparin Sodium (Porcine) () 2,000 unit IV .FOR DIALYSIS [facility] Midazolam HCl 100 mg/ Sodium (Chloride) 100 mls @ 1 mls/hr IV .Q24H JAMEL PRN Reason: 1 MG/HR Last Admin: 04/09/16 17:51 Dose: Not Given Norepinephrine Bitartrate 8 mg (/ Sodium Chloride) 250 mls @ 3.75 mls/hr IV TITRATE JAMEL; 2 MCG/MIN PRN Reason: Protocol Last Admin: 04/10/16 19:16 Dose: Not Given Levetiracetam 500 mg/ Sodium (Chloride) 105 mls @ 400 mls/hr IV Q8H [facility] Last Infusion: 04/22/16 06:20 Dose: Infused Sodium Chloride 38.5 meq/ (Sterile Water) 1,009.625 mls @ 75 mls/hr IV .[id number] [facility] Last Admin: 04/22/16 04:29 Dose: 75 mls/hr Clindamycin Phosphate 300 mg/ (Premix) 50 mls @ 100 mls/hr IV Q6H [facility] Last Infusion: 04/22/16 03:25 Dose: Infused Lacosamide 100 mg/ Sodium (Chloride) 60 mls @ 100 mls/hr IV BID [facility] Last Infusion: 04/22/16 03:25 Dose: Infused Propofol (Diprivan) 1,000 mg in 100 mls @ 2.452 mls/hr IV TITRATE [facility]; 5 MCG/KG /MIN PRN Reason: Protocol Last Admin: 04/22/16 03:24 Dose: 50 mcg/kg/min, 24.521 mls/hr Piperacillin Sod/Tazobactam (Sod 3,375 mg/ Sodium Chloride) 100 mls @ 25 mls/ hr IV Q12H [facility] Last Admin: 04/22/16 05:43 Dose: 25 mls/hr Insulin Human Regular (Humulin R) 0 unit SUBCUT Q6HR [facility] PRN Reason: Protocol Last Admin: 04/22/16 05:43 Dose: Not Given Morphine Sulfate () 2 mg IV Q4H PRN PRN Reason: Pain Severe (8-10) Last Admin: 04/15/16 06:42 Dose: 2 mg Nystatin (Mycostatin Liquid) 500,000 unit SWISH/SWAL QID [facility] Last Admin: 04/21/16 20:56 Dose: 500,000 unit Ondansetron HCl (Zofran Inj) 4 mg IV Q4H PRN PRN Reason: Nausea Pantoprazole Sodium (Protonix Inj) 40 mg IV Q24H [facility] Last Admin: 04/21/16 17:47 Dose: 40 mg Potassium Chloride () 20 meq PER TUBE .PER PROTOCOL PRN; Protocol PRN Reason: Per Protocol Last Admin: 04/18/16 21:36 Dose: 20 meq Exam (Progress Note) - Constitutional Vitals: Period Temp Pulse Resp BP Sys/Mishra Pulse Ox Last 24 Hr 97.9 F-99.6 F 55-86 15-77 97-155/56-89 94-100 General appearance: no acute distress - Head Head exam: Present: normal inspection, normocephalic, atraumatic - Neck Neck exam: Present: normal inspection. Absent: lymphadenopathy, meningismus, tenderness, thyromegaly - Respiratory Respiratory exam: Present: rales, rhonchi. Absent: accessory muscle use, chest wall tenderness, stridor, wheezes - Cardiovascular Cardiovascular exam: Present: regular rate and rhythm. Absent: carotid bruit, diastolic murmur, gallop, irregular rhythm, JVD, rubs, systolic murmur - GI/Abdominal GI/Abdominal exam: Present: hypoactive bowel sounds, soft, other (NGT noted. Percutaneous drain noted to RUQ.). Absent: distended, firm, mass - Extremities Exam Extremities exam: Present: normal capillary refill, edema (trace edema to BLE ) - Neurological Exam Neurological exam: Present: other (Patient is sedated on vent. ) - Skin Skin exam: Present: normal color, warm, dry Result/EKG - Labs CBC & BMP: 04/23/16 04:02 04/23/16 04:02 Lab Results: I have reviewed the past 24 hour labs Labs: Laboratory Results - last 24 hr 04/21/16 04/21/16 04/21/16 12:04 17:30 23:48 ABG pH ABG pCO2 ABG pO2 ABG HCO3 ABG Total CO2 ABG O2 Saturation ABG Base Excess FiO2 POC Glucose 125 H 175 H 173 H 04/22/16 04/22/16 05:08 05:36 ABG pH 7.459 H ABG pCO2 32.8 L ABG pO2 77.7 L ABG HCO3 24.6 ABG Total CO2 20.3 L ABG O2 Saturation 96.1 ABG Base Excess 0.2 FiO2 45.00 POC Glucose 140 H - EKG EKG results: interpreted by me, sinus rhythm I, Lance Isaac MD, personally performed the services described in this documentation, ascribed by Shobha Metcalf RN in my presence, and it is both accurate and complete 925 .
--- NOTE | 2016-04-23 12:05 | Cardiology Progress Note ---
Assessment and Plan (1) Elevated troponin Status: Acute Assessment and plan: This could possibly be secondary to sepsis, hypotension and/or acutr renal failure. Echo 04/08 revealed an EF of 65%. Will readdress when patient recovers from acute illness, will consider further testing and work up at that time. Current Visit: Yes (2) Status post patent foramen ovale closure Status: Chronic Current Visit: No (3) Acute renal failure Problem details: severe Status: Resolved Assessment and plan: This has now resolved, last recorded creatinine 1.0. Current Visit: Yes (4) Acute respiratory failure Status: Acute Assessment and plan: Management per pulmonary. Continue current plan of care. Current Visit: Yes (5) Hypokalemia Status: Resolved Assessment and plan: Will adjust his potassium replacement. Current Visit: Yes (6) Scrotal abscess Status: Acute Assessment and plan: Status post I&D per surgery. Continue current plan of care. Current Visit: Yes (7) Seizure Status: Acute Assessment and plan: Management per neurology. Continue current plan of care. Current Visit: Yes (8) Septic shock Status: Resolved Assessment and plan: BP stable, not requiring vasopressors. Continue current plan of care. Current Visit: Yes (9) Diabetes mellitus Status: Chronic Assessment and plan: This is well controlled, Continue current plan of care. Current Visit: Yes Qualifiers: Diabetes mellitus type: type 2 Diabetes mellitus complication status: with kidney complications (10) Essential hypertension Status: Chronic Assessment and plan: This is clinically stable, continue current plan of care. Current Visit: Yes (11) RBBB Status: Chronic Assessment and plan: will continue to monitor serial EKG's. Current Visit: Yes (12) Remote history of stroke Status: Chronic Assessment and plan: Management per neurology, continue current plan of care. Current Visit: No (13) Hypokalemia Status: Acute Current Visit: No Cardiology - PN: Subj Interval history: The patient remains intubated and sedated in the CCU. Clinically, patient remains stable. He is in sinus rhythm. There have been no new cardiac issues overnight. He is on a ventilator weaning protocol. He is being evaluated for long-term acute care management at [facility]. Exam (Progress Note) - Constitutional Vitals: Period Temp Pulse Resp BP Sys/Mishra Pulse Ox Last 24 Hr 97.1 F-98.5 F 48-116 18-39 97-186/52-99 92-100 Exam: General: Appears well developed, well nourished, intubated and sedated in the intensive care unit HEENT: Normocephalic, atraumatic Neck: Trach in place, no JVD Cardiac: Reg Rate and Rhythm, 2/6 systolic Murmur, no gallop, no rub Lungs: Coarse breath sounds per the ventilator with slight expiratory wheeze Neuro: Patient is intubated and sedated Abdomen: Soft, Active Bowel Sounds, No Masses, No Pulsations/Bruits Skin: Normal color, no rash Extremities: No Clubbing, No Cyanosis, mild Edema, Normal Upper Extr. Pulses Musculoskeletal: No acute abnormality noted Result/EKG - Labs CBC & BMP: 04/23/16 04:02 04/23/16 04:02 Lab Results: I have reviewed the past 24 hour labs Labs: Laboratory Results - last 24 hr 04/22/16 04/22/16 04/22/16 10:56 17:46 23:29 WBC RBC Hgb Hct MCV MCH MCHC RDW Plt Count MPV Neut % (Auto) Lymph % (Auto) Jay % (Auto) Eos % (Auto) Baso % (Auto) Neut # (Auto) Lymph # (Auto) Jay # (Auto) Eos # (Auto) Baso # (Auto) Immature Gran % Nucleated RBC % Immature Gran # Nucleated RBCs # ABG pH ABG pCO2 ABG pO2 ABG HCO3 ABG Total CO2 ABG O2 Saturation ABG Base Excess FiO2 Sodium Potassium Chloride Carbon Dioxide Anion Gap BUN Creatinine GFR Calculation BUN/Creatinine Ratio Glucose POC Glucose 148 H 159 H Calculated Osmolality Calcium Ammonia 28 04/23/16 04/23/16 04/23/16 04:02 04:02 04:03 WBC 9.9 D RBC 3.25 L Hgb 9.8 L Hct 30.7 L MCV 94.5 MCH 30 MCHC 31.9 L RDW 14.3 Plt Count 389 MPV 9.6 Neut % (Auto) 69.9 Lymph % (Auto) 14.1 L Jay % (Auto) 13.3 H Eos % (Auto) 2.2 Baso % (Auto) 0.3 Neut # (Auto) 6.9 Lymph # (Auto) 1.4 Jay # (Auto) 1.3 H Eos # (Auto) 0.2 Baso # (Auto) 0.0 Immature Gran % 0.2 Nucleated RBC % 0.0 Immature Gran # 0.02 Nucleated RBCs # 0.00 ABG pH ABG pCO2 ABG pO2 ABG HCO3 ABG Total CO2 ABG O2 Saturation ABG Base Excess FiO2 Sodium 145 Potassium 3.1 L Chloride 110 H Carbon Dioxide 22 Anion Gap 16.1 H BUN 11 Creatinine 1.00 GFR Calculation 99 BUN/Creatinine Ratio 11.00 Glucose 149 H POC Glucose Calculated Osmolality 289.7 Calcium 8.3 L Ammonia < 10 L 04/23/16 04/23/16 04/23/16 04:40 05:43 11:01 WBC RBC Hgb Hct MCV MCH MCHC RDW Plt Count MPV Neut % (Auto) Lymph % (Auto) Jay % (Auto) Eos % (Auto) Baso % (Auto) Neut # (Auto) Lymph # (Auto) Jay # (Auto) Eos # (Auto) Baso # (Auto) Immature Gran % Nucleated RBC % Immature Gran # Nucleated RBCs # ABG pH 7.436 ABG pCO2 34.3 L ABG pO2 51.2 L ABG HCO3 23.7 ABG Total CO2 20.8 L ABG O2 Saturation 85.5 L ABG Base Excess -0.6 FiO2 45.00 Sodium Potassium Chloride Carbon Dioxide Anion Gap BUN Creatinine GFR Calculation BUN/Creatinine Ratio Glucose POC Glucose 130 H 123 H Calculated Osmolality Calcium Ammonia - EKG EKG results: interpreted by me
[2016-04-23] MEDS: FLUCONAZOLE INJ 100 MG in IV BAG 1 EACH IV SCH (14:05)
[2016-04-23] MEDS: ENOXAPARIN 40 MG/0.4 ML SYRINGE SUBCUT SCH (16:23)
[2016-04-23] MEDS: PANTOPRAZOLE 40 MG VIAL IV SCH (18:13)
[2016-04-24] MEDS: INSULIN REGULAR 100 UNIT/ML SUBCUT SCH ×4 (00:21→17:09)
[2016-04-24] MEDS: ALBUTEROL/IPRATROPIUM 3 ML NEB RESP TX SCH ×4 (01:15→19:30)
[2016-04-24 03:54] LABS: ABG Base Excess -0.7 MMOL/L (-2.5-2.5); ABG HCO3 23.8 MMOL/L (20-26); ABG PCO2 36.4 MM HG (35-48); ABG PH 7.417 (7.35-7.45); ABG TCO2 20.8 MMOL/L (23-27); Allen Test Positive; Pt O2 Delivery Device Ventilator
[2016-04-24 04:33] LABS: Basophils % 0.4 % (0.0-0.8); Eosinophils # 0.3 10*3/uL (0.0-0.87); Eosinophils % 4.1 % (0.00-10.9); Hematocrit 29.1 VOL% (42.0-52.0); Hemoglobin 9.2 GM/DL (14.0-18.0); Immature Granulocytes % 0.3 %; Immature Granulocytes Absolute 0.02 #; Lymphocytes % 14.6 % (21.2-54.2); Mean Corpuscular HGB Conc 31.6 GM/DL (32-36); Mean Corpuscular Hemoglobin 30 PG (27-34); Mean Corpuscular Volume 95.7 FL (87-102); Mean Platelet Volume 9.9 FL (9.6-12.0); Monocytes # 0.9 10*3/uL (0.11-0.8); Monocytes % 12.5 % (1.7-12.7); Neutrophils # 4.8 10*3/uL (1.4-7.4); Neutrophils % 68.1 % (38.7-73.9); Platelet Count 437 T/CUMM (130-400); Red Blood Count 3.04 MC/CUMM (3.8-5.5); Red Cell Distribution Width 13.9 % (9.3-17.3); White Blood Count 7.1 T/CUMM (4-12)
[2016-04-24 05:08] LABS: Albumin 2.3 G/DL (3.4-5.0); Calcium 8.4 MG/DL (8.5-10.1); Potassium 4.3 MMOL/L (3.5-5.1); Total Protein 6.3 G/DL (6.4-8.3)
[2016-04-24 05:23] LABS: PT Patient Result 11.1 SECS
--- NOTE | 2016-04-24 08:50 | XRay Report ---
XR chest 1V portable Indication: Tracheostomy, ventilator Comparison: Chest x-ray dated April 23, 2016 Technique: Single frontal view of the chest Findings: Cardiac mediastinal silhouette appears grossly unchanged. Tracheostomy tube and right-sided vascular catheter appear unchanged. Bibasilar opacification appears similar to comparison study considering change in technique. Osseous and surrounding soft tissue structures appear grossly unchanged. IMPRESSION: No significant interval change. PROCEDURE INTERPRETED AT [facility] DEPARTMENT OF RADIOLOGY Final Report Signed by: Dr Mark Altman
--- NOTE | 2016-04-24 09:06 | Hospitalist Progress Note ---
Assessment and Plan (1) Seizure Status: Acute Assessment and plan: newonset. No more seizures reported -CT head was negative,appreciates Neurology's input, continue on keppra and Vimpat, Current Visit: Yes (2) Septic shock Status: Resolved Assessment and plan: pressors have been weaned off, scrotal culture grew strep agalactiae,new bronchial washings grew E.Coli continue with IV antibiotics Current Visit: Yes (3) Acute respiratory failure Status: Acute Assessment and plan: s/p tracheostomy. CT chest was negative for a PE, it showed scattered opacities within both lungs , most prominent within the lower lobes.This is most consistent with pulm edema and atelectasis. Pneumonia not excluded. Continue Pulmonology's recommendations For possible transfer to long-term acute care soon peg tube placement today Current Visit: Yes (4) Cholelithiasis Problem details: w possible acute cholecystisi/CBD 10 mm dilated/& elevated lipase Status: Acute Assessment and plan: with possible acute cholecystitis/CBD 10 mm dilated/& elevated lipase. -continue with percutaneous cholecystostomy tube. -follow surgery's recommendations Current Visit: Yes (5) Scrotal abscess Status: Acute Assessment and plan: s/p drainage, aspirate grew strep agalactiae-sensitive to clindamycin. continue with IV antibiotics, [id number] . Current Visit: Yes (6) Hypokalemia Status: Resolved Assessment and plan: continue to replete Current Visit: Yes (7) Acute renal failure Problem details: severe Status: Resolved Assessment and plan: improved, no longer on hemodialysis, Nephrology is following Current Visit: Yes (8) Diabetes Status: Chronic Assessment and plan: A1c-7.1, continue with SSC Current Visit: No (9) Oral thrush Status: Acute Assessment and plan: continue swish and swallow Nystatin,HIV testing-non reactive Current Visit: Yes (10) Metabolic acidosis Status: Acute Assessment and plan: improved, bicarb replacement dcd, Nephrology is following Current Visit: Yes (11) Elevated troponin Status: Acute Assessment and plan: This could possibly be secondary to sepsis, hypotension and/or acutr renal failure. Echo 04/08 revealed an EF of 65%. Cardiology is addressing, they are considering further testing when patient recovers from acute illness. Current Visit: Yes (12) Acute encephalopathy Status: Acute Assessment and plan: patient obeys commands Current Visit: Yes (13) Remote history of stroke Status: Chronic Assessment and plan: stable, CT head showed no acute changes Current Visit: No (14) Hypocalcemia Status: Acute Assessment and plan: improving Current Visit: Yes (15) Hypernatremia Status: Acute Assessment and plan: improved with free water, reduce rate Current Visit: Yes (16) Swelling Status: Acute Assessment and plan: Doppler USS of UE showed a non occluding thrombus within the distal left basilic vein at a bifurcation- improving -Continue to Elevate both UE and warm compressors Current Visit: Yes (17) HTN (hypertension) Status: Acute Assessment and plan: on Coreg Current Visit: Yes Hospitalist: Subjective Interval history: Patient seen. He obeys commands. He is scheduled for a peg tube placement today and also being evaluated for long-term acute care management at [facility]. Exam - Constitutional Vitals: Period Temp Pulse Resp BP Sys/Mishra Pulse Ox Last 24 Hr 98.1 F-98.8 F 60-89 14-37 120-156/69-101 75-100 General appearance: no acute distress, other (trach in place) - Head Head exam: Present: normal inspection - Respiratory Respiratory exam: Present: clear to auscultation bilaterally - Cardiovascular Cardiovascular exam: Present: regular rate and rhythm - GI/Abdominal GI/Abdominal exam: Present: normal bowel sounds - Extremities Exam Extremities exam: Present: normal inspection Results - Labs CBC & BMP: 04/24/16 02:50 04/24/16 02:50 Lab Results: I have reviewed the past 24 hour labs
[2016-04-24] MEDS: SODIUM CHLORIDE 23.4% CONC INJ 38.5 MEQ in STERILE WATER INJ 1,000 ML IV SCH ×3 (10:10→10:12)
[2016-04-24] MEDS: ASPIRIN EC 325 MG TABLET PO SCH (10:12)
[2016-04-24] MEDS: CARVEDILOL 3.125 MG TABLET PO SCH ×2 (10:12→21:37)
[2016-04-24] MEDS: NYSTATIN 500,000 UNIT/5 ML UDCUP SWISH/SWAL SCH ×4 (10:12→21:30)
[2016-04-24] MEDS: CHOLECALCIFEROL 1,000 UNIT TABLET PO SCH (10:12)
--- NOTE | 2016-04-24 11:02 | Cardiology Progress Note ---
Dixon Yuen Rachel, RN, am scribing for, and in the presence of, Lance Isaac MD 11:02. Assessment and Plan (1) Elevated troponin Status: Acute Assessment and plan: This could possibly be secondary to sepsis, hypotension and/or acutr renal failure. Echo 04/08 revealed an EF of 65%. At this point his cardiac status is well compensated so for now I would continue conservative management. The patient has recovered from his other acute illness illnesses this could be investigated further if clinically indicated. Current Visit: Yes (2) Status post patent foramen ovale closure Status: Chronic Current Visit: No (3) Acute renal failure Problem details: severe Status: Resolved Assessment and plan: This has now resolved, last recorded creatinine 0.8. Current Visit: Yes (4) Acute respiratory failure Status: Acute Assessment and plan: Management per pulmonary. Continue current plan of care. Current Visit: Yes (5) Hypokalemia Status: Resolved Assessment and plan: This has now resolved, last recorded K, 4.3. Current Visit: Yes (6) Scrotal abscess Status: Acute Assessment and plan: Status post I&D per surgery. Continue current plan of care. Current Visit: Yes (7) Seizure Status: Acute Assessment and plan: Continue current plan of care. Current Visit: Yes (8) Septic shock Status: Resolved Assessment and plan: BP stable, not requiring vasopressors. Continue current plan of care. Current Visit: Yes (9) Diabetes mellitus Status: Chronic Assessment and plan: This is well controlled, Continue current plan of care. Current Visit: Yes Qualifiers: Diabetes mellitus type: type 2 Diabetes mellitus complication status: with kidney complications (10) Essential hypertension Status: Chronic Assessment and plan: This is clinically stable, continue current plan of care. Current Visit: Yes (11) RBBB Status: Chronic Assessment and plan: will continue to monitor serial EKG's. Current Visit: Yes (12) Remote history of stroke Status: Chronic Assessment and plan: Management per neurology, continue current plan of care. Current Visit: No Cardiology - PN: Subj Interval history: Mr. Pace is a 50 year old male patient who has been seen by Dr. Isaac in the past. He is status post tracheostomy, I&D to scrotal abscess 04/08/16 and percutaneous cholecystostomy 03/30/16. Echo 04/08/16 showed ejection fraction 65% with LVH, aortic sclerosis and mild TR. The patient remains intubated in the CCU. Clinically, patient is stable today without any new cardiac issues overnight. Sedation is on hold and patient is on CPAP trial now, tolerating well. Patient is awake and able to follow commands well. He is scheduled for a peg tube placement today and also being evaluated for long-term acute care management at [facility]. He is sinus rhythm with heart rates in the 80's. Vital signs are stable. Labs reviewed. Active Medications Hydrocodone Bitart/Acetaminophen ([place] 5-325) 1 tablet PO Q4H PRN PRN Reason: Pain Moderate (4-7) Albuterol Sulfate (Proventil Neb) 2.5 mg RESP TX RT Q1H PRN PRN Reason: Shortness of Breath/Wheezing Albuterol/Ipratropium (Duoneb) 3 ml RESP TX RT Q6H [facility] Last Admin: 04/24/16 07:24 Dose: 3 ml Aspirin () 325 mg PO DAILY [facility] Last Admin: 04/24/16 10:12 Dose: 325 mg Carvedilol (Coreg) 3.125 mg PO BID [facility] Last Admin: 04/24/16 10:12 Dose: 3.125 mg Cholecalciferol (Vitamin D3) 2,000 unit PO DAILY [facility] Last Admin: 04/24/16 10:12 Dose: 2,000 unit Dextrose/Water (D50) 25 gm IV PRN PRN PRN Reason: Hypoglycemia with IV access Enoxaparin Sodium (Lovenox) 40 mg SUBCUT Q24H [facility] Last Admin: 04/23/16 16:23 Dose: 40 mg Glucagon () 1 mg IM PRN PRN PRN Reason: Hypoglycemia w/o IV access Heparin Sodium (Porcine) () 2,000 unit IV .FOR DIALYSIS [facility] Midazolam HCl 100 mg/ Sodium (Chloride) 100 mls @ 1 mls/hr IV .Q24H JAMEL PRN Reason: 1 MG/HR Last Admin: 04/09/16 17:51 Dose: Not Given Norepinephrine Bitartrate 8 mg (/ Sodium Chloride) 250 mls @ 3.75 mls/hr IV TITRATE JAMEL; 2 MCG/MIN PRN Reason: Protocol Last Admin: 04/10/16 19:16 Dose: Not Given Levetiracetam 500 mg/ Sodium (Chloride) 105 mls @ 400 mls/hr IV Q8H [facility] Last Infusion: 04/24/16 05:41 Dose: Infused Sodium Chloride 38.5 meq/ (Sterile Water) 1,009.625 mls @ 25 mls/hr IV .Q24H [facility] Last Admin: 04/24/16 10:12 Dose: 75 mls/hr Lacosamide 100 mg/ Sodium (Chloride) 60 mls @ 100 mls/hr IV BID [facility] Last Infusion: 04/23/16 22:41 Dose: Infused Propofol (Diprivan) 1,000 mg in 100 mls @ 2.452 mls/hr IV TITRATE JAMEL; 5 MCG/KG /MIN PRN Reason: Protocol Last Admin: 04/23/16 21:59 Dose: Not Given Ceftazidime 1,000 mg/ Sodium (Chloride) 100 mls @ 200 mls/hr IV Q8H [facility] Last Infusion: 04/24/16 04:55 Dose: Infused Fluconazole/Sodium Chloride (100 mg/ IV Solution) 50 mls @ 100 mls/hr IV Q24H [facility] Last Infusion: 04/23/16 14:35 Dose: Infused Insulin Human Regular (Humulin R) 0 unit SUBCUT Q6HR [facility] PRN Reason: Protocol Last Admin: 04/24/16 06:16 Dose: Not Given Lorazepam (Ativan Inj) 2 mg IV Q4H PRN PRN Reason: Agitation Last Admin: 04/22/16 19:44 Dose: 2 mg Nystatin (Mycostatin Liquid) 500,000 unit SWISH/SWAL QID [facility] Last Admin: 04/24/16 10:12 Dose: 500,000 unit Ondansetron HCl (Zofran Inj) 4 mg IV Q4H PRN PRN Reason: Nausea Pantoprazole Sodium (Protonix Inj) 40 mg IV Q24H [facility] Last Admin: 04/23/16 18:13 Dose: 40 mg Potassium Chloride () 20 meq PER TUBE .PER PROTOCOL PRN; Protocol PRN Reason: Per Protocol Last Admin: 04/23/16 21:48 Dose: 20 meq Exam (Progress Note) - Constitutional Vitals: Period Temp Pulse Resp BP Sys/Mishra Pulse Ox Last 24 Hr 98.1 F-98.8 F 60-89 14-37 120-151/69-101 75-100 General appearance: no acute distress, over weight - Head Head exam: Present: normal inspection, normocephalic, atraumatic - Eye Pupils: Present: NAA. Absent: dilated, fixed, irregular, unequal - ENT ENT exam: Present: other (trach in place) - Neck Neck exam: Present: normal inspection. Absent: lymphadenopathy, meningismus, tenderness, thyromegaly - Respiratory Respiratory exam: Present: rhonchi, wheezes. Absent: accessory muscle use, chest wall tenderness - Cardiovascular Cardiovascular exam: Present: regular rate and rhythm, systolic murmur. Absent : carotid bruit, gallop, JVD, rubs - GI/Abdominal GI/Abdominal exam: Present: normal bowel sounds, soft. Absent: distended, firm , mass, tenderness - Extremities Exam Extremities exam: Present: edema (trace edema ). Absent: calf tenderness - Neurological Exam Neurological exam: Present: alert - Skin Skin exam: Present: normal color, warm, dry Result/EKG - Labs CBC & BMP: 04/24/16 02:50 04/24/16 02:50 Lab Results: I have reviewed the past 24 hour labs Labs: Laboratory Results - last 24 hr 04/23/16 04/23/16 04/24/16 11:01 17:42 00:20 WBC RBC Hgb Hct MCV MCH MCHC RDW Plt Count MPV Neut % (Auto) Lymph % (Auto) [place] % (Auto) Eos % (Auto) Baso % (Auto) Neut # (Auto) Lymph # (Auto) [place] # (Auto) Eos # (Auto) Baso # (Auto) Immature Gran % Nucleated RBC % Immature Gran # Nucleated RBCs # INR PT Patient/Control Mix ABG pH ABG pCO2 ABG pO2 ABG HCO3 ABG Total CO2 ABG O2 Saturation ABG Base Excess FiO2 Sodium Potassium Chloride Carbon Dioxide Anion Gap BUN Creatinine GFR Calculation BUN/Creatinine Ratio Glucose POC Glucose 123 H 129 H 146 H Calculated Osmolality Calcium Total Bilirubin AST ALT Alkaline Phosphatase Total Protein Albumin Globulin Albumin/Globulin Ratio 04/24/16 04/24/16 04/24/16 02:50 02:50 03:50 WBC 7.1 RBC 3.04 L Hgb 9.2 L Hct 29.1 L MCV 95.7 MCH 30 MCHC 31.6 L RDW 13.9 Plt Count 437 H MPV 9.9 Neut % (Auto) 68.1 Lymph % (Auto) 14.6 L [place] % (Auto) 12.5 Eos % (Auto) 4.1 Baso % (Auto) 0.4 Neut # (Auto) 4.8 Lymph # (Auto) 1.0 L [place] # (Auto) 0.9 H Eos # (Auto) 0.3 Baso # (Auto) 0.0 Immature Gran % 0.3 Nucleated RBC % 0.0 Immature Gran # 0.02 Nucleated RBCs # 0.00 INR PT Patient/Control Mix ABG pH 7.417 ABG pCO2 36.4 ABG pO2 67.0 L ABG HCO3 23.8 ABG Total CO2 20.8 L ABG O2 Saturation 93.0 L ABG Base Excess -0.7 FiO2 45.00 Sodium 143 Potassium 4.3 Chloride 110 H Carbon Dioxide 23 Anion Gap 14.3 BUN 11 Creatinine 0.80 GFR Calculation 118 BUN/Creatinine Ratio 13.00 Glucose 142 H POC Glucose Calculated Osmolality 285.0 Calcium 8.4 L Total Bilirubin 1.00 AST 25 ALT 39 Alkaline Phosphatase 152 H Total Protein 6.3 L Albumin 2.3 L Globulin 4.0 H Albumin/Globulin Ratio 0.5 L 04/24/16 04/24/16 04:00 06:09 WBC RBC Hgb Hct MCV MCH MCHC RDW Plt Count MPV Neut % (Auto) Lymph % (Auto) [place] % (Auto) Eos % (Auto) Baso % (Auto) Neut # (Auto) Lymph # (Auto) [place] # (Auto) Eos # (Auto) Baso # (Auto) Immature Gran % Nucleated RBC % Immature Gran # Nucleated RBCs # INR 1.0 PT Patient/Control Mix 11.1 ABG pH ABG pCO2 ABG pO2 ABG HCO3 ABG Total CO2 ABG O2 Saturation ABG Base Excess FiO2 Sodium Potassium Chloride Carbon Dioxide Anion Gap BUN Creatinine GFR Calculation BUN/Creatinine Ratio Glucose POC Glucose 130 H Calculated Osmolality Calcium Total Bilirubin AST ALT Alkaline Phosphatase Total Protein Albumin Globulin Albumin/Globulin Ratio - EKG EKG results: interpreted by me, sinus rhythm I, Lance Isaac MD, personally performed the services described in this documentation, ascribed by Shobha Metcalf RN in my presence, and it is both accurate and complete .
--- NOTE | 2016-04-24 11:10 | Pulmonology Progress Note ---
Exam (Progress Note) - Constitutional Vitals: Period Temp Pulse Resp BP Sys/Mishra Pulse Ox Last 24 Hr 97.8 F-98.8 F 60-92 14-37 120-155/69-101 75-100 Results - Labs CBC & BMP: 04/24/16 02:50 04/24/16 02:50
[2016-04-24] MEDS ORDERED: ETOMIDATE 20 MG/10 ML VIAL IV ONE (11:20)
[2016-04-24] MEDS ORDERED: LIDOCAINE 2% 5 ML VIAL ONE (11:20)
[2016-04-24] MEDS ORDERED: PROPOFOL 200 MG/20 ML VIAL IV ONE (11:20)
--- NOTE | 2016-04-24 11:51 | Anesthesia ---
Anesthesia Post OP - Post Ansesthetic Evaluation Patient seen in post op: Yes Resp: within normal limits CV: within normal limits Mental: within normal limits Temp: within normal limits [id number]: within normal limits Nausea and Vomiting: within normal limits Pain: within normal limits
[2016-04-24] MEDS: FLUCONAZOLE INJ 100 MG in IV BAG 1 EACH IV SCH (11:52)
[2016-04-24] MEDS: LACOSAMIDE INJ 100 MG in SODIUM CHLORIDE 0.9% 50 ML IV SCH ×2 (12:54→21:38)
[2016-04-24] MEDS: PANTOPRAZOLE 40 MG VIAL IV SCH (17:09)
--- NOTE | 2016-04-24 17:47 | Pulmonology Progress Note ---
Pulmonary - PN: Subj Interval history: Is a 50-year-old male. This patient was seen by me in pulmonary consultation 04/08/2016. His main problems appear to be 1. Nausea vomiting diarrhea etiology undetermined. Possibly related to gallbladder disease. Consider other causes. Resultant dehydration 2. Hypotension. Partially secondary to #1. Consider sepsis. 2.1 scrotal abscess 3. Acute cholecystitis. 4. Acute renal failure. Probably secondary to #1 and #2. 4.1. Acute metabolic acidosis probably secondary to acute renal failure and possibly secondary to sepsis 5. Diabetes mellitus 6. Heart surgery as an infant 7. History of back surgery 8. High blood pressure 9. Possible history of CVA 10. Acute pancreatitis. 11. Bilateral pleural effusions 12. Acute pulmonary failure. At least partially secondary to acute renal failure and hypotension requiring pressor agents, with severe metabolic acidosis. Consider other causes there may be other factors such as underlying lung disease and/or pulmonary emboli and/or aspiration 13. See past history 04/09/2016.. Today the patient was evaluated with fiberoptic bronchoscopy. He had definite evidence of significant aspiration. He had erythematous slightly friable markedly stenotic airways bilaterally secondary to what appears to be an aspiration injury. Multiple specimens were sent. No biopsies were taken. Specimens from his scrotal abscess are growing a gram-positive cocci. Earlier today Dr. Arevalo to look to start the patient on vancomycin. Patient's also on Zosyn. I do not see any need to add extra antibiotics at this point. ABGs have improved significantly on mechanical ventilation and FiO2 of 100%. PH is 7.30. PCO2 is 22.3. PO2 is 391. Bicarb is 13.9. Sodium is 143. Potassium is low at 3.2 creatinine has dropped to 9.4 and the patient for repeat dialysis today. Natruretic peptide is elevated at 260. 04/10/2016. Patient's chest x-ray shows left lower lung atelectasis. He will need a repeat fiberoptic bronchoscopy tomorrow bronchoscopy specimens have been negative so far. Abscess of the scrotum is growing a gram-positive cocci which is yet unidentified. 04/09/2016 the patient had a percutaneous drainage of the gallbladder. There are no positive cultures at this point. This patient has not done well with his weaning trials. We will continue to try to make adjustments.H&H is dropped to 10.5/27.6. White count 7100 with 84 segs and 6 lymphs. Platelets have dropped to 122,000. ABGs are improved. On mechanical ventilation and FiO2 of 65% pH is 7.5-8. PCO2 is 22.7. PO2 is 156. Bicarb is 18.5. Potassium is low at 2.2. Renal will make adjustments for this. Calcium is also low at 6.5. Natruretic peptide is dropped from 260 217. Protein and albumin are low at 5.0 and 2.2 respectively. Labs been reviewed. 04/11/2016. Today's chest x-ray shows a right perihilar infiltrate and a small residual left lower lung infiltrate. Bronchoscopy specimens from 04/10/2016 have shown nothing so far. Culture from the patient's scrotal has grown Streptococcus agalactiae. No sensitivities have been reported. Patient had dialysis yesterday. ABGs on mechanical ventilation and FiO2 of 60% shows a pH 7.59. PCO2 is 21.5. PO2 is 130. Bicarb is 20. This patient has been intentionally hyperventilated because of his metabolic acidosis which is now resolved. I have made adjustments on his ventilator and hopefully lighten his CO2 increase will let him do better on his CPAP trials. Potassium is low at 2.3. This is being managed by renal. CBC is stable and white count is come down to 6700 73 segs and 12 lymphs. Fiberoptic bronchoscopy was done 2016. See report. Patient is a significant problem with severe erosive friable partially stenotic bilateral bronchitis. This is complicated by underlying collapsibility of large and small airways and complicated by retention of secretions and residual gastric aspirate. 04/12/2016. This 50-year-old had a scrotal abscess. He had acute cholecystitis which is been drained percutaneously. He has had acute renal failure and has required dialysis. He had acute severe metabolic acidosis that is improved significantly. He has diabetes mellitus. He has acute respiratory failure that required intubation mechanical ventilation. On he had fiberoptic bronchoscopy and he had definite evidence of significant aspiration. He had erythematous markedly flushed friable and stenotic airways bilaterally.ABGs have improved significantly. On FiO2 of 60% his pH is 7.42. PCO2 is 41. PO2 is 313. Bicarb was 26. Sodium is increased to 153 and potassium is low at 2.9 this is being managed by renal. This looked Like he had acute and chronic injuries. He had a repeat fiberoptic bronchoscopy on 04/11/2016 and a good deal of secretions were removed. Endobronchially he did not appear to be any better. There are no positive bronchoscopy cultures appear he is on weaning protocol some days he does a few hours of CPAP and some days he does not tolerate this well. He is getting dialysis every other day. 04/15/2016. Chest x-ray has deteriorated somewhat today there are faint bilateral scattered areas of alveolar infiltrates. ABGs on mechanical ventilation FiO2 of 45% shows a pH of 7.395. PCO2 is 47. PO2 63. Bicarb is 27. Sodium is elevated 115. Potassium 3.5. Creatinine is 1.0 with a BUN of 13. White count is 6100 with 63 segs 17.5 monocytes. H&H is 9.6/29.7. Notes from this weekend say that the patient had no spontaneous respirations. He is on mechanical ventilation and I changed him to a T-tube and he had no problem initiating of breath whatsoever. He does gradually become rapid with his breathing. I was using no CPAP at the time. We will going to advance him to short trials of T-tube today and otherwise will advance his CPAP as tolerated. I believe this patient can do better. 04/16/2016. This patient is not doing well with his weaning trials. He is at a standstill. He is been on mechanical ventilation approximately 10 days. I talked to the patient's , his male cousin and his and patient's mother , the patient's nurse Malathi, Canelo Leal nurse practitioner and Suha Gonzalez practitioner were present. I discussed the pros and cons for trach. She understood these and was agreeable to having this done electively. Today's x- ray still shows some bilateral infiltrates ABGs on mechanical ventilation FiO2 of 45% shows a pH of 7.42, PCO2 45, PO2 of 115, bicarb 28.6 electrolytes normal. Creatinine is 1.0. CBC is stable. Microbiology no recent positive cultures. Other than his pulmonary problems the patient is being treated for scrotal abscess and a decubitus ulcer and acute cholecystitis. He also has acute renal failure which is markedly improved with dialysis 04/17/2016. Chest x-ray still has bilateral infiltrates but these are definitely improved. ABGs are stable. Labs been reviewed. Medicines been reviewed. Patient's for trach most likely a day. Appreciate ENT consultation. 04/18/2016. Patient had a trach placed. He appears to be tolerating this well. He still has a percutaneous drain into his gallbladder. He is also being treated for scrotal abscess. Today his chest x-ray shows a bilateral pulmonary infiltrates are continuing to improve on a daily basis. ABGs are stable on mechanical ventilation with an FiO2 of 45%. PH is 7.47, PCO2 is 33. PO2 is 75. Bicarb is 25. Labs been reviewed. Electrolytes kidneys and CBC are stable. This patient has a problem with retained secretions and he will be evaluated with fiberoptic bronchoscopy tomorrow. Case management has approached me about moving this patient to long-term acute care. I think he will be ready to go next week. We do need some decision about what we plan to do with his gallbladder that could prolong his present hospitalization. Also need information about how the scrotal abscess is doing and whether or not this has resolved. 04/19/2016. On 04/18/2016 this patient had a trach placed. He has done well with this. Today he had a fiberoptic bronchoscopy. See report. He had retained secretions. He has underlying erosive friable bronchitis with stenosis has improved markedly. ABGs on mechanical ventilation FiO2 45% shows a pH 7.44. PCO2 is 34. PO2 74. Bicarb is 24. CBC is stable. Patient's previously been on dialysis. His creatinine is 0.90. Patient has a percutaneous gallbladder drain tube in place. Dr. Mickey Bear says his tube will be removed once the patient is out of ICU and just before he goes home. Most likely this patient's going to require long-term acute care. This possible will be transferring him to [facility] next week. Need to know if we plan to keep the tube and while he is there 04/22/2016. Patient's chest x-ray shows slow resolution of bilateral pulmonary infiltrates. Also known as pneumonia. Bronchial washings from 04/19/2016 grew E. coli. Antibiotics have been adjusted. Patient's previously had a scrotal abscess secondary to strep clinic TA. He has a percutaneous drain from his gallbladder. None of the cultures from this were positive. ABGs on FiO2 45% show pH 7.6. PCO2 is 33. PO2 78. Bicarb is 24.6. Patient's on stage V the weaning protocol. Potassium is low at 3.4 and this will be corrected by protocol. H&H is slowly dropped to 9.1/28.2. White count is 7267 segs 15 lymphs and 13 monos. 04/23/2016. Today's chest x-ray shows a small amount of bilateral pleural effusion. No other abnormalities are noted. ABGs on FiO2 of 45% have deteriorated slightly with a pH 7.44. PCO2 is 34. PO2 is 51.2. Bicarb is 23.7. Patient however has done well with weaning protocol on CPAP. We will try more short periods of T-tube today. Creatinine is stable at 1.0 potassium is low at 3.1 and will initiate potassium replacement protocol. H&H is stable. This patient is definitely more alert today and hopefully will be more cooperative. He is being evaluated for possible transfer in the next few days to long-term acute care at [facility]. 04/24/2016 patient's chest x-ray stable. His ABGs are fine. He is doing well on protocol. He is at the CPAP level. I am hoping to try trach collar today. Patient failed a swallowing study he is for PEG today. Labs been reviewed. Medicines have been reviewed. Medicines have been reviewed. Vital signs. See below. Psychiatric. Alert and oriented and appears to want to cooperate. Neck. Symmetrical. No meningismus Lymphatics. No submandibular cervical or supraclavicular adenopathy. Chest. Mild coarse large airway congestion. Heart. No gallop Abdomen. Slightly rigid. Only rare bowel sounds. Extremities. No evidence of deep venous thrombophlebitis. Note Doppler venograms are negative for deep venous thrombophlebitis Neurologic. Cranial nerves are intact. Patient moves all 4 extremities. The remainder the examination is negative. Plan. 1. 04/11/2016. The patient is off pressor agents 2. 04/11/2016. Ventilator adjustments made. 3. Weaning protocol 4. Physical therapy while on ventilator protocol 6. Daily chest x-ray 7. Daily ABGs. 9. 04/12/2016. Continue weaning protocol. Patient does not improve soon will need to consider a trach. 10. Deep venous thrombophlebitis prevention protocol #11. 04/19/2016. Fiberoptic bronchoscopy done earlier today. Check microbiology specimens. Trach placed 04/18/2016. Continue weaning protocol. Percutaneous gallbladder drainage. See my note above for this date 12. 04/22/2016. E. coli from bronchoscopy specimens. Scrotal abscess. Percutaneous drain into the gallbladder. Stage V weaning protocol. Trach. This patient is being considered for [facility] long-term acute care. I need to know surgeries plans for his percutaneous gallbladder drain. Patient's on a minimal amount of dipper Van. He gets IV hyperalimentation. Will ask for swallowing study 12. 04/23/2016. See my note from this date. Advance weaning process. Speech therapy consult has been reviewed and I am not sure what the conclusion is. I have asked the nurse to check with dietary and see if this means we can start trying to feed the patient. 13. 04/24/2016. PEG today. Probably [facility] tomorrow Exam (Progress Note) - Constitutional Vitals: Period Temp Pulse Resp BP Sys/Mishra Pulse Ox Last 24 Hr 97.6 F-98.5 F 54-92 14-33 111-155/73-101 75-100 Results - Labs CBC & BMP: 04/24/16 02:50 04/24/16 02:50
[2016-04-24] MEDS: PROPOFOL 1,000 MG/100 ML BOTTLE IV SCH (21:38)
--- NOTE | 2016-04-24 23:00 | Operative Note ---
Date of procedure: 04/24/16 Pre-op diagnosis: Malnutrition and ventilator dependence Procedure: EGD with percutaneous endoscopic gastrostomy tube placement 50-year-old gentleman with protracted medical illness requiring NG tube feedings due to a aphasia and high risk for malnutrition now for PEG tube placement. Informed symptoms and patient's family Patient is on the ventilator and is sedated with MAC anesthesia per anesthesia protocol. Patient was placed in supine position his regular 30 Olympus flexible video upper endoscope was inserted into the oral cavity under direct vision the esophagus was intubated. Findings: Esophagus-normal esophageal mucosa no candidate seen no stricture or varices are seen. Stomach-normal insufflation normal mucosa to direct and retroflexed views of the body, fundus, cardia and antrum the stomach. Pylorus-normal Duodenum-normal from the bulb and duodenum to the third portion of duodenum. Scope withdrawn in the stomach appropriately transilluminated on the anterior abdominal wall and finger contusion localized. It was prepped and draped in sterile fashion Nestabs 1/2 cc lidocaine. Subsequently fine needle was inserted in the stomach endoscopically visualized this was removed. Stomach was deflated and the scalp incision was made into the scan. Subsequently an 18- gauge cath was passed this off and stomach guidewire was passed grasped with a polypectomy snare and pulled out with the scope exiting the oral cavity.. Using standard pull traction technique a 20 [place] Bard PEG tube was pulled into position and secured The patient tolerated the procedure well Postop diagnosis: 1. Successful PEG tube placement continue tube feedings and observe for complications. Anesthesia: MAC Surgeon / Physician: Bhavesh Napier Estimated blood loss: none Specimens: none sent Condition: stable Disposition: no change Results - Labs CBC & BMP: 04/24/16 02:50 04/24/16 02:50 Discharge Plan - Discharge Medications No Action Carvedilol [Coreg] 12.5 mg PO BID #60 tablet Lisinopril [Prinivil] 10 mg PO DAILY #30 tablet Potassium Chloride Cap/Tab [K Dur] 20 meq PO DAILY #30 tablet Gabapentin Cap/Tab [Neurontin Cap/Tab] 600 mg PO TID #90 tablet HYDROcodone/ACETAMIN 7.5-325 [Harmony 7.5-325] 1 tablet PO Q6H PRN PRN Reason: Pain Albuterol Inhaler [Proventil Inhaler] 1 puff INH Q4HR - Follow Up or Referral - Forms/Instructions
[2016-04-25] MEDS: INSULIN REGULAR 100 UNIT/ML SUBCUT SCH ×3 (00:36→11:20)
[2016-04-25] MEDS: ALBUTEROL/IPRATROPIUM 3 ML NEB RESP TX SCH ×3 (02:48→13:01)
[2016-04-25 03:26] LABS: ABG Base Excess -0.2 MMOL/L (-2.5-2.5); ABG HCO3 22.1 MMOL/L (20-26); ABG Oxygen Saturation 93.6 % (95-100); ABG PH 7.515 (7.35-7.45); ABG PO2 66.7 MM HG (80-95)
[2016-04-25 05:42] LABS: Basophils % 0.3 % (0.0-0.8); Eosinophils # 0.3 10*3/uL (0.0-0.87); Eosinophils % 4.9 % (0.00-10.9); Hematocrit 27.5 VOL% (42.0-52.0); Hemoglobin 8.9 GM/DL (14.0-18.0); Immature Granulocytes % 0.3 %; Immature Granulocytes Absolute 0.02 #; Lymphocytes # 1.2 10*3/uL (1.4-4.0); Lymphocytes % 20.3 % (21.2-54.2); Mean Corpuscular HGB Conc 32.4 GM/DL (32-36); Mean Corpuscular Hemoglobin 30 PG (27-34); Mean Corpuscular Volume 92.6 FL (87-102); Mean Platelet Volume 9.5 FL (9.6-12.0); Monocytes # 0.7 10*3/uL (0.11-0.8); Monocytes % 11.9 % (1.7-12.7); Neutrophils # 3.6 10*3/uL (1.4-7.4); Neutrophils % 62.3 % (38.7-73.9); Platelet Count 435 T/CUMM (130-400); Red Blood Count 2.97 MC/CUMM (3.8-5.5); Red Cell Distribution Width 13.7 % (9.3-17.3); White Blood Count 5.7 T/CUMM (4-12)
[2016-04-25 06:37] LABS: Calcium 8.4 MG/DL (8.5-10.1); Potassium 3.8 MMOL/L (3.5-5.1)
--- NOTE | 2016-04-25 07:33 | XRay Report ---
XR chest 1V portable Indication: Tracheostomy, ventilator Comparison: Chest x-ray dated April 24, 2016 Technique: Single frontal view of the chest Findings: Cardiomediastinal silhouette appears grossly unchanged. Tracheostomy tube and right-sided vascular catheter appears unchanged. Mildly improved bibasilar and left midlung atelectasis/consolidation. Osseous and surrounding soft tissue structures appear grossly unchanged. IMPRESSION: Mildly improved bibasilar and left midlung atelectasis/consolidation. PROCEDURE INTERPRETED AT [facility] DEPARTMENT OF RADIOLOGY Final Report Signed by: Dr Mark Altman
[2016-04-25 07:46] LABS: Magnesium 2.2 MG/DL (1.8-2.4); Phosphorous 3.5 MG/DL (2.5-4.9); Prealbumin 18.9 MG/DL (20-40)
[2016-04-25] MEDS: SODIUM CHLORIDE 23.4% CONC INJ 38.5 MEQ in STERILE WATER INJ 1,000 ML IV SCH ×3 (08:41→08:44)
[2016-04-25] MEDS: LACOSAMIDE INJ 100 MG in SODIUM CHLORIDE 0.9% 50 ML IV SCH (08:44)
--- NOTE | 2016-04-25 08:51 | Cardiology Progress Note ---
Assessment and Plan (1) Elevated troponin Status: Acute Assessment and plan: This could possibly be secondary to sepsis, hypotension and/or acutr renal failure. Echo 04/08 revealed an EF of 65%. At this point his cardiac status is well compensated so for now I would continue conservative management. After the patient has recovered from his other acute illness illnesses this could be investigated further if clinically indicated. Current Visit: Yes (2) Status post patent foramen ovale closure Status: Chronic Current Visit: No (3) Acute renal failure Problem details: severe Status: Resolved Assessment and plan: This has now resolved, last recorded creatinine 0.8. Current Visit: Yes (4) Acute respiratory failure Status: Acute Assessment and plan: Management per pulmonary. Continue current plan of care. Current Visit: Yes (5) Hypokalemia Status: Resolved Current Visit: Yes (6) Scrotal abscess Status: Acute Assessment and plan: Status post I&D per surgery. Continue current plan of care. Current Visit: Yes (7) Seizure Status: Acute Assessment and plan: Continue current plan of care. Current Visit: Yes (8) Diabetes mellitus Status: Chronic Assessment and plan: This is well controlled, Continue current plan of care. Current Visit: Yes (9) Essential hypertension Status: Chronic Assessment and plan: This is clinically stable, continue current plan of care. Current Visit: Yes (10) Remote history of stroke Status: Chronic Assessment and plan: Management per neurology, continue current plan of care. Current Visit: No Cardiology - PN: Subj Interval history: The patient remained stable overnight. There have been no new cardiac issues. He remains intubated (trach). We are going to be transferring him to [facility] for long-term ventilator weaning. Current Medications Hydrocodone Bitart/Acetaminophen (Salcha 5-325) 1 tablet PO Q4H PRN PRN Reason: Pain Moderate (4-7) Albuterol Sulfate (Proventil Neb) 2.5 mg RESP TX RT Q1H PRN PRN Reason: Shortness of Breath/Wheezing Albuterol/Ipratropium (Duoneb) 3 ml RESP TX RT Q6H [facility] Last Admin: 04/25/16 06:49 Dose: 3 ml Aspirin () 325 mg PO DAILY [facility] Last Admin: 04/24/16 10:12 Dose: 325 mg Carvedilol (Coreg) 3.125 mg PO BID [facility] Last Admin: 04/24/16 21:37 Dose: 3.125 mg Cholecalciferol (Vitamin D3) 2,000 unit PO DAILY [facility] Last Admin: 04/24/16 10:12 Dose: 2,000 unit Dextrose/Water (D50) 25 gm IV PRN PRN PRN Reason: Hypoglycemia with IV access Enoxaparin Sodium (Lovenox) 40 mg SUBCUT Q24H [facility] Last Admin: 04/23/16 16:23 Dose: 40 mg Glucagon () 1 mg IM PRN PRN PRN Reason: Hypoglycemia w/o IV access Heparin Sodium (Porcine) () 2,000 unit IV .FOR DIALYSIS [facility] Midazolam HCl 100 mg/ Sodium (Chloride) 100 mls @ 1 mls/hr IV .Q24H JAMEL PRN Reason: 1 MG/HR Last Admin: 04/09/16 17:51 Dose: Not Given Norepinephrine Bitartrate 8 mg (/ Sodium Chloride) 250 mls @ 3.75 mls/hr IV TITRATE JAMEL; 2 MCG/MIN PRN Reason: Protocol Last Admin: 04/10/16 19:16 Dose: Not Given Levetiracetam 500 mg/ Sodium (Chloride) 105 mls @ 400 mls/hr IV Q8H [facility] Last Admin: 04/25/16 05:41 Dose: 400 mls/hr Sodium Chloride 38.5 meq/ (Sterile Water) 1,009.625 mls @ 25 mls/hr IV .Q24H [facility] Last Admin: 04/25/16 08:44 Dose: 125 mls/hr Lacosamide 100 mg/ Sodium (Chloride) 60 mls @ 100 mls/hr IV BID [facility] Last Admin: 04/25/16 08:44 Dose: 100 mls/hr Propofol (Diprivan) 1,000 mg in 100 mls @ 2.452 mls/hr IV TITRATE JAMEL; 5 MCG/KG /MIN PRN Reason: Protocol Last Admin: 04/24/16 21:38 Dose: Not Given Ceftazidime 1,000 mg/ Sodium (Chloride) 100 mls @ 200 mls/hr IV Q8H [facility] Last Infusion: 04/25/16 05:48 Dose: Infused Fluconazole/Sodium Chloride (100 mg/ IV Solution) 50 mls @ 100 mls/hr IV Q24H [facility] Last Infusion: 04/24/16 13:36 Dose: Infused Insulin Human Regular (Humulin R) 0 unit SUBCUT Q6HR JAMEL PRN Reason: Protocol Last Admin: 04/25/16 06:23 Dose: Not Given Lorazepam (Ativan Inj) 2 mg IV Q4H PRN PRN Reason: Agitation Last Admin: 04/22/16 19:44 Dose: 2 mg Nystatin (Mycostatin Liquid) 500,000 unit SWISH/SWAL QID [facility] Last Admin: 04/24/16 21:30 Dose: Not Given Ondansetron HCl (Zofran Inj) 4 mg IV Q4H PRN PRN Reason: Nausea Pantoprazole Sodium (Protonix Inj) 40 mg IV Q24H [facility] Last Admin: 04/24/16 17:09 Dose: 40 mg Potassium Chloride () 20 meq PER TUBE .PER PROTOCOL PRN; Protocol PRN Reason: Per Protocol Last Admin: 04/23/16 21:48 Dose: 20 meq Exam (Progress Note) - Constitutional Vitals: Period Temp Pulse Resp BP Sys/Mishra Pulse Ox Last 24 Hr 97.6 F-99.3 F 54-92 15-29 111-169/75-98 92-100 Exam: General: Appears well developed, well nourished, intubated in the intensive care unit HEENT: Normocephalic, atraumatic Neck: Trach in place, no JVD Cardiac: Reg Rate and Rhythm, 2/6 systolic Murmur, no gallop, no rub Lungs: Coarse breath sounds per the ventilator with slight expiratory wheeze Neuro: Patient is intubated and sedated Abdomen: Soft, Active Bowel Sounds, No Masses, No Pulsations/Bruits Skin: Normal color, no rash Extremities: No Clubbing, No Cyanosis, mild Edema, Normal Upper Extr. Pulses Musculoskeletal: No acute abnormality noted Result/EKG - Labs CBC & BMP: 04/25/16 05:25 04/25/16 05:25 Lab Results: I have reviewed the past 24 hour labs Labs: Laboratory Results - last 24 hr 04/24/16 04/24/16 04/25/16 11:00 17:16 00:33 WBC RBC Hgb Hct MCV MCH MCHC RDW Plt Count MPV Neut % (Auto) Lymph % (Auto) Nicholas % (Auto) Eos % (Auto) Baso % (Auto) Neut # (Auto) Lymph # (Auto) Nicholas # (Auto) Eos # (Auto) Baso # (Auto) Immature Gran % Nucleated RBC % Immature Gran # Nucleated RBCs # ABG pH ABG pCO2 ABG pO2 ABG HCO3 ABG Total CO2 ABG O2 Saturation ABG Base Excess Sodium Potassium Chloride Carbon Dioxide Anion Gap BUN Creatinine GFR Calculation BUN/Creatinine Ratio Glucose POC Glucose 121 H 105 93 Calculated Osmolality Calcium Phosphorus Magnesium Prealbumin 04/25/16 04/25/16 04/25/16 02:50 05:25 05:25 WBC 5.7 RBC 2.97 L Hgb 8.9 L Hct 27.5 L MCV 92.6 MCH 30 MCHC 32.4 RDW 13.7 Plt Count 435 H MPV 9.5 L Neut % (Auto) 62.3 Lymph % (Auto) 20.3 L Nicholas % (Auto) 11.9 Eos % (Auto) 4.9 Baso % (Auto) 0.3 Neut # (Auto) 3.6 Lymph # (Auto) 1.2 L Nicholas # (Auto) 0.7 Eos # (Auto) 0.3 Baso # (Auto) 0.0 Immature Gran % 0.3 Nucleated RBC % 0.0 Immature Gran # 0.02 Nucleated RBCs # 0.00 ABG pH 7.515 H ABG pCO2 28.0 L ABG pO2 66.7 L ABG HCO3 22.1 ABG Total CO2 23.0 ABG O2 Saturation 93.6 L ABG Base Excess -0.2 Sodium Potassium Chloride Carbon Dioxide Anion Gap BUN Creatinine GFR Calculation BUN/Creatinine Ratio Glucose POC Glucose Calculated Osmolality Calcium Phosphorus 3.5 Magnesium 2.2 Prealbumin 18.9 L 04/25/16 04/25/16 05:25 05:46 WBC RBC Hgb Hct MCV MCH MCHC RDW Plt Count MPV Neut % (Auto) Lymph % (Auto) Nicholas % (Auto) Eos % (Auto) Baso % (Auto) Neut # (Auto) Lymph # (Auto) Nicholas # (Auto) Eos # (Auto) Baso # (Auto) Immature Gran % Nucleated RBC % Immature Gran # Nucleated RBCs # ABG pH ABG pCO2 ABG pO2 ABG HCO3 ABG Total CO2 ABG O2 Saturation ABG Base Excess Sodium 143 Potassium 3.8 Chloride 108 H Carbon Dioxide 24 Anion Gap 14.8 BUN 11 Creatinine 0.80 GFR Calculation 115 BUN/Creatinine Ratio 13.00 Glucose 98 POC Glucose 109 H Calculated Osmolality 283.0 Calcium 8.4 L Phosphorus Magnesium Prealbumin - EKG EKG results: interpreted by me
--- NOTE | 2016-04-25 08:54 | Discharge Summary ---
<Ann Bradshaw - Last Filed: 04/25/16 09:00> Hospital Course - Hospital Course Hospital Course: Mr. Pace was admitted on 04/08 with sepsis, septic shock, acute renal failure , cholelithiasis, metabolic acidosis and acute respiratory failure requiring intubation. He also has a hx of DM and HTN. Dr. Bernabe with Nephrology was consulted for acute renal failure. His creatinine was [address] Bear was consulted for surgery for his cholelithiasis. He also complained of pain in his right scrotum and groin. On 04/08, Dr. Bear took Mr. Pace to the OR for right IJ dialysis catheter placement and drainage of right scrotal abscess. Cx's grew strep agalactiae. Dr. Pichardo was consulted for Pulmonology for his acute respiratory failure and vent management. He was hypotensive and required pressors for BP support. On 04/08, he was started on dialysis and tolerated this well. On 04/09, Dr. Pichardo performed a bronch on him that showed retained gastric aspirate and pulmonary secretions. He was also noted to have bilateral pleural effusions. Dr. Bhavesh Napier with GI was consulted and saw on 04/09 for cholelithiasis. Findings on CT were cholelithiasis, GB distention, and dilated CBD. HIDA scan showed nonvisualized gallbladder. LFT's were normal. It was felt initially that he needed to improve overall prior to an ERCP, however cholecystostomy tube was recommended. Perc cholecystostomy was placed by Dr. Rivera in IR on 04/09 without complications. His labs improved with dialysis, however, he did have hypokalemia that required replacement. He was strated on nystatin s/s for oral thrush. On the morning of 04/10, nursing staff reported 3 episodes of generalized tonic clonic seizure activity during his AM care. Dr. Park with neurology was consulted and saw on 04/10 for his seizure activity- new onset. He was started on Keppra 500 mg IV q 12 hrs, EEG obtained. CT head was negative. Dr. Ember Cuevas was consulted and saw on 04/11 for history of PFO closure as an infant and bump in troponin. ECHO showed EF 65%. On 04/11, Mr. Pace did have another seizure and his Keppra was changed to 500 mg IV q 8 hrs and Vimpat was added. He also developed hypernatremia and his fluids were changed to 1/2 NS, free water started with improvement. He was noted to have thick green secretions from ET tube and his cxr was consistent with pneumonia. On 04/16, he was noted to have upper extremity swelling and dopplers were obtained that showed a non occluding thombus within the distal left basilic vein. Given that this was superficial, he was treated with NSAIDs and warm compressors and elevation. Mr. Pace had a very difficult time being weaned from the vent and trach was discussed. Dr. Lucian Ding was consulted for trach. A trach was placed and he did well without complications. He tolerated tube feedings as well without difficulty. He remained encephalopathic and would not follow commands. On 04/19, Dr. Pichardo performed a second bronch. He was able to weaned from pressors and was restarted on Coreg 3.125. He underwent EGD with PEG placement on 04/24 and tolerated well without complications. Cx's are as follows: MRSA nares negative; bronchial washings E coli on 04/19; NO AFB, Bile cx negative at 48 hrs; bronchial washings negative for fungus, blood cx's negative, scrotal abscess strep agalactiae- group B. His labs are stable to improved and he is ready for transfer to [facility] today on appropriate medications and follow up. - Time spent with patient Time with patient DS: Greater than 30 minutes (due to plan, doc and med rec.) Diagnosis - Discharge Diagnosis (1) Sepsis Status: Acute (2) ATN (acute tubular necrosis) Status: Acute (3) CELESTINO (acute kidney injury) Status: Acute (4) S/P percutaneous endoscopic gastrostomy (PEG) tube placement Status: Acute (5) Status post tracheostomy Status: Acute (6) Acute encephalopathy Status: Acute (7) Acute respiratory failure Status: Acute (8) Cholelithiasis Status: Acute (9) Elevated troponin Status: Acute (10) H/O: stroke Status: Acute (11) HTN (hypertension) Status: Acute (12) Hypernatremia Status: Acute (13) Hypocalcemia Status: Acute (14) Hypokalemia Status: Acute (15) Hyponatremia Status: Acute (16) Metabolic acidosis Status: Acute (17) Oral thrush Status: Acute (18) Scrotal abscess Status: Acute (19) Seizure Status: Acute (20) Ventilator dependence Status: Acute (21) Diabetes mellitus Status: Chronic (22) Essential hypertension Status: Chronic (23) RBBB Status: Chronic (24) Status post patent foramen ovale closure Status: Chronic (25) Abscess Status: Resolved (26) Acute renal failure Status: Resolved (27) Septic shock Status: Resolved (28) Remote history of stroke Status: Chronic Discharge Plan - Discharge Data Disposition: Disch/Xfer to [facility] - Discharge Medications New Albuterol Neb [Proventil Neb] 2.5 mg RESP TX RT Q1H PRN #0 nebulization solution PRN Reason: Shortness Of Breath/Wheezing Carvedilol [Coreg] 3.125 mg PO BID tablet Enoxaparin [Lovenox] 40 mg SUBCUT Q24H syringe HYDROcodone/ACETAMIN 5-325 [Howell 5-325] 1 tablet PO Q4H PRN #0 tablet PRN Reason: Pain Moderate (4-7) Lacosamide Inj [Vimpat Inj] 100 mg IV BID vial Potassium Chloride Liquid 20 meq PER TUBE .PER PROTOCOL PRN #0 udcup PRN Reason: Per Protocol cefTAZidime [Fortaz] 1,000 mg IV Q8H vial Albuterol/Ipratropium Neb [Duoneb] 3 ml RESP TX RT Q6H nebulization solution Aspirin EC Tab 325 mg PO DAILY tablet Cholecalciferol [Vitamin D3] 2,000 unit PO DAILY tablet Dextrose 50% [D50] 25 gm IV PRN PRN #0 vial PRN Reason: Hypoglycemia with IV access Fluconazole Inj [Diflucan Inj] 100 mg IV Q24H premix Glucagon 1 mg IM PRN PRN #0 vial PRN Reason: Hypoglycemia w/o IV access Heparin Inj 2,000 unit IV .FOR DIALYSIS vial Insulin Regular [HumuLIN R] See Protocol SUBCUT Q6HR injection LORazepam INJ [Ativan Inj] 2 mg IV Q4H PRN #0 vial PRN Reason: Agitation Ondansetron Inj [Zofran Inj] 4 mg IV Q4H PRN #0 vial PRN Reason: Nausea Pantoprazole Inj [Protonix Inj] 40 mg IV Q24H vial levETIRAcetam INJ [Keppra Inj] 500 mg IV Q8H vial Discontinued Carvedilol [Coreg] 12.5 mg PO BID #60 tablet Lisinopril [Prinivil] 10 mg PO DAILY #30 tablet Potassium Chloride Cap/Tab [K Dur] 20 meq PO DAILY #30 tablet Gabapentin Cap/Tab [Neurontin Cap/Tab] 600 mg PO TID #90 tablet HYDROcodone/ACETAMIN 7.5-325 [Howell 7.5-325] 1 tablet PO Q6H PRN PRN Reason: Pain Albuterol Inhaler [Proventil Inhaler] 1 puff INH Q4HR - Follow Up or Referral - Forms/Instructions Exam - Constitutional Vitals: Period Temp Pulse Resp BP Sys/Mishra Pulse Ox Last 24 Hr 97.2 F-99.3 F 54-88 15-29 111-169/75-100 95-100 Discharge Results Procedures and tests throughout hospitalization: Pending Orders 04/09/16 09:15 AFB Culture/Smears Routine Fungal Culture w/ Prep Routine 04/11/16 AFB Culture/Smears Routine Fungal Culture w/ Prep Routine 04/19/16 AFB Culture/Smears Routine Fungal Culture w/ Prep Routine 04/26/16 04:00 XR chest 1V portable IN AM Arterial Blood Gas IN AM Labs on day of discharge: Labs from last 24 hours 04/25/16 04/25/16 04/25/16 11:20 05:46 05:25 WBC RBC Hgb Hct MCV MCH MCHC RDW Plt Count MPV Neut % (Auto) Lymph % (Auto) [place] % (Auto) Eos % (Auto) Baso % (Auto) Neut # (Auto) Lymph # (Auto) [place] # (Auto) Eos # (Auto) Baso # (Auto) Immature Gran % Nucleated RBC % Immature Gran # Nucleated RBCs # ABG pH ABG pCO2 ABG pO2 ABG HCO3 ABG Total CO2 ABG O2 Saturation ABG Base Excess Sodium 143 Potassium 3.8 Chloride 108 H Carbon Dioxide 24 Anion Gap 14.8 BUN 11 Creatinine 0.80 GFR Calculation 115 BUN/Creatinine Ratio 13.00 Glucose 98 POC Glucose 77 109 H Calculated Osmolality 283.0 Calcium 8.4 L Phosphorus Magnesium Prealbumin 04/25/16 04/25/16 04/25/16 05:25 05:25 02:50 WBC 5.7 RBC 2.97 L Hgb 8.9 L Hct 27.5 L MCV 92.6 MCH 30 MCHC 32.4 RDW 13.7 Plt Count 435 H MPV 9.5 L Neut % (Auto) 62.3 Lymph % (Auto) 20.3 L [place] % (Auto) 11.9 Eos % (Auto) 4.9 Baso % (Auto) 0.3 Neut # (Auto) 3.6 Lymph # (Auto) 1.2 L [place] # (Auto) 0.7 Eos # (Auto) 0.3 Baso # (Auto) 0.0 Immature Gran % 0.3 Nucleated RBC % 0.0 Immature Gran # 0.02 Nucleated RBCs # 0.00 ABG pH 7.515 H ABG pCO2 28.0 L ABG pO2 66.7 L ABG HCO3 22.1 ABG Total CO2 23.0 ABG O2 Saturation 93.6 L ABG Base Excess -0.2 Sodium Potassium Chloride Carbon Dioxide Anion Gap BUN Creatinine GFR Calculation BUN/Creatinine Ratio Glucose POC Glucose Calculated Osmolality Calcium Phosphorus 3.5 Magnesium 2.2 Prealbumin 18.9 L 04/25/16 04/24/16 00:33 17:16 WBC RBC Hgb Hct MCV MCH MCHC RDW Plt Count MPV Neut % (Auto) Lymph % (Auto) [place] % (Auto) Eos % (Auto) Baso % (Auto) Neut # (Auto) Lymph # (Auto) [place] # (Auto) Eos # (Auto) Baso # (Auto) Immature Gran % Nucleated RBC % Immature Gran # Nucleated RBCs # ABG pH ABG pCO2 ABG pO2 ABG HCO3 ABG Total CO2 ABG O2 Saturation ABG Base Excess Sodium Potassium Chloride Carbon Dioxide Anion Gap BUN Creatinine GFR Calculation BUN/Creatinine Ratio Glucose POC Glucose 93 105 Calculated Osmolality Calcium Phosphorus Magnesium Prealbumin Preliminary micro results at discharge 04/19/16 Unknown Fungal Culture - Preliminary Bronchial Washings No Fungus isolated at 1 week 04/11/16 Unknown Fungal Culture - Preliminary Bronchial Washings No Fungus isolated at 2 weeks 04/09/16 09:15 Fungal Culture - Preliminary Bronchial Washings No Fungus isolated at 2 weeks 04/11/16 Unknown Mycobacterial Culture - Preliminary Bronchial Washings No AFB isolated at 2 weeks 04/09/16 09:15 Mycobacterial Culture - Preliminary Bronchial Washings No AFB isolated at 2 weeks DS: Provider Date of admission: 04/08/16 14:57 Primary care physician: Gricelda oRdas MD Attending physician on admission: Guanaco Batista Consults: 04/08/16 17:43 Consult to Physician [CONS] Routine Comment: surgery Dr. Bear. Already infomred Consulting Provider: Consulting Provider Notified: Yes 04/08/16 17:44 Consult to Physician [CONS] Routine Comment: nephrology Dr. 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 severe metablic acidosis. Consulting Provider: Consulting Provider Notified: No When should Consulting Provider be notified: Now Consult to Specialist Group: Pulmonology When should Consulting Provider be notified: Now Consult Notification Comment: Pt SOB & severe metabolic acidosis and severe CELESTINO. Intubated in ER on MV. 04/08/16 17:58 Consult to Pharmacy [CONS] Routine Reason for Pharmacy Consult: Adjust Meds Renal Funct 04/08/16 19:42 Consult to Physical Therapy [CONS] Routine Reason for Physical Therapy: Evaluate and Treat Consult Comment: pt on vent 04/08/16 19:48 Consult to Physician [CONS] Routine Comment: gastroenterology/ Dr. Napier Consulting Provider: When should Consulting Provider be notified: In am Consult Notification Comment: 50 yr pt intubated, ? acute cholecystitis/ cholilithiasis/Dil CBD/severe CELESTINO& acidosis starting dialysis 04/09/16 14:46 Consult to Pharmacy [CONS] Routine Reason for Pharmacy Consult: Dose/Manage Vancomycin 04/10/16 10:03 Consult to Physician [CONS] Routine Comment: Consulting Provider: Consult to Specialist Group: Neurology 04/10/16 10:34 Consult to Physician [CONS] Routine Comment: Consulting Provider: Consult to Specialist Group: Cardiology When should Consulting Provider be notified: Now 04/11/16 10:25 Consult to Physician [CONS] Routine Comment: Consulting Provider: Consult to Specialist Group: Cardiology Person Notified: DAGOBERTO Kilpatrick Date Notified: 04/11/16 Time Notified: 10:50 04/12/16 08:29 Consult to Dietitian [CONS] Routine Reason for Dietitian: TF-Initiate/Manage 04/16/16 11:05 Consult to Physician [CONS] Routine Comment: Elective trach Consulting Provider: Lucian Ding 04/18/16 14:33 Consult to Case Mgmt/Social Srvs [CONS] Routine Reason for Case Mgmt/Social Srvs: LTAC Consult Comment: MAY CAN GO NEXT WEEK 04/21/16 09:18 Consult to Physical Therapy [CONS] Routine Reason for Physical Therapy: Evaluate and Treat Weakness Start Therapy: Today 04/25/16 10:20 Consult to Physician [CONS] Routine Comment: to take pt to [facility]; discussed with Dr. Pichardo Consulting Provider: Giovanni Mays Discharging clinician: Ann Bradshaw NP Expected date of discharge: 04/25/16 <Opal Zeng - Last Filed: 04/25/16 12:03> Hospital Course - Hospital Course Hospital Course: Patient sat up at the edge of the bed earlier on, he was awake this am and had no new complaint.He is tolerating feeds via peg tube. He will be going to [facility] once the information technology account manager is ready for him. - Time spent with patient Time with patient DS: Greater than 30 minutes Diagnosis - Discharge Diagnosis (1) Seizure Status: Acute (2) Septic shock Status: Resolved (3) Acute respiratory failure Status: Acute (4) Cholelithiasis Status: Acute (5) Scrotal abscess Status: Acute (6) Hypokalemia Status: Resolved (7) Acute renal failure Status: Resolved (8) Diabetes Status: Chronic (9) Oral thrush Status: Acute (10) Metabolic acidosis Status: Acute (11) Elevated troponin Status: Acute (12) Acute encephalopathy Status: Acute (13) Remote history of stroke Status: Chronic (14) Hypocalcemia Status: Acute (15) Hypernatremia Status: Acute (16) Swelling Status: Acute (17) HTN (hypertension) Status: Acute Discharge Plan - Discharge Data Condition at Discharge: Stable Discharge Diet: other (as per dietitician) Activity: resume usual activities as tolerated Exam - Constitutional General appearance: no acute distress, other (trach in place) - Neck Neck exam: Present: normal inspection - Respiratory Respiratory exam: Present: clear to auscultation bilaterally - Cardiovascular Cardiovascular exam: Present: regular rate and rhythm - GI/Abdominal GI/Abdominal exam: Present: normal bowel sounds, other (peg tube in place) - Extremities Exam Extremities exam: Present: normal inspection - Neurological Exam Neurological exam: Present: alert
[2016-04-25] MEDS: CARVEDILOL 3.125 MG TABLET PO SCH (09:14)
[2016-04-25] MEDS: CHOLECALCIFEROL 1,000 UNIT TABLET PO SCH (09:14)
[2016-04-25] MEDS: ASPIRIN EC 325 MG TABLET PO SCH (09:14)
[2016-04-25] MEDS: NYSTATIN 500,000 UNIT/5 ML UDCUP SWISH/SWAL SCH ×2 (09:14→12:29)
--- NOTE | 2016-04-25 10:02 | Gastrointestinal Progress Note ---
<Colleen Solo - Last Filed: 04/25/16 09:59> Assessment and Plan (1) Cholelithiasis Problem details: w possible acute cholecystisi/CBD 10 mm dilated/& elevated lipase Status: Acute Assessment and plan: 04/25-Post PEG, tolerated well. Feedings to be resumed via PEG today. For transfer to [facility] today. Plan and addendum to follow by Dr Napier 04/23-Perc drain patent, scant output. Tolerating tube feedings. ST evaluation noted with delayed swallowing, coughing. Plan and addendum to follow by DR Napier. 04/18-No changes at this time. Tolerating tube feedings. For trach today, not tolerating CPAP trials. Maribell drain with scant output. Plan and addendum to follow by Dr napier 04/15-No change at present. Tolerating tube feedings. Good UOP. Scant drainage from perc maribell drain. Plan and addendum to follow by Dr Napier. 04/12-Minimal output from maribell tube. NG output less. Tube feedings to be initiated today. Plan and addendum to follow by Dr Napier. 04/10-Post perc maribell tube placement. Large amount of NG output reported. Potassium 2.2. Plan and addendum to follow by Dr Napier. 04/09-Findings on CT scan of cholelithiasis and GB distention, dilated CBD. HIDA scan results with nonvisualized gallbladder. LFTs unremarkable. Plan to continue to monitor at this time. Plan and addendum to follow by Dr Napier. Current Visit: Yes Gastroenterology - PN: Subj Interval history: CC: PEG placement Pt is seen, awake, alert and answers questions appropriately with nodding his head. He is post PEG placement on yesterday and tolerating this well. He has no redness or drainage at PEG site. He denies any pain. He is for transfer to [facility] later today when a bed becomes available. Abdomen is soft, nontender. Perc drain remains patent ROS: No acute distress Exam (Progress Note) - Constitutional Vitals: Period Temp Pulse Resp BP Sys/Mishra Pulse Ox Last 24 Hr 97.2 F-99.3 F 54-92 15-29 111-169/75-98 95-100 General appearance: normal weight, no acute distress - Head Head exam: Present: normal inspection, normocephalic - Eye Eye exam: Present: other (lids and conjunctiva unremarkable). Absent: scleral icterus - ENT ENT exam: Present: normal exam, normal oropharynx - Neck Neck exam: Present: normal inspection - Respiratory Respiratory exam: Present: clear to auscultation bilaterally. Absent: rales, rhonchi, wheezes - Cardiovascular Cardiovascular exam: Present: regular rate and rhythm. Absent: diastolic murmur , JVD, systolic murmur - GI/Abdominal GI/Abdominal exam: Present: normal bowel sounds, soft. Absent: ascites, distended, mass, organomegaly, tenderness - Extremities Exam Extremities exam: Present: normal inspection, full ROM - Back Exam Back exam: Present: normal inspection - Neurological Exam Neurological exam: Present: alert - Psychiatric Psychiatric exam: Present: normal affect, normal mood - Skin Skin exam: Present: normal color, warm, dry Results - Labs CBC & BMP: 04/25/16 05:25 04/25/16 05:25 Lab Results: I have reviewed the past 24 hour labs <Bhavesh Napier - Last Filed: 04/25/16 16:58> Exam (Progress Note) - Constitutional Vitals: Period Temp Pulse Resp BP Sys/Mishra Pulse Ox Last 24 Hr 97.2 F-99.3 F 54-85 15-28 126-169/75-100 95-100 Results - Labs CBC & BMP: 04/25/16 05:25 04/25/16 05:25
--- NOTE | 2016-04-25 10:29 | Pulmonology Progress Note ---
Pulmonary - PN: Subj Interval history: Is a 50-year-old male. This patient was seen by me in pulmonary consultation 04/08/2016. His main problems appear to be 1. Nausea vomiting diarrhea etiology undetermined. Possibly related to gallbladder disease. Consider other causes. Resultant dehydration 2. Hypotension. Partially secondary to #1. Consider sepsis. 2.1 scrotal abscess 3. Acute cholecystitis. 4. Acute renal failure. Probably secondary to #1 and #2. 4.1. Acute metabolic acidosis probably secondary to acute renal failure and possibly secondary to sepsis 5. Diabetes mellitus 6. Heart surgery as an infant 7. History of back surgery 8. High blood pressure 9. Possible history of CVA 10. Acute pancreatitis. 11. Bilateral pleural effusions 12. Acute pulmonary failure. At least partially secondary to acute renal failure and hypotension requiring pressor agents, with severe metabolic acidosis. Consider other causes there may be other factors such as underlying lung disease and/or pulmonary emboli and/or aspiration 13. See past history 04/09/2016.. Today the patient was evaluated with fiberoptic bronchoscopy. He had definite evidence of significant aspiration. He had erythematous slightly friable markedly stenotic airways bilaterally secondary to what appears to be an aspiration injury. Multiple specimens were sent. No biopsies were taken. Specimens from his scrotal abscess are growing a gram-positive cocci. Earlier today Dr. Arevalo to look to start the patient on vancomycin. Patient's also on Zosyn. I do not see any need to add extra antibiotics at this point. ABGs have improved significantly on mechanical ventilation and FiO2 of 100%. PH is 7.30. PCO2 is 22.3. PO2 is 391. Bicarb is 13.9. Sodium is 143. Potassium is low at 3.2 creatinine has dropped to 9.4 and the patient for repeat dialysis today. Natruretic peptide is elevated at 260. 04/10/2016. Patient's chest x-ray shows left lower lung atelectasis. He will need a repeat fiberoptic bronchoscopy tomorrow bronchoscopy specimens have been negative so far. Abscess of the scrotum is growing a gram-positive cocci which is yet unidentified. 04/09/2016 the patient had a percutaneous drainage of the gallbladder. There are no positive cultures at this point. This patient has not done well with his weaning trials. We will continue to try to make adjustments.H&H is dropped to 10.5/27.6. White count 7100 with 84 segs and 6 lymphs. Platelets have dropped to 122,000. ABGs are improved. On mechanical ventilation and FiO2 of 65% pH is 7.5-8. PCO2 is 22.7. PO2 is 156. Bicarb is 18.5. Potassium is low at 2.2. Renal will make adjustments for this. Calcium is also low at 6.5. Natruretic peptide is dropped from 260 217. Protein and albumin are low at 5.0 and 2.2 respectively. Labs been reviewed. 04/11/2016. Today's chest x-ray shows a right perihilar infiltrate and a small residual left lower lung infiltrate. Bronchoscopy specimens from 04/10/2016 have shown nothing so far. Culture from the patient's scrotal has grown Streptococcus agalactiae. No sensitivities have been reported. Patient had dialysis yesterday. ABGs on mechanical ventilation and FiO2 of 60% shows a pH 7.59. PCO2 is 21.5. PO2 is 130. Bicarb is 20. This patient has been intentionally hyperventilated because of his metabolic acidosis which is now resolved. I have made adjustments on his ventilator and hopefully lighten his CO2 increase will let him do better on his CPAP trials. Potassium is low at 2.3. This is being managed by renal. CBC is stable and white count is come down to 6700 73 segs and 12 lymphs. Fiberoptic bronchoscopy was done 2016. See report. Patient is a significant problem with severe erosive friable partially stenotic bilateral bronchitis. This is complicated by underlying collapsibility of large and small airways and complicated by retention of secretions and residual gastric aspirate. 04/12/2016. This 50-year-old had a scrotal abscess. He had acute cholecystitis which is been drained percutaneously. He has had acute renal failure and has required dialysis. He had acute severe metabolic acidosis that is improved significantly. He has diabetes mellitus. He has acute respiratory failure that required intubation mechanical ventilation. On he had fiberoptic bronchoscopy and he had definite evidence of significant aspiration. He had erythematous markedly flushed friable and stenotic airways bilaterally.ABGs have improved significantly. On FiO2 of 60% his pH is 7.42. PCO2 is 41. PO2 is 313. Bicarb was 26. Sodium is increased to 153 and potassium is low at 2.9 this is being managed by renal. This looked Like he had acute and chronic injuries. He had a repeat fiberoptic bronchoscopy on 04/11/2016 and a good deal of secretions were removed. Endobronchially he did not appear to be any better. There are no positive bronchoscopy cultures appear he is on weaning protocol some days he does a few hours of CPAP and some days he does not tolerate this well. He is getting dialysis every other day. 04/15/2016. Chest x-ray has deteriorated somewhat today there are faint bilateral scattered areas of alveolar infiltrates. ABGs on mechanical ventilation FiO2 of 45% shows a pH of 7.395. PCO2 is 47. PO2 63. Bicarb is 27. Sodium is elevated 115. Potassium 3.5. Creatinine is 1.0 with a BUN of 13. White count is 6100 with 63 segs 17.5 monocytes. H&H is 9.6/29.7. Notes from this weekend say that the patient had no spontaneous respirations. He is on mechanical ventilation and I changed him to a T-tube and he had no problem initiating of breath whatsoever. He does gradually become rapid with his breathing. I was using no CPAP at the time. We will going to advance him to short trials of T-tube today and otherwise will advance his CPAP as tolerated. I believe this patient can do better. 04/16/2016. This patient is not doing well with his weaning trials. He is at a standstill. He is been on mechanical ventilation approximately 10 days. I talked to the patient's , his male cousin and his and patient's mother , the patient's nurse Malathi, Canelo Leal nurse practitioner and Suha Gonzalez practitioner were present. I discussed the pros and cons for trach. She understood these and was agreeable to having this done electively. Today's x- ray still shows some bilateral infiltrates ABGs on mechanical ventilation FiO2 of 45% shows a pH of 7.42, PCO2 45, PO2 of 115, bicarb 28.6 electrolytes normal. Creatinine is 1.0. CBC is stable. Microbiology no recent positive cultures. Other than his pulmonary problems the patient is being treated for scrotal abscess and a decubitus ulcer and acute cholecystitis. He also has acute renal failure which is markedly improved with dialysis 04/17/2016. Chest x-ray still has bilateral infiltrates but these are definitely improved. ABGs are stable. Labs been reviewed. Medicines been reviewed. Patient's for trach most likely a day. Appreciate ENT consultation. 04/18/2016. Patient had a trach placed. He appears to be tolerating this well. He still has a percutaneous drain into his gallbladder. He is also being treated for scrotal abscess. Today his chest x-ray shows a bilateral pulmonary infiltrates are continuing to improve on a daily basis. ABGs are stable on mechanical ventilation with an FiO2 of 45%. PH is 7.47, PCO2 is 33. PO2 is 75. Bicarb is 25. Labs been reviewed. Electrolytes kidneys and CBC are stable. This patient has a problem with retained secretions and he will be evaluated with fiberoptic bronchoscopy tomorrow. Case management has approached me about moving this patient to long-term acute care. I think he will be ready to go next week. We do need some decision about what we plan to do with his gallbladder that could prolong his present hospitalization. Also need information about how the scrotal abscess is doing and whether or not this has resolved. 04/19/2016. On 04/18/2016 this patient had a trach placed. He has done well with this. Today he had a fiberoptic bronchoscopy. See report. He had retained secretions. He has underlying erosive friable bronchitis with stenosis has improved markedly. ABGs on mechanical ventilation FiO2 45% shows a pH 7.44. PCO2 is 34. PO2 74. Bicarb is 24. CBC is stable. Patient's previously been on dialysis. His creatinine is 0.90. Patient has a percutaneous gallbladder drain tube in place. Dr. Mickey Bear says his tube will be removed once the patient is out of ICU and just before he goes home. Most likely this patient's going to require long-term acute care. This possible will be transferring him to [facility] of next week. Need to know if we plan to keep the tube and while he is there 04/22/2016. Patient's chest x-ray shows slow resolution of bilateral pulmonary infiltrates. Also known as pneumonia. Bronchial washings from 04/19/2016 grew E. coli. Antibiotics have been adjusted. Patient's previously had a scrotal abscess secondary to strep clinic TA. He has a percutaneous drain from his gallbladder. None of the cultures from this were positive. ABGs on FiO2 45% show pH 7.6. PCO2 is 33. PO2 78. Bicarb is 24.6. Patient's on stage V the weaning protocol. Potassium is low at 3.4 and this will be corrected by protocol. H&H is slowly dropped to 9.1/28.2. White count is 7267 segs 15 lymphs and 13 monos. 04/23/2016. Today's chest x-ray shows a small amount of bilateral pleural effusion. No other abnormalities are noted. ABGs on FiO2 of 45% have deteriorated slightly with a pH 7.44. PCO2 is 34. PO2 is 51.2. Bicarb is 23.7. Patient however has done well with weaning protocol on CPAP. We will try more short periods of T-tube today. Creatinine is stable at 1.0 potassium is low at 3.1 and will initiate potassium replacement protocol. H&H is stable. This patient is definitely more alert today and hopefully will be more cooperative. He is being evaluated for possible transfer in the next few days to long-term acute care at [facility]. 04/24/2016 patient's chest x-ray stable. His ABGs are fine. He is doing well on protocol. He is at the CPAP level. I am hoping to try trach collar today. Patient failed a swallowing study he is for PEG today. Labs been reviewed. 04/25/2016. Patient had his PEG tube placed yesterday and he is doing well. I talked to Dr. Italo Mays who will admit this patient to [facility]. Patient's chest x-ray shows a minor amount of left lower lung atelectasis bilateral infiltrates have resolved. Right hilum appears to be slightly prominent. ABGs on FiO2 of 45% show pH is 7.51. PCO2 28. PO2 66.7. Bicarb 22.1. Patient's been on CPAP for more than 24 hours. I have asked that he has a trach collar trials but this was not done. Electrolytes are normal. Creatinine 0.8. H&H is stable at 9.8 or 27.5. White count is 5700. Platelets of 435,000 bronchial washings from 04/19/2016 grew E. coli. Patient still on antibiotics for this. At that time he had a bilateral infiltrate. Earlier during his hospitalization he had a scrotal abscess secondary to Streptococcus agalactiae. He is also had a percutaneous drain of acute cholecystitis. He came in with severe renal failure and was dialyzed and he is now off dialysis with a creatinine of 0.8. This was a rather remarkable recovery. Patient's alert and he can cooperate. He has a very nice family. Dr. Mays and I have discussed the case today we are waiting for confirmation from the social media strategist that he has been accepted for long-term acute care at [facility]. Medicines have been reviewed. Medicines have been reviewed. Vital signs. See below. Psychiatric. Alert and oriented and appears to want to cooperate. Neck. Symmetrical. No meningismus Lymphatics. No submandibular cervical or supraclavicular adenopathy. Chest. Mild coarse large airway congestion. Heart. No gallop Abdomen. Slightly rigid. Only rare bowel sounds. Extremities. No evidence of deep venous thrombophlebitis. Note Doppler venograms are negative for deep venous thrombophlebitis Neurologic. Cranial nerves are intact. Patient moves all 4 extremities. The remainder the examination is negative. Plan. 1. 04/11/2016. The patient is off pressor agents 2. 04/11/2016. Ventilator adjustments made. 3. Weaning protocol 4. Physical therapy while on ventilator protocol 6. Daily chest x-ray 7. Daily ABGs. 9. 04/12/2016. Continue weaning protocol. Patient does not improve soon will need to consider a trach. 10. Deep venous thrombophlebitis prevention protocol #11. 04/19/2016. Fiberoptic bronchoscopy done earlier today. Check microbiology specimens. Trach placed 04/18/2016. Continue weaning protocol. Percutaneous gallbladder drainage. See my note above for this date . 04/22/2016. E. coli from bronchoscopy specimens. Scrotal abscess. Percutaneous drain into the gallbladder. Stage V weaning protocol. Trach. This patient is being considered for [facility] long-term acute care. I need to know surgeries plans for his percutaneous gallbladder drain. Patient's on a minimal amount of dipper Van. He gets IV hyperalimentation. Will ask for swallowing study 12. 04/23/2016. See my note from this date. Advance weaning process. Speech therapy consult has been reviewed and I am not sure what the conclusion is. I have asked the nurse to check with dietary and see if this means we can start trying to feed the patient. 13. 04/24/2016. PEG today. Probably [facility] tomorrow 14. 04/25/2016. See my note above. Probable transfer to [facility] pending case management. Exam (Progress Note) - Constitutional Vitals: Period Temp Pulse Resp BP Sys/Mishra Pulse Ox Last 24 Hr 97.2 F-99.3 F 54-88 15-29 111-169/75-100 95-100 Results - Labs CBC & BMP: 04/25/16 05:25 04/25/16 05:25
[2016-04-25] MEDS: FLUCONAZOLE INJ 100 MG in IV BAG 1 EACH IV SCH (11:19)
[2016-04-25 14:05] VITALS: BP 134/83
== END 2016-04-25 16:45 | DRG 4 ==
LOC: EDUNIT# → EDBD → N.ED 13:15 → N.EDINP 14:57 → SUATTDRO 14:57 → N.CC 15:52
PROVIDERS: ADMIT Student in an Organized Health Care Education/Training Program; ATTEND Internal Medicine
PROC: EGDWPEG (ICD-10-PCS; 2016-04-24 09:05)

== ENCOUNTER 2016-08-29 18:28 | Inpatient (IN) ==
--- NOTE | 2016-08-29 18:55 | Emergency Department Note ---
Jermaine Yuen Brittany, am scribing for, and in the presence of, Henry Morfin MD 18:49. Navjot Yuen Robert M, MD, personally performed the services described in this documentation, ascribed by Yajaira Dean in my presence, and it is both accurate and complete [id number] . Arrival - Arrival Chief Complaint: Shortness of Breath Stated Complaint: SOB with exertion ED Nursing Triage Note: Brought in by EMS-transfer from [facility] for further evaluation of metabolic acidosis. Patient c/o SOB with exertion for "a few months". States he has been out of his meds x's 2 months. Denies CP or SOB at this time Mode of Arrival: Stretcher Limitations: No Limitations Source: Patient, RN Notes Reviewed Time Seen by Provider: 08/29/16 18:43 - History of Present Illness HPI Narrative: Patient is a 50 y/o [place] male presenting to the ED by EMS from [facility] for further evaluation of Metabolic Acidosis. Patient presented to [facility] for complaints of shortness of breath that has been ongoing for "a few months" per patient. He notes that he usually is able to ambulate with ease, but in recent days has gotten very winded with exertion. Patient denies having any diaphoresis, chest pain, abdominal pain, nausea, vomiting, vertigo, or vision changes. He reports that he has been out of all of his daily medications for some months now and has not been able to get them refilled. Patient admits to smoking cigarettes and huffing paint. Patient has no other complaint/pain. PMHx significant for HTN, CVA, Seizures, Arthritis, GERD, Anemia. Onset (ago): month(s) ("few months") Consistency: constant Allergies/Adverse Reactions: Allergies Allergy/AdvReac Type Severity Reaction Status Date / Time No Known Allergies Allergy Verified 01/04/16 14:01 Home Medications: Home Medications Medication Instructions Recorded Confirmed Type Aspirin EC Tab 325 mg PO DAILY tablet 04/25/16 06/10/16 Rx Carvedilol [Coreg] 12.5 mg PO BID 06/10/16 06/10/16 History Cholecalciferol (Vitamin D3) 1,000 unit PO DAILY 06/10/16 06/10/16 History [Vitamin D3] Docusate Sodium 100 mg PO BID 06/10/16 06/10/16 History Lacosamide [Vimpat] 100 mg PO BID 06/10/16 06/10/16 History Pantoprazole Tab [Protonix Tab] 40 mg PO DAILY 06/10/16 06/10/16 History Skin Healing Oint (Aquaphor) 1 applic TOP DAILY 06/10/16 06/10/16 History [Aquaphor] Zinc Oxide 40% Paste [Desitin 13% 1 applic TOP PRN PRN 06/10/16 06/10/16 History Paste] levETIRAcetam TAB [Keppra Tab] 500 mg PO BID 06/10/16 06/10/16 History risperiDONE TAB [RisperDAL TAB] 0.5 tablet PO BID 06/10/16 06/10/16 History Review of System - Review of System 12 point system: reviewed and no additional remarkable complaints except as stated - Review of System Constitutional: Absent: chills, fever Eyes: Absent: vision change Head/Ears/Nose/Throat: Absent: nasal drainage, sore throat Respiratory: Present: respiratory distress Cardiovascular: Absent: chest pain, palpitations Gastrointestinal: Absent: abdominal pain, nausea, vomiting, diarrhea, constipation Genitourinary male: Absent: urgency, dysuria, frequency Musculoskeletal: Absent: arm pain, back pain, leg pain, neck pain Skin: Absent: rash Neurological: Absent: headache Psychiatric: Absent: anxiety, depression Hematological/Lymphatic: Absent: easy bleeding, easy bruising Medical,Surgical,& Family Hx - Medical History Cardio: History of: Hypertension Psychological: No history of: Anxiety Disorders, Bipolar Disorder, Depression, Schizophrenia Neurology: History of: Cerebrovascular Accident, Seizures Rheumatology: History of;: Rheumatological Problems (Arthritis) Respiratory: History of: Respiratory Problems (Hx of trach but removed now) Gastrointestinal: History of: GERD, GI Problems (PEG TUBE) Musculoskeletal: History of: Back/Neck Problems (Chronic back pain) Hematology: History of: Anemia - Surgical History Cardiac Surgeries: Sugical HX of: Cardiac Surgery (Open heart surgery as a child ) Patient Denies: Cardiac Catheterization Neurologic Surgeries: Surgical HX of: Neurologic Surgery (back surgeries) HEENT Surgeries: Patient denies: Eye Surgery, Tonsilectomy & Adenoidectomy Abdominal Surgeries: Surgical HX of: EGD Patient denies: Abdominal Surgery, Appendectomy, Cholecystectomy, Colonoscopy , Gastric Bypass Surgery, Hernia Repair Reproductive Surgeries: Patient denies;: Genitourinary Surgery Orthopedic Surgeries: Surgical HX of;: Orthopedic Surgery, Spinal Surgery Patient denies;: Total Hip Replacement, Total Knee Replacement - Family History Family History: Reports;: Family Hypertension (Mother), Family Stroke (Mother) Denies;: Family Anesthesia Reaction, Family Cancer, Family Diabetes, Family Heart Disease, Family Psychiatric Problems - Social History Smoking Status: Smoker, status unknown Frequency of Alcohol Use: None Type of Drug Use: None Exam Vital Signs: Vital Signs Temperature 97.7 F 08/29/16 18:29 Pulse Rate 66 08/29/16 18:29 Respiratory Rate 20 08/29/16 18:29 Blood Pressure 175/105 08/29/16 18:29 O2 Sat by Pulse Oximetry 99 08/29/16 18:29 - General General appearance: alert, in no apparent distress - Head Head exam: Present: atraumatic, normocephalic, normal inspection - Eye Eye exam: Present: normal appearance, PERRL, EOMI - ENT ENT exam: Present: normal exam, normal oropharynx - Neck Neck exam: Present: full ROM, trachea midline. Absent: normal inspection (old healed incision site from what appears to be previous tracheotomy) - Chest Chest inspection: Present: normal inspection, symmetric chest wall rise - Respiratory Respiratory exam: Present: normal lung sounds bilaterally. Absent: wheezes - Cardiovascular Cardiovascular exam: Present: regular rate, normal rhythm, normal heart sounds - Abdominal Exam Abdominal exam: Present: soft, normal bowel sounds. Absent: distention, tenderness - Extremities Exam Extremities exam: Present: normal inspection - Back Exam Back exam: Present: normal inspection - Neurological Exam Neurological exam: Present: alert, oriented X3, CN II-XII intact. Absent: motor sensory deficit - Psychiatric Psychiatric exam: Present: normal affect, normal mood - Skin Skin exam: Present: warm, dry, intact, normal color Course - Reevaluation(s) Reevaluation #1: I have reviewed the labs, chest x-ray, and EKG from [facility]. Our EKG we obtained on arrival remains unchanged. Chest x-ray demonstrated nothing acute. Time: 18:54 - Consultations Consultation #1: The hospitalist service will admit the patient. Time: 18:55 Disposition Clinical Impression: Metabolic acidosis, Remote history of stroke, Essential hypertension, Seizure Case discussed with: patient, patient's family Disposition: Still a Patient Condition: Stable Time of Disposition: 18:54
--- NOTE | 2016-08-29 19:43 | Hospitalist History & Physical ---
Assessment and Plan (1) Dyspnea Status: Acute Assessment and plan: Progressive dyspnea. This is most likely due to uncontrolled HTN. I do not have his labs so I do not know the extent of the metabolic acidosis which could be stimulating the respiratory drive. Clinically he does not really sound wet but this doesn't rule out an underlying CHF given the long standing HTN.It will be prudent to also r/o a PE and acute coronary syndrome. Plan Telemetry CXR D-dimer if high CT scan to r/o pE Echo Treat Blood pressure BNP CBC, CMP cardiac enzymes Current Visit: Yes (2) Uncontrolled hypertension Status: Acute Assessment and plan: due to poor compliance to meds -Re-instate meds -TSH -urinalysis -Lipids -A1c Current Visit: Yes (3) Metabolic acidosis Problem details: severe Status: Acute Assessment and plan: based on history. This could also be driving the respiratory center causing SOB vs hyperventilation -CMP stat -ABG -UDS Current Visit: No (4) Seizure Status: Acute Assessment and plan: based on history -will start home meds, place on seizure precautions Current Visit: Yes (5) History of CVA (cerebrovascular accident) Status: Acute Assessment and plan: now stating a history of possible left sided weakness though clinically unimpressive -CT head resume ASA Current Visit: Yes (6) GERD (gastroesophageal reflux disease) Status: Acute Assessment and plan: will resume PPI Current Visit: Yes (7) Smoking Status: Acute Assessment and plan: he has been counseled to quit. will place him on Nicotine patch Current Visit: Yes History of Present Illness Chief complaint: SOB History of present illness: Mr. Pace is a 50 year old male with a history of HTN, CVA, seizures, arthritis, known smoker who also huffs paint, ran out of his medications about a month and half ago, and now presenting with SOB. Patient states SOB has been on and off for the past one month. He states that SOB is worse on minimal exertion, and it is associated with orthopnea, and PND. He however denies a history of chest pain, tightness, cough and palpitations. He also denies fever, chill, leg pain and leg swellings. He has noticed some weakness on the left side of his body but denies headaches, slurred speech and difficulty swallowing. Symptoms progressively worsened and he finally decided to report to [facility] where he was found to have a metabolic acidosis and was sent here for further management. I do not have records of his labs and documents from this center.Upon arrival, his blood pressure was 174-175/105-110. Home Medications Medication Instructions Recorded Confirmed Type Carvedilol [Coreg] 12.5 mg PO BID 06/10/16 08/29/16 History Cholecalciferol (Vitamin D3) 1,000 unit PO DAILY 06/10/16 08/29/16 History [Vitamin D3] Docusate Sodium 100 mg PO BID 06/10/16 08/29/16 History Lacosamide [Vimpat] 100 mg PO BID 06/10/16 08/29/16 History Pantoprazole Tab [Protonix Tab] 40 mg PO DAILY 06/10/16 08/29/16 History levETIRAcetam TAB [Keppra Tab] 500 mg PO BID 06/10/16 08/29/16 History risperiDONE [Risperidone] 0.5 mg PO BID 08/29/16 08/29/16 History Allergies Allergy/AdvReac Type Severity Reaction Status Date / Time No Known Allergies Allergy Verified 01/04/16 14:01 Medical,Surgical,& Family Hx - Medical History Cardio: History of: Hypertension Psychological: No history of: Anxiety Disorders, Bipolar Disorder, Depression, Schizophrenia Neurology: History of: Cerebrovascular Accident, Seizures Rheumatology: History of;: Rheumatological Problems (Arthritis) Respiratory: History of: Respiratory Problems (Hx of trach but removed now) Gastrointestinal: History of: GERD, GI Problems (PEG TUBE) Musculoskeletal: History of: Back/Neck Problems (Chronic back pain) Hematology: History of: Anemia - Surgical History Cardiac Surgeries: Sugical HX of: Cardiac Surgery (Open heart surgery as a child ) Patient Denies: Cardiac Catheterization Neurologic Surgeries: Surgical HX of: Neurologic Surgery (back surgeries) HEENT Surgeries: Patient denies: Eye Surgery, Tonsilectomy & Adenoidectomy Abdominal Surgeries: Surgical HX of: EGD Patient denies: Abdominal Surgery, Appendectomy, Cholecystectomy, Colonoscopy , Gastric Bypass Surgery, Hernia Repair Reproductive Surgeries: Patient denies;: Genitourinary Surgery Orthopedic Surgeries: Surgical HX of;: Orthopedic Surgery, Spinal Surgery Patient denies;: Total Hip Replacement, Total Knee Replacement - Family History Family History: Reports;: Family Hypertension (Mother), Family Stroke (Mother) Denies;: Family Anesthesia Reaction, Family Cancer, Family Diabetes, Family Heart Disease, Family Psychiatric Problems - Social History Smoking Status: Smoker, status unknown Frequency of Alcohol Use: None Type of Drug Use: None 12 point system: reviewed and no additional remarkable complaints except as stated Exam - Constitutional Vitals: Period Temp Pulse Resp BP Sys/Mishra Pulse Ox Last 24 Hr 97.7 F-97.7 F 66-70 20-22 174-175/105-110 99-99 General appearance: mild distress - Respiratory Respiratory exam: Present: rales - Cardiovascular Cardiovascular exam: Present: regular rate and rhythm - GI/Abdominal GI/Abdominal exam: Present: normal bowel sounds - Extremities Exam Extremities exam: Present: normal inspection - Neurological Exam Neurological exam: Present: alert, oriented X3 Results - Labs Lab Results: I have reviewed the past 24 hour labs
[2016-08-29] MEDS ORDERED: ONDANSETRON 4 MG/2 ML VIAL IV PRN (20:00)
[2016-08-29] MEDS ORDERED: ACETAMINOPHEN 325 MG TABLET PO PRN (20:00)
[2016-08-29] MEDS ORDERED: SODIUM CHLORIDE 0.45% 1,000 ML IV SCH (20:00)
[2016-08-29 20:08] LABS: Basophils % 0.7 % (0.0-0.8); Eosinophils # 0.1 10*3/uL (0.0-0.87); Eosinophils % 2.2 % (0.00-10.9); Hematocrit 42.1 VOL% (42.0-52.0); Hemoglobin 14.5 GM/DL (14.0-18.0); Immature Granulocytes % 0.7 %; Immature Granulocytes Absolute 0.03 #; Lymphocytes # 1.6 10*3/uL (1.4-4.0); Lymphocytes % 34.1 % (21.2-54.2); Mean Corpuscular HGB Conc 34.4 GM/DL (32-36); Mean Corpuscular Hemoglobin 30 PG (27-34); Mean Corpuscular Volume 87.9 FL (87-102); Monocytes # 0.5 10*3/uL (0.11-0.8); Monocytes % 11.3 % (1.7-12.7); Neutrophils # 2.4 10*3/uL (1.4-7.4); Platelet Count 192 T/CUMM (130-400); Red Blood Count 4.79 MC/CUMM (3.8-5.5); Red Cell Distribution Width 13.4 % (9.3-17.3); White Blood Count 4.6 T/CUMM (4-12)
[2016-08-29 20:25] LABS: Albumin 4.1 G/DL (3.4-5.0); Bilirubin,Total 0.5 MG/DL (0.2-1.0); Calcium 8.5 MG/DL (8.5-10.1); Magnesium 2.6 MG/DL (1.8-2.4); Osmolality,Calculated 277.5 MOS/KG (273-304); Potassium 3.4 MMOL/L (3.5-5.1); Thyroid Stimulating Hormone 1.16 uIU/ml (0.358-3.74); Total Protein 7.8 G/DL (6.4-8.3)
--- NOTE | 2016-08-29 20:28 | XRay Report ---
Exam: XR chest 1V portable Date: 08/29/2016 8:13 PM Indication: Shortness of breath Comparison: None Technical: 2:48 PM same date from outside institution Findings: Heart is normal in size. Reticular nodular densities are present lung david. There some calcification in tracheobronchial tree. No obvious consolidation or effusion. Surgical changes present over the neck bilaterally with previous cervical fusion also noted.Old deformity of the right ribs present. Impression: 1. Underlying granuloma change 2. Previous surgery in the neck 3. Old deformity of the right ribs PROCEDURE INTERPRETED AT [facility] DEPARTMENT OF RADIOLOGY Final Report Signed by: Dr. Juice Molina
[2016-08-29 20:41] LABS: Troponin I Only < 0.015 NG/ML (0.00-0.045)
[2016-08-29 21:04] LABS: ABG Base Excess -12.2 MMOL/L (-2.5-2.5); ABG HCO3 13.1 MMOL/L (20-26); ABG Oxygen Saturation 98.5 % (95-100); ABG PCO2 29.1 MM HG (35-48); ABG PH 7.272 (7.35-7.45); ABG PO2 126.1 MM HG (80-95)
--- NOTE | 2016-08-29 21:23 | CT Report ---
Exam: CT scan of the brain with and without contrast Indication: Left-sided weakness Comparison: 04/10/2016 Patient's classification: Inpatient Technical: Images were obtained from the skull base to vertex with and without intravenous contrast 80 cc Omnipaque. Dose reduction was performed with decreasing kv and mA and automated exposure Total DLP 2023.2 Findings: The brainstem and cerebellum are unremarkable. The ventricles are located in normal position without midline shift or mass effect. The paranasal sinuses are unremarkable. Following contrast administration the vertebral arteries anterior cerebral middle cerebral arteries posterior cerebral arteries are otherwise intact. No contrast enhancing lesions are present. No obvious hemorrhage present. Minimal small vessel changes are present. Impression: 1. Minimal small vessel disease suspected in the periventricular subcortical white matter regions without acute hemorrhage infarction or mass effect. PROCEDURE INTERPRETED AT [facility] DEPARTMENT OF RADIOLOGY Final Report Signed by: Dr. Juice Molina
[2016-08-29] MEDS: DOCUSATE SODIUM 100 MG CAPSULE PO SCH (21:37)
[2016-08-29] MEDS: levETIRAcetam 500 MG TABLET PO SCH (21:37)
[2016-08-29] MEDS: ENOXAPARIN 40 MG/0.4 ML SYRINGE SUBCUT SCH (21:37)
[2016-08-29] MEDS: CARVEDILOL 12.5 MG TABLET PO SCH (21:37)
[2016-08-29] MEDS: LACOSAMIDE 50 MG TABLET PO SCH (21:37)
[2016-08-29] MEDS: amLODIPine 5 MG TABLET PO SCH (21:37)
[2016-08-29] MEDS: risperiDONE 0.5 MG TABLET PO SCH (21:37)
--- NOTE | 2016-08-30 04:44 | EKG Report ---
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
[2016-08-30 07:10] LABS: Risk Ratio 6.53
[2016-08-30] MEDS: risperiDONE 0.5 MG TABLET PO SCH ×2 (09:39→21:06)
[2016-08-30] MEDS: amLODIPine 5 MG TABLET PO SCH ×2 (09:39→21:05)
[2016-08-30] MEDS: CHOLECALCIFEROL 1,000 UNIT TABLET PO SCH (09:39)
[2016-08-30] MEDS: LACOSAMIDE 50 MG TABLET PO SCH ×2 (09:39→21:06)
[2016-08-30] MEDS: CARVEDILOL 12.5 MG TABLET PO SCH ×2 (09:39→21:05)
[2016-08-30] MEDS: ASPIRIN CHEW 81 MG TABLET PO SCH (09:39)
[2016-08-30] MEDS: PANTOPRAZOLE 40 MG TABLET PO SCH (09:39)
[2016-08-30] MEDS: levETIRAcetam 500 MG TABLET PO SCH ×2 (09:39→21:05)
[2016-08-30] MEDS: DOCUSATE SODIUM 100 MG CAPSULE PO SCH ×2 (09:39→21:05)
[2016-08-30] MEDS: NICOTINE 7 MG/24 HR PATCH TRANSDERM PRN (09:40)
--- NOTE | 2016-08-30 14:57 | Hospitalist Progress Note ---
Assessment and Plan - Time spent with patient Time spent with patient: Greater than 30 minutes (1) Metabolic acidosis Problem details: severe Status: Acute Assessment and plan: Metabolic acidosis with an anion gap. Etiology is not certain at this point no lactic acid was drawn in the ER. Will administer fluids. Current Visit: No (2) Dyspnea Status: Acute Assessment and plan: Patient had a previous echocardiogram done that was unremarkable. We will obtain a CT of the chest with PE protocol. Current Visit: Yes (3) Diabetes mellitus Status: Chronic Assessment and plan: Hemoglobin 6.9. This is technically best managed with the diet. We will continue to monitor. Current Visit: No Qualifiers: Diabetes mellitus type: type 2 Diabetes mellitus complication status: with kidney complications (4) Seizure Status: Acute Assessment and plan: Continue medications. Current Visit: Yes Hospitalist: Subjective Interval history: Patient complains of exertional dyspnea. Relatively poor historian and unable to ascertain if he has continued shortness of breath. He does have conversational dyspnea. Exam - Constitutional Vitals: Period Temp Pulse Resp BP Sys/Mishra Pulse Ox Last 24 Hr 97.5 F-98.1 F 61-79 18-22 104-179/61-110 95-99 General appearance: no acute distress, other (Conversational dyspnea.) - Head Head exam: Present: normocephalic, atraumatic - Eye Eye exam: Present: EOMI Pupils: Present: NAA - ENT ENT exam: Present: normal exam - Neck Neck exam: Present: normal inspection - Respiratory Respiratory exam: Present: clear to auscultation bilaterally. Absent: rhonchi, wheezes - Cardiovascular Cardiovascular exam: Present: regular rate and rhythm. Absent: gallop, rubs, systolic murmur - GI/Abdominal GI/Abdominal exam: Present: normal bowel sounds, soft. Absent: distended, firm , guarding, tenderness, rebound - Extremities Exam Extremities exam: Present: normal inspection. Absent: calf tenderness, edema Results - Labs CBC & BMP: 08/29/16 18:39 08/29/16 18:39 Lab Results: I have reviewed the past 24 hour labs
--- NOTE | 2016-08-30 15:59 | CT Report ---
CT chest PE study Indication: Shortness of breath. CT CHEST WITH CONTRAST, PE PROTOCOL DLP: 711 mGy*cm. One or more of the following dose reduction techniques was used: Automated exposure control, adjustment of the mA and/or kV according the patient size, or use of iterative reconstruction techniques. Comparison: 04/19/2016 Technique: Axial CT images of the chest were obtained during the pulmonary arterial phase of contrast injection. Coronal reconstructions were provided. Omnipaque 350, 80 cc. Findings: First study repeated due to poor contrast of the pulmonary artery. Second series of images is not much better for pulmonary artery enhancement. No central, lobar or segmental pulmonary artery filling defects are identified. Main pulmonary artery is normal in size. Normal heart size. Calcified nodes and granuloma within the both lungs, right hilar region and subcarinal space noted. No mediastinal, axillary or pathologic hilar lymphadenopathy. No infiltrates. Coarsened interstitial markings of both lungs noted throughout, improved from the previous study. No confluent areas of fibrosis shown. No pleural fluid. Deformity of the right sixth rib noted suggesting prior surgery. No destructive bone lesions. The upper abdomen, the gallbladder fossa contains some nonspecific material, possibly residual gallbladder. Previously, a percutaneous cholecystostomy was present. At the fundus the gallbladder fossa is an 18 mm fluid density structure, either a small biloma or seroma. The remainder of the upper abdomen is unremarkable. Impression: 1. No evidence of PE. 2. Diffusely coarsened interstitial markings of the lungs, somewhat nonspecific, but markedly improved since the CT from 04/19/2016. 3. Prior granulomatous disease. 4. Residual material in the gallbladder fossa and probable small biloma or seroma. PROCEDURE INTERPRETED AT [facility] DEPARTMENT OF RADIOLOGY Final Report Signed by: Cody Rivera M.D.
[2016-08-30] MEDS: SODIUM CHLORIDE 0.9% 1,000 ML IV SCH (18:20)
--- NOTE | 2016-08-30 18:31 | ECHO Report ---
Ilir Pace Exam Date: 08/30/2016 11:23 Referring Physician: Technologist: bennett Esquivel ARDMS, RVT Age: 50 Ht (in): 66 Wt (lb): 170 Gender: M Exam Location: [facility] Echo Indications: Metabolic alkalosis, Shortness of breath, GERD, Seizures, Essential (primary) hypertension, hx CVA BP: 107 / 63 HR: 71 Rhythm: Sinus Technical Quality: IMPRESSIONS 1. The left ventricle is normal size systolic function with it worse mild concentric left ventricular hypertrophy without significant diastolic dysfunction. The estimated ejection fraction is 60%. 2. Left atrium is normal size. 3. Right atrium and right ventricle are mildly dilated. 4. Valvular structures are overall unremarkable and within normal limits. MEASUREMENTS (Male / Female) Normal Values 2D ECHO LV Diastolic Diameter PLAX 4.5 cm 4.2 - 5.9 / 3.9 - 5.3 cm LV Systolic Diameter PLAX 3.0 cm LV Fractional Shortening PLAX 34.7 % IVS Diastolic Thickness 1.3 cm 0.6 - 1.0 / 0.6 - 0.9 cm LVPW Diastolic Thickness 1.3 cm 0.6 - 1.0 / 0.6 - 0.9 cm RV Internal Dim ED PLAX 4.0 cm Aortic Root Diameter 3.0 cm LA Systolic Diameter LX 3.6 cm 3.0 - 4.0 / 2.7 - 3.8 cm DOPPLER TR Peak Velocity 227.0 cm/s TR Peak Gradient 20.6 mmHg FINDINGS Left Ventricle Normal left ventricular cavity size. Mild left ventricular hypertrophy. Left ventricular ejection fraction is estimated at 60 %. Right Ventricle Mildly increased right ventricular size. Right Atrium The right atrium is mildly enlarged. Left Atrium The left atrium is normal in size. Mitral Valve Morphologically normal mitral valve. Trace mitral valve regurgitation. Aortic Valve Morphologically normal aortic valve without significant sclerosis or stenosis. There is no aortic regurgitation. Tricuspid Valve Morphologically normal tricuspid valve. Trace tricuspid valve regurgitation. Peak estimated PAP is 31 mmHg. Pulmonic Valve Morphologically normal pulmonic valve without significant stenosis. There is no pulmonic regurgitation. Pericardium Normal pericardium without effusion. Aorta Normal ascending aorta dimension. Cody Barlow MD (Electronically Signed) Final Date: 30 August 2016 18:11
[2016-08-30] MEDS: ENOXAPARIN 40 MG/0.4 ML SYRINGE SUBCUT SCH (21:07)
[2016-08-31 04:31] LABS: Basophils % 0.8 % (0.0-0.8); Eosinophils # 0.2 10*3/uL (0.0-0.87); Eosinophils % 5.7 % (0.00-10.9); Hematocrit 37.8 VOL% (42.0-52.0); Hemoglobin 13.1 GM/DL (14.0-18.0); Immature Granulocytes % 0.5 %; Immature Granulocytes Absolute 0.02 #; Lymphocytes # 1.5 10*3/uL (1.4-4.0); Mean Corpuscular HGB Conc 34.7 GM/DL (32-36); Mean Corpuscular Hemoglobin 31 PG (27-34); Mean Corpuscular Volume 88.1 FL (87-102); Mean Platelet Volume 9.3 FL (9.6-12.0); Monocytes # 0.5 10*3/uL (0.11-0.8); Monocytes % 12.1 % (1.7-12.7); Neutrophils # 1.6 10*3/uL (1.4-7.4); Neutrophils % 41.9 % (38.7-73.9); Platelet Count 171 T/CUMM (130-400); Red Blood Count 4.29 MC/CUMM (3.8-5.5); Red Cell Distribution Width 13.3 % (9.3-17.3); White Blood Count 3.9 T/CUMM (4-12)
[2016-08-31 05:03] LABS: Calcium 8.2 MG/DL (8.5-10.1); Osmolality,Calculated 290.8 MOS/KG (273-304); Potassium 3.2 MMOL/L (3.5-5.1)
[2016-08-31] MEDS: SODIUM CHLORIDE 0.9% 1,000 ML IV SCH (09:10)
[2016-08-31] MEDS: LACOSAMIDE 50 MG TABLET PO SCH (09:11)
[2016-08-31] MEDS: PANTOPRAZOLE 40 MG TABLET PO SCH (09:12)
[2016-08-31] MEDS: DOCUSATE SODIUM 100 MG CAPSULE PO SCH (09:12)
[2016-08-31] MEDS: CARVEDILOL 12.5 MG TABLET PO SCH (09:13)
[2016-08-31] MEDS: amLODIPine 5 MG TABLET PO SCH (09:13)
[2016-08-31] MEDS: levETIRAcetam 500 MG TABLET PO SCH (09:17)
[2016-08-31] MEDS: risperiDONE 0.5 MG TABLET PO SCH (09:17)
[2016-08-31] MEDS: CHOLECALCIFEROL 1,000 UNIT TABLET PO SCH (09:18)
[2016-08-31] MEDS: ASPIRIN CHEW 81 MG TABLET PO SCH (09:18)
[2016-08-31] MEDS: NICOTINE 7 MG/24 HR PATCH TRANSDERM PRN (09:19)
--- NOTE | 2016-08-31 12:44 | CT Report ---
CT cervical spine wo con Indication: Previous neck surgery. Neck pain. CT CERVICAL SPINE WITHOUT CONTRAST DLP: 338 mGy*cm. One or more of the following dose reduction techniques was used: Automated exposure control, adjustment of the mA and/or kV according the patient size, or use of iterative reconstruction techniques. Comparison: 10/12/2010 Technique: Axial noncontrast CT images of the cervical spine were obtained. Coronal and sagittal reconstructions were provided. Findings: Imaging modality of choice is MRI. 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 ACDF C3 to 4-5. No hardware failure or subsidence. Alignment is normal. Fused levels are stable in appearance the prior exam. 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 Endplate spondylitic changes of C5-6 and C6-7 present but mild. No acute fractures. Facet joint arthropathy C5-6 and C6-7 is present with mild. Impression: 1. MRI is imaging modality of choice. 2. 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 ACDF C3-4-5. No hardware failure or subsidence. 3. Minimal degenerative disc disease C5-6 and C6-7. No bony encroachment on the canal and no appreciable intervertebral foraminal stenosis. PROCEDURE INTERPRETED AT [facility] DEPARTMENT OF RADIOLOGY Final Report Signed by: Cody Rivera M.D.
--- NOTE | 2016-08-31 12:53 | Discharge Summary ---
Hospital Course - Hospital Course Hospital Course: Mr. Pace was admitted for evaluation of shortness of breath on exertion. He was initially hypertensive on admission and was administered amlodipine however his blood pressure dropped to 90s systolics at times. Patient had a CT of his chest with pulmonary embolism protocol in addition to an echocardiogram. CT chest revealed no evidence of pulmonary embolic disease and was in fact improved from his previous CT study. Echocardiogram was unremarkable. Patient complains of neck pain and had a CT of his neck which revealed prior surgery with no obvious complications. Patient's condition improved and by discharge she had met maximum benefit of hospitalization. I opted not to continue amlodipine at discharge. He will be prescribed Lipitor for his elevated LDL. Encouraged patient to follow-up with his primary care provider. I spent 40 minutes coordinating this discharge. - Time spent with patient Time with patient DS: Greater than 30 minutes Diagnosis - Discharge Diagnosis (1) Metabolic acidosis Status: Acute (2) Dyspnea Status: Acute (3) Diabetes mellitus Status: Chronic (4) Seizure Status: Acute Discharge Plan - Discharge Data Disposition: Disch To Home/Self Care Condition at Discharge: Stable Discharge Diet: advance to your usual diet Activity: resume usual activities as tolerated - Discharge Medications New Atorvastatin [Lipitor] 20 mg PO BEDTIME #30 tablet Continue Cholecalciferol (Vitamin D3) [Vitamin D3] 1,000 unit PO DAILY levETIRAcetam TAB [Keppra Tab] 500 mg PO BID Docusate Sodium 100 mg PO BID Pantoprazole Tab [Protonix Tab] 40 mg PO DAILY Lacosamide [Vimpat] 100 mg PO BID risperiDONE [Risperidone] 0.5 mg PO BID Carvedilol [Coreg] 12.5 mg PO BID - Follow Up or Referral - Forms/Instructions Exam - Constitutional Vitals: Period Temp Pulse Resp BP Sys/Mishra Pulse Ox Last 24 Hr 97.4 F-98.7 F 68-80 17-20 99-154/56-87 93-98 General appearance: normal weight, no acute distress - Head Head exam: Present: normal inspection, normocephalic, atraumatic - Eye Eye exam: Present: EOMI Pupils: Present: NAA - ENT ENT exam: Present: normal exam - Neck Neck exam: Present: normal inspection - Respiratory Respiratory exam: Present: clear to auscultation bilaterally. Absent: accessory muscle use, prolonged expiratory phase, wheezes - Cardiovascular Cardiovascular exam: Present: regular rate and rhythm. Absent: bradycardia, irregular rhythm, systolic murmur - GI/Abdominal GI/Abdominal exam: Present: normal bowel sounds. Absent: ascites, distended, hypoactive bowel sounds, tenderness - Extremities Exam Extremities exam: Present: normal inspection Discharge Results Labs on day of discharge: Labs from last 24 hours 08/31/16 08/31/16 04:13 04:13 WBC 3.9 L RBC 4.29 Hgb 13.1 L Hct 37.8 L MCV 88.1 MCH 31 MCHC 34.7 RDW 13.3 Plt Count 171 MPV 9.3 L Neut % (Auto) 41.9 Lymph % (Auto) 39.0 [place] % (Auto) 12.1 Eos % (Auto) 5.7 Baso % (Auto) 0.8 Neut # (Auto) 1.6 Lymph # (Auto) 1.5 [place] # (Auto) 0.5 Eos # (Auto) 0.2 Baso # (Auto) 0.0 Immature Gran % 0.5 Nucleated RBC % 0.0 Immature Gran # 0.02 Nucleated RBCs # 0.00 Sodium 144 Potassium 3.2 L Chloride 113 H Carbon Dioxide 20 L Anion Gap 14.2 BUN 10 Creatinine 1.20 GFR Calculation 76 BUN/Creatinine Ratio 8.00 Glucose 213 H Calculated Osmolality 290.8 Calcium 8.2 L DS: Provider Date of admission: 08/29/16 18:53 Primary care physician: Gricelda Rodas MD Attending physician on admission: Junior Centeno MD Discharging clinician: Liliana Paredes MD Expected date of discharge: 08/31/16
[2016-08-31 18:03] VITALS: BP 123/73
== END 2016-08-31 17:00 | disposition home health service (06) | DRG 425 ==
LOC: EDUNIT# → N.ED 18:28 → SUATTDRO 18:53 → N.EDINP 18:53 → N.4E 19:30
PROVIDERS: ADMIT Internal Medicine Infectious Disease; ATTEND Internal Medicine

== ENCOUNTER 2018-01-06 14:52 | Observation (INO) ==
[2018-01-06 16:01] LABS: Basophils % 0.6 % (0.0-0.8); Eosinophils # 1.2 10*3/uL (0.0-0.87); Eosinophils % 18.8 % (0.00-10.9); Hematocrit 41.8 VOL% (42.0-52.0); Hemoglobin 14.3 GM/DL (14.0-18.0); Immature Granulocytes % 0.5 %; Immature Granulocytes Absolute 0.03 #; Lymphocytes # 1.3 10*3/uL (1.4-4.0); Lymphocytes % 20.8 % (21.2-54.2); Mean Corpuscular HGB Conc 34.2 GM/DL (32-36); Mean Corpuscular Hemoglobin 31 PG (27-34); Mean Corpuscular Volume 90.9 FL (87-102); Mean Platelet Volume 9.6 FL (9.6-12.0); Monocytes # 0.6 10*3/uL (0.11-0.8); Monocytes % 9.6 % (1.7-12.7); Neutrophils # 3.2 10*3/uL (1.4-7.4); Neutrophils % 49.7 % (38.7-73.9); Platelet Count 178 T/CUMM (130-400); Red Cell Distribution Width 12.8 % (9.3-17.3); White Blood Count 6.3 T/CUMM (4-12)
[2018-01-06 16:08] LABS: PT Patient Result 10.7 SECS
[2018-01-06 16:15] LABS: Alanine Aminotransferase 25 U/L (16-61); Albumin 3.8 G/DL (3.4-5.0); Alkaline Phosphatase 86 U/L (45-117); Aspartate Amino Transferase 17 U/L (0-37); Blood Urea Nitrogen 16 MG/DL (7-18); Calcium 8.4 MG/DL (8.5-10.1); Glucose 198 MG/DL (74-106); Osmolality,Calculated 287.3 MOS/KG (273-304); Potassium 3.4 MMOL/L (3.5-5.1); Sodium 141 MMOL/L (136-145); Total Protein 7.1 G/DL (6.4-8.3)
[2018-01-06 16:35] LABS: Eosinophils 16 % (0-10); Lymphocytes 23 % (20-55); Segmented Neutrophils 55 % (50-85); Total Cells Counted 100
[2018-01-06 16:36] LABS: Platelet Estimate Adequate
[2018-01-06 16:42] LABS: Apearance,Urine CLEAR (Clear); Bilirubin,Urine Negative (Negative); Blood, Urine Negative (Negative); Glucose,Urine (UA) 150 mg/dL (Negative); Ketones,Urine Negative (Negative); Nitrite,Urine Negative (Negative); Protein,Urine Negative; Urine Color Yellow (Yellow); WBC,Urine <1 /HPF (0-6)
[2018-01-06] MEDS ORDERED: DEXTROSE 50% 25 GM/50 ML VIAL IV PRN (17:58)
[2018-01-06] MEDS ORDERED: LABETALOL 20 MG/4 ML SYRINGE IV PRN (17:58)
[2018-01-06] MEDS ORDERED: GLUCAGON 1 MG VIAL IM PRN (17:58)
[2018-01-06] MEDS ORDERED: ONDANSETRON 4 MG/2 ML VIAL IV PRN (17:58)
[2018-01-06] MEDS ORDERED: LORazepam 2 MG/1 ML VIAL IV PRN (18:04)
[2018-01-06] MEDS ORDERED: ALBUTEROL/IPRATROPIUM 3 ML NEB RESP TX PRN (18:06)
[2018-01-06] MEDS ORDERED: POTASSIUM CHLORIDE 20 MEQ TABLET PO STA (18:06)
[2018-01-06 19:24] LABS: Barbiturates Screen,Urine Negative (Negative); Benzodiazepines Screen,Urine Positive (Negative); Cannabinoid Screen,Urine Negative (Negative); Opiate Screen,Urine Negative (Negative); Phencyclidine Screen,Urine Negative (Negative)
[2018-01-06] MEDS: ALBUTEROL/IPRATROPIUM 3 ML NEB RESP TX SCH (20:00)
[2018-01-06] MEDS: ROSUVASTATIN 20 MG TABLET PO SCH (20:56)
[2018-01-06] MEDS: LACOSAMIDE 50 MG TABLET PO SCH (20:56)
[2018-01-06] MEDS: ENOXAPARIN 40 MG/0.4 ML SYRINGE SUBCUT SCH (20:56)
[2018-01-06] MEDS: DOCUSATE SODIUM 100 MG CAPSULE PO SCH (20:56)
[2018-01-06] MEDS ORDERED: levETIRAcetam 500 MG TABLET PO SCH (21:00)
[2018-01-06] MEDS: SODIUM CHLORIDE 0.9% 1,000 ML IV SCH (21:04)
[2018-01-06] MEDS: INSULIN REGULAR 100 UNIT/ML SUBCUT SCH (21:06)
[2018-01-07] MEDS: ALBUTEROL/IPRATROPIUM 3 ML NEB RESP TX SCH ×4 (00:33→19:55)
[2018-01-07 01:19] LABS: Basophils # 0.1 10*3/uL (0.0-0.2); Basophils % 0.7 % (0.0-0.8); Eosinophils # 1.2 10*3/uL (0.0-0.87); Eosinophils % 16.7 % (0.00-10.9); Hematocrit 42.2 VOL% (42.0-52.0); Hemoglobin 14.1 GM/DL (14.0-18.0); Immature Granulocytes % 0.6 %; Immature Granulocytes Absolute 0.04 #; Lymphocytes # 1.9 10*3/uL (1.4-4.0); Lymphocytes % 27.1 % (21.2-54.2); Mean Corpuscular HGB Conc 33.4 GM/DL (32-36); Mean Corpuscular Hemoglobin 30 PG (27-34); Mean Corpuscular Volume 90.8 FL (87-102); Mean Platelet Volume 9.6 FL (9.6-12.0); Monocytes # 0.6 10*3/uL (0.11-0.8); Monocytes % 8.5 % (1.7-12.7); Neutrophils # 3.2 10*3/uL (1.4-7.4); Neutrophils % 46.4 % (38.7-73.9); Platelet Count 181 T/CUMM (130-400); Red Blood Count 4.65 MC/CUMM (3.8-5.5); Red Cell Distribution Width 12.7 % (9.3-17.3); White Blood Count 6.9 T/CUMM (4-12)
[2018-01-07 01:47] LABS: Osmolality,Calculated 282.3 MOS/KG (273-304); Potassium 3.6 MMOL/L (3.5-5.1); Risk Ratio 3.9; VLDL CHOLESTEROL 20.4 MG/DL
[2018-01-07 02:28] LABS: Band Neutrophils 1 % (0-10); Eosinophils 15 % (0-10); Lymphocytes 24 % (20-55); Segmented Neutrophils 55 % (50-85); Total Cells Counted 100
[2018-01-07 02:29] LABS: Hypochromasia Slight; Platelet Estimate Adequate
[2018-01-07] MEDS: SODIUM CHLORIDE 0.9% 1,000 ML IV SCH ×2 (04:46→11:21)
[2018-01-07] MEDS: INSULIN REGULAR 100 UNIT/ML SUBCUT SCH ×4 (09:00→20:19)
[2018-01-07] MEDS: metFORMIN 500 MG TABLET PO SCH (09:10)
[2018-01-07] MEDS: PANTOPRAZOLE 40 MG TABLET PO SCH (09:11)
[2018-01-07] MEDS: CHOLECALCIFEROL 1,000 UNIT TABLET PO SCH (09:11)
[2018-01-07] MEDS: DOCUSATE SODIUM 100 MG CAPSULE PO SCH ×2 (09:11→20:19)
[2018-01-07] MEDS: ASPIRIN 325 MG TABLET PO SCH (09:11)
[2018-01-07] MEDS: levETIRAcetam 500 MG TABLET PO SCH ×2 (09:11→20:19)
[2018-01-07] MEDS: LACOSAMIDE 50 MG TABLET PO SCH ×2 (09:11→20:19)
[2018-01-07] MEDS ORDERED: SODIUM CHLORIDE 0.9% 1,000 ML IV SCH (17:30)
[2018-01-07 18:28] LABS: Basophils % 0.6 % (0.0-0.8); Eosinophils # 1.2 10*3/uL (0.0-0.87); Eosinophils % 17.3 % (0.00-10.9); Hematocrit 41.4 VOL% (42.0-52.0); Hemoglobin 13.8 GM/DL (14.0-18.0); Immature Granulocytes % 0.4 %; Immature Granulocytes Absolute 0.03 #; Lymphocytes # 1.4 10*3/uL (1.4-4.0); Lymphocytes % 21.2 % (21.2-54.2); Mean Corpuscular HGB Conc 33.3 GM/DL (32-36); Mean Corpuscular Hemoglobin 31 PG (27-34); Mean Corpuscular Volume 92.2 FL (87-102); Mean Platelet Volume 9.6 FL (9.6-12.0); Monocytes # 0.6 10*3/uL (0.11-0.8); Monocytes % 8.3 % (1.7-12.7); Neutrophils # 3.5 10*3/uL (1.4-7.4); Neutrophils % 52.2 % (38.7-73.9); Platelet Count 175 T/CUMM (130-400); Red Blood Count 4.49 MC/CUMM (3.8-5.5); Red Cell Distribution Width 12.8 % (9.3-17.3); White Blood Count 6.7 T/CUMM (4-12)
[2018-01-07 18:38] LABS: PT Patient Result 10.3 SECS; Partial Thromboplastin Time 29.4 SECS (0-40)
[2018-01-07 18:52] LABS: Eosinophils 18 % (0-10); Lymphocytes 22 % (20-55); Platelet Estimate Normal; Segmented Neutrophils 50 % (50-85); Total Cells Counted 100
[2018-01-07 19:07] LABS: Albumin 3.6 G/DL (3.4-5.0); Bilirubin,Total 0.4 MG/DL (0.2-1.0); Calcium 8.2 MG/DL (8.5-10.1); Osmolality,Calculated 284.1 MOS/KG (273-304); Potassium 3.7 MMOL/L (3.5-5.1); Total Protein 6.8 G/DL (6.4-8.3)
[2018-01-07] MEDS: ENOXAPARIN 40 MG/0.4 ML SYRINGE SUBCUT SCH (20:18)
[2018-01-07] MEDS: ROSUVASTATIN 20 MG TABLET PO SCH (20:19)
[2018-01-08] MEDS: ALBUTEROL/IPRATROPIUM 3 ML NEB RESP TX SCH ×2 (00:49→07:05)
[2018-01-08] MEDS: INSULIN REGULAR 100 UNIT/ML SUBCUT SCH (08:14)
[2018-01-08] MEDS: levETIRAcetam 500 MG TABLET PO SCH (08:15)
[2018-01-08] MEDS: DOCUSATE SODIUM 100 MG CAPSULE PO SCH (08:15)
[2018-01-08] MEDS: CHOLECALCIFEROL 1,000 UNIT TABLET PO SCH (08:15)
[2018-01-08] MEDS: LACOSAMIDE 50 MG TABLET PO SCH (08:15)
[2018-01-08] MEDS: PANTOPRAZOLE 40 MG TABLET PO SCH (08:15)
[2018-01-08] MEDS: ASPIRIN 325 MG TABLET PO SCH (08:15)
[2018-01-08] MEDS: metFORMIN 500 MG TABLET PO SCH (08:16)
[2018-01-08 08:50] VITALS: BP 134/91
== END 2018-01-08 11:40 | disposition home or self-care (01) ==
LOC: EDBD → EDUNIT# → N.EDINP 14:52 → N.ED 14:52 → N.5E 18:28
PROVIDERS: ADMIT Internal Medicine; ATTEND Internal Medicine